=== PATIENT | male | born 1945 | race Caucasian/White ===

== ENCOUNTER → 2016-03-22 | Outpatient (CLI) | payer MEDICARE, OTHER | LOC: RAD 09:25 | PROVIDERS: ATTEND Specialist | DX: C01 Malignant neoplasm of base of tongue (principal) | CPT/HCPCS: 70491 ==

== ENCOUNTER → 2016-06-30 | Outpatient (CLI) | payer MEDICARE, OTHER | LOC: RAD 09:05 | PROVIDERS: ATTEND Specialist | DX: C01 Malignant neoplasm of base of tongue (principal); R22.1 Localized swelling, mass and lump, neck | CPT/HCPCS: 70491 ==

== ENCOUNTER → 2016-07-06 | Outpatient (CLI) | payer MEDICARE, OTHER ==
--- NOTE | 2016-07-06 08:53 | ST Modified Barium Swallow ---
Recommendation - Recommendations Recommendations: 1) Pt is at risk of aspiration on all PO intake. Recommend continued primary nutrition from PEG tube. Pt may wish to complete PO pleasure feeds, likely safest diet puree and thin-no straws, however pt likely to aspirate after the swallow due to residuals in the valleculae. 2) Pt reports difficulty taking medications-ST recommends consider taking medication through PEG tube if able. 3) Aspiration precautions with any PO intake- fully upright, small bites and sips. 4) Alternate bites and sips and chin tuck with all consistencies. 5) Recommend outpatient speech therapy targeting pharyngeal strengthening. SUMMARY: Pt presents with a moderate-severe oral and oropharyngeal dysphagia characterized by decreased laryngeal elevation, reduced base of tongue, reduced hyolaryngeal elevation, impaired epiglottic inversion resulting in moderate residuals in valleculae and aspiration of thin by straw during the swallow. Weak throat clear observed during aspiration event. Pt endorses globus senstion with residuals in valleculae. Due to residuals in valleculae pt is at risk of aspiration after the swallow on all consistencies. Medical Diagnoses - Medical Diagnoses Medical Diagnosis Description & ICD-10 Code(s): Tongue CA C01, localized swelling, mass, lump-neck R22.1,dysphagia R13.10 Other Medical Diagnoses/Co-Morbidities: tongue CA, s/p chemo and radiation - ICD-10 Tx Diagnosis Coding (1) Dysphagia, oral phase ICD-10 Code(s): R13.11 - DYSPHAGIA, ORAL PHASE (2) Dysphagia, oropharyngeal phase ICD-10 Code(s): R13.12 - DYSPHAGIA, OROPHARYNGEAL PHASE (3) Dysphagia, pharyngeal phase ICD-10 Code(s): R13.13 - DYSPHAGIA, PHARYNGEAL PHASE ST Modified Barium Swallow - General Date: 07/06/16 Referring Physician: Dr Any Sheldon Risks/Precautions: None Date of Onset: 07/07/15 Reason for Referral: dysphagia, tongue CA - History History obtained from: Patient -: Medical - Pt reports s/p chemo and radiation in June 2015 due to tongue CA. Pt reports is reportedly currently CA free, however notes new mass on left side of jaw with associated pain and numbness. Pt reports swallowing deficits began after radiation. Pt currently has PEG tube placed for primary source of nutrition, reports was placed prior to chemo and radiation. Pt notes difficulty swallowing medication, dry mouth, globus sensation in upper neck, occasional cough with solids, reported no difficulty with thinliquids, and "saliva is too thick" and difficult to swallow solid foods. Pt reports most recent PNA was approximately 10 years ago, denies history of bronchitis and denies choking sensation. Pt reports currently only eating "soft foods" which appears consistent with pureed solids. Pt reports eating pudding, mashed potatoes, and mashed cooked vegetables. Pt reports recent CAT scan and has not recieved results, does report previous CAT scan showed CA free. Medications: baby aspirin, oxycodone, robitussin. Pt reports unable to name all medications. Allergies: none reported - Functional Status Prior Functional Status: INDEPENDENT: feeding Current Functional Limitations: feeding - Subjective Patient/caregiver goal(s): safe swallow, r/o aspiration Cognitive-Linguistic Function: WNL Speech Intelligibility: Mildly dysarthric, Reduced intelligibility Current Nutritional Means: PEG - primary source nutrition/hydration, PO - puree and thin Current PO diet: Pureed Current symptoms: Coughing, c/o Globus sensation Pain: 2/5 - left sided jaw pain - Objective Assessment: Upright, Left Lateral - Food Trials Used Food trials used: Thin liquids, Golden thick liquids, Pureed, Soft solids The patient: Was Able to Self Feed, via cup, via spoon, via straw - Oral-Motor Skills Dentition: Edentulous - reports does not wear dentures due to no longer fit in mouth Velo-pharyngeal function: Unremarkable Laryngeal Function: Throat Clear, Volitional Swallow, Weak Cough - Assessment Oral prep: Moderately Impaired - impaired propulsion, impaired bolus formation, impaired ROM Labial closure: Reduce closure Leakage: Anterior Mastication: Effortful Lingual Movement: Weak Oral stage: Moderately Impaired - Pharyngeal Stage Initiation of Pharyngeal Stage Reflex: Normal Decreased laryngeal elevation: Yes Reduced Velopharyngeal Closure: no Reduced pressure generation: Yes reduced tongue-based retraction: Yes Pre-swallow pooling in valleculae: None Pre-Swallow pooling in pyriforms: None Reduced Thyro-Hyoid approximation: Yes Reduced epiglottic excursion: Yes Reduced pharyngeal peristalsis/contraction: Yes Multiple Swallows with: Ineffective Clearance Post-swallow residulas vallecular: Moderate Post-Swallow residuals in pyriforms: Mild - trace - Fall Risk Assessment Medications/Conditions that increase fall risks include: Antidepressants, sedatives, anti-arrhythmic, diuretic, benzodiazipenes, neuroleptics. BP regulation problems, cardiac problems, balance or gait deficits, neurological problems. Is patient considered at risk for falls: no Fall Risk Actions Taken: No action needed - Behavioral Observations During evaluation process patient: was pleasant, was cooperative, able to answer questions, provided medical history - Treatment / Educational Needs: Treatment/Education Needs: Treatment consisted of patient education on the role of the Speech Pathologist. Patient's plan of care and golas were communicated as well as scheduling and attendance policies. Recommendations for initial home program were shared. Patient demonstrated understanding and verbalized agreement. - Impression/Summary Laryngeal Penetration: Yes, Flash Consistency: Thin Tracheal Aspiration: yes, deep, during swallow - observed throat clear Effective compensatory strategies: chin tuck - only partial clearance observed with chin tuck during swallow, chin tuck observed to reduce pentration. Ineffective compensatory strategies: head turn-right, head turn-left, hard swallow - pt reports can not swallow hard Patient presents with: Oral stage dysphagia, Pharyngeal stage dysph., Oral- Pharyngeal dysph. Risk of Aspiration: Severe - moderate-severe - Recommendations Strict aspiration precautions: Yes Pt/Family education and followup with MD: Yes Dysphagia therapy with EVENT OPERATIONS MANAGER: yes, dysphagia therapy Recommended techniques: Fully Upright During Meal, Small Bites and Sips, Alternate Bites/Sips, Chin Tuck to Swallow - all consistencies Supervision: Distant Information, Precautions and Recommendations: Patient (Written), Patient (Verbal ) - Time Total Time: 30 - Plan of Care Strategies to optimize patient understanding include:: ongoing assessment of educational needs, implementation of educational strategies, and re-education. - - -: Thank you for the opportunity to work with this patient and his/her family. Should you have any questions about this patient's plan or progress, I can be reached at [phone]. Charge G Code? - - -: Yes ST F.L. Impairment Category - Rationale Based On Rationale Based On: Clin Find., Obj Measures - Swallowing Current G8996: CM 80-99% Impaired Goal G8997: CM 80-99% Impaired Discharge G8998: CM 80-99% Impaired
== END ==
LOC: RAD 07:36
PROVIDERS: ATTEND Specialist
DX: C01 Malignant neoplasm of base of tongue (principal); R22.1 Localized swelling, mass and lump, neck; R13.10 Dysphagia, unspecified
CPT/HCPCS: 74230; 92611; G8996; G8997; G8998

== ENCOUNTER → 2016-08-06 | Outpatient (CLI) | payer MEDICARE, OTHER ==
--- NOTE | 2016-08-06 15:35 | RADIOLOGY REPORT (SQ) ---
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 All images stored on PACS. CONTRAST TYPE AND DOSE: 14 mL Prohance. RENAL FUNCTION: GFR > 60. LIMITATIONS: None. FINDINGS: SKULL BASE: Intact. Inferior brain parenchyma in the field of view is unremarkable. MAJOR SALIVARY GLANDS: No solid or cystic masses. No inflammatory changes. LYMPHADENOPATHY: No adenopathy. MUCOSAL MASSES OR ASYMMETRY: Tongue base mass is not identified. There is some fatty infiltration of the leftward half of the tongue unchanged from previous exams. LARYNX/CORDS: No abnormal findings. VASCULAR STRUCTURES: The major vessels are patent. LUNG APICES: Not well seen BONES: Multilevel degenerative disc changes in the cervical spine with multilevel facet arthropathy l eft greater than right and at least moderate left C4-5 through C6-7 foraminal narrowing. Posterior d isc herniation at C5-6, mild posterior disc bulge and bony spur at C6-7. THYROID: Diffuse atrophy. PARANASAL SINUSES: Clear. OTHER: No other significant finding. IMPRESSION: No MR evidence of recurrent left tongue base tumor or malignant adenopathy in the neck TECHNICAL DOCUMENTATION: JOB ID: [id number]- All Rights Reserved
== END ==
LOC: RAD 10:34
PROVIDERS: ATTEND Specialist
DX: C01 Malignant neoplasm of base of tongue (principal)
CPT/HCPCS: 70543; A9576

== ENCOUNTER 2017-03-01 14:47 | Day surgery (SDC) | payer MEDICARE, OTHER ==
--- NOTE | 2017-03-01 15:42 | Operative Report ---
Operative Report DATE OF SURGERY: 03/01/17 Operative Report: Pre-op diagnosis: Feeding difficulty and malfunctioning G-tube Post-op diagnosis: Feeding difficulty Surgery: G-tube replacement Medications: None Tissue removed: None Procedure: The old 20 Frisian gastrostomy tube was removed after the balloon was deflated. This was replaced with a 20 Frisian 4.5 cm low-profile tube. The balloon was inflated with 6 mm of fluid. There was good flow of gastric contents after the tube was replaced. He tolerated the procedure well Plan: Resume feeding OPERATION: .
== END 2017-03-01 15:25 | disposition home or self-care (01) ==
LOC: END 14:47
PROVIDERS: ATTEND Internal Medicine Gastroenterology
PROC: 0D20XUZ Change Feeding Device in Upper Intestinal Tract, External Approach (ICD-10-PCS; principal; 2017-03-01)
DX: K94.23 Gastrostomy malfunction (principal); R63.3 Feeding difficulties
CPT/HCPCS: 43760

== ENCOUNTER 2017-03-31 09:26 | Day surgery (SDC) | payer MEDICARE, OTHER ==
[2017-03-31] MEDS ORDERED: GLYCOPYRROLATE INJ 0.4 MG/2 ML VIAL ONE (10:35)
[2017-03-31] MEDS ORDERED: ONDANSETRON HCL INJ/PF 4 MG/2 ML SDV ONE (10:35)
[2017-03-31] MEDS ORDERED: NALOXONE HCL INJ/PF 0.4 MG/1 ML SDV ONE (10:36)
[2017-03-31] MEDS ORDERED: EPINEPHRINE INJ 1 MG/10 ML DISP.SYRIN ONE (10:37)
[2017-03-31] MEDS ORDERED: FLUMAZENIL INJ 0.5 MG/5 ML VIAL ONE (10:37)
[2017-03-31] MEDS ORDERED: GLUCAGON,HUMAN RECOMB 1 MG INJ ONE (10:37)
[2017-03-31] MEDS: MIDAZOLAM 2 MG/2 ML INJ ONE ×3 (10:40→11:10)
[2017-03-31] MEDS: FENTANYL CITRATE INJ/PF 100 MCG/2 ML AMPUL ONE ×2 (10:44→11:00)
--- NOTE | 2017-03-31 12:06 | Operative Report ---
Operative Report DATE OF SURGERY: 03/31/17 PREOPERATIVE DIAGNOSIS: 1. 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 2. Existing PEG tube. 3. Anemia with heme- positive stool POSTOPERATIVE DIAGNOSIS: 1. Same with no upper or lower endoscopic evidence of gastrointestinal bleeding. 2. Mild distal esophagitis. 3. Mild gastritis. 4. Descending colon polyp, sessile OPERATION: 1. Esophagogastroduodenoscopy. 2. Biopsy of gastric antrum for DANE and histologic analysis. 3. Total colonoscopy to cecum photodocumentation. 4 ascending colon polypectomy SURGEON: SAYRA LIAO ANESTHESIA: Moderate Sedation TISSUE REMOVED OR ALTERED: Biopsies COMPLICATIONS: None ESTIMATED BLOOD LOSS: Scan INTRAOPERATIVE FINDINGS: See below PROCEDURE: Patient was taken to the fifth floor preop area to the endoscopy suite was placed in semirecumbent position monitoring devices attached and appropriate level of sedation induced. Oral pharynx was anesthetized with topical lidocaine Surgical plan and surgical timeout conducted The flexible adult upper endoscope was advanced to the patient's oropharynx, down the esophagus through the stomach into the duodenum first and second portions. Patient tolerated procedure well. The duodenum was essentially unremarkable. Scope was brought back to the pylorus which was unremarkable. There is mild diffuse gastritis. Cold forceps biopsy obtained of the antrum and sent for DANE and histology. There was no evidence of bleeding, clot, tumor polyp or any evidence of gastrointestinal hemorrhage. Scope was retroflexed in the stomach. Small hiatal hernia only. Scope was brought back to the GE junction. There was mild clarity of the Z line. Mild esophagitis only. No biopsies were obtained. The scope was withdrawn to the esophagus which may have demonstrated early esophageal varix, but no dilatation, bleeding etc. Scope was withdrawn the patient's oropharynx. He was changed positions scope rotated and we proceeded with colonoscopy Rectal exam was performed. Posterior surface of prostate gland was enlarged. The surface posteriorly was smooth however. Her external hemorrhoids, collapsed. The flexible adult colonoscope was advanced to the anorectal canal all the way to cecum. Visualization of the appendiceal orifice was appreciated and photographed. This was a fairly well-prepped bowel. There was residual green flank and particulate stool which acquired a moderate amount of suctioning. In the ascending colon was a sessile polyp approximately 1 cm in diameter, very flat, photographed, biopsied in a piecemeal fashion. Bleeding was mild. Specimen sent as a sending colon polyp.. The remainder of the colonoscopy was unremarkable. Again we suctioned a fair amount of liquid and particulate stool. Anorectal canal is grossly unremarkable except for some dilated venous plexus. No vision from the patient' s anus. He tolerated procedure well. Per surveillance guidelines, patient be appropriate candidate for follow-up colonoscopy within 3 years, possibly sooner pending the results of the path of the polypectomy specimen. Of note, today, there was no endoscopic evidence of pathology to explain anemia or heme positive stools.
--- NOTE | 2017-03-31 12:08 | PDOC DISCHARGE SUMMARY ---
Discharge Summary (SDC) - Discharge Final Diagnosis: 1. History of squamous cell carcinoma of the tongue. 2. History of PEG tube placement 3. Mild gastritis and esophagitis; right colon polyp. Status post upper and lower endoscopy Date of Surgery: 03/31/17 Discharge Date: 03/31/17 Condition: Good Treatment or Instructions: [address] [id number] POST ENDOSCOPY DISCHARGE INSTRUCTIONS 1. Diet: Start clear liquids that a regular diet as tolerated. 2. Resume all preoperative medications. All oral anticoagulants and aspirins can be resumed 24 hours after procedure. 3. If a polypectomy was performed some bleeding per rectum may occur. This should stop within 3 days. If not, please contact the office. 4. If you had a colonoscopy you may experience some bloating and delayed return of normal bowel function for several days, your regular bowel movement pattern should resume within a week. 5. Please contact [facility] at to make an appointment with Dr. Jackson for 1 to 3 weeks following procedure. 6. If you have any questions or concerns regarding your care,treatment plan or follow up, please contact our office. 7. Per clinical guidelines we recommend you undergo a repeat colonoscopy in 3 years, or sooner pending pending results of ascending colon polyp pathology Discharge Diet: As Tolerated Discharge Activity: Activity As Tolerated Home Care Assistance: None Needed Report the Following to Your Physician Immediately: Shortness of Breath, Increase in Pain, Fever over 101 Degrees
[2017-03-31 13:03] VITALS: BP 118/72
== END 2017-03-31 13:05 | disposition home or self-care (01) ==
LOC: END 09:26
PROVIDERS: ATTEND Surgery
PROC: 0DB68ZX Excision of Stomach, Via Natural or Artificial Opening Endoscopic, Diagnostic (ICD-10-PCS; principal; 2017-03-31 11:45)
PROC: 0DBK8ZX Excision of Ascending Colon, Via Natural or Artificial Opening Endoscopic, Diagnostic (ICD-10-PCS; 2017-03-31 11:45)
DX: D12.4 Benign neoplasm of descending colon (principal); K29.80 Duodenitis without bleeding; K20.9 Esophagitis, unspecified; K29.70 Gastritis, unspecified, without bleeding; D64.9 Anemia, unspecified; K62.5 Hemorrhage of anus and rectum; Z85.810 Personal history of malignant neoplasm of tongue; Z93.1 Gastrostomy status; J44.9 Chronic obstructive pulmonary disease, unspecified; F17.210 Nicotine dependence, cigarettes, uncomplicated; Z79.82 Long term (current) use of aspirin
CPT/HCPCS: 43239; 45380; 88305 ×2; J2250; J0171; J3010; J1610; J2310; J2405; J3490

== ENCOUNTER 2018-07-13 15:37 | Inpatient (IN) | payer MEDICARE, OTHER ==
--- NOTE | 2018-07-13 15:56 | ER Document Report ---
ED Medical Screen (RME) - General Chief Complaint: Shortness Of Breath Stated Complaint: ABDOMINAL PAIN Time Seen by Provider: 07/13/18 15:45 TRAVEL OUTSIDE OF THE [place] IN LAST 30 DAYS: No - HPI Notes: 07/13/18 16:04 Patient is a 72-year-old male with a history of head and neck cancer currently in remission, for vascular disease, COPD who presents the emergency department from outpatient radiology for abnormal finding on chest x-ray. Patient states that he has been having shortness of breath for the past 3 to 4 days. Denies PATRICIA, fever, neck pain, URI, Abd pain, or rash. I have treated and performed a rapid initial assessment of this patient. A comprehensive ED assessment and evaluation of the patient, analysis of test results and completion of medical decision making process will be conducted by additional ED providers. I did speak with Dr. Shane, radiology, who would like a chest CT with IV to further evaluate, ?pneumonia/cancer, etc. PHYSICAL EXAMINATION: GENERAL: Well-appearing, well-nourished and in no acute distress. A&Ox4. Answers questions appropriately. LUNGS: diminished rt lung HEART: Regular rate and rhythm without murmurs, rubs, gallops. Extremities: No cyanosis, clubbing, or edema b/l. NEUROLOGICAL: Normal speech, normal gait. PSYCH: Normal mood, normal affect. - Related Data Allergies/Adverse Reactions: No Known Allergies Allergy (Verified 07/13/18 15:40) Past Medical History - Social History Chew tobacco use (# tins/day): No Frequency of alcohol use: None Drug Abuse: None - Past Medical History Cardiac Medical History: Denies: Hx Coronary Artery Disease, Hx Heart Attack, Hx Hypertension Pulmonary Medical History: Reports: Hx COPD, Hx Pneumonia - hx of Denies: Hx Asthma, Hx Bronchitis Neurological Medical History: Denies: Hx Cerebrovascular Accident, Hx Seizures Renal/ Medical History: Denies: Hx Peritoneal Dialysis GI Medical History: Denies: Hx Hepatitis, Hx Hiatal Hernia, Hx Ulcer Musculoskeltal Medical History: Reports Hx Arthritis Infectious Medical History: Denies: Hx Hepatitis Past Surgical History: Reports: Hx Vascular Surgery - stent. Denies: Hx Open Heart Surgery, Hx Pacemaker - Immunizations Hx Diphtheria, Pertussis, Tetanus Vaccination: No Influenza Administration Date for 12/2016 - 05/2017 Season: 12/13/16 Physical Exam - Vital signs Vitals: Temp Pulse Resp BP Pulse Ox 97.9 F 104 H 20 142/80 H 96 07/13/18 15:42 07/13/18 15:42 07/13/18 15:42 07/13/18 15:42 07/13/18 15:42 Course - Vital Signs Vital signs: Temp Pulse Resp BP Pulse Ox 97.9 F 104 H 20 142/80 H 96 07/13/18 15:42 07/13/18 15:42 07/13/18 15:42 07/13/18 15:42 07/13/18 15:42
[2018-07-13 16:58] LABS: VENOUS BLOOD HCO3 27.4 mmol/L (20-32); VENOUS BLOOD PCO2 45.2 mmHg (35-63); VENOUS BLOOD PH 7.4 (7.30-7.42)
[2018-07-13 17:02] LABS: HEMATOCRIT 43.3 % (37.9-51.0); HEMOGLOBIN 14.2 g/dL (13.5-17.0); INTERNATIONAL RATION (INR) 0.94; MEAN CORPUSCULAR HGB CONC 32.9 g/dL (32.0-36.0); MEAN CORPUSCULAR VOLUME 88 fl (80-97); PLATELET COUNT 388 10^3/uL (150-450); PROTHROMBIN TIME 13.1 SEC (11.4-15.4); RED BLOOD COUNT 4.92 10^6/uL (4.35-5.55); RED CELL DISTRIBUTION WIDTH 14.2 % (11.5-14.0)
[2018-07-13 17:03] LABS: PARTIAL THROMBOPLASTIN TIME 36.2 SEC (23.5-35.8)
[2018-07-13 17:08] LABS: APPEARANCE,URINE CLEAR; BILIRUBIN,URINE NEGATIVE (NEGATIVE); COLOR,URINE YELLOW; GLUCOSE, URINE NEGATIVE (NEGATIVE); KETONES,URINE NEGATIVE (NEGATIVE); LEUKOCYTE ESTERASE,URINE NEGATIVE (NEGATIVE); NITRITE,URINE NEGATIVE (NEGATIVE); PROTEIN,URINE NEGATIVE (NEGATIVE); URINE SPECIFIC GRAVITY 1.013; UROBILINOGEN,URINE NEGATIVE mg/dL (<2.0)
[2018-07-13 17:17] LABS: ALANINE AMINOTRANSFERASE 18 U/L (21-72); ALBUMIN 4.3 g/dL (3.5-5.0); ALKALINE PHOSPHATASE 100 U/L (38-126); ANION GAP 14 (5-19); ASPARTATE AMINO TRANSFERASE 23 U/L (17-59); BILIRUBIN,DIRECT 0.3 mg/dL (0.0-0.4); BILIRUBIN,TOTAL 0.5 mg/dL (0.2-1.3); BLOOD UREA NITROGEN 18 mg/dL (7-20); CALCIUM 10.4 mg/dL (8.4-10.2); CARBON DIOXIDE 23 mmol/L (22-30); CHLORIDE 104 mmol/L (98-107); GLUCOSE 126 mg/dL (75-110); POTASSIUM 4.8 mmol/L (3.6-5.0); SODIUM 141.2 mmol/L (137-145); TOTAL PROTEIN 7.7 g/dL (6.3-8.2)
[2018-07-13 17:19] LABS: ABSOLUTE LYMPHOCYTES# (MANUAL) 0.6 10^3/uL (0.5-4.7); ABSOLUTE MONOCYTES # (MANUAL) 0.5 10^3/uL (0.1-1.4); BASOPHILS % (MANUAL) 0 % (0-2); EOSINOPHILS % (MANUAL) 0 % (0-6); LYMPHOCYTES % (MANUAL) 4 % (13-45); MONOCYTES % (MANUAL) 3 % (3-13); SEGMENTED NEUTROPHILS % (MAN) 93 % (42-78); TOTAL CELLS COUNTED 100
[2018-07-13 17:21] LABS: ANISOCYTOSIS SLIGHT; PLATELET COMMENT ADEQUATE; TOXIC GRANULATION SLIGHT
--- NOTE | 2018-07-13 18:18 | RADIOLOGY REPORT (SQ) ---
EXAM DESCRIPTION: CT CHEST WITH COMPLETED DATE/TIME: 07/13/2018 6:02 pm REASON FOR STUDY: EVAL RT LUNG, H/O HEAD/NECK CA, C/O SOB COMPARISON: None. TECHNIQUE: CT scan of the chest performed using helical scanning technique with dynamic intravenous contrast injection. Images reviewed with lung, soft tissue and bone windows. Reconstructed coronal and sagittal MPR and MIP images reviewed. All images stored on PACS. All CT scanners at this facility use dose modulation, iterative reconstruction, and/or weight based d osing when appropriate to reduce radiation dose to as low as reasonably achievable (ALARA). [facility]: Dose Right [facility]: CareDose [facility]: Dose Right [facility]: Teradose 4D [facility]: Treatful CONTRAST TYPE AND DOSE: contrast/concentration: Isovue 350.00 mg/ml; Total Contrast Delivered: 80.0 ml; Total Saline Delivered: 44.0 ml RENAL FUNCTION: BUN 18 creatinine 0.58 RADIATION DOSE: CT Rad equipment meets quality standard of care and radiation dose reduction techniq ues were employed. CTDIvol: 6.5 mGy. DLP: 309 mGy-cm. . LIMITATIONS: None. FINDINGS: LUNGS AND PLEURA: Moderate loculated pleural effusion on the right. Cannot exclude an emp yema. 2 subpleural nodules of about 1 cm size are present on images 32-34. Centrilobular emphysemat ous changes are present. Dense opacification in the right lower lobe. There are some air bronchogra ms. HILAR AND MEDIASTINAL STRUCTURES: A pretracheal node has a short axis diameter of 19.5 mm. HEART AND VASCULAR STRUCTURES: No aneurysm or dissection. No central pulmonary emboli. No pericardi al effusion. HARDWARE: None in the chest. UPPER ABDOMEN: No significant findings. Limited exam. THYROID AND OTHER SOFT TISSUES: No masses. No adenopathy. BONES: No significant finding. OTHER: No other significant finding. IMPRESSION: 1. Loculated right pleural effusion. Possible empyema. Dense airspace disease in the right lower lobe, atelectasis versus pneumonia. 2. Centrilobular emphysema. 3. 2 subpleural nodules are seen in the right lung, cannot exclude metastases. 4. Limited mediastinal adenopathy. TECHNICAL DOCUMENTATION: JOB ID: [id number] Quality ID # [id number]: Final reports with documentation of one or more dose reduction techniques (e.g., Au tomated exposure control, adjustment of the mA and/or kV according to patient size, use of iterative reconstruction technique) 2010 [employer]- All Rights Reserved Reading location - IP/workstation name: [email or web address]
[2018-07-13] MEDS ORDERED: CEFTRIAXONE INJ 1000 MG VIAL IV ONE (18:31)
[2018-07-13] MEDS ORDERED: AZITHROMYCIN INJ 500 MG VIAL IV ONE (18:32)
--- NOTE | 2018-07-13 19:09 | ER Document Report ---
ED General - General Chief Complaint: Shortness Of Breath Stated Complaint: ABDOMINAL PAIN Time Seen by Provider: 07/13/18 15:45 TRAVEL OUTSIDE OF THE [place] IN LAST 30 DAYS: No - HPI Notes: Patient is a 72-year-old male that presents to the emergency department for chief complaint of shortness of breath and cough. Patient reports increased shortness of breath and cough over the last 3 to 4 days. He saw his primary care provider yesterday who started him on an antibiotic which he does not know the name of. They ordered an outpatient x-ray which he had done today and was told to come to the emergency room for CT scan of the chest. Patient reports associated chills and shortness of breath with his cough. Shortness of breath is worse with any kind of exertion. He denies any known fevers. 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 He does report history of COPD and believes he was started on prednisone yesterday. He has been using his breathing treatments at home as directed. He denies any associated chest pain, nausea/vomiting, abdominal pain, headaches and numbness/weakness Past Medical History: Salivary gland cancer, peripheral vascular disease, COPD Past Surgical History: Reviewed in chart Social History: Reviewed in chart Family History: Reviewed and noncontributory for presenting illness Allergies: Reviewed, see documented allergy list. REVIEW OF SYSTEMS: CONSTITUTIONAL : No fever chills No diaphoresis No recent illness EENT: No vision changes congestion No sore throat CARDIOVASCULAR: No chest pain No palpitations RESPIRATORY: shortness of breath cough No difficulty breathing GASTROINTESTINAL: No abdominal pain No nausea No vomiting No diarrhea GENITOURINARY: No dysuria No hematuria No difficulty urinating MUSCULOSKELETAL: No back pain No leg pain No arm pain SKIN: No rashes No lesions LYMPHATIC: No swollen, enlarged glands. NEUROLOGICAL: No lightheadedness No headache No weakness No paresthesias PSYCHIATRIC: No anxiety No depression PHYSICAL EXAMINATION: Vital signs reviewed, nursing noted reviewed. GENERAL: Well-appearing, well-nourished and in no acute distress. HEAD: Atraumatic, normocephalic. EYES: Eyes appear normal, extraocular movements intact, sclera anicteric, conjunctiva are normal. ENT: nares patent, oropharynx clear without exudates. Moist mucous membranes. NECK: Normal range of motion, supple without lymphadenopathy LUNGS: Breath sounds diminished in the right basilar region. No wheezing, rhonchi or rails, no accessory muscle use or respiratory distress HEART: Tachycardic rate and regular rhythm without murmurs ABDOMEN: Soft, nontender, normoactive bowel sounds. No rebound, guarding, or rigidity. No masses appreciated. EXTREMITIES: Nontender, good range of motion, no pitting or edema. NEUROLOGICAL: No focal neurological deficits. Moves all extremities spontaneously Motor and sensory grossly intact on exam. PSYCH: Normal mood, normal affect. SKIN: Warm, Dry, normal turgor, no rashes or lesions noted on exposed skin - Related Data Allergies/Adverse Reactions: No Known Allergies Allergy (Verified 07/13/18 15:40) Past Medical History - Social History Smoking Status: Former Smoker Chew tobacco use (# tins/day): No Frequency of alcohol use: None Drug Abuse: None Family History: Reviewed & Not Pertinent Patient has suicidal ideation: No Patient has homicidal ideation: No - Past Medical History Cardiac Medical History: Denies: Hx Coronary Artery Disease, Hx Heart Attack, Hx Hypertension Pulmonary Medical History: Reports: Hx COPD, Hx Pneumonia - hx of Denies: Hx Asthma, Hx Bronchitis Neurological Medical History: Denies: Hx Cerebrovascular Accident, Hx Seizures Renal/ Medical History: Denies: Hx Peritoneal Dialysis GI Medical History: Denies: Hx Hepatitis, Hx Hiatal Hernia, Hx Ulcer Musculoskeletal Medical History: Reports Hx Arthritis Infectious Medical History: Denies: Hx Hepatitis Past Surgical History: Reports: Hx Vascular Surgery - stent. Denies: Hx Open Heart Surgery, Hx Pacemaker - Immunizations Hx Diphtheria, Pertussis, Tetanus Vaccination: No Hx Pneumococcal Vaccination: 03/14/13 Physical Exam - Vital signs Vitals: Temp Pulse Resp BP Pulse Ox 97.9 F 104 H 20 142/80 H 96 07/13/18 15:42 07/13/18 15:42 07/13/18 15:42 07/13/18 15:42 07/13/18 15:42 Course - Re-evaluation Re-evalutation: 07/13/18 19:07 Vitals reviewed. Nursing notes reviewed. Patient's oxygen saturation at presentation was good but during my conversation with him he did drop to 89% on room air. Patient was placed on 2 L nasal cannula oxygen. CT scan of the chest was obtained in the emergency room today which shows a likely right basilar pneumonia with surrounding empyema. There are also concerning lesions for metastasis. Patient's blood work does show elevated WBC count with no lactic acidosis. He is meeting sepsis criteria and was started on IV antibiotics. Blood cultures have been obtained. Patient given IV fluids. He will be admitted to the hospital for IV antibiotics and further monitoring. Patient is in agreement with this plan of care. Laboratory 07/13/18 07/13/18 07/13/18 16:15 16:15 16:15 WBC 15.0 H RBC 4.92 Hgb 14.2 Hct 43.3 MCV 88 MCH 29.0 MCHC 32.9 RDW 14.2 H Plt Count 388 Total Counted 100 Seg Neutrophils % Not Reportable Seg Neuts % (Manual) 93 H Lymphocytes % Not Reportable Lymphocytes % (Manual) 4 L Monocytes % Not Reportable Monocytes % (Manual) 3 Eosinophils % Not Reportable Eosinophils % (Manual) 0 Basophils % Not Reportable Basophils % (Manual) 0 Absolute Neutrophils Not Reportable Abs Neuts (Manual) 14.0 H Absolute Lymphocytes Not Reportable Abs Lymphs (Manual) 0.6 Absolute Monocytes Not Reportable Abs Monocytes (Manual) 0.5 Absolute Eosinophils Not Reportable Absolute Eos (Manual) 0.0 Absolute Basophils Not Reportable Abs Basophils (Manual) 0.0 Toxic Granulation SLIGHT Platelet Comment ADEQUATE Anisocytosis SLIGHT PT INR APTT VBG pH VBG pCO2 VBG HCO3 VBG Base Excess Sodium 141.2 Potassium 4.8 Chloride 104 Carbon Dioxide 23 Anion Gap 14 BUN 18 Creatinine 0.58 Est GFR ( Amer) > 60 Est GFR (Non-Af Amer) > 60 Glucose 126 H Lactic Acid Calcium 10.4 H Total Bilirubin 0.5 Direct Bilirubin 0.3 Neonat Total Bilirubin Not Reportable Neonat Direct Bilirubin Not Reportable Neonat Indirect Bili Not Reportable AST 23 ALT 18 L Alkaline Phosphatase 100 NT-Pro-B Natriuret Pep 347 Total Protein 7.7 Albumin 4.3 Urine Color Urine Appearance Urine pH Ur Specific [place] Urine Protein Urine Glucose (UA) Urine Ketones Urine Blood Urine Nitrite Urine Bilirubin Urine Urobilinogen Ur Leukocyte Esterase Urine WBC (Auto) Urine RBC (Auto) Urine Bacteria (Auto) Squamous Epi Cells Auto Urine Mucus (Auto) Urine Ascorbic Acid 07/13/18 07/13/18 07/13/18 16:15 16:15 16:15 WBC RBC Hgb Hct MCV MCH MCHC RDW Plt Count Total Counted Seg Neutrophils % Seg Neuts % (Manual) Lymphocytes % Lymphocytes % (Manual) Monocytes % Monocytes % (Manual) Eosinophils % Eosinophils % (Manual) Basophils % Basophils % (Manual) Absolute Neutrophils Abs Neuts (Manual) Absolute Lymphocytes Abs Lymphs (Manual) Absolute Monocytes Abs Monocytes (Manual) Absolute Eosinophils Absolute Eos (Manual) Absolute Basophils Abs Basophils (Manual) Toxic Granulation Platelet Comment Anisocytosis PT 13.1 INR 0.94 APTT 36.2 H VBG pH 7.40 VBG pCO2 45.2 VBG HCO3 27.4 VBG Base Excess 2.0 Sodium Potassium Chloride Carbon Dioxide Anion Gap BUN Creatinine Est GFR ( Amer) Est GFR (Non-Af Amer) Glucose Lactic Acid 1.8 Calcium Total Bilirubin Direct Bilirubin Neonat Total Bilirubin Neonat Direct Bilirubin Neonat Indirect Bili AST ALT Alkaline Phosphatase NT-Pro-B Natriuret Pep Total Protein Albumin Urine Color Urine Appearance Urine pH Ur Specific [place] Urine Protein Urine Glucose (UA) Urine Ketones Urine Blood Urine Nitrite Urine Bilirubin Urine Urobilinogen Ur Leukocyte Esterase Urine WBC (Auto) Urine RBC (Auto) Urine Bacteria (Auto) Squamous Epi Cells Auto Urine Mucus (Auto) Urine Ascorbic Acid 07/13/18 16:15 WBC RBC Hgb Hct MCV MCH MCHC RDW Plt Count Total Counted Seg Neutrophils % Seg Neuts % (Manual) Lymphocytes % Lymphocytes % (Manual) Monocytes % Monocytes % (Manual) Eosinophils % Eosinophils % (Manual) Basophils % Basophils % (Manual) Absolute Neutrophils Abs Neuts (Manual) Absolute Lymphocytes Abs Lymphs (Manual) Absolute Monocytes Abs Monocytes (Manual) Absolute Eosinophils Absolute Eos (Manual) Absolute Basophils Abs Basophils (Manual) Toxic Granulation Platelet Comment Anisocytosis PT INR APTT VBG pH VBG pCO2 VBG HCO3 VBG Base Excess Sodium Potassium Chloride Carbon Dioxide Anion Gap BUN Creatinine Est GFR ( Amer) Est GFR (Non-Af Amer) Glucose Lactic Acid Calcium Total Bilirubin Direct Bilirubin Neonat Total Bilirubin Neonat Direct Bilirubin Neonat Indirect Bili AST ALT Alkaline Phosphatase NT-Pro-B Natriuret Pep Total Protein Albumin Urine Color YELLOW Urine Appearance CLEAR Urine pH 8.0 Ur Specific [place] 1.013 Urine Protein NEGATIVE Urine Glucose (UA) NEGATIVE Urine Ketones NEGATIVE Urine Blood NEGATIVE Urine Nitrite NEGATIVE Urine Bilirubin NEGATIVE Urine Urobilinogen NEGATIVE Ur Leukocyte Esterase NEGATIVE Urine WBC (Auto) 1 Urine RBC (Auto) 1 Urine Bacteria (Auto) TRACE Squamous Epi Cells Auto <1 Urine Mucus (Auto) RARE Urine Ascorbic Acid 20 H 07/13/18 19:55 Patient's care discussed with Dr. Merritt who has accepted admission to a medical bed. - Vital Signs Vital signs: Temp Pulse Resp BP Pulse Ox 97.8 F 104 H 27 H 126/82 H 91 L 07/13/18 19:01 07/13/18 15:42 07/13/18 19:01 07/13/18 19:01 07/13/18 19:01 - Laboratory Result Diagrams: 07/13/18 16:15 07/13/18 16:15 Laboratory results interpreted by me: 07/13/18 07/13/18 07/13/18 16:15 16:15 16:15 WBC 15.0 H RDW 14.2 H Seg Neuts % (Manual) 93 H Lymphocytes % (Manual) 4 L Abs Neuts (Manual) 14.0 H APTT 36.2 H Glucose 126 H Calcium 10.4 H ALT 18 L Urine Ascorbic Acid 07/13/18 16:15 WBC RDW Seg Neuts % (Manual) Lymphocytes % (Manual) Abs Neuts (Manual) APTT Glucose Calcium ALT Urine Ascorbic Acid 20 H Discharge - Discharge Clinical Impression: Pleural effusion, right, Hypoxia, Lung mass Community acquired pneumonia Qualifiers: Laterality: right Lung location: lower lobe of lung Qualified Code(s): J18.1 - Lobar pneumonia, unspecified organism Condition: Stable Disposition: ADMITTED INPATIENT Admitting Provider: Shaina (Hospitalist) Unit Admitted: Medical Floor
[2018-07-13] MEDS ORDERED: RINGERS SOLUTION,LACTATED 1,000 ML IV ONE (19:14)
[2018-07-13] MEDS ORDERED: MAGNESIUM HYDROXIDE SUSP 30 ML UDCUP PO PRN (20:54)
[2018-07-13] MEDS ORDERED: TEMAZEPAM 15 MG CAPSULE PO PRN (20:54)
[2018-07-13] MEDS ORDERED: ONDANSETRON HCL INJ/PF 4 MG/2 ML SDV IV PRN (20:54)
[2018-07-13] MEDS ORDERED: MAG HYDROX/AL HYDROX/SIMETH SUSP 30 ML UDCUP PO PRN (20:54)
[2018-07-13] MEDS ORDERED: ACETAMINOPHEN 325 MG TABLET PO PRN (20:59)
[2018-07-13] MEDS ORDERED: NICOTINE 21 MG/24 HR PATCH.TD24 TD PRN (20:59)
[2018-07-13] MEDS ORDERED: MORPHINE SULFATE 10 MG/ML INJ IV PRN ×4 (20:59→21:30)
[2018-07-13] MEDS ORDERED: GABAPENTIN 300 MG CAPSULE PO SCH (22:00)
[2018-07-13] MEDS ORDERED: FAMOTIDINE 20 MG TABLET PO SCH (22:00)
[2018-07-13] MEDS: HEPARIN SOD (PORCINE) 5,000 UNIT/ML 1 ML SYRINGE SUBCUT SCH (23:00)
[2018-07-13] MEDS ORDERED: MAG HYDROX/AL HYDROX/SIMETH SUSP 30 ML UDCUP PEG PRN (23:10)
[2018-07-13] MEDS ORDERED: ACETAMINOPHEN 325 MG TABLET PEG PRN (23:10)
[2018-07-13] MEDS ORDERED: MAGNESIUM HYDROXIDE SUSP 30 ML UDCUP PEG PRN (23:10)
--- NOTE | 2018-07-13 23:24 | EKG REPORT ---
SEVERITY:- ABNORMAL ECG - SINUS RHYTHM CONSIDER ANTEROSEPTAL INFARCT : Confirmed by: Anuradha Fox 13-Jul-2018 23:22:57
--- NOTE | 2018-07-13 23:25 | PDOC H&P ---
History of Present Illness Admission Date/PCP: 07/13/18 20:11 JACKY CHOPRA MD Patient complains of: Dyspnea History of Present Illness: FELIPE PIERRE is a 72 year old male who presented to the emergency room with a 2-week history of dyspnea. He admits mildly increased dyspnea for the last 2 weeks with progressive worsening over the last 4 days. His dyspnea was at first present just with exertion but has continued to be worsened substantially by exertion and persisted at a moderate to severe level even at rest. He further admits that his dyspnea has been accompanied by subjective fever and chills and a nonproductive cough. He admits similar prior episodes secondary to his COPD. He has not identified any other aggravating or ameliorating factors for his current episode of dyspnea. He was seen by his primary care provider who started him on prednisone yesterday and he has been using home breathing treatments without significant improvement. He had a chest x-ray performed on outpatient basis earlier today which showed abnormalities and resulted in his receiving a CAT scan of his chest which showed possible metastatic lesions and a small loculated right pleural effusion in his chest as well as demonstrating a right lower lobe pneumonia. In the emergency room he was found to have hypoxic respiratory failure, an elevated white count and moderate tachypnea. Patient was subsequently admitted hospital for further evaluation and treatment. Past Medical History Cardiac Medical History: Reports: Peripheral Vascular Disease Denies: Coronary Artery Disease, Myocardial Infarction, Hypertension Pulmonary Medical History: Reports: Chronic Obstructive Pulmonary Disease (COPD), Pneumonia - hx of Denies: Asthma, Bronchitis EENT Medical History: Reports: Throat - Dysphagia since radiation, requiring PEG tube feedings, chronic dry mouth, Other - Salivary gland cancer Denies: Cataracts Neurological Medical History: Denies: Hemorrhagic CVA, Ischemic CVA, Seizures Endocrine Medical History: Denies: Diabetes Mellitus Type 1, Diabetes Mellitus Type 2, Hyperthyroidism, Hypothyroidism, Obesity Renal/ Medical History: Denies: Chronic Kidney Disease, Nephrolithiasis Malignancy Medical History: Reports: Other - Salivary gland cancer GI Medical History: Denies: Cirrhosis, Hepatitis, Hiatal Hernia Musculoskeltal Medical History: Reports: Arthritis Denies: Gout Skin Medical History: Denies: Eczema, Psoriasis Psychiatric Medical History: Reports: Tobacco Dependency Denies: Alcohol Dependency, Substance Abuse Traumatic Medical History: Reports: None Hematology: Denies: Anemia, Bleeding Tendencies Infectious Medical History: Reports: None Past Surgical History Past Surgical History: Reports: Vascular Surgery - Right ileal to left femoral graft and right femoral stent, Other - Endoscopy with placement of PEG tube Social History Information Source: Patient Lives with: Spouse/Significant other Smoking Status: Former Smoker Frequency of Alcohol Use: Rare Hx Recreational Drug Use: No Drugs: None Hx Prescription Drug Abuse: No - Advance Directive Resuscitation Status: Full Code Surrogate healthcare decision maker:: Sourav Pierre Family History Family History: CAD, COPD, DM, Hypertension, Malignancy Parental Family History Reviewed: Yes Children Family History Reviewed: No Sibling(s) Family History Reviewed.: Yes Medication/Allergy Home Medications: Gabapentin 300 mg PO Q12 03/29/17 Azithromycin [Zithromax Tri-[place]ber[place]] 500 mg PO DAILY MDD FILLED 07/12 FOR 3 DAY SUPPLY 07/13/18 Clopidogrel Bisulfate [Plavix 75 mg Tablet] 75 mg PO DAILY 07/13/18 Oxycodone HCl [Oxycodone HCl 10 MG Tablet] 10 mg PO Q6HP PRN 07/13/18 Pilocarpine HCl [Salagen] 5 mg PO TID 07/13/18 Prednisone [Deltasone 10 mg Tablet] 10 mg PO ASDIR PRN MDD FILLED 07/12 FOR 12 DAY SUPPLY 07/13/18 Triamcinolone Acetonide [Aristocort 0.025% Cream 15 gm] 1 applic TP DAILY MDD FACE 07/13/18 Allergies/Adverse Reactions: No Known Allergies Allergy (Verified 07/13/18 15:40) Review of Systems Constitutional: PRESENT: as per HPI, chills, fever(s) Eyes: ABSENT: visual disturbances, other - Ocular pain Ears: PRESENT: other - Ear pain. ABSENT: hearing changes Nose, Mouth, and Throat: ABSENT: mouth pain, sore throat Cardiovascular: PRESENT: as per HPI, dyspnea on exertion. ABSENT: chest pain, edema, orthropnea, palpitations Respiratory: PRESENT: as per HPI, cough - Nonproductive, dyspnea. ABSENT: sputum Gastrointestinal: ABSENT: abdominal pain, constipation, diarrhea, nausea, vomiting Genitourinary: ABSENT: dysuria, hematuria Musculoskeletal: ABSENT: back pain, joint swelling, muscle weakness Integumentary: ABSENT: pruritus, rash Neurological: ABSENT: confusion, convulsions, focal weakness, memory loss, syncope Psychiatric: ABSENT: anxiety, depression Endocrine: ABSENT: cold intolerance, heat intolerance Hematologic/Lymphatic: ABSENT: easy bleeding, easy bruising Physical Exam Vital Signs: Temp Pulse Resp BP Pulse Ox 97.8 F 104 H 27 H 126/82 H 91 L 07/13/18 19:01 07/13/18 15:42 07/13/18 19:01 07/13/18 19:01 07/13/18 19:01 Intake & Output 07/11/18 07/12/18 07/13/18 23:59 23:59 23:59 Weight 67.3 kg General appearance: PRESENT: cooperative, mild distress - With mild to moderate tachypnea, other - On O2 via nasal Head exam: PRESENT: atraumatic, normocephalic, other - Status post cervical radiation changes Eye exam: ABSENT: conjunctival injection, scleral icterus Ear exam: PRESENT: normal external ear exam. ABSENT: bleeding, drainage Mouth exam: PRESENT: dry mucosa, neck supple, other - Status post cervical radiation changes Neck exam: PRESENT: other - Status post cervical radiation changes. ABSENT: JVD, thyromegaly, tracheal deviation Respiratory exam: PRESENT: decreased breath sounds - Mildly decreased breath sounds throughout all moran consistent with mild to moderate COPD. Absent breath sounds in the right lower 1/2 of the chest., prolonged expiratory phas - Mildly prolonged expiratory phase, rhonchi - Right lower chest, symmetrical, tachypnea, wheezes - Mild expiratory wheezes noted. ABSENT: accessory muscle use, retraction Cardiovascular exam: PRESENT: RRR. ABSENT: clicks, gallop, rubs Pulses: PRESENT: normal radial pulses, normal dorsalis pedis pul Vascular exam: PRESENT: normal capillary refill. ABSENT: pallor GI/Abdominal exam: PRESENT: normal bowel sounds, soft Rectal exam: PRESENT: deferred Extremities exam: ABSENT: joint swelling, pedal edema Musculoskeletal exam: PRESENT: full ROM, normal inspection Neurological exam: PRESENT: alert, oriented to person, oriented to place, oriented to time, oriented to situation, CN II-XII grossly intact. ABSENT: motor sensory deficit Psychiatric exam: PRESENT: appropriate affect, normal mood Skin exam: PRESENT: dry, intact, warm. ABSENT: jaundice, rash, urticaria Results Laboratory Results: 07/13/18 16:15 07/13/18 16:15 07/13/18 07/13/18 07/13/18 16:15 16:15 16:15 WBC 15.0 H RBC 4.92 Hgb 14.2 Hct 43.3 MCV 88 MCH 29.0 MCHC 32.9 RDW 14.2 H Plt Count 388 Seg Neutrophils % Not Reportable Lymphocytes % Not Reportable Monocytes % Not Reportable Eosinophils % Not Reportable Basophils % Not Reportable Absolute Neutrophils Not Reportable Absolute Lymphocytes Not Reportable Absolute Monocytes Not Reportable Absolute Eosinophils Not Reportable Absolute Basophils Not Reportable VBG pH 7.40 VBG pCO2 45.2 VBG HCO3 27.4 VBG Base Excess 2.0 Sodium 141.2 Potassium 4.8 Chloride 104 Carbon Dioxide 23 Anion Gap 14 BUN 18 Creatinine 0.58 Est GFR ( Amer) > 60 Est GFR (Non-Af Amer) > 60 Glucose 126 H Lactic Acid Calcium 10.4 H Total Bilirubin 0.5 AST 23 ALT 18 L Alkaline Phosphatase 100 Total Protein 7.7 Albumin 4.3 Urine Color Urine Appearance Urine pH Ur Specific [place] Urine Protein Urine Glucose (UA) Urine Ketones Urine Blood Urine Nitrite Ur Leukocyte Esterase Urine WBC (Auto) Urine RBC (Auto) 07/13/18 07/13/18 16:15 16:15 WBC RBC Hgb Hct MCV MCH MCHC RDW Plt Count Seg Neutrophils % Lymphocytes % Monocytes % Eosinophils % Basophils % Absolute Neutrophils Absolute Lymphocytes Absolute Monocytes Absolute Eosinophils Absolute Basophils VBG pH VBG pCO2 VBG HCO3 VBG Base Excess Sodium Potassium Chloride Carbon Dioxide Anion Gap BUN Creatinine Est GFR ( Amer) Est GFR (Non-Af Amer) Glucose Lactic Acid 1.8 Calcium Total Bilirubin AST ALT Alkaline Phosphatase Total Protein Albumin Urine Color YELLOW Urine Appearance CLEAR Urine pH 8.0 Ur Specific [place] 1.013 Urine Protein NEGATIVE Urine Glucose (UA) NEGATIVE Urine Ketones NEGATIVE Urine Blood NEGATIVE Urine Nitrite NEGATIVE Ur Leukocyte Esterase NEGATIVE Urine WBC (Auto) 1 Urine RBC (Auto) 1 07/13/18 16:15 NT-Pro-B Natriuret Pep 347 Assessment and Plan - Diagnosis (1) Acute respiratory failure with hypoxia Is this a current diagnosis for this admission?: Yes Plan: Patient was treated with supplemental oxygen as required to maintain an adequate oxygen saturation. He will be followed with continuous O2 sat monitoring and further radiologic studies as appropriate. (2) Acute exacerbation of chronic obstructive pulmonary disease (COPD) Is this a current diagnosis for this admission?: Yes Plan: Patient be treated with aggressive pulmonary toilet utilizing nebulized Pulmicort, Xopenex and Atrovent. He will receive IV Solu-Medrol and oxygen supplementation as required. He will be followed with daily CBCs as well as daily metabolic profiles with magnesium levels. Further radiographic studies will be obtained as needed. (3) Right lower lobe pneumonia Qualifiers: Pneumonia type: due to unspecified organism Qualified Code(s): J18.1 - Lobar pneumonia, unspecified organism Is this a current diagnosis for this admission?: Yes Plan: Further evaluation of the patient's right lower lobe via pulmonology consu ltation with Dr. Street. Patient will be treated with IV antibiotic therapy utilizing Levaquin 750 mg every 24 hours. Daily CBCs and metabolic profiles with magnesium levels will be employed in following the patient's course. Patient will have available morphine sulfate 2 to 4 mg IV every 2 hours as needed on a sliding scale basis for pain control. (4) Metastatic cancer to lung Qualifiers: Laterality: right Qualified Code(s): C78.01 - Secondary malignant neoplasm of right lung Is this a current diagnosis for this admission?: Yes Plan: A pulmonology consultation will be obtained with Dr. Street and further investigation via interventional radiology or other biopsy will be considered. - Time Time Spent with patient: 25-34 minutes Medications reviewed and adjusted accordingly: Yes Anticipated discharge: Home - Inpatient Certification Based on my medical assessment, after consideration of the patient's comorbidities, presenting symptoms, or acuity I expect that the services needed warrant INPATIENT care.: Yes I certify that my determination is in accordance with my understanding of Medicare's requirements for reasonable and necessary INPATIENT services [42 CFR 412.3e].: Yes Medical Necessity: Failure to Improve With Outpatient Therapy, Significant Comorbidiites Make Outpatient Treatment Too Risky, Need Close Monitoring Due to Risk of Patient Decompensation, Need for Nebulizer Therapy and Monitoring of Response, Need for Surgery, Risk of Complication if Not Cared For in Hospital, Risk of Diagnosis Which Will Require Inpatient Eval/Care/Monitoring
[2018-07-13 23:36] LABS: ARTERIAL BLOOD BASE EXCESS 0.8 mmol/L; ARTERIAL BLOOD H2CO3 0.92 mmol/L (1.05-1.35); ARTERIAL BLOOD HCO3 23.2 mmol/L (20-24); ARTERIAL BLOOD O2 SATURATION 93.6 % (94-98); ARTERIAL BLOOD PCO2 30.5 mmHg (35-45); ARTERIAL BLOOD PO2 60.9 mmHg (80-100); ARTERIAL BLOOD TOTAL CO2 24.1 mmol/L (23-27)
[2018-07-13 23:37] LABS: ARTERIAL BLOOD FIO2 2L
[2018-07-13] MEDS: IPRATROPIUM BROMIDE 0.02% NEB 0.5 MG/2.5 ML AMPUL NEB SCH (23:44)
[2018-07-13] MEDS: LEVALBUTEROL HCL NEB 1.25 MG/3 ML AMPUL NEB SCH (23:44)
[2018-07-13] MEDS: METHYLPREDNISOLONE INJ 40 MG/1 ML SDV IV SCH (23:49)
[2018-07-13] MEDS ORDERED: FAMOTIDINE 20 MG TABLET PEG ONE (23:59)
[2018-07-13] MEDS ORDERED: GABAPENTIN 300 MG CAPSULE PEG ONE (23:59)
[2018-07-14] MEDS: TEMAZEPAM 15 MG CAPSULE PEG PRN ×2 (00:29→21:13)
[2018-07-14 05:31] LABS: HEMATOCRIT 38.1 % (37.9-51.0); HEMOGLOBIN 12.6 g/dL (13.5-17.0); MEAN CORPUSCULAR HEMOGLOBIN 28.8 pg (27.0-33.4); MEAN CORPUSCULAR HGB CONC 33.1 g/dL (32.0-36.0); MEAN CORPUSCULAR VOLUME 87 fl (80-97); PLATELET COUNT 307 10^3/uL (150-450); RED BLOOD COUNT 4.37 10^6/uL (4.35-5.55); RED CELL DISTRIBUTION WIDTH 14.2 % (11.5-14.0); WHITE BLOOD COUNT 11.7 10^3/uL (4.0-10.5)
[2018-07-14 05:57] LABS: ANION GAP 7 (5-19); BLOOD UREA NITROGEN 12 mg/dL (7-20); CALCIUM 9.2 mg/dL (8.4-10.2); CARBON DIOXIDE 21 mmol/L (22-30); CHLORIDE 112 mmol/L (98-107); GLUCOSE 123 mg/dL (75-110); POTASSIUM 4.5 mmol/L (3.6-5.0); SODIUM 140.3 mmol/L (137-145)
[2018-07-14 06:03] LABS: ABSOLUTE LYMPHOCYTES# (MANUAL) 0.5 10^3/uL (0.5-4.7); ABSOLUTE NEUTROPHILS# (MANUAL) 11.2 10^3/uL (1.7-8.2); BASOPHILS % (MANUAL) 0 % (0-2); EOSINOPHILS % (MANUAL) 0 % (0-6); LYMPHOCYTES % (MANUAL) 4 % (13-45); MONOCYTES % (MANUAL) 0 % (3-13); SEGMENTED NEUTROPHILS % (MAN) 96 % (42-78); TOTAL CELLS COUNTED 100
[2018-07-14 06:04] LABS: PLATELET COMMENT ADEQUATE; RBC MORPHOLOGY COMMENT MN
[2018-07-14 06:08] LABS: FREE T3 3.14 pg/mL (2.77-5.27); FREE T4 (FREE THYROXINE) 0.8 ng/dL (0.78-2.19)
[2018-07-14 06:21] LABS: THYROID STIMULATING HORMONE 0.88 uIU/mL (0.47-4.68)
[2018-07-14] MEDS: METHYLPREDNISOLONE INJ 40 MG/1 ML SDV IV SCH ×3 (06:39→21:13)
[2018-07-14] MEDS: HEPARIN SOD (PORCINE) 5,000 UNIT/ML 1 ML SYRINGE SUBCUT SCH ×3 (06:39→21:14)
[2018-07-14] MEDS: IPRATROPIUM BROMIDE 0.02% NEB 0.5 MG/2.5 ML AMPUL NEB SCH ×2 (08:02→16:46)
[2018-07-14] MEDS: LEVALBUTEROL HCL NEB 1.25 MG/3 ML AMPUL NEB SCH ×2 (08:02→16:46)
[2018-07-14] MEDS: ACETYLCYSTEINE 20% SOLN 800 MG/4 ML VIAL.NEB NEB SCH ×2 (08:02→19:42)
[2018-07-14] MEDS: BUDESONIDE NEB 0.5 MG/2 ML AMPUL NEB SCH ×2 (08:02→19:42)
[2018-07-14] MEDS ORDERED: CLOPIDOGREL BISULFATE 75 MG TABLET PEG SCH (10:00)
[2018-07-14] MEDS ORDERED: PILOCARPINE HCL 5 MG PO SCH (10:00)
[2018-07-14] MEDS: LEVOFLOXACIN 750 MG TABLET PEG SCH (10:00)
[2018-07-14] MEDS ORDERED: DOCUSATE SODIUM 100 MG CAPSULE PO SCH (10:00)
[2018-07-14] MEDS: GABAPENTIN 300 MG CAPSULE PEG SCH ×2 (10:00→21:12)
[2018-07-14] MEDS: DOCUSATE SODIUM 100 MG/10 ML UDC PEG SCH ×2 (10:00→17:07)
[2018-07-14] MEDS ORDERED: PILOCARPINE HCL 5 MG PEG SCH (10:00)
[2018-07-14] MEDS ORDERED: CLOPIDOGREL BISULFATE 75 MG TABLET PO SCH (10:00)
[2018-07-14] MEDS: FAMOTIDINE 20 MG TABLET PEG SCH ×2 (10:01→21:13)
[2018-07-14 10:45] LABS: INTERNATIONAL RATION (INR) 1.02
--- NOTE | 2018-07-14 11:54 | PDOC PROGRESS REPORT ---
Subjective Progress Note for:: 07/14/18 Subjective:: 72 year old male who presented to the emergency room with a 2-week history of dyspnea. He admits mildly increased dyspnea for the last 2 weeks with progressive worsening over the last 4 days. His dyspnea was at first present just with exertion but has continued to be worsened substantially by exertion and persisted at a moderate to severe level even at rest. He further admits that his dyspnea has been accompanied by subjective fever and chills and a nonproductive cough. He admits similar prior episodes secondary to his COPD. He has not identified any other aggravating or ameliorating factors for his current episode of dyspnea. He was seen by his primary care provider who started him on prednisone yesterday and he has been using home breathing treatments without significant improvement. He had a chest x-ray performed on outpatient basis earlier today which showed abnormalities and resulted in his receiving a CAT scan of his chest which showed possible metastatic lesions and a small loculated right pleural effusion in his chest as well as demonstrating a right lower lobe pneumonia. In the emergency room he was found to have hypoxic respiratory failure, an elevated white count and moderate tachypnea. Patient was subsequently admitted hospital for further evaluation and treatment. 07/14/2018-no acute events in the last 24 hours. Patient is afebrile. Request was placed for thoracentesis of pleural effusion. Patient is on Plavix plan to hold the Plavix until Tuesday possible thoracentesis on Tuesday. To continue heparin subcu until Tuesday night. Patient is comfortable in the chair communicating well. Pulse ox is 93% on 4 L. Patient has a feeding tube. 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 Reason For Visit: ACUTE EXACERBATION COPD Physical Exam Vital Signs: Temp Pulse Resp BP Pulse Ox 98.4 F 86 17 116/64 95 07/14/18 08:35 07/14/18 08:35 07/14/18 08:35 07/14/18 08:35 07/14/18 08:35 Intake & Output 07/13/18 07/14/18 07/15/18 06:59 06:59 06:59 Intake Total 1120 Balance 1120 Weight 65.2 kg General appearance: PRESENT: no acute distress, thin Head exam: PRESENT: atraumatic Eye exam: PRESENT: PERRLA Mouth exam: PRESENT: moist, tongue midline Respiratory exam: PRESENT: decreased breath sounds, other - Decreased air entry in the right side of the lower chest. Cardiovascular exam: PRESENT: RRR. ABSENT: diastolic murmur, rubs, systolic murmur GI/Abdominal exam: PRESENT: normal bowel sounds, soft, other - feeding tube present.. ABSENT: distended, guarding, mass, organolmegaly, rebound, tenderness Rectal exam: PRESENT: deferred Neurological exam: PRESENT: alert, awake, oriented to person, oriented to place, oriented to time, oriented to situation, CN II-XII grossly intact. ABSENT: motor sensory deficit Psychiatric exam: PRESENT: appropriate affect, normal mood. ABSENT: homicidal ideation, suicidal ideation Results Laboratory Results: 07/14/18 04:50 07/14/18 04:50 07/13/18 07/13/18 07/13/18 16:15 16:15 16:15 WBC 15.0 H RBC 4.92 Hgb 14.2 Hct 43.3 MCV 88 MCH 29.0 MCHC 32.9 RDW 14.2 H Plt Count 388 Seg Neutrophils % Not Reportable Lymphocytes % Not Reportable Monocytes % Not Reportable Eosinophils % Not Reportable Basophils % Not Reportable Absolute Neutrophils Not Reportable Absolute Lymphocytes Not Reportable Absolute Monocytes Not Reportable Absolute Eosinophils Not Reportable Absolute Basophils Not Reportable Carbonic Acid HCO3/H2CO3 Ratio ABG pH ABG pCO2 ABG pO2 ABG HCO3 ABG O2 Saturation ABG Base Excess VBG pH 7.40 VBG pCO2 45.2 VBG HCO3 27.4 VBG Base Excess 2.0 FiO2 Sodium 141.2 Potassium 4.8 Chloride 104 Carbon Dioxide 23 Anion Gap 14 BUN 18 Creatinine 0.58 Est GFR ( Amer) > 60 Est GFR (Non-Af Amer) > 60 Glucose 126 H Lactic Acid Calcium 10.4 H Magnesium Total Bilirubin 0.5 AST 23 ALT 18 L Alkaline Phosphatase 100 Total Protein 7.7 Albumin 4.3 TSH Free T4 Free T3 pg/mL Urine Color Urine Appearance Urine pH Ur Specific [place] Urine Protein Urine Glucose (UA) Urine Ketones Urine Blood Urine Nitrite Ur Leukocyte Esterase Urine WBC (Auto) Urine RBC (Auto) 07/13/18 07/13/18 07/13/18 16:15 16:15 23:17 WBC RBC Hgb Hct MCV MCH MCHC RDW Plt Count Seg Neutrophils % Lymphocytes % Monocytes % Eosinophils % Basophils % Absolute Neutrophils Absolute Lymphocytes Absolute Monocytes Absolute Eosinophils Absolute Basophils Carbonic Acid 0.92 L HCO3/H2CO3 Ratio 25:1 ABG pH 7.50 H ABG pCO2 30.5 L ABG pO2 60.9 L ABG HCO3 23.2 ABG O2 Saturation 93.6 L ABG Base Excess 0.8 VBG pH VBG pCO2 VBG HCO3 VBG Base Excess FiO2 2L Sodium Potassium Chloride Carbon Dioxide Anion Gap BUN Creatinine Est GFR ( Amer) Est GFR (Non-Af Amer) Glucose Lactic Acid 1.8 Calcium Magnesium Total Bilirubin AST ALT Alkaline Phosphatase Total Protein Albumin TSH Free T4 Free T3 pg/mL Urine Color YELLOW Urine Appearance CLEAR Urine pH 8.0 Ur Specific [place] 1.013 Urine Protein NEGATIVE Urine Glucose (UA) NEGATIVE Urine Ketones NEGATIVE Urine Blood NEGATIVE Urine Nitrite NEGATIVE Ur Leukocyte Esterase NEGATIVE Urine WBC (Auto) 1 Urine RBC (Auto) 1 07/14/18 07/14/18 07/14/18 04:50 04:50 04:50 WBC 11.7 H RBC 4.37 Hgb 12.6 L Hct 38.1 MCV 87 MCH 28.8 MCHC 33.1 RDW 14.2 H Plt Count 307 Seg Neutrophils % Not Reportable Lymphocytes % Not Reportable Monocytes % Not Reportable Eosinophils % Not Reportable Basophils % Not Reportable Absolute Neutrophils Not Reportable Absolute Lymphocytes Not Reportable Absolute Monocytes Not Reportable Absolute Eosinophils Not Reportable Absolute Basophils Not Reportable Carbonic Acid HCO3/H2CO3 Ratio ABG pH ABG pCO2 ABG pO2 ABG HCO3 ABG O2 Saturation ABG Base Excess VBG pH VBG pCO2 VBG HCO3 VBG Base Excess FiO2 Sodium 140.3 Potassium 4.5 Chloride 112 H Carbon Dioxide 21 L Anion Gap 7 BUN 12 Creatinine 0.49 L Est GFR ( Amer) > 60 Est GFR (Non-Af Amer) > 60 Glucose 123 H Lactic Acid Calcium 9.2 Magnesium 2.2 Total Bilirubin AST ALT Alkaline Phosphatase Total Protein Albumin TSH 0.88 Free T4 0.80 Free T3 pg/mL 3.14 Urine Color Urine Appearance Urine pH Ur Specific [place] Urine Protein Urine Glucose (UA) Urine Ketones Urine Blood Urine Nitrite Ur Leukocyte Esterase Urine WBC (Auto) Urine RBC (Auto) 07/13/18 16:15 NT-Pro-B Natriuret Pep 347 Assessment and Plan - Diagnosis (1) Acute exacerbation of chronic obstructive pulmonary disease (COPD) Is this a current diagnosis for this admission?: Yes Plan: Patient be treated with aggressive pulmonary toilet utilizing nebulized Pulmicort, Xopenex and Atrovent. He will receive IV Solu-Medrol and oxygen supplementation as required. He will be followed with daily CBCs as well as da martin metabolic profiles with magnesium levels. Further radiographic studies will be obtained as needed. 07/14/2018-patient admitted with acute exacerbation of COPD. Presently on a Pulmicort, Xopenex, Atrovent. He is also on oxygen supplementation and IV Solu- Medrol. Plan is to continue the present management. Consultation with Dr. Bhagat was requested. (2) Pleural effusion, right Is this a current diagnosis for this admission?: Yes Plan: 07/14/2018-patient admitted with right pleural effusion. Loculated. Consultation with radiology is requested because the patient is on Plavix plan is to do the thoracentesis on Tuesday. Plavix is on hold from today. (3) Right lower lobe pneumonia Qualifiers: Pneumonia type: due to unspecified organism Qualified Code(s): J18.1 - Lobar pneumonia, unspecified organism Is this a current diagnosis for this admission?: Yes Plan: Further evaluation of the patient's right lower lobe via pulmonology consultation with Dr. Waddell. Patient will be treated with IV antibiotic therapy utilizing Levaquin 750 mg every 24 hours. Daily CBCs and metabolic profiles with magnesium levels will be employed in following the patient's course. Patient will have available morphine sulfate 2 to 4 mg IV every 2 hours as needed on a sliding scale basis for pain control. 07/14/2018-CT scan suggestive of right lower lobe pneumonia. Consultation with Dr. Waddell was done. Presently on IV levo floxacillin 750 mg daily patient is afebrile. Pulse ox is improved to 94% on 4 L. (4) Metastatic cancer to lung Qualifiers: Laterality: right Qualified Code(s): C78.01 - Secondary malignant neoplasm of right lung Is this a current diagnosis for this admission?: Yes Plan: A pulmonology consultation will be obtained with Dr. Waddell and further investig ation via interventional radiology or other biopsy will be considered. 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 Consultation with Dr. Waddell was requested. - Time Time Spent with patient: 25-34 minutes Medications reviewed and adjusted accordingly: Yes Anticipated discharge: Home
[2018-07-14] MEDS: OXYCODONE HCL IR 5 MG TABLET PO PRN ×2 (15:00→21:12)
--- NOTE | 2018-07-14 18:35 | PDOC CONSULTATION ---
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 At the time, it was T1N1M0. He un derwent definitive chemo and concurrent radiation with Carboplatin/paclitaxol. This finished 05/2015. Since that time he has had no evidence of disease. MRI of his neck 08/06/2016 was negative. Patient states that over the last 2 weeks he has been feeling poorly. 2 days prior to admission, he had worsening dyspnea. He presented to his PCP and CXR was obtained. This showed pleural effusion and patient was sent to the ED. CT scan of the chest was performed and showed pneumonia and possible empyema. He was started on antibiotics and thoracentesis is planned on Tuesday (3 days from now). Today, patient states that he is feeling much better. HIs breathing has improved, but he is still requiring oxygen which he did not have at home. Past Medical History Cardiac Medical History: Reports: Peripheral Vascular Disease Denies: Coronary Artery Disease, Myocardial Infarction, Hypertension Pulmonary Medical History: Reports: Chronic Obstructive Pulmonary Disease (COPD), Pneumonia - hx of Denies: Asthma, Bronchitis EENT Medical History: Reports: Throat - Dysphagia since radiation, requiring PEG tube feedings, chronic dry mouth, Other - Salivary gland cancer Denies: Cataracts Neurological Medical History: Denies: Hemorrhagic CVA, Ischemic CVA, Seizures Endocrine Medical History: Denies: Diabetes Mellitus Type 1, Diabetes Mellitus Type 2, Hyperthyroidism, Hypothyroidism, Obesity Renal/ Medical History: Denies: Chronic Kidney Disease, Nephrolithiasis Malignancy Medical History: Reports: Other - Salivary gland cancer GI Medical History: Denies: Cirrhosis, Hepatitis, Hiatal Hernia Musculoskeltal Medical History: Reports: Arthritis Denies: Gout Skin Medical History: Denies: Eczema, Psoriasis Psychiatric Medical History: Reports: Tobacco Dependency Denies: Alcohol Dependency, Depression, Substance Abuse Traumatic Medical History: Reports: None Hematology: Reports: Other - Salivary gland cancer Denies: Anemia, Sickle Cell Disease, Bleeding Tendencies Infectious Medical History: Reports: None Past Surgical History Past Surgical History: Reports: Vascular Surgery - Right ileal to left femoral graft and right femoral stent, Other - Endoscopy with placement of PEG tube Denies: Pacemaker Social History Lives with: Spouse/Significant other Smoking Status: Former Smoker Number of Years Smokin Frequency of Alcohol Use: Rare Hx Recreational Drug Use: No Drugs: None Hx Prescription Drug Abuse: No - Advance Directive Resuscitation Status: Full Code Family History Family History: CAD, COPD, DM, Hypertension, Malignancy Parental Family History Reviewed: Yes Children Family History Reviewed: No Sibling(s) Family History Reviewed.: Yes Medication/Allergy Home Medications: Gabapentin 300 mg PO Q12 03/29/17 Azithromycin [Zithromax Tri-Alberto] 500 mg PO DAILY MDD FILLED 07/12 FOR 3 DAY SUPPLY 07/13/18 Clopidogrel Bisulfate [Plavix 75 mg Tablet] 75 mg PO DAILY 07/13/18 Oxycodone HCl [Oxycodone HCl 10 MG Tablet] 10 mg PO Q6HP PRN 07/13/18 Pilocarpine HCl [Salagen] 5 mg PO TID 07/13/18 Prednisone [Deltasone 10 mg Tablet] 10 mg PO ASDIR PRN MDD FILLED 07/12 FOR 12 DAY SUPPLY 07/13/18 Triamcinolone Acetonide [Aristocort 0.025% Cream 15 gm] 1 applic TP DAILY MDD FACE 07/13/18 Allergies/Adverse Reactions: No Known Allergies Allergy (Verified 07/13/18 15:40) Review of Systems Constitutional: PRESENT: chills, night sweats. ABSENT: fever(s) Eyes: ABSENT: visual disturbances Ears: ABSENT: hearing changes Nose, Mouth, and Throat: ABSENT: sore throat Cardiovascular: PRESENT: dyspnea on exertion Respiratory: PRESENT: dyspnea Gastrointestinal: ABSENT: constipation, nausea Genitourinary: ABSENT: dysuria Musculoskeletal: PRESENT: back pain Neurological: ABSENT: confusion Hematologic/Lymphatic: ABSENT: lymphadenopathy Physical Exam Vital Signs: Temp Pulse Resp BP Pulse Ox 98.4 F 91 16 116/64 91 L 07/14/18 08:35 07/14/18 16:46 07/14/18 16:46 07/14/18 08:35 07/14/18 16:46 Intake & Output 07/13/18 07/14/18 07/15/18 06:59 06:59 06:59 Intake Total 1120 Balance 1120 Weight 65.2 kg General appearance: PRESENT: well-developed, well-nourished Exam: 72 year old male. Head exam: PRESENT: normocephalic Eye exam: PRESENT: EOMI, PERRLA Mouth exam: PRESENT: tongue midline, other - White plaques on tongue. Neck exam: ABSENT: lymphadenopathy, tenderness Respiratory exam: PRESENT: decreased breath sounds - Right base, unlabored Cardiovascular exam: PRESENT: RRR GI/Abdominal exam: PRESENT: soft. ABSENT: tenderness Extremities exam: ABSENT: pedal edema Musculoskeletal exam: PRESENT: normal inspection Neurological exam: PRESENT: alert, awake Psychiatric exam: PRESENT: appropriate affect Skin exam: PRESENT: normal color Results Laboratory Results: 07/14/18 04:50 07/14/18 04:50 07/13/18 07/14/18 07/14/18 23:17 04:50 04:50 WBC 11.7 H RBC 4.37 Hgb 12.6 L Hct 38.1 MCV 87 MCH 28.8 MCHC 33.1 RDW 14.2 H Plt Count 307 Seg Neutrophils % Not Reportable Lymphocytes % Not Reportable Monocytes % Not Reportable Eosinophils % Not Reportable Basophils % Not Reportable Absolute Neutrophils Not Reportable Absolute Lymphocytes Not Reportable Absolute Monocytes Not Reportable Absolute Eosinophils Not Reportable Absolute Basophils Not Reportable Carbonic Acid 0.92 L HCO3/H2CO3 Ratio 25:1 ABG pH 7.50 H ABG pCO2 30.5 L ABG pO2 60.9 L ABG HCO3 23.2 ABG O2 Saturation 93.6 L ABG Base Excess 0.8 FiO2 2L Sodium 140.3 Potassium 4.5 Chloride 112 H Carbon Dioxide 21 L Anion Gap 7 BUN 12 Creatinine 0.49 L Est GFR ( Amer) > 60 Est GFR (Non-Af Amer) > 60 Glucose 123 H Calcium 9.2 Magnesium 2.2 TSH Free T4 Free T3 pg/mL 07/14/18 04:50 WBC RBC Hgb Hct MCV MCH MCHC RDW Plt Count Seg Neutrophils % Lymphocytes % Monocytes % Eosinophils % Basophils % Absolute Neutrophils Absolute Lymphocytes Absolute Monocytes Absolute Eosinophils Absolute Basophils Carbonic Acid HCO3/H2CO3 Ratio ABG pH ABG pCO2 ABG pO2 ABG HCO3 ABG O2 Saturation ABG Base Excess FiO2 Sodium Potassium Chloride Carbon Dioxide Anion Gap BUN Creatinine Est GFR ( Amer) Est GFR (Non-Af Amer) Glucose Calcium Magnesium TSH 0.88 Free T4 0.80 Free T3 pg/mL 3.14 05/02/19 16:15 NT-Pro-B Natriuret Pep 347 Status: Image reviewed by me Assessment & Plan - Diagnosis (1) Right lower lobe pneumonia Qualifiers: Pneumonia type: due to unspecified organism Qualified Code(s): J18.1 - Lobar pneumonia, unspecified organism Is this a current diagnosis for this admission?: Yes Plan: Patient now on oral antibiotics. I will defer to hospitalist. (2) Pleural effusion, right Is this a current diagnosis for this admission?: Yes Plan: I reviewed the CT report with the patient and . I have explained that the current findings could be infectious, or could be malignant. However, there is no way to know for sure without pathology biopsy. I will order cytology on the pleural fluid. (3) Lung mass Is this a current diagnosis for this admission?: Yes Plan: Again, these could be reactive nodes, or could be cancer. I would recommend treating the known infection and if no resolution, then consider CT guided biopsy of the lung lesions, if possible. These are all peripheral, so I do not believe bronchoscopy is currently indicated. However, I will defer to Pulmonary for this determination. - Plan Summary Plan Summary: Dr. Gillespie will be covering over the weekend. Please feel free to call with any concerns.
[2018-07-14] MEDS ORDERED: LORAZEPAM INJ 2 MG/1 ML VIAL ONE (23:24)
[2018-07-14] MEDS ORDERED: LORAZEPAM INJ 2 MG/1 ML VIAL IV ONE (23:45)
[2018-07-15] MEDS: LEVALBUTEROL HCL NEB 1.25 MG/3 ML AMPUL NEB SCH ×3 (00:04→16:26)
[2018-07-15] MEDS: IPRATROPIUM BROMIDE 0.02% NEB 0.5 MG/2.5 ML AMPUL NEB SCH ×3 (00:04→16:26)
[2018-07-15 05:05] LABS: HEMOGLOBIN 12.3 g/dL (13.5-17.0); MEAN CORPUSCULAR HEMOGLOBIN 28.6 pg (27.0-33.4); MEAN CORPUSCULAR HGB CONC 32.5 g/dL (32.0-36.0); MEAN CORPUSCULAR VOLUME 88 fl (80-97); PLATELET COUNT 308 10^3/uL (150-450); RED BLOOD COUNT 4.32 10^6/uL (4.35-5.55); RED CELL DISTRIBUTION WIDTH 14.4 % (11.5-14.0)
[2018-07-15 05:34] LABS: ALANINE AMINOTRANSFERASE 16 U/L (21-72); ALBUMIN 3.3 g/dL (3.5-5.0); ALKALINE PHOSPHATASE 76 U/L (38-126); ANION GAP 6 (5-19); ASPARTATE AMINO TRANSFERASE 18 U/L (17-59); BILIRUBIN,DIRECT 0.3 mg/dL (0.0-0.4); BILIRUBIN,TOTAL 0.4 mg/dL (0.2-1.3); BLOOD UREA NITROGEN 18 mg/dL (7-20); CALCIUM 9.4 mg/dL (8.4-10.2); CARBON DIOXIDE 27 mmol/L (22-30); CHLORIDE 110 mmol/L (98-107); GLUCOSE 126 mg/dL (75-110); SODIUM 142.8 mmol/L (137-145); TOTAL PROTEIN 6.3 g/dL (6.3-8.2)
[2018-07-15] MEDS: HEPARIN SOD (PORCINE) 5,000 UNIT/ML 1 ML SYRINGE SUBCUT SCH ×3 (05:54→21:39)
[2018-07-15] MEDS: METHYLPREDNISOLONE INJ 40 MG/1 ML SDV IV SCH ×2 (05:55→17:46)
[2018-07-15 06:23] LABS: ABSOLUTE LYMPHOCYTES# (MANUAL) 0.8 10^3/uL (0.5-4.7); ABSOLUTE MONOCYTES # (MANUAL) 0.6 10^3/uL (0.1-1.4); ABSOLUTE NEUTROPHILS# (MANUAL) 18.6 10^3/uL (1.7-8.2); BASOPHILS % (MANUAL) 0 % (0-2); EOSINOPHILS % (MANUAL) 0 % (0-6); LYMPHOCYTES % (MANUAL) 4 % (13-45); MONOCYTES % (MANUAL) 3 % (3-13); SEGMENTED NEUTROPHILS % (MAN) 93 % (42-78); TOTAL CELLS COUNTED 100
[2018-07-15 06:24] LABS: OVALOCYTES SLIGHT; PLATELET COMMENT ADEQUATE; POIKILOCYTOSIS SLIGHT; TEAR DROP CELLS SLIGHT; TOXIC GRANULATION 1+
[2018-07-15] MEDS: BUDESONIDE NEB 0.5 MG/2 ML AMPUL NEB SCH ×2 (07:45→19:23)
[2018-07-15] MEDS: ACETYLCYSTEINE 20% SOLN 800 MG/4 ML VIAL.NEB NEB SCH ×2 (07:46→19:23)
[2018-07-15] MEDS: FAMOTIDINE 20 MG TABLET PEG SCH ×2 (10:49→21:40)
[2018-07-15] MEDS: GABAPENTIN 300 MG CAPSULE PEG SCH ×2 (10:49→21:40)
[2018-07-15] MEDS: DOCUSATE SODIUM 100 MG/10 ML UDC PEG SCH ×2 (10:50→17:50)
[2018-07-15] MEDS ORDERED: CEFTRIAXONE INJ 1000 MG VIAL IV SCH (11:30)
--- NOTE | 2018-07-15 11:38 | PDOC PROGRESS REPORT ---
Subjective Progress Note for:: 07/15/18 Subjective:: 72 year old male who presented to the emergency room with a 2-week history of dyspnea. He admits mildly increased dyspnea for the last 2 weeks with progressive worsening over the last 4 days. His dyspnea was at first present just with exertion but has continued to be worsened substantially by exertion and persisted at a moderate to severe level even at rest. He further admits that his dyspnea has been accompanied by subjective fever and chills and a nonproductive cough. He admits similar prior episodes secondary to his COPD. He has not identified any other aggravating or ameliorating factors for his current episode of dyspnea. He was seen by his primary care provider who started him on prednisone yesterday and he has been using home breathing treatments without significant improvement. He had a chest x-ray performed on outpatient basis earlier today which showed abnormalities and resulted in his receiving a CAT scan of his chest which showed possible metastatic lesions and a small loculated right pleural effusion in his chest as well as demonstrating a right lower lobe pneumonia. In the emergency room he was found to have hypoxic respiratory failure, an elevated white count and moderate tachypnea. Patient was subsequently admitted hospital for further evaluation and treatment. 07/14/2018-no acute events in the last 24 hours. Patient is afebrile. Request was placed for thoracentesis of pleural effusion. Patient is on Plavix plan to hold the Plavix until Tuesday possible thoracentesis on Tuesday. To continue heparin subcu until Tuesday night. Patient is comfortable in the chair communicating well. Pulse ox is 93% on 4 L. Patient has a feeding tube. 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 07/15/[id number]-dpow-old male admitted with shortness of breath. Admitting diagno sis is acute exacerbation of COPD. Work-up shows right pleural effusion - loculated pleural effusion and questionable lesions in bilateral lungs peripherally in nature may be representing inflammatory or infectious process or malignancy. Dr. Bhagat is on board. Dr. Harvey is on board. Plan is to start on IV antibiotics Rocephin 2 g daily and levofloxacin 500 mg IV daily as per Dr. Hoff's recommendations. Patient is comfortably in the bed is bedside no complaints no concerns. Patient's Plavix on hold. Reason For Visit: ACUTE EXACERBATION COPD Physical Exam Vital Signs: Temp Pulse Resp BP Pulse Ox 97.7 F 86 19 105/65 94 07/15/18 09:18 07/15/18 09:18 07/15/18 09:18 07/15/18 09:18 07/15/18 09:18 Intake & Output 07/14/18 07/15/18 07/16/18 06:59 06:59 06:59 Intake Total 1120 362 Balance 1120 362 Weight 65.2 kg 65.2 kg General appearance: PRESENT: no acute distress, thin Head exam: PRESENT: atraumatic Eye exam: PRESENT: PERRLA Neck exam: ABSENT: carotid bruit, JVD, lymphadenopathy, thyromegaly Respiratory exam: PRESENT: decreased breath sounds Cardiovascular exam: PRESENT: tachycardia Pulses: PRESENT: normal dorsalis pedis pul GI/Abdominal exam: PRESENT: normal bowel sounds, soft, other - pt has a feeding tube.. ABSENT: distended, guarding, mass, organolmegaly, rebound, tenderness Rectal exam: PRESENT: deferred Extremities exam: PRESENT: full ROM. ABSENT: calf tenderness, clubbing, pedal edema Neurological exam: PRESENT: alert, awake, oriented to person, oriented to place, oriented to time, oriented to situation, CN II-XII grossly intact. ABSENT: motor sensory deficit Psychiatric exam: PRESENT: appropriate affect, normal mood. ABSENT: homicidal ideation, suicidal ideation Results Laboratory Results: 07/15/18 03:47 07/15/18 03:47 07/15/18 07/15/18 03:47 03:47 WBC 20.0 H RBC 4.32 L Hgb 12.3 L Hct 38.0 MCV 88 MCH 28.6 MCHC 32.5 RDW 14.4 H Plt Count 308 Seg Neutrophils % Not Reportable Lymphocytes % Not Reportable Monocytes % Not Reportable Eosinophils % Not Reportable Basophils % Not Reportable Absolute Neutrophils Not Reportable Absolute Lymphocytes Not Reportable Absolute Monocytes Not Reportable Absolute Eosinophils Not Reportable Absolute Basophils Not Reportable Sodium 142.8 Potassium 5.0 Chloride 110 H Carbon Dioxide 27 Anion Gap 6 BUN 18 Creatinine 0.57 Est GFR ( Amer) > 60 Est GFR (Non-Af Amer) > 60 Glucose 126 H Calcium 9.4 Magnesium 2.3 Total Bilirubin 0.4 AST 18 ALT 16 L Alkaline Phosphatase 76 Total Protein 6.3 Albumin 3.3 L 07/13/18 16:15 NT-Pro-B Natriuret Pep 347 Assessment and Plan - Diagnosis (1) Acute exacerbation of chronic obstructive pulmonary disease (COPD) Is this a current diagnosis for this admission?: Yes Plan: Patient be treated with aggressive pulmonary toilet utilizing nebulized Pulmicort, Xopenex and Atrovent. He will receive IV Solu-Medrol and oxygen sup plementation as required. He will be followed with daily CBCs as well as daily metabolic profiles with magnesium levels. Further radiographic studies will be obtained as needed. 07/14/2018-patient admitted with acute exacerbation of COPD. Presently on a Pulmicort, Xopenex, Atrovent. He is also on oxygen supplementation and IV Solu- Medrol. Plan is to continue the present management. Consultation with Dr. Bhagat was requested. 07/15/2018-patient was admitted with acute exacerbation of COPD. Presently on Pulmicort, Xopenex, Atrovent. He is also on IV Solu-Medrol every 8 hours. Plan is to decrease the IV Solu-Medrol to every [address]. [address] Bhagat is on board. pulse is 93% on 2 L. (2) Pleural effusion, right Is this a current diagnosis for this admission?: Yes Plan: 07/14/2018-patient admitted with right pleural effusion. Loculated. Consultation with radiology is requested because the patient is on Plavix plan is to do the thoracentesis on Tuesday. Plavix is on hold from today. 07/15/2018-patient admitted with shortness of breath and found to have a moderate sized right pleural effusion, loculated pleural effusion. Because the patient is on Plavix thoracentesis on hold at this point. Plan is that interventional radiology is going to do thoracentesis on Tuesday and orders was placed for fluid analysis. (3) Right lower lobe pneumonia Qualifiers: Pneumonia type: due to unspecified organism Qualified Code(s): J18.1 - Lobar pneumonia, unspecified organism Is this a current diagnosis for this admission?: Yes Plan: Further evaluation of the patient's right lower lobe via pulmonology consultation with Dr. Street. Patient will be treated with IV antibiotic therapy utilizing Levaquin 750 mg every 24 hours. Daily CBCs and metabolic profiles with magnesium levels will be employed in following the patient's course. Patient will have available morphine sulfate 2 to 4 mg IV every 2 hours as needed on a sliding scale basis for pain control. 07/14/2018-CT scan suggestive of right lower lobe pneumonia. Consultation with Dr. Street was done. Presently on IV levo floxacillin 750 mg daily patient is afebrile. Pulse ox is improved to 94% on 4 L. 07/15/2018-patient's chest CT scan suggestive of right lower lobe pneumonia presently on p.o. levofloxacin 750 mg daily plan is to discharge the patient on IV Rocephin 2 g daily and levo floxacillin 500 mg IV daily. blood Cultures are negative so far. (4) Metastatic cancer to lung Qualifiers: Laterality: right Qualified Code(s): C78.01 - Secondary malignant neoplasm of right lung Is this a current diagnosis for this admission?: Yes Plan: A pulmonology consultation will be obtained with Dr. Street and further investigation via interventional radiology or other biopsy will be considered. 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 Consultation with Dr. Street was requested. 07/15/2018-patient has history of salivary gland malignancy status post radiation, chemotherapy. CT scan shows questionable lesions in both lung moran. Consultation with pulmonary was requested consultation with oncology was requested. - Time Time Spent with patient: 25-34 minutes Medications reviewed and adjusted accordingly: Yes Anticipated discharge: Home
[2018-07-15] MEDS: LEVOFLOXACIN 750 MG TABLET PEG SCH (12:19)
[2018-07-15] MEDS: CEFTRIAXONE 2 GM/D5W RTU 2 GM/50 ML RTUPB IV SCH (13:25)
[2018-07-15] MEDS: LEVOFLOXACIN 500 MG/D5W RTU 500 MG/100 ML RTUPB IV SCH (14:55)
[2018-07-15] MEDS: OXYCODONE HCL IR 5 MG TABLET PO PRN (20:43)
[2018-07-15] MEDS ORDERED: HYDROCORTISONE ACETATE 25 MG SUPP.RECT PR ONE (21:09)
[2018-07-15] MEDS: TEMAZEPAM 15 MG CAPSULE PEG PRN (21:40)
[2018-07-16] MEDS: LEVALBUTEROL HCL NEB 1.25 MG/3 ML AMPUL NEB SCH ×3 (01:10→15:48)
[2018-07-16] MEDS: IPRATROPIUM BROMIDE 0.02% NEB 0.5 MG/2.5 ML AMPUL NEB SCH ×3 (01:10→15:48)
[2018-07-16] MEDS: OXYCODONE HCL IR 5 MG TABLET PO PRN ×2 (04:46→21:18)
[2018-07-16 04:59] LABS: HEMATOCRIT 37.7 % (37.9-51.0); HEMOGLOBIN 12.3 g/dL (13.5-17.0); MEAN CORPUSCULAR HEMOGLOBIN 28.7 pg (27.0-33.4); MEAN CORPUSCULAR HGB CONC 32.7 g/dL (32.0-36.0); MEAN CORPUSCULAR VOLUME 88 fl (80-97); PLATELET COUNT 346 10^3/uL (150-450); RED CELL DISTRIBUTION WIDTH 14.3 % (11.5-14.0)
[2018-07-16 05:18] LABS: ABSOLUTE LYMPHOCYTES# (MANUAL) 0.3 10^3/uL (0.5-4.7); ABSOLUTE NEUTROPHILS# (MANUAL) 14.7 10^3/uL (1.7-8.2); BASOPHILS % (MANUAL) 0 % (0-2); EOSINOPHILS % (MANUAL) 0 % (0-6); LYMPHOCYTES % (MANUAL) 2 % (13-45); MONOCYTES % (MANUAL) 6 % (3-13); SEGMENTED NEUTROPHILS % (MAN) 92 % (42-78); TOTAL CELLS COUNTED 100
[2018-07-16 05:19] LABS: HYPERSEGMENTED NEUTROPHILS PRESENT
[2018-07-16 05:20] LABS: PLATELET COMMENT ADEQUATE; RBC MORPHOLOGY COMMENT NORMO-CYTIC/CHROMIC
[2018-07-16 05:31] LABS: ANION GAP 8 (5-19); BLOOD UREA NITROGEN 21 mg/dL (7-20); CALCIUM 9.3 mg/dL (8.4-10.2); CARBON DIOXIDE 26 mmol/L (22-30); CHLORIDE 108 mmol/L (98-107); GLUCOSE 128 mg/dL (75-110); POTASSIUM 4.8 mmol/L (3.6-5.0); SODIUM 142.1 mmol/L (137-145)
[2018-07-16] MEDS: METHYLPREDNISOLONE INJ 40 MG/1 ML SDV IV SCH (06:45)
[2018-07-16] MEDS: HEPARIN SOD (PORCINE) 5,000 UNIT/ML 1 ML SYRINGE SUBCUT SCH ×3 (06:45→21:21)
[2018-07-16] MEDS: ACETYLCYSTEINE 20% SOLN 800 MG/4 ML VIAL.NEB NEB SCH ×2 (08:03→19:33)
[2018-07-16] MEDS: BUDESONIDE NEB 0.5 MG/2 ML AMPUL NEB SCH ×2 (08:04→19:34)
[2018-07-16] MEDS: FAMOTIDINE 20 MG TABLET PEG SCH ×2 (10:19→21:16)
[2018-07-16] MEDS: LEVOFLOXACIN 500 MG/D5W RTU 500 MG/100 ML RTUPB IV SCH (10:19)
[2018-07-16] MEDS: GABAPENTIN 300 MG CAPSULE PEG SCH ×2 (10:19→21:16)
[2018-07-16] MEDS: DOCUSATE SODIUM 100 MG/10 ML UDC PEG SCH ×2 (10:26→17:48)
[2018-07-16] MEDS: CEFTRIAXONE 2 GM/D5W RTU 2 GM/50 ML RTUPB IV SCH (12:24)
[2018-07-16] MEDS: PHENYLEPHRINE HCL 1 EACH SUPP.RECT PR PRN (13:37)
--- NOTE | 2018-07-16 13:46 | PDOC PROGRESS REPORT ---
Subjective Progress Note for:: 07/16/18 Subjective:: 72 year old male who presented to the emergency room with a 2-week history of dyspnea. He admits mildly increased dyspnea for the last 2 weeks with progressive worsening over the last 4 days. His dyspnea was at first present just with exertion but has continued to be worsened substantially by exertion and persisted at a moderate to severe level even at rest. He further admits that his dyspnea has been accompanied by subjective fever and chills and a nonproductive cough. He admits similar prior episodes secondary to his COPD. He has not identified any other aggravating or ameliorating factors for his current episode of dyspnea. He was seen by his primary care provider who started him on prednisone yesterday and he has been using home breathing treatments without significant improvement. He had a chest x-ray performed on outpatient basis earlier today which showed abnormalities and resulted in his receiving a CAT scan of his chest which showed possible metastatic lesions and a small loculated right pleural effusion in his chest as well as demonstrating a right lower lobe pneumonia. In the emergency room he was found to have hypoxic respiratory failure, an elevated white count and moderate tachypnea. Patient was subsequently admitted hospital for further evaluation and treatment. 07/14/2018-no acute events in the last 24 hours. Patient is afebrile. Request was placed for thoracentesis of pleural effusion. Patient is on Plavix plan to hold the Plavix until Tuesday possible thoracentesis on Tuesday. To continue heparin subcu until Tuesday night. Patient is comfortable in the chair communicating well. Pulse ox is 93% on 4 L. Patient has a feeding tube. 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 07/15/[id number]-xxwj-old male admitted with shortness of breath. Admitting diagno sis is acute exacerbation of COPD. Work-up shows right pleural effusion - loculated pleural effusion and questionable lesions in bilateral lungs peripherally in nature may be representing inflammatory or infectious process or malignancy. Dr. Bhagat is on board. Dr. Harvey is on board. Plan is to start on IV antibiotics Rocephin 2 g daily and levofloxacin 500 mg IV daily as per Dr. Hoff's recommendations. Patient is comfortably in the bed is bedside no complaints no concerns. Patient's Plavix on hold. 07/16/[id number]-erjo-old male admitted with shortness of breath secondary to COPD exacerbation. CT scan shows right-sided pleural effusion scheduled for thoracentesis tomorrow. There is questionable infiltrate/lesions in bilateral lung moran as per Dr. Rodrigues recommendations presently on IV antibiotic therapy. Comfortable in the chair communicating well. No acute events in the last 24 hours. Afebrile bed. Requesting something to sleep at nighttime. He is on temazepam 15 mg p.o. nightly on as needed basis I increased the dose to 30 mg nightly. Reason For Visit: ACUTE EXACERBATION COPD Physical Exam Vital Signs: Temp Pulse Resp BP Pulse Ox 97.6 F 108 H 20 131/80 H 92 07/16/18 08:00 07/16/18 08:04 07/16/18 08:04 07/16/18 08:00 07/16/18 08:04 Intake & Output 07/15/18 07/16/18 07/17/18 06:59 06:59 06:59 Intake Total 362 470 150 Balance 362 470 150 Weight 65.2 kg 66.1 kg General appearance: PRESENT: thin Head exam: PRESENT: atraumatic Eye exam: PRESENT: PERRLA Mouth exam: PRESENT: moist, tongue midline Teeth exam: PRESENT: poor dentation Neck exam: ABSENT: carotid bruit, JVD, lymphadenopathy, thyromegaly Respiratory exam: PRESENT: clear to auscultation tyler. ABSENT: rales, rhonchi, wheezes GI/Abdominal exam: PRESENT: normal bowel sounds, soft. ABSENT: distended, guarding, mass, organolmegaly, rebound, tenderness Rectal exam: PRESENT: deferred Extremities exam: PRESENT: full ROM. ABSENT: calf tenderness, clubbing, pedal edema Neurological exam: PRESENT: alert Psychiatric exam: PRESENT: agitated Results Laboratory Results: 07/16/18 04:38 07/16/18 04:38 07/16/18 07/16/18 04:38 04:38 WBC 16.0 H RBC 4.30 L Hgb 12.3 L Hct 37.7 L MCV 88 MCH 28.7 MCHC 32.7 RDW 14.3 H Plt Count 346 Seg Neutrophils % Not Reportable Lymphocytes % Not Reportable Monocytes % Not Reportable Eosinophils % Not Reportable Basophils % Not Reportable Absolute Neutrophils Not Reportable Absolute Lymphocytes Not Reportable Absolute Monocytes Not Reportable Absolute Eosinophils Not Reportable Absolute Basophils Not Reportable Sodium 142.1 Potassium 4.8 Chloride 108 H Carbon Dioxide 26 Anion Gap 8 BUN 21 H Creatinine 0.60 Est GFR ( Amer) > 60 Est GFR (Non-Af Amer) > 60 Glucose 128 H Calcium 9.3 Magnesium 2.4 H 07/13/18 16:15 NT-Pro-B Natriuret Pep 347 Assessment and Plan - Diagnosis (1) Acute exacerbation of chronic obstructive pulmonary disease (COPD) Is this a current diagnosis for this admission?: Yes Plan: Patient be treated with aggressive pulmonary toilet utilizing nebulized Pulmicort, Xopenex and Atrovent. He will receive IV Solu-Medrol and oxygen supplementation as required. He will be followed with daily CBCs as well as daily metabolic profiles with magnesium levels. Further radiographic studies will be obtained as needed. 07/14/2018-patient admitted with acute exacerbation of COPD. Presently on a Pulmicort, Xopenex, Atrovent. He is also on oxygen supplementation and IV Solu- Medrol. Plan is to continue the present management. Consultation with Dr. Bhagat was requested. 07/15/2018-patient was admitted with acute exacerbation of COPD. Presently on Pulmicort, Xopenex, Atrovent. He is also on IV Solu-Medrol every 8 hours. Plan is to decrease the IV Solu-Medrol to every [address]. [address] Bhagat is on board. pulse is 93% on 2 L. 07/16/[id number]-fngh-old male admitted for acute exacerbation of COPD. Getting scheduled and as needed nebulizations. On IV Solu-Medrol 40 mg every 12 hours plan is to decrease the dose to daily. Comfortable in the chair communicating well. Pulse ox is 94% on 2 L. Plan is to continue the present management. (2) Pleural effusion, right Is this a current diagnosis for this admission?: Yes Plan: 07/14/2018-patient admitted with right pleural effusion. Loculated. Consultation with radiology is requested because the patient is on Plavix plan is to do the thoracentesis on Tuesday. Plavix is on hold from today. 07/15/2018-patient admitted with shortness of breath and found to have a moderate sized right pleural effusion, loculated pleural effusion. Because the patient is on Plavix thoracentesis on hold at this point. Plan is that interventional radiology is going to do thoracentesis on Tuesday and orders was placed for fluid analysis. 07/16/2018-patient admitted with shortness of breath and had a right pleural effusion. Plan is to do the thoracentesis and send the fluid for analysis tomorrow. Plavix on hold. Lovenox will be hold from midnight today. (3) Right lower lobe pneumonia Qualifiers: Pneumonia type: due to unspecified organism Qualified Code(s): J18.1 - Lobar pneumonia, unspecified organism Is this a current diagnosis for this admission?: Yes Plan: Further evaluation of the patient's right lower lobe via pulmonology consultation with Dr. Street. Patient will be treated with IV antibiotic therapy utilizing Levaquin 750 mg every 24 hours. Daily CBCs and metabolic profiles with magnesium levels will be employed in following the patient's course. Patient will have available morphine sulfate 2 to 4 mg IV every 2 hours as needed on a sliding scale basis for pain control. 07/14/2018-CT scan suggestive of right lower lobe pneumonia. Consultation with Dr. Street was done. Presently on IV levo floxacillin 750 mg daily patient is afebrile. Pulse ox is improved to 94% on 4 L. 07/15/2018-patient's chest CT scan suggestive of right lower lobe pneumonia pre sently on p.o. levofloxacin 750 mg daily plan is to discharge the patient on IV Rocephin 2 g daily and levo floxacillin 500 mg IV daily. blood Cultures are negative so far. 07/16/2018-CT chest shows right lower lobe pneumonia presently on IV levo floxacillin and IV Rocephin. Patient is afebrile. T-max is 97.5. Plan is to continue the present management today. (4) Metastatic cancer to lung Qualifiers: Laterality: right Qualified Code(s): C78.01 - Secondary malignant neoplasm of right lung Is this a current diagnosis for this admission?: Yes Plan: A pulmonology consultation will be obtained with Dr. Street and further investigation via interventional radiology or other biopsy will be considered. 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 Consultation with Dr. Street was requested. 07/15/2018-patient has history of salivary gland malignancy status post radiation, chemotherapy. CT scan shows questionable lesions in both lung moran. Consultation with pulmonary was requested consultation with oncology was requested. 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 CT scan shows questionable infiltrate/lesion seen bilateral lung moran. Dr. Rodrigues is on board. - Time Time Spent with patient: 25-34 minutes Medications reviewed and adjusted accordingly: Yes Anticipated discharge: Home
[2018-07-16] MEDS: TEMAZEPAM 15 MG CAPSULE PEG SCH (21:17)
[2018-07-17] MEDS: IPRATROPIUM BROMIDE 0.02% NEB 0.5 MG/2.5 ML AMPUL NEB SCH ×3 (00:19→15:23)
[2018-07-17] MEDS: LEVALBUTEROL HCL NEB 1.25 MG/3 ML AMPUL NEB SCH ×3 (00:20→15:23)
[2018-07-17] MEDS: HEPARIN SOD (PORCINE) 5,000 UNIT/ML 1 ML SYRINGE SUBCUT SCH ×3 (05:32→21:35)
[2018-07-17 06:42] LABS: INTERNATIONAL RATION (INR) 1.02
[2018-07-17] MEDS: ACETYLCYSTEINE 20% SOLN 800 MG/4 ML VIAL.NEB NEB SCH ×2 (07:36→19:56)
[2018-07-17] MEDS: BUDESONIDE NEB 0.5 MG/2 ML AMPUL NEB SCH ×2 (07:36→19:56)
--- NOTE | 2018-07-17 07:38 | CONSULTATION REPORT E ---
Consultation Report NAME: FELIPE PIERRE : 1945 AGE: 72Y DATE: 527 A TO: CRISTOFER MARRUFO M.D. FROM: YARIEL NORMAN M.D. Requesting Physician HISTORY OF PRESENT ILLNESS: The patient is a 72-year-old male who came in on 07/13/2018, yesterday, because of a 2-week history of worsening dyspnea and pleuritic chest pain, right side. Denies any fever. Denies any sputum production or hemoptysis. Condition worsened, thus patient went to the emergency room and got admitted. Had a chest CT scan showing loculated small pleural effusion, right side, with a possible metastatic lesion on the right lung base. The patient has history of throat cancer, currently on radiation treatment. PAST MEDICAL HISTORY: 1. Peripheral vascular disease. 2. History of COPD. 3. Pneumonia. 4. Throat: Dysphagia since radiation requiring PEG tube placement. 5. 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 SURGICAL HISTORY: 1. Vascular surgery right iliac to left femoral . 2. Right femoral stent. 3. Endoscopy with placement of PEG tube. SOCIAL HISTORY: Lives with spouse. A former heavy smoker. Drinks alcohol occasionally. Denies illicit drug use. FULL CODE. FAMILY HISTORY: CAD. COPD. Diabetes. Hypertension. Malignancy. HOME MEDICATIONS: 1. Gabapentin. 2. Azithromycin. 3. Plavix. 4. Oxycodone. 5. Pilocarpine. 6. Prednisone. ALLERGIES: No known drug allergies. REVIEW OF SYSTEMS: CONSTITUTIONAL: No fever or chills. Just not feeling well. EYES: No jaundice or pallor or eye pain. EARS, NOSE, AND THROAT: Denies nasal discharge. CHEST AND LUNGS: Nonproductive cough and dyspnea. GI: No nausea or vomiting or diarrhea. : No dysuria, hematuria. problems with urination. EXTREMITIES: No joint swelling, no cellulitis. PHYSICAL EXAMINATION: GENERAL: Patient is awake, alert, coherent, oriented x3. VITAL SIGNS: Temperature of 98 degrees Fahrenheit, pulse of 102, blood pressure is 110/69, respiratory rate is 18, saturation 96% on 4L nasal cannula. EYES: No jaundice or pallor. EARS, NOSE, AND THROAT: No ear drainage. No nasal discharge. CHEST AND LUNGS: No wheezing, no rhonchi, no coarse crackles. CARDIOVASCULAR: S1, S2 distinct. Normal rate, regular rhythm. ABDOMEN: Flabby, positive bowel sounds, soft, nondistended, nontender. EXTREMITIES: No joint swelling, no cellulitis. LABORATORY DATA: CBC done today showed white count of 11.7 from 15,000 yesterday,K hemoglobin is 12.6, hematocrit is 38.1, platelets 307. ABG done yesterday showed pH of 7.5, pCO2 is 30, pO2 is 60, saturation 93% on 2L. Chemistry done today showed sodium is 140, potassium 4.5, chloride 112, carbon dioxide is 21, BUN is 12, creatinine 0.49, glucose 123, lactic acid 1.8, calcium is 9.2, magnesium is 2.2. ASSESSMENT: 1. Small right pleural effusion loculated, possibly infected pleural space. Patient may require CT-guided thoracentesis in the affected space. If pus is collected from the pleural effusion, the patient may need thoracic surgery consult for possible Video-assisted thoracoscopic surgery (VATS) and pleural decortication. 2. The patient may continue on Trelegy inhaler 1 puff once a day. 3. Would to a pulmonary function tests as an outpatient. 4. May consider giving anticholinergic like Spiriva or Trelegy 1 puff once daily. DICTATING PHYSICIAN: CRISTOFER MARRUFO MD,NICOLETTE,MPH [id number] PHY#: [id number] ID: [id number] JOB#: [id number] ACCT: [id number] cc:CRISTOFER MARRUFO M.D. > MTDD
[2018-07-17] MEDS: PHENYLEPHRINE HCL 1 EACH SUPP.RECT PR PRN ×2 (07:50→22:33)
[2018-07-17] MEDS ORDERED: METHYLPREDNISOLONE INJ 40 MG/1 ML SDV IV SCH (10:00)
[2018-07-17] MEDS: DOCUSATE SODIUM 100 MG/10 ML UDC PEG SCH ×2 (10:36→17:59)
[2018-07-17] MEDS: LEVOFLOXACIN 500 MG/D5W RTU 500 MG/100 ML RTUPB IV SCH (10:36)
[2018-07-17] MEDS: GABAPENTIN 300 MG CAPSULE PEG SCH ×2 (10:37→21:35)
[2018-07-17] MEDS: FAMOTIDINE 20 MG TABLET PEG SCH ×2 (10:37→21:35)
--- NOTE | 2018-07-17 10:51 | RADIOLOGY REPORT (SQ) ---
EXAM DESCRIPTION: CHEST SINGLE VIEW COMPLETED DATE/TIME: 07/17/2018 10:13 am REASON FOR STUDY: S/P RT CHEST TUBE PLACEMENT COMPARISON: None. EXAM PARAMETERS: NUMBER OF VIEWS: One view. TECHNIQUE: Single frontal radiographic view of the chest acquired. RADIATION DOSE: NA LIMITATIONS: None. FINDINGS: LUNGS AND PLEURA: Interval placement of right small bore chest tube, since the previous e xamination dated 07/13/2018. Persistent slight decrease in the right pleural effusion and infiltrate/a telectasis in the right lower lung. The left lung remains clear. No pneumothorax. MEDIASTINUM AND HILAR STRUCTURES: There is fullness in the anterior-superior mediastinal on the righ t correlates with the lymphadenopathy identified on the CT chest study dated 07/13/2018. HEART AND VASCULAR STRUCTURES: The right cardiac margin is obscured by the underlying pleuroparenchy mal changes on the right. BONES: No acute findings. HARDWARE: None in the chest. OTHER: No other significant finding. IMPRESSION: 1. Interval placement of right small bore chest tube since the prior study dated 07/14/19 19. Persistent slight decrease in the right pleural effusion and infiltrate/atelectasis in the right lower lung. 2. No evidence of pneumothorax. 3. There is fullness in the anterior- superior mediastinum on the right, likely correlates with the lymphadenopathy identified on the CT chest examination dated 07/13/2018. TECHNICAL DOCUMENTATION: JOB ID: [id number] [employer]- All Rights Reserved Reading location - IP/workstation name: [email or web address]
--- NOTE | 2018-07-17 11:52 | RADIOLOGY REPORT (SQ) ---
EXAM DESCRIPTION: U/S THORACENTESIS W/CHEST TUBE COMPLETED DATE/TIME: 07/17/2018 11:33 am REASON FOR STUDY: lt pleural effusion ?? maligency COMPARISON: None FLUORO TIME: None. 5 images saved to PACS. TECHNIQUE: Image guided chest tube placement using sterile technique. LIMITATIONS: None FINDINGS: After written consent was obtained and explaining the risks and benefits of conscious devi tion , the patient was placed upright. A time out was then called for site verification. An entry si te was then marked using ultrasound guidance. The posterior right wall was then prepped and draped in a sterile fashion. The site was then anesthetized using 3.0 ml of 1% lidocaine solution. An 11 magaly de scalpel was used to make a small skin incision. A 18g -7cm needle was advanced into the chest wal l. A.038 guidewire was passed through the needle. The tract was then dilated using a 10 [place] dila tor. A 10 fr drain was then placed over the wire. The catheter was then attached to the collection device. The entry site was covered with a sterile bandage. IMPRESSION: SUCCESSFUL PLACEMENT OF A RIGHT SIDED CHEST TUBE USING ULTRASOUND GUIDANCE. COMMENT: Patient medication list reviewed: Yes- Quality ID# [id number]:Eligible professional attests to do cumenting in the medical record they obtained, updated, or reviewed the patient's current medications . Quality ID 145: Final reports for procedures using fluoroscopy that document radiation exposure mo kirsty, or exposure time and number of fluorographic images (if radiation exposure indices are not avail able) TECHNICAL DOCUMENTATION: JOB ID: [id number]- All Rights Reserved Reading location - IP/workstation name: [email or web address]
[2018-07-17] MEDS: CEFTRIAXONE 2 GM/D5W RTU 2 GM/50 ML RTUPB IV SCH (12:00)
[2018-07-17 12:41] LABS: ABSOLUTE LYMPHOCYTES (AUTO) 0.7 10^3/uL (0.5-4.7); ABSOLUTE MONOCYTES (AUTO) 1.1 10^3/uL (0.1-1.4); ABSOLUTE NEUT (AUTO) 11.8 10^3/uL (1.7-8.2); BASOPHILS % (AUTO) 0.2 % (0-2); HEMATOCRIT 39.5 % (37.9-51.0); HEMOGLOBIN 12.8 g/dL (13.5-17.0); LYMPHOCYTES % (AUTO) 5.2 % (13-45); MEAN CORPUSCULAR HEMOGLOBIN 28.7 pg (27.0-33.4); MEAN CORPUSCULAR HGB CONC 32.3 g/dL (32.0-36.0); MEAN CORPUSCULAR VOLUME 89 fl (80-97); MONOCYTES % (AUTO) 8.4 % (3-13); PLATELET COUNT 349 10^3/uL (150-450); RED BLOOD COUNT 4.46 10^6/uL (4.35-5.55); RED CELL DISTRIBUTION WIDTH 14.4 % (11.5-14.0); SEGMENTED NEUTROPHILS % (AUTO) 86.2 % (42-78); TOTAL CELLS COUNTED % (AUTO) 100 %; WHITE BLOOD COUNT 13.7 10^3/uL (4.0-10.5)
[2018-07-17 12:57] LABS: FLUID APPEARANCE CLOUDY; FLUID COLOR RED; FLUID SOURCE LUNG; FLUID TYPE PLEURAL; FLUID VISCOSITY LIQUID
[2018-07-17] MEDS: OXYCODONE HCL IR 5 MG TABLET PO PRN (13:04)
--- NOTE | 2018-07-17 13:08 | PDOC PROGRESS REPORT ---
Subjective Progress Note for:: 07/17/18 Subjective:: Patient feeling about the same. No concerns over the weekend. No worsening from the lungs. He is off oxygen, but receiving neb treatments. Plans are for thoracentesis later today. Reason For Visit: ACUTE EXACERBATION COPD Physical Exam Vital Signs: Temp Pulse Resp BP Pulse Ox 97.4 F 82 18 163/76 H 95 07/16/18 19:35 07/17/18 07:37 07/17/18 07:37 07/16/18 19:35 07/17/18 07:37 Intake & Output 07/16/18 07/17/18 07/18/18 06:59 06:59 06:59 Intake Total 150 150 150 Balance 150 150 150 Weight 66.1 kg 66.3 kg General appearance: PRESENT: no acute distress Head exam: PRESENT: normocephalic Respiratory exam: PRESENT: unlabored Extremities exam: ABSENT: pedal edema Neurological exam: PRESENT: alert, awake Psychiatric exam: PRESENT: appropriate affect Skin exam: PRESENT: normal color Results Laboratory Results: 07/17/18 05:47 07/17/18 05:47 WBC 13.7 H RBC 4.46 Hgb 12.8 L Hct 39.5 MCV 89 MCH 28.7 MCHC 32.3 RDW 14.4 H Plt Count 349 Seg Neutrophils % 86.2 H Lymphocytes % 5.2 L Monocytes % 8.4 Eosinophils % 0.0 Basophils % 0.2 Absolute Neutrophils 11.8 H Absolute Lymphocytes 0.7 Absolute Monocytes 1.1 Absolute Eosinophils 0.0 Absolute Basophils 0.0 07/13/18 16:15 NT-Pro-B Natriuret Pep 347 Impressions: Thoracentesis Ultrasound 07/17/18 00:00 IMPRESSION: SUCCESSFUL PLACEMENT OF A RIGHT SIDED CHEST TUBE USING ULTRASOUND GUIDANCE. Assessment & Plan - Diagnosis (1) Right lower lobe pneumonia Qualifiers: Qualified Code(s): J18.1 - Lobar pneumonia, unspecified organism Is this a current diagnosis for this admission?: Yes (2) Pleural effusion, right Is this a current diagnosis for this admission?: Yes (3) Lung mass Is this a current diagnosis for this admission?: Yes - Plan Summary Plan Summary: For thoracentesis with cytology later today. Consider biopsy of lymphadenopathy or lung masses in the future, if cytology is negative. Continue antibiotics as well.
[2018-07-17 13:12] LABS: ALANINE AMINOTRANSFERASE 30 U/L (21-72); ALBUMIN 2.9 g/dL (3.5-5.0); ALKALINE PHOSPHATASE 73 U/L (38-126); ANION GAP 7 (5-19); ASPARTATE AMINO TRANSFERASE 19 U/L (17-59); BILIRUBIN,DIRECT 0.2 mg/dL (0.0-0.4); BILIRUBIN,TOTAL 0.2 mg/dL (0.2-1.3); BLOOD UREA NITROGEN 19 mg/dL (7-20); CALCIUM 9.2 mg/dL (8.4-10.2); CARBON DIOXIDE 26 mmol/L (22-30); CHLORIDE 107 mmol/L (98-107); GLUCOSE 96 mg/dL (75-110); POTASSIUM 4.6 mmol/L (3.6-5.0); SODIUM 139.9 mmol/L (137-145); TOTAL PROTEIN 5.8 g/dL (6.3-8.2)
--- NOTE | 2018-07-17 13:12 | PDOC PROGRESS REPORT ---
Subjective Progress Note for:: 07/17/18 Subjective:: 72 year old male who presented to the emergency room with a 2-week history of dyspnea. He admits mildly increased dyspnea for the last 2 weeks with progressive worsening over the last 4 days. His dyspnea was at first present just with exertion but has continued to be worsened substantially by exertion and persisted at a moderate to severe level even at rest. He further admits that his dyspnea has been accompanied by subjective fever and chills and a nonproductive cough. He admits similar prior episodes secondary to his COPD. He has not identified any other aggravating or ameliorating factors for his current episode of dyspnea. He was seen by his primary care provider who started him on prednisone yesterday and he has been using home breathing treatments without significant improvement. He had a chest x-ray performed on outpatient basis earlier today which showed abnormalities and resulted in his receiving a CAT scan of his chest which showed possible metastatic lesions and a small loculated right pleural effusion in his chest as well as demonstrating a right lower lobe pneumonia. In the emergency room he was found to have hypoxic respiratory failure, an elevated white count and moderate tachypnea. Patient was subsequently admitted hospital for further evaluation and treatment. 07/14/2018-no acute events in the last 24 hours. Patient is afebrile. Request was placed for thoracentesis of pleural effusion. Patient is on Plavix plan to hold the Plavix until Tuesday possible thoracentesis on Tuesday. To continue heparin subcu until Tuesday night. Patient is comfortable in the chair communicating well. Pulse ox is 93% on 4 L. Patient has a feeding tube. 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 07/15/[id number]-axgc-old male admitted with shortness of breath. Admitting diagno sis is acute exacerbation of COPD. Work-up shows right pleural effusion - loculated pleural effusion and questionable lesions in bilateral lungs peripherally in nature may be representing inflammatory or infectious process or malignancy. Dr. Bhagat is on board. Dr. Harvey is on board. Plan is to start on IV antibiotics Rocephin 2 g daily and levofloxacin 500 mg IV daily as per Dr. Hoff's recommendations. Patient is comfortably in the bed is bedside no complaints no concerns. Patient's Plavix on hold. 07/16/[id number]-bszr-old male admitted with shortness of breath secondary to COPD exacerbation. CT scan shows right-sided pleural effusion scheduled for thoracentesis tomorrow. There is questionable infiltrate/lesions in bilateral lung moran as per Dr. Rodrigues recommendations presently on IV antibiotic therapy. Comfortable in the chair communicating well. No acute events in the last 24 hours. Afebrile bed. Requesting something to sleep at nighttime. He is on temazepam 15 mg p.o. nightly on as needed basis I increased the dose to 30 mg nightly. 07/17/2018-patient went for thoracentesis this morning came back with the right- sided chest tube placement. Pulse ox is 95% on a 2 L. Comfortably in the bed. Reason For Visit: ACUTE EXACERBATION COPD Physical Exam Vital Signs: Temp Pulse Resp BP Pulse Ox 97.4 F 82 18 163/76 H 95 07/16/18 19:35 07/17/18 07:37 07/17/18 07:37 07/16/18 19:35 07/17/18 07:37 Intake & Output 07/16/18 07/17/18 07/18/18 06:59 06:59 06:59 Intake Total 150 150 150 Balance 150 150 150 Weight 66.1 kg 66.3 kg General appearance: PRESENT: no acute distress Head exam: PRESENT: atraumatic Eye exam: PRESENT: PERRLA Teeth exam: PRESENT: dental caries Neck exam: ABSENT: carotid bruit, JVD, lymphadenopathy, thyromegaly Respiratory exam: PRESENT: decreased breath sounds, other - Patient has a chest tube on the right side of the chest. Cardiovascular exam: PRESENT: tachycardia GI/Abdominal exam: PRESENT: normal bowel sounds, soft. ABSENT: distended, guarding, mass, organolmegaly, rebound, tenderness Rectal exam: PRESENT: deferred Extremities exam: PRESENT: full ROM. ABSENT: calf tenderness, clubbing, pedal edema Neurological exam: PRESENT: alert, awake, oriented to person, oriented to place, oriented to time, oriented to situation, CN II-XII grossly intact. ABSENT: motor sensory deficit Psychiatric exam: PRESENT: appropriate affect, normal mood. ABSENT: homicidal ideation, suicidal ideation Results Laboratory Results: 07/17/18 05:47 07/17/18 05:47 WBC 13.7 H RBC 4.46 Hgb 12.8 L Hct 39.5 MCV 89 MCH 28.7 MCHC 32.3 RDW 14.4 H Plt Count 349 Seg Neutrophils % 86.2 H Lymphocytes % 5.2 L Monocytes % 8.4 Eosinophils % 0.0 Basophils % 0.2 Absolute Neutrophils 11.8 H Absolute Lymphocytes 0.7 Absolute Monocytes 1.1 Absolute Eosinophils 0.0 Absolute Basophils 0.0 07/13/18 16:15 NT-Pro-B Natriuret Pep 347 Impressions: Thoracentesis Ultrasound 07/17/18 00:00 IMPRESSION: SUCCESSFUL PLACEMENT OF A RIGHT SIDED CHEST TUBE USING ULTRASOUND GUIDANCE. Assessment and Plan - Diagnosis (1) Acute exacerbation of chronic obstructive pulmonary disease (COPD) Is this a current diagnosis for this admission?: Yes Plan: Patient be treated with aggressive pulmonary toilet utilizing nebulized Pulmicort, Xopenex and Atrovent. He will receive IV Solu-Medrol and oxygen sup plementation as required. He will be followed with daily CBCs as well as daily metabolic profiles with magnesium levels. Further radiographic studies will be obtained as needed. 07/14/2018-patient admitted with acute exacerbation of COPD. Presently on a Pulmicort, Xopenex, Atrovent. He is also on oxygen supplementation and IV Solu- Medrol. Plan is to continue the present management. Consultation with Dr. Bhagat was requested. 07/15/2018-patient was admitted with acute exacerbation of COPD. Presently on Pulmicort, Xopenex, Atrovent. He is also on IV Solu-Medrol every 8 hours. Plan is to decrease the IV Solu-Medrol to every [address]. [address] Bhagat is on board. pulse is 93% on 2 L. 07/16/[id number]-nbhl-old male admitted for acute exacerbation of COPD. Getting scheduled and as needed nebulizations. On IV Solu-Medrol 40 mg every 12 hours plan is to decrease the dose to daily. Comfortable in the chair communicating well. Pulse ox is 94% on 2 L. Plan is to continue the present management. 07/17/[id number]-whlc-old male admitted for acute exacerbation of COPD CT chest suggestive of right-sided pleural effusion chest tube placement was done today patient says he is feeling better today pulmonary consult also done consultation with Dr. Harvey was done. The pleural fluid was sent for analysis. (2) Pleural effusion, right Is this a current diagnosis for this admission?: Yes Plan: 07/14/2018-patient admitted with right pleural effusion. Loculated. Consultation with radiology is requested because the patient is on Plavix plan is to do the thoracentesis on Tuesday. Plavix is on hold from today. 07/15/2018-patient admitted with shortness of breath and found to have a moderate sized right pleural effusion, loculated pleural effusion. Because the patient is on Plavix thoracentesis on hold at this point. Plan is that interventional radiology is going to do thoracentesis on Tuesday and orders was placed for fluid analysis. 07/16/2018-patient admitted with shortness of breath and had a right pleural effu [place]. Plan is to do the thoracentesis and send the fluid for analysis tomorrow. Plavix on hold. Lovenox will be hold from midnight today. 07/17/2018-patient came in with right-sided pleural effusion status post chest tube placement today. (3) Right lower lobe pneumonia Qualifiers: Pneumonia type: due to unspecified organism Qualified Code(s): J18.1 - Lobar pneumonia, unspecified organism Is this a current diagnosis for this admission?: Yes Plan: Further evaluation of the patient's right lower lobe via pulmonology consultation with Dr. Street. Patient will be treated with IV antibiotic therapy utilizing Levaquin 750 mg every 24 hours. Daily CBCs and metabolic p rofiles with magnesium levels will be employed in following the patient's course. Patient will have available morphine sulfate 2 to 4 mg IV every 2 hours as needed on a sliding scale basis for pain control. 07/14/2018-CT scan suggestive of right lower lobe pneumonia. Consultation with Dr. Street was done. Presently on IV levo floxacillin 750 mg daily patient is afebrile. Pulse ox is improved to 94% on 4 L. 07/15/2018-patient's chest CT scan suggestive of right lower lobe pneumonia presently on p.o. levofloxacin 750 mg daily plan is to discharge the patient on IV Rocephin 2 g daily and levo floxacillin 500 mg IV daily. blood Cultures are negative so far. 07/16/2018-CT chest shows right lower lobe pneumonia presently on IV levo floxacillin and IV Rocephin. Patient is afebrile. T-max is 97.5. Plan is to continue the present management today. 07/17/2018-patient's has right-sided pneumonia presently on IV levo floxacillin and IV Rocephin. T-max is 97.4. blood Cultures are negative. (4) Metastatic cancer to lung Qualifiers: Laterality: right Qualified Code(s): C78.01 - Secondary malignant neoplasm of right lung Is this a current diagnosis for this admission?: Yes Plan: A pulmonology consultation will be obtained with Dr. Street and further investigation via interventional radiology or other biopsy will be considered. 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 Consultation with Dr. Street was requested. 07/15/2018-patient has history of salivary gland malignancy status post radiation, chemotherapy. CT scan shows questionable lesions in both lung moran. Consultation with pulmonary was requested consultation with oncology was requested. 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 CT scan shows questionable infiltrate/lesion seen bilateral lung moran. Dr. Rodrigues is on board. 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 He has a feeding tube. Hopefully this right pleural effusion does not show any malignancy. - Time Time Spent with patient: 25-34 minutes Medications reviewed and adjusted accordingly: Yes Anticipated discharge: Home
--- NOTE | 2018-07-17 13:36 | RADIOLOGY REPORT (SQ) ---
EXAM DESCRIPTION: CHEST SINGLE VIEW COMPLETED DATE/TIME: 07/17/2018 12:46 pm REASON FOR STUDY: S/P RT CHEST TUBE PLACEMENT COMPARISON: 07/17/2018 EXAM PARAMETERS: NUMBER OF VIEWS: One view. TECHNIQUE: Single frontal radiographic view of the chest acquired. RADIATION DOSE: NA LIMITATIONS: None. FINDINGS: LUNGS AND PLEURA: Since the examination performed earlier on the same date, persistent ri ght pleural effusion appears to have decreased in size somewhat. Small right bore chest tube is agai n noted. Partially visualized mass-like opacity in the right lower lung is better visualized on the current study. The lung left lung remains clear. No pneumothorax. MEDIASTINUM AND HILAR STRUCTURES: Stable appearance. HEART AND VASCULAR STRUCTURES: Heart normal in size. Normal vasculature. BONES: No acute findings. HARDWARE: None in the chest. OTHER: No other significant finding. IMPRESSION: 1. S the prior examination performed earlier on the same date 07/17/2018, persistent righ t pleural effusion appears to have decreased somewhat in size. No evidence for pneumothorax. 2. Partially visualized mass-like opacity in the right lower lung is better visualized on the curren t study. 3. Stable appearance to the mediastinum. TECHNICAL DOCUMENTATION: JOB ID: [id number] [employer]- All Rights Reserved Reading location - IP/workstation name: [email or web address]
[2018-07-17] MEDS ORDERED: MORPHINE SULFATE 10 MG/ML INJ ONE (15:17)
[2018-07-17] MEDS: MORPHINE SULFATE 10 MG/ML INJ IV PRN ×2 (15:20→21:35)
[2018-07-17] MEDS: LEVALBUTEROL HCL NEB 1.25 MG/3 ML AMPUL NEB PRN (19:56)
[2018-07-17] MEDS: TEMAZEPAM 15 MG CAPSULE PEG SCH (22:33)
[2018-07-18] MEDS: IPRATROPIUM BROMIDE 0.02% NEB 0.5 MG/2.5 ML AMPUL NEB SCH ×3 (00:14→15:24)
[2018-07-18] MEDS: LEVALBUTEROL HCL NEB 1.25 MG/3 ML AMPUL NEB SCH ×3 (00:15→15:24)
[2018-07-18 01:23] LABS: FLUID TYPE PLEURAL
[2018-07-18 01:24] LABS: FLUID APPEARANCE OPAQUE; FLUID COLOR DARK YELLOW; FLUID SOURCE LUNG
[2018-07-18 01:25] LABS: FLUID VISCOSITY SLIGHTLY VISCOUS
[2018-07-18] MEDS: HEPARIN SOD (PORCINE) 5,000 UNIT/ML 1 ML SYRINGE SUBCUT SCH ×3 (06:13→21:23)
[2018-07-18] MEDS: MORPHINE SULFATE 10 MG/ML INJ IV PRN ×2 (06:20→21:45)
[2018-07-18] MEDS: BUDESONIDE NEB 0.5 MG/2 ML AMPUL NEB SCH ×2 (07:28→20:57)
[2018-07-18] MEDS: ACETYLCYSTEINE 20% SOLN 800 MG/4 ML VIAL.NEB NEB SCH ×2 (07:28→20:56)
[2018-07-18 08:12] LABS: ABSOLUTE LYMPHOCYTES (AUTO) 1.2 10^3/uL (0.5-4.7); ABSOLUTE MONOCYTES (AUTO) 1.5 10^3/uL (0.1-1.4); ABSOLUTE NEUT (AUTO) 14.3 10^3/uL (1.7-8.2); BASOPHILS % (AUTO) 0.1 % (0-2); HEMATOCRIT 44.5 % (37.9-51.0); HEMOGLOBIN 14.5 g/dL (13.5-17.0); LYMPHOCYTES % (AUTO) 7.2 % (13-45); MEAN CORPUSCULAR HEMOGLOBIN 28.6 pg (27.0-33.4); MEAN CORPUSCULAR HGB CONC 32.6 g/dL (32.0-36.0); MEAN CORPUSCULAR VOLUME 88 fl (80-97); MONOCYTES % (AUTO) 8.9 % (3-13); PLATELET COUNT 405 10^3/uL (150-450); RED BLOOD COUNT 5.07 10^6/uL (4.35-5.55); RED CELL DISTRIBUTION WIDTH 14.2 % (11.5-14.0); SEGMENTED NEUTROPHILS % (AUTO) 83.8 % (42-78); TOTAL CELLS COUNTED % (AUTO) 100 %
[2018-07-18 08:33] LABS: ALANINE AMINOTRANSFERASE 24 U/L (21-72); ALBUMIN 3.6 g/dL (3.5-5.0); ALKALINE PHOSPHATASE 87 U/L (38-126); ANION GAP 8 (5-19); ASPARTATE AMINO TRANSFERASE 19 U/L (17-59); BILIRUBIN,DIRECT 0.3 mg/dL (0.0-0.4); BILIRUBIN,TOTAL 0.4 mg/dL (0.2-1.3); BLOOD UREA NITROGEN 17 mg/dL (7-20); CALCIUM 9.7 mg/dL (8.4-10.2); CARBON DIOXIDE 30 mmol/L (22-30); CHLORIDE 103 mmol/L (98-107); GLUCOSE 95 mg/dL (75-110); POTASSIUM 4.5 mmol/L (3.6-5.0); SODIUM 141.4 mmol/L (137-145); TOTAL PROTEIN 6.8 g/dL (6.3-8.2)
[2018-07-18] MEDS: DOCUSATE SODIUM 100 MG/10 ML UDC PEG SCH ×2 (09:11→17:13)
[2018-07-18] MEDS: LEVOFLOXACIN 500 MG/D5W RTU 500 MG/100 ML RTUPB IV SCH (09:16)
[2018-07-18] MEDS: FAMOTIDINE 20 MG TABLET PEG SCH ×2 (09:17→21:25)
[2018-07-18] MEDS: GABAPENTIN 300 MG CAPSULE PEG SCH ×2 (09:17→21:24)
[2018-07-18] MEDS: CLOPIDOGREL BISULFATE 75 MG TABLET PO SCH (09:17)
--- NOTE | 2018-07-18 09:20 | PDOC PROGRESS REPORT ---
Subjective Progress Note for:: 07/18/18 Subjective:: Patient is breathing much better. They had to put a chest tube in, but he is feeling good today. ROS: No significant pain. Very little dyspnea. Reason For Visit: ACUTE EXACERBATION COPD Physical Exam Vital Signs: Temp Pulse Resp BP Pulse Ox 97.6 F 72 16 127/71 H 92 07/18/18 07:24 07/18/18 07:28 07/18/18 07:28 07/18/18 07:24 07/18/18 07:28 Intake & Output 07/17/18 07/18/18 07/19/18 06:59 06:59 06:59 Intake Total 150 150 Output Total 900 Balance 150 -750 Weight 66.3 kg General appearance: PRESENT: thin, well-developed Head exam: PRESENT: normocephalic Respiratory exam: PRESENT: crackles - bibasilar, but good air movement in right base now., unlabored Cardiovascular exam: PRESENT: RRR Neurological exam: PRESENT: alert, awake Psychiatric exam: PRESENT: appropriate affect Skin exam: PRESENT: normal color Results Laboratory Results: 07/18/18 08:05 07/18/18 08:05 07/17/18 07/17/18 07/17/18 05:47 05:47 09:50 WBC 13.7 H RBC 4.46 Hgb 12.8 L Hct 39.5 MCV 89 MCH 28.7 MCHC 32.3 RDW 14.4 H Plt Count 349 Seg Neutrophils % 86.2 H Lymphocytes % 5.2 L Monocytes % 8.4 Eosinophils % 0.0 Basophils % 0.2 Absolute Neutrophils 11.8 H Absolute Lymphocytes 0.7 Absolute Monocytes 1.1 Absolute Eosinophils 0.0 Absolute Basophils 0.0 Sodium 139.9 Potassium 4.6 Chloride 107 Carbon Dioxide 26 Anion Gap 7 BUN 19 Creatinine 0.61 Est GFR ( Amer) > 60 Est GFR (Non-Af Amer) > 60 Glucose 96 Calcium 9.2 Magnesium 2.5 H Total Bilirubin 0.2 AST 19 ALT 30 Alkaline Phosphatase 73 Total Protein 5.8 L Albumin 2.9 L Fluid Type PLEURAL Fluid Source LUNG Fluid Color RED Fluid Appearance CLOUDY Fluid Viscosity LIQUID Fluid WBC 1992 Fluid RBC [id number] 07/17/18 07/18/18 07/18/18 23:45 08:05 08:05 WBC 17.0 H RBC 5.07 Hgb 14.5 Hct 44.5 MCV 88 MCH 28.6 MCHC 32.6 RDW 14.2 H Plt Count 405 Seg Neutrophils % 83.8 H Lymphocytes % 7.2 L Monocytes % 8.9 Eosinophils % 0.0 Basophils % 0.1 Absolute Neutrophils 14.3 H Absolute Lymphocytes 1.2 Absolute Monocytes 1.5 H Absolute Eosinophils 0.0 Absolute Basophils 0.0 Sodium 141.4 Potassium 4.5 Chloride 103 Carbon Dioxide 30 Anion Gap 8 BUN 17 Creatinine 0.61 Est GFR ( Amer) > 60 Est GFR (Non-Af Amer) > 60 Glucose 95 Calcium 9.7 Magnesium 2.5 H Total Bilirubin 0.4 AST 19 ALT 24 Alkaline Phosphatase 87 Total Protein 6.8 Albumin 3.6 Fluid Type PLEURAL Fluid Source LUNG Fluid Color DARK YELLOW Fluid Appearance OPAQUE Fluid Viscosity SLIGHTLY VISCOUS Fluid WBC 1717 Fluid RBC [id number] 07/13/18 16:15 NT-Pro-B Natriuret Pep 347 Impressions: Thoracentesis Ultrasound 07/17/18 00:00 IMPRESSION: SUCCESSFUL PLACEMENT OF A RIGHT SIDED CHEST TUBE USING ULTRASOUND GUIDANCE. Chest X-Ray 07/17/18 12:00 IMPRESSION: 1. S the prior examination performed earlier on the same date 07/17/2018, persistent right pleural effusion appears to have decreased somewhat in size. No evidence for pneumothorax. 2. Partially visualized mass-like opacity in the right lower lung is better visualized on the current study. 3. Stable appearance to the mediastinum. Assessment & Plan - Diagnosis (1) Right lower lobe pneumonia Qualifiers: Pneumonia type: due to unspecified organism Qualified Code(s): J18.1 - Lobar pneumonia, unspecified organism Is this a current diagnosis for this admission?: Yes Plan: On appropriate antibiotics. Will defer to primary team as to change to outpatient regimen. (2) Pleural effusion, right Is this a current diagnosis for this admission?: Yes Plan: Now with chest tube in place. I reviewed the cytology report with patient and . There is currently no evidence of malignant cells. We discussed waiting a few weeks and repeating CT chest as outpatient. Then, consider bronch for biopsy of paratrachial LN. (3) Lung mass Is this a current diagnosis for this admission?: Yes Plan: This appears to be either reactive or possibly malignant. Difficult to say currently. Will follow over time to see if this resolves with treatment of infectious process.
--- NOTE | 2018-07-18 09:34 | PROGRESS NOTE E ---
Progress Note NAME: FELIPE PIERRE : 1945 AGE: 72Y DATE: 07/17/2018 ROOM: 527 SUBJECTIVE: The patient is a 72-year-old male who came in with right pleuritic chest pain with loculated pleural effusion, was on Plavix. Plavix held for 5 days and had a chest tube/pig tail catheter inserted today. Then some serosanguineous fluid. IR sent pleural fluid for cultures and cytology. The patient denies any chest pain, worsening dyspnea, fever, or chills. Other pleural fluid workup not sent, and will try to send in tonight. OBJECTIVE: GENERAL: At this time the patient is awake, alert, oriented x3, in no apparent respiratory distress. VITAL SIGNS: Afebrile with a temperature of 98.2, heart rate of 83, blood pressure is 143/70, respiratory rate 18, saturations 94% on room air. EYES: No jaundice or pallor. EARS, NOSE AND THROAT: No ear drainage. No nasal discharge. CHEST: No wheezing, no rhonchi, no coarse crackles. CARDIOVASCULAR: S1, S2 distinct. Normal rate, regular rhythm. ABDOMEN: Flabby. Positive bowel sounds. Soft, nondistended, nontender. EXTREMITIES: No joint swelling. No synovitis. LABORATORY DATA: CBC done today showed white count 13.7, down from 16 yesterday; hemoglobin 12.8; hematocrit is 39.5; platelet count is 349. There is an elevation in the lymphocytes, he is at 5.2; neutrophils are 86.2; and eosinophils are normal. PT is 14 and INR is 1.02 today. Chemistry done today showed sodium is 139, potassium 4.6, chloride 107, CO2 is 26, BUN 19, creatinine 0.61, glucose is 96, calcium is 9.2, and magnesium is 2.5. SGOT is 19, SGPT is 30. Total protein is 5.8, and albumin is 2.9. Pleural fluid cell count differential sent today showed red and cloudy with a white blood cell count of 1992 and the fluid rbc's are 49,727 with a predominance of pleural fluid lymphocytes at 96% suggesting some chronic process. Fluid glucose, total protein, LDH are still pending. AFB smear also pending. ASSESSMENT: 1. Loculated pleural effusion, right side: Uncertain etiology, may be infectious process or may be due to malignancy. 2. Pulmonary nodule right lower lobe: Probably metastatic. PLAN/RECOMMENDATIONS: 1. Will send pleural fluid for cell count and differential, cytology, pleural fluid glucose, LDH, and protein, and pleural fluid culture for AFB, bacteria, and fungi. 2. Will follow patient. DICTATING PHYSICIAN: CRISTOFER MARRUFO MD,NICOLETTE,MPH [id number] PHY#: [id number] ID: [id number] JOB#: [id number] ACCT: [id number] cc: > MTDD
--- NOTE | 2018-07-18 10:54 | PDOC PROGRESS REPORT ---
Subjective Subjective:: 72 year old male who presented to the emergency room with a 2-week history of dyspnea. He admits mildly increased dyspnea for the last 2 weeks with progressive worsening over the last 4 days. His dyspnea was at first present just with exertion but has continued to be worsened substantially by exertion and persisted at a moderate to severe level even at rest. He further admits that his dyspnea has been accompanied by subjective fever and chills and a nonproductive cough. He admits similar prior episodes secondary to his COPD. He has not identified any other aggravating or ameliorating factors for his current episode of dyspnea. He was seen by his primary care provider who started him on prednisone yesterday and he has been using home breathing treatments without significant improvement. He had a chest x-ray performed on outpatient basis earlier today which showed abnormalities and resulted in his receiving a CAT scan of his chest which showed possible metastatic lesions and a small loculated right pleural effusion in his chest as well as demonstrating a right lower lobe pneumonia. In the emergency room he was found to have hypoxic respiratory failure, an elevated white count and moderate tachypnea. Patient was subsequently admitted hospital for further evaluation and treatment. 07/14/2018-no acute events in the last 24 hours. Patient is afebrile. Request was placed for thoracentesis of pleural effusion. Patient is on Plavix plan to hold the Plavix until Tuesday possible thoracentesis on Tuesday. To continue heparin subcu until Tuesday night. Patient is comfortable in the chair communic ating well. Pulse ox is 93% on 4 L. Patient has a feeding tube. 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 07/15/[id number]-vuef-old male admitted with shortness of breath. Admitting diagnosis is acute exacerbation of COPD. Work-up shows right pleural effusion - loculated pleural effusion and questionable lesions in bilateral lungs periphera lly in nature may be representing inflammatory or infectious process or malignancy. Dr. Bhagat is on board. Dr. Harvey is on board. Plan is to start on IV antibiotics Rocephin 2 g daily and levofloxacin 500 mg IV daily as per Dr. Loyola's recommendations. Patient is comfortably in the bed is bedside no complaints no concerns. Patient's Plavix on hold. 07/16/[id number]-xkkz-old male admitted with shortness of breath secondary to COPD exacerbation. CT scan shows right-sided pleural effusion scheduled for thoracentesis tomorrow. There is questionable infiltrate/lesions in bilateral lung moran as per Dr. Rodrigues recommendations presently on IV antibiotic therapy. Comfortable in the chair communicating well. No acute events in the last 24 hours. Afebrile bed. Requesting something to sleep at nighttime. He is on temazepam 15 mg p.o. nightly on as needed basis I increased the dose to 30 mg nightly. 07/17/2018-patient went for thoracentesis this morning came back with the right- sided chest tube placement. Pulse ox is 95% on a 2 L. Comfortably in the bed. 07/18/2018-patient has right-sided chest tube. Draining well. Pain is much better controlled. I spoke to Dr. loyola of this morning she thinks is pulmonary findings are most likely reactive disease rather than a malignancy. The pleural fluid so far negative for malignancy. Dr Loyola is going to follow the patient at her office and plan to repeat the CT scan in a few weeks. Patient is comfortable in the bed communicating well. Reason For Visit: ACUTE EXACERBATION COPD Physical Exam Vital Signs: Temp Pulse Resp BP Pulse Ox 97.6 F 72 16 127/71 H 92 07/18/18 07:24 07/18/18 07:28 07/18/18 07:28 07/18/18 07:24 07/18/18 07:28 Intake & Output 07/17/18 07/18/18 07/19/18 06:59 06:59 06:59 Intake Total 150 150 Output Total 900 Balance 150 -750 Weight 66.3 kg General appearance: PRESENT: thin Head exam: PRESENT: atraumatic Eye exam: PRESENT: PERRLA Ear exam: PRESENT: normal external ear exam Mouth exam: PRESENT: moist, tongue midline Teeth exam: PRESENT: poor dentation Neck exam: ABSENT: carotid bruit, JVD, lymphadenopathy, thyromegaly Respiratory exam: PRESENT: decreased breath sounds, other - Chest tube is present on the right side of the chest. Cardiovascular exam: PRESENT: tachycardia Pulses: PRESENT: normal dorsalis pedis pul GI/Abdominal exam: PRESENT: normal bowel sounds, soft. ABSENT: distended, guarding, mass, organolmegaly, rebound, tenderness Rectal exam: PRESENT: deferred Extremities exam: PRESENT: full ROM. ABSENT: calf tenderness, clubbing, pedal edema Neurological exam: PRESENT: alert, awake, oriented to person, oriented to place, oriented to time, oriented to situation, CN II-XII grossly intact. ABSENT: motor sensory deficit Psychiatric exam: PRESENT: appropriate affect, normal mood. ABSENT: homicidal ideation, suicidal ideation Results Laboratory Results: 07/18/18 08:05 07/18/18 08:05 07/17/18 07/17/18 07/17/18 05:47 05:47 09:50 WBC 13.7 H RBC 4.46 Hgb 12.8 L Hct 39.5 MCV 89 MCH 28.7 MCHC 32.3 RDW 14.4 H Plt Count 349 Seg Neutrophils % 86.2 H Lymphocytes % 5.2 L Monocytes % 8.4 Eosinophils % 0.0 Basophils % 0.2 Absolute Neutrophils 11.8 H Absolute Lymphocytes 0.7 Absolute Monocytes 1.1 Absolute Eosinophils 0.0 Absolute Basophils 0.0 Sodium 139.9 Potassium 4.6 Chloride 107 Carbon Dioxide 26 Anion Gap 7 BUN 19 Creatinine 0.61 Est GFR ( Amer) > 60 Est GFR (Non-Af Amer) > 60 Glucose 96 Calcium 9.2 Magnesium 2.5 H Total Bilirubin 0.2 AST 19 ALT 30 Alkaline Phosphatase 73 Total Protein 5.8 L Albumin 2.9 L Fluid Type PLEURAL Fluid Source LUNG Fluid Color RED Fluid Appearance CLOUDY Fluid Viscosity LIQUID Fluid WBC 1992 Fluid RBC [id number] 07/17/18 07/18/18 07/18/18 23:45 08:05 08:05 WBC 17.0 H RBC 5.07 Hgb 14.5 Hct 44.5 MCV 88 MCH 28.6 MCHC 32.6 RDW 14.2 H Plt Count 405 Seg Neutrophils % 83.8 H Lymphocytes % 7.2 L Monocytes % 8.9 Eosinophils % 0.0 Basophils % 0.1 Absolute Neutrophils 14.3 H Absolute Lymphocytes 1.2 Absolute Monocytes 1.5 H Absolute Eosinophils 0.0 Absolute Basophils 0.0 Sodium 141.4 Potassium 4.5 Chloride 103 Carbon Dioxide 30 Anion Gap 8 BUN 17 Creatinine 0.61 Est GFR ( Amer) > 60 Est GFR (Non-Af Amer) > 60 Glucose 95 Calcium 9.7 Magnesium 2.5 H Total Bilirubin 0.4 AST 19 ALT 24 Alkaline Phosphatase 87 Total Protein 6.8 Albumin 3.6 Fluid Type PLEURAL Fluid Source LUNG Fluid Color DARK YELLOW Fluid Appearance [place] Fluid Viscosity SLIGHTLY VISCOUS Fluid WBC 1717 Fluid RBC 5361 07/13/18 16:15 NT-Pro-B Natriuret Pep 347 Impressions: Thoracentesis Ultrasound 07/17/18 00:00 IMPRESSION: SUCCESSFUL PLACEMENT OF A RIGHT SIDED CHEST TUBE USING ULTRASOUND GUIDANCE. Chest X-Ray 07/17/18 12:00 IMPRESSION: 1. S the prior examination performed earlier on the same date 07/17/2018, persistent right pleural effusion appears to have decreased somewhat in size. No evidence for pneumothorax. 2. Partially visualized mass-like opacity in the right lower lung is better visualized on the current study. 3. Stable appearance to the mediastinum. Assessment and Plan - Diagnosis (1) Acute exacerbation of chronic obstructive pulmonary disease (COPD) Is this a current diagnosis for this admission?: Yes Plan: Patient be treated with aggressive pulmonary toilet utilizing nebulized Pulmicort, Xopenex and Atrovent. He will receive IV Solu-Medrol and oxygen supplementation as required. He will be followed with daily CBCs as well as daily metabolic profiles with magnesium levels. Further radiographic studies will be obtained as needed. 07/14/2018-patient admitted with acute exacerbation of COPD. Presently on a Pulmicort, Xopenex, Atrovent. He is also on oxygen supplementation and IV Solu- Medrol. Plan is to continue the present management. Consultation with Dr. Bhagat was requested. 07/15/2018-patient was admitted with acute exacerbation of COPD. Presently on Pulmicort, Xopenex, Atrovent. He is also on IV Solu-Medrol every 8 hours. Plan is to decrease the IV Solu-Medrol to every [address]. [address] Bhagat is on board. pulse is 93% on 2 L. 07/16/[id number]-wyxk-old male admitted for acute exacerbation of COPD. Getting scheduled and as needed nebulizations. On IV Solu-Medrol 40 mg every 12 hours plan is to decrease the dose to daily. Comfortable in the chair communicating well. Pulse ox is 94% on 2 L. Plan is to continue the present management. 07/17/[id number]-lzdz-old male admitted for acute exacerbation of COPD CT chest suggestive of right-sided pleural effusion chest tube placement was done today patient says he is feeling better today pulmonary consult also done consultation with Dr. Harvey was done. The pleural fluid was sent for analysis. 07/18/2018-patient is admitted with COPD exacerbation. Has right-sided pleural effusion status post chest tube placement. Plan to repeat the chest x-ray today as a follow-up. Denies any complaints from the patient. Pleural fluid analysis is negative for malignancy so far. (2) Pleural effusion, right Is this a current diagnosis for this admission?: Yes Plan: 07/14/2018-patient admitted with right pleural effusion. Loculated. Consultation with radiology is requested because the patient is on Plavix plan is to do the thoracentesis on Tuesday. Plavix is on hold from today. 07/15/2018-patient admitted with shortness of breath and found to have a moderate sized right pleural effusion, loculated pleural effusion. Because the patient is on Plavix thoracentesis on hold at this point. Plan is that interventional radiology is going to do thoracentesis on Tuesday and orders was placed for fluid analysis. 07/16/2018-patient admitted with shortness of breath and had a right pleural effusion. Plan is to do the thoracentesis and send the fluid for analysis tomorrow. Plavix on hold. Lovenox will be hold from midnight today. 07/17/2018-patient came in with right-sided pleural effusion status post chest tube placement today. 07/18/2018-patient has right-sided pleural effusion, status post chest tube placement yesterday- he is doing well. Plan to repeat the chest x-ray today. (3) Right lower lobe pneumonia Qualifiers: Pneumonia type: due to unspecified organism Qualified Code(s): J18.1 - Lobar pneumonia, unspecified organism Is this a current diagnosis for this admission?: Yes Plan: Further evaluation of the patient's right lower lobe via pulmonology consultation with Dr. Street. Patient will be treated with IV antibiotic therapy utilizing Levaquin 750 mg every 24 hours. Daily CBCs and metabolic profiles with magnesium levels will be employed in following the patient's course. Patient will have available morphine sulfate 2 to 4 mg IV every 2 hours as needed on a sliding scale basis for pain control. 07/14/2018-CT scan suggestive of right lower lobe pneumonia. Consultation with Dr. Street was done. Presently on IV levo floxacillin 750 mg daily patient is afebrile. Pulse ox is improved to 94% on 4 L. 07/15/2018-patient's chest CT scan suggestive of right lower lobe pneumonia presently on p.o. levofloxacin 750 mg daily plan is to discharge the patient on IV Rocephin 2 g daily and levo floxacillin 500 mg IV daily. blood Cultures are negative so far. 07/16/2018-CT chest shows right lower lobe pneumonia presently on IV levo floxacillin and IV Rocephin. Patient is afebrile. T-max is 97.5. Plan is to continue the present management today. 07/17/2018-patient's has right-sided pneumonia presently on IV levo floxacillin and IV Rocephin. T-max is 97.4. blood Cultures are negative. 07/18/2018-patient is presently on IV levofloxacillin and IV Rocephin T-max is 97.4. Cultures are negative so far. (4) Metastatic cancer to lung Qualifiers: Laterality: right Qualified Code(s): C78.01 - Secondary malignant neoplasm of right lung Is this a current diagnosis for this admission?: Yes Plan: A pulmonology consultation will be obtained with Dr. Street and further investigation via interventional radiology or other biopsy will be considered. 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 Consultation with Dr. Street was requested. 07/15/2018-patient has history of salivary gland malignancy status post radiation, chemotherapy. CT scan shows questionable lesions in both lung moran. Consultation with pulmonary was requested consultation with oncology was requested. 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 CT scan shows questionable infiltrate/lesion seen bilateral lung moran. Dr. Rodrigues is on board. 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 He has a feeding tube. Hopefully this right pleural effusion does not show any malignancy. 07/18/2018-patient has history of salivary gland malignancy. Status post radiation chemotherapy. He has a difficulty in swallowing and has a PEG tube. He has right chest tube placement for pleural effusion. plural fluid negative for malignancy work-up. - Time Time Spent with patient: 15-24 minutes Medications reviewed and adjusted accordingly: Yes Anticipated discharge: Home
[2018-07-18] MEDS: CEFTRIAXONE 2 GM/D5W RTU 2 GM/50 ML RTUPB IV SCH (13:05)
--- NOTE | 2018-07-18 13:43 | RADIOLOGY REPORT (SQ) ---
EXAM DESCRIPTION: CHEST 2 VIEWS COMPLETED DATE/TIME: 07/18/2018 1:28 pm REASON FOR STUDY: chest tube COMPARISON: Ultrasound-guided chest tube placement 07/17/2018 Chest films 07/13/2018, 07/17/2018, CT chest 07/13/2018 EXAM PARAMETERS: NUMBER OF VIEWS: two views TECHNIQUE: Digital Frontal and Lateral radiographic views of the chest acquired. RADIATION DOSE: NA LIMITATIONS: none FINDINGS: LUNGS AND PLEURA: There is a significant decrease in the right pleural effusion compared t o chest films from 07/17/2018. Small amount of pleural fluid persists over the right lower chest with the small right basilar pneumothorax marked with a [place]. There is persistent dense consolidation in the right lower lobe and right middle lobe. A 1.5 cm diameter right lung nodule is evident over the lower lobe on lateral view marked with an arr ow. Left hemithorax is unremarkable. No left pleural effusion or pneumothorax or focal infiltrates. MEDIASTINUM AND HILAR STRUCTURES: There is fullness of the right paratracheal region. Adenopathy is present on prior CT 07/13/2018. HEART AND VASCULAR STRUCTURES: Heart normal size. No evidence for failure. BONES: No acute findings. HARDWARE: Right posterior pleural space pigtail catheter OTHER: G-tube in the upper abdomen IMPRESSION: Decrease in right pleural effusion compared to previous studies. Trace right basilar pneumothorax Persistent dense consolidation in the right middle and lower lobe TECHNICAL DOCUMENTATION: JOB ID: [id number] 0185[employer]- All Rights Reserved Reading location - IP/workstation name: [email or web address]
[2018-07-18] MEDS: LEVALBUTEROL HCL NEB 1.25 MG/3 ML AMPUL NEB PRN (20:58)
[2018-07-18] MEDS: TEMAZEPAM 15 MG CAPSULE PEG SCH (21:24)
[2018-07-19] MEDS: IPRATROPIUM BROMIDE 0.02% NEB 0.5 MG/2.5 ML AMPUL NEB SCH ×3 (00:03→15:50)
[2018-07-19] MEDS: LEVALBUTEROL HCL NEB 1.25 MG/3 ML AMPUL NEB SCH ×3 (00:03→15:50)
[2018-07-19 05:07] LABS: ABSOLUTE LYMPHOCYTES (AUTO) 0.9 10^3/uL (0.5-4.7); ABSOLUTE MONOCYTES (AUTO) 1.2 10^3/uL (0.1-1.4); ABSOLUTE NEUT (AUTO) 8.9 10^3/uL (1.7-8.2); BASOPHILS % (AUTO) 0.2 % (0-2); EOSINOPHILS % (AUTO) 0.3 % (0-6); LYMPHOCYTES % (AUTO) 8.4 % (13-45); MEAN CORPUSCULAR HEMOGLOBIN 28.4 pg (27.0-33.4); MEAN CORPUSCULAR HGB CONC 32.5 g/dL (32.0-36.0); MEAN CORPUSCULAR VOLUME 88 fl (80-97); MONOCYTES % (AUTO) 11.1 % (3-13); PLATELET COUNT 343 10^3/uL (150-450); RED BLOOD COUNT 4.91 10^6/uL (4.35-5.55); RED CELL DISTRIBUTION WIDTH 14.7 % (11.5-14.0); TOTAL CELLS COUNTED % (AUTO) 100 %; WHITE BLOOD COUNT 11.1 10^3/uL (4.0-10.5)
[2018-07-19 05:31] LABS: CHLORIDE 108 mmol/L (98-107); POTASSIUM 4.4 mmol/L (3.6-5.0)
[2018-07-19] MEDS: HEPARIN SOD (PORCINE) 5,000 UNIT/ML 1 ML SYRINGE SUBCUT SCH ×3 (06:13→21:55)
[2018-07-19 06:24] LABS: ALANINE AMINOTRANSFERASE 29 U/L (21-72); ALKALINE PHOSPHATASE 61 U/L (38-126); ANION GAP 9 (5-19); ASPARTATE AMINO TRANSFERASE 23 U/L (17-59); BILIRUBIN,DIRECT 0.3 mg/dL (0.0-0.4); BILIRUBIN,TOTAL 0.5 mg/dL (0.2-1.3); BLOOD UREA NITROGEN 20 mg/dL (7-20); CALCIUM 9.4 mg/dL (8.4-10.2); CARBON DIOXIDE 23 mmol/L (22-30); GLUCOSE 77 mg/dL (75-110); TOTAL PROTEIN 5.7 g/dL (6.3-8.2)
[2018-07-19] MEDS: ACETYLCYSTEINE 20% SOLN 800 MG/4 ML VIAL.NEB NEB SCH ×2 (07:44→20:49)
[2018-07-19] MEDS: BUDESONIDE NEB 0.5 MG/2 ML AMPUL NEB SCH ×2 (07:44→20:49)
--- NOTE | 2018-07-19 08:58 | PDOC PROGRESS REPORT ---
Subjective Progress Note for:: 07/19/18 Subjective:: Patient is receiving his breathing treatment this morning. States that pain is well controlled. He is anxious to have chest tube removed. No new complaints this morning. Reason For Visit: ACUTE EXACERBATION COPD Physical Exam Vital Signs: Temp Pulse Resp BP Pulse Ox 98.1 F 88 15 131/74 H 100 07/18/18 21:16 07/18/18 21:16 07/18/18 16:00 07/18/18 21:16 07/18/18 21:16 Intake & Output 07/18/18 07/19/18 07/20/18 06:59 06:59 06:59 Intake Total 150 150 Output Total 900 90 Balance -750 150 -90 Weight 66 kg General appearance: PRESENT: thin, well-developed Head exam: PRESENT: normocephalic Respiratory exam: PRESENT: unlabored Extremities exam: ABSENT: pedal edema Neurological exam: PRESENT: alert, awake Psychiatric exam: PRESENT: appropriate affect Skin exam: PRESENT: normal color Results Laboratory Results: 07/19/18 04:24 07/19/18 04:24 07/19/18 07/19/18 04:24 04:24 WBC 11.1 H RBC 4.91 Hgb 14.0 Hct 43.0 MCV 88 MCH 28.4 MCHC 32.5 RDW 14.7 H Plt Count 343 Seg Neutrophils % 80.0 H Lymphocytes % 8.4 L Monocytes % 11.1 Eosinophils % 0.3 Basophils % 0.2 Absolute Neutrophils 8.9 H Absolute Lymphocytes 0.9 Absolute Monocytes 1.2 Absolute Eosinophils 0.0 Absolute Basophils 0.0 Sodium 140.0 Potassium 4.4 Chloride 108 H Carbon Dioxide 23 Anion Gap 9 BUN 20 Creatinine 0.67 Est GFR ( Amer) > 60 Est GFR (Non-Af Amer) > 60 Glucose 77 Calcium 9.4 Magnesium 2.4 H Total Bilirubin 0.5 AST 23 ALT 29 Alkaline Phosphatase 61 Total Protein 5.7 L Albumin 3.0 L 07/13/18 17:31 Blood Blood Culture - Final NO GROWTH IN 5 DAYS 07/13/18 16:15 Blood Blood Culture - Final NO GROWTH IN 5 DAYS 07/13/18 16:15 NT-Pro-B Natriuret Pep 347 Impressions: Thoracentesis Ultrasound 07/17/18 00:00 IMPRESSION: SUCCESSFUL PLACEMENT OF A RIGHT SIDED CHEST TUBE USING ULTRASOUND GUIDANCE. Chest X-Ray 07/18/18 00:00 IMPRESSION: Decrease in right pleural effusion compared to previous studies. Trace right basilar pneumothorax Persistent dense consolidation in the right middle and lower lobe Assessment & Plan - Diagnosis (1) Right lower lobe pneumonia Qualifiers: Pneumonia type: due to unspecified organism Qualified Code(s): J18.1 - Lobar pneumonia, unspecified organism Is this a current diagnosis for this admission?: Yes Plan: Continues to improve. (2) Pleural effusion, right Is this a current diagnosis for this admission?: Yes Plan: Await removal of chest tube, once output slows. (3) Lung mass Is this a current diagnosis for this admission?: Yes Plan: This appears to be either reactive or possibly malignant. Difficult to say currently. Will follow over time to see if this resolves with treatment of infectious process. I will order repeat CT as outpatient in about 6 weeks. C onsider biopsy at that time, if persists.
[2018-07-19] MEDS: DOCUSATE SODIUM 100 MG/10 ML UDC PEG SCH ×2 (09:21→17:29)
[2018-07-19] MEDS: GABAPENTIN 300 MG CAPSULE PEG SCH ×2 (09:24→21:55)
[2018-07-19] MEDS: CLOPIDOGREL BISULFATE 75 MG TABLET PO SCH (09:24)
[2018-07-19] MEDS: FAMOTIDINE 20 MG TABLET PEG SCH ×2 (09:24→21:56)
[2018-07-19] MEDS: LEVOFLOXACIN 500 MG TABLET PEG SCH (09:25)
[2018-07-19] MEDS: CEFTRIAXONE 2 GM/D5W RTU 2 GM/50 ML RTUPB IV SCH (12:42)
--- NOTE | 2018-07-19 17:01 | PDOC PROGRESS REPORT ---
Subjective Progress Note for:: 07/19/18 Subjective:: 72 year old male who presented to the emergency room with a 2-week history of dyspnea. He admits mildly increased dyspnea for the last 2 weeks with progressive worsening over the last 4 days. His dyspnea was at first present just with exertion but has continued to be worsened substantially by exertion and persisted at a moderate to severe level even at rest. He further admits that his dyspnea has been accompanied by subjective fever and chills and a nonproductive cough. He admits similar prior episodes secondary to his COPD. He has not identified any other aggravating or ameliorating factors for his current episode of dyspnea. He was seen by his primary care provider who started him on prednisone yesterday and he has been using home breathing treatments without significant improvement. He had a chest x-ray performed on outpatient basis earlier today which showed abnormalities and resulted in his receiving a CT scan of his chest which showed possible metastatic lesions and a small loculated right pleural effusion in his chest as well as demonstrating a right lower lobe pneumonia. In the emergency room he was found to have hypoxic respiratory failure, an elevated white count and moderate tachypnea. Patient was subsequently admitted hospital for further evaluation and treatment. 07/19/2018. No acute events overnight. Has any fever, chills, nausea, vomiting, diarrhea, constipation or any urinary symptoms. SBP 113-131, T-max 98.8, HR 83-112, RR 13-18, SPO2 91-97 RA. 07/17/2018 thoracentesis. Fluid color dark yellow, appearance opaque, WBC 1717, RBC 5361, glucose 107, protein 4.0, LDH 228, pleural protein/serum protein 0.7, likely exudative. Blood cultures from 07/13/2018. Negative. Fluid culture from 07/17/2018 pending. Pleural fluid cytology negative for malignancy. 07/19/2018. SBP 113-131, T-max 98.8, HR 83-112, RR 13-18, SPO2 91-97 RA. WBC 11.1, hemoglobin 14.0, platelets 343, sodium 140, potassium 4.4, bicarb 23, BUN 20, creatinine 0.67. Right posterior chest tube drainage 90 cc. Reason For Visit: ACUTE EXACERBATION COPD Physical Exam Vital Signs: Temp Pulse Resp BP Pulse Ox 98 F 112 H 18 124/65 97 07/19/18 08:00 07/19/18 15:50 07/19/18 15:50 07/19/18 08:00 07/19/18 15:50 Intake & Output 07/18/18 07/19/18 07/20/18 06:59 06:59 06:59 Intake Total 150 150 50 Output Total 900 90 Balance -750 150 -40 Weight 66 kg General appearance: PRESENT: no acute distress, well-developed, well-nourished Head exam: PRESENT: atraumatic, normocephalic Respiratory exam: PRESENT: clear to auscultation tyler, other - Right chest tube in place.. ABSENT: rales, rhonchi, wheezes Cardiovascular exam: PRESENT: RRR. ABSENT: diastolic murmur, rubs, systolic murmur GI/Abdominal exam: PRESENT: normal bowel sounds, soft. ABSENT: distended, guarding, mass, organolmegaly, rebound, tenderness Extremities exam: PRESENT: full ROM. ABSENT: calf tenderness, clubbing, pedal edema Neurological exam: PRESENT: alert, awake, oriented to person, oriented to place, oriented to time, oriented to situation, CN II-XII grossly intact. ABSENT: motor sensory deficit Results Laboratory Results: 07/19/18 04:24 07/19/18 04:24 07/17/18 07/19/18 07/19/18 09:50 04:24 04:24 WBC 11.1 H RBC 4.91 Hgb 14.0 Hct 43.0 MCV 88 MCH 28.4 MCHC 32.5 RDW 14.7 H Plt Count 343 Seg Neutrophils % 80.0 H Lymphocytes % 8.4 L Monocytes % 11.1 Eosinophils % 0.3 Basophils % 0.2 Absolute Neutrophils 8.9 H Absolute Lymphocytes 0.9 Absolute Monocytes 1.2 Absolute Eosinophils 0.0 Absolute Basophils 0.0 Sodium 140.0 Potassium 4.4 Chloride 108 H Carbon Dioxide 23 Anion Gap 9 BUN 20 Creatinine 0.67 Est GFR ( Amer) > 60 Est GFR (Non-Af Amer) > 60 Glucose 77 Calcium 9.4 Magnesium 2.4 H Total Bilirubin 0.5 AST 23 ALT 29 Alkaline Phosphatase 61 Total Protein 5.7 L Albumin 3.0 L Fluid Glucose 107 Fluid Total Protein 4.0 Fluid LDH 228 07/13/18 17:31 Blood Blood Culture - Final NO GROWTH IN 5 DAYS 07/13/18 16:15 Blood Blood Culture - Final NO GROWTH IN 5 DAYS 07/13/18 16:15 NT-Pro-B Natriuret Pep 347 Impressions: Thoracentesis Ultrasound 07/17/18 00:00 IMPRESSION: SUCCESSFUL PLACEMENT OF A RIGHT SIDED CHEST TUBE USING ULTRASOUND GUIDANCE. Chest X-Ray 07/18/18 00:00 IMPRESSION: Decrease in right pleural effusion compared to previous studies. Trace right basilar pneumothorax Persistent dense consolidation in the right middle and lower lobe Assessment and Plan - Diagnosis (1) Pleural effusion, right Is this a current diagnosis for this admission?: Yes Plan: Likely parapneumonic in the setting of right-sided pneumonia. 07/17/2018 thoracentesis. WBC 1717, RBC 5361, glucose 107, protein 4.0, LDH 228. Pleural protein/serum protein 0.7, likely exudative. Pleural fluid cytology negative for malignancy. Blood cultures from 07/13/2018. Negative. Fluid culture from 07/17/2018 pending. 07/19/2018. Right posterior chest tube drainage 90 cc. Pulmonary and oncology on board. To follow-up with Dr. Hoff as outpatient in 3 weeks for a follow-up CT of the chest. We will switch chest tube to gravity. If drainage less than 100 and resolution on chest x-ray will remove chest tube. (2) Acute exacerbation of chronic obstructive pulmonary disease (COPD) Is this a current diagnosis for this admission?: Yes Plan: Resolved. Likely due to underlying pneumonia complicated by COPD exacerbation. 07/19/2018. SBP 113-131, T-max 98.8, HR 83-112, RR 13-18, SPO2 91-97 RA. 07/17/2018. Thoracentesis. WBC 1717, RBC 5361, glucose 107, protein 4.0, LDH 228, pleural protein/serum protein 0.7, likely exudative. 07/19/2018. Right posterior chest tube drainage 90 cc. Continue DuoNeb's, supplemental oxygen, PRN BiPAP. Will start on LABA and LAMA. outpatient pulmonary and PCP follow-up. (3) Lung mass Is this a current diagnosis for this admission?: Yes Plan: Likely reactive as per oncology note. Malignancy ruled out based on cytology. 07/13/2018. Loculated right pleural effusion. 2 subpleural nodules in the right lung cannot exclude metastasis. 07/17/2018 thoracentesis. WBC 1717, RBC 5361, glucose 107, protein 4.0, LDH 228. Pleural protein/serum protein 0.7, likely exudative. Pleural fluid cytology negative for malignancy. Blood cultures from 07/13/2018. Negative. Fluid culture from 07/17/2018 pending. Oncology was consulted, recommending follow-up CT in 3 weeks. Will possibly need biopsy if persistent. (4) Right lower lobe pneumonia Qualifiers: Pneumonia type: due to unspecified organism Qualified Code(s): J18.1 - Lobar pneumonia, unspecified organism Is this a current diagnosis for this admission?: Yes Plan: Community-acquired, likely gram-positive's. Cultures remain negative. 07/19/2018. SBP 113-131, T-max 98.8, HR 83-112, RR 13-18, SPO2 91-97 RA. WBC 11.1, hemoglobin 14.0, platelets 343 07/17/2018. Thoracentesis: WBC 1717, RBC 5361, glucose 107, protein 4.0, LDH 228, pleural protein/serum protein 0.7, likely exudative. Blood cultures from 07/13/2018. Negative. Fluid culture from 07/17/2018 pending. Day 6 of IV antibiotics. 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 PEG tube in place. Continue PEG tube care.
[2018-07-19] MEDS: LEVALBUTEROL HCL NEB 1.25 MG/3 ML AMPUL NEB PRN (20:50)
[2018-07-19] MEDS: TEMAZEPAM 15 MG CAPSULE PEG SCH (21:56)
[2018-07-19] MEDS: MORPHINE SULFATE 10 MG/ML INJ IV PRN (22:04)
[2018-07-20] MEDS: IPRATROPIUM BROMIDE 0.02% NEB 0.5 MG/2.5 ML AMPUL NEB SCH ×2 (00:03→07:41)
[2018-07-20] MEDS: LEVALBUTEROL HCL NEB 1.25 MG/3 ML AMPUL NEB SCH ×2 (00:03→07:43)
[2018-07-20] MEDS: OXYCODONE HCL IR 5 MG TABLET PO PRN (00:29)
[2018-07-20] MEDS: HEPARIN SOD (PORCINE) 5,000 UNIT/ML 1 ML SYRINGE SUBCUT SCH ×2 (05:15→13:12)
[2018-07-20 07:21] LABS: ALANINE AMINOTRANSFERASE 28 U/L (21-72); ALBUMIN 2.9 g/dL (3.5-5.0); ALKALINE PHOSPHATASE 62 U/L (38-126); ANION GAP 5 (5-19); ASPARTATE AMINO TRANSFERASE 16 U/L (17-59); BILIRUBIN,DIRECT 0.3 mg/dL (0.0-0.4); BILIRUBIN,TOTAL 0.5 mg/dL (0.2-1.3); BLOOD UREA NITROGEN 17 mg/dL (7-20); CALCIUM 9.3 mg/dL (8.4-10.2); CARBON DIOXIDE 28 mmol/L (22-30); CHLORIDE 107 mmol/L (98-107); POTASSIUM 4.7 mmol/L (3.6-5.0); TOTAL PROTEIN 5.6 g/dL (6.3-8.2)
[2018-07-20 07:23] LABS: GLUCOSE 66 mg/dL (75-110)
[2018-07-20 07:26] LABS: HEMATOCRIT 44.1 % (37.9-51.0); HEMOGLOBIN 14.1 g/dL (13.5-17.0); MEAN CORPUSCULAR HEMOGLOBIN 28.2 pg (27.0-33.4); MEAN CORPUSCULAR VOLUME 88 fl (80-97); PLATELET COUNT 336 10^3/uL (150-450); RED BLOOD COUNT 5.01 10^6/uL (4.35-5.55); RED CELL DISTRIBUTION WIDTH 14.5 % (11.5-14.0); WHITE BLOOD COUNT 12.9 10^3/uL (4.0-10.5)
[2018-07-20] MEDS: BUDESONIDE NEB 0.5 MG/2 ML AMPUL NEB SCH (07:41)
[2018-07-20] MEDS: ACETYLCYSTEINE 20% SOLN 800 MG/4 ML VIAL.NEB NEB SCH (07:43)
[2018-07-20 08:28] LABS: ABSOLUTE LYMPHOCYTES# (MANUAL) 1.8 10^3/uL (0.5-4.7); ABSOLUTE MONOCYTES # (MANUAL) 0.8 10^3/uL (0.1-1.4); ABSOLUTE NEUTROPHILS# (MANUAL) 10.2 10^3/uL (1.7-8.2); ANISOCYTOSIS SLIGHT; BASOPHILS % (MANUAL) 0 % (0-2); EOSINOPHILS % (MANUAL) 1 % (0-6); LYMPHOCYTES % (MANUAL) 14 % (13-45); MONOCYTES % (MANUAL) 6 % (3-13); SEGMENTED NEUTROPHILS % (MAN) 79 % (42-78); TOTAL CELLS COUNTED 100; TOXIC GRANULATION SLIGHT; TOXIC VACUOLATION PRESENT
[2018-07-20 08:29] LABS: PLATELET CLUMPS PRESENT; PLATELET COMMENT ADEQUATE; POLYCHROMASIA SLIGHT
--- NOTE | 2018-07-20 09:17 | RADIOLOGY REPORT (SQ) ---
EXAM DESCRIPTION: CHEST 2 VIEWS COMPLETED DATE/TIME: 07/20/2018 9:06 am REASON FOR STUDY: pluerual effusion follow up COMPARISON: Two-view chest 07/18/2018, 07/13/2018 CT chest 07/13/2018 EXAM PARAMETERS: NUMBER OF VIEWS: two views TECHNIQUE: Digital Frontal and Lateral radiographic views of the chest acquired. RADIATION DOSE: NA LIMITATIONS: none FINDINGS: LUNGS AND PLEURA: Posterior right pleural space pigtail catheter is unchanged. There is resolution of the right pleural effusion. No pneumothorax. There is persistent volume loss, collapse and consolidation in the right middle and lower lobe. Left lung well inflated and clear. No left pleural effusion or pneumothorax. MEDIASTINUM AND HILAR STRUCTURES: Fullness right paratracheal region from adenopathy HEART AND VASCULAR STRUCTURES: Heart normal size. No evidence for failure. BONES: No acute findings. HARDWARE: Right posterior pleural space pigtail catheter OTHER: No other significant finding. IMPRESSION: Resolved right pleural effusion. No pneumothorax. Persistent volume loss, collapse and consolidation in the right middle and lower lobe. TECHNICAL DOCUMENTATION: JOB ID: [id number] [email or web address]- All Rights Reserved Reading location - IP/workstation name: [email or web address]
[2018-07-20] MEDS: DOCUSATE SODIUM 100 MG/10 ML UDC PEG SCH (10:46)
[2018-07-20] MEDS: GABAPENTIN 300 MG CAPSULE PEG SCH (10:48)
[2018-07-20] MEDS: LEVOFLOXACIN 500 MG TABLET PEG SCH (10:48)
[2018-07-20] MEDS: FAMOTIDINE 20 MG TABLET PEG SCH (10:48)
[2018-07-20] MEDS: CLOPIDOGREL BISULFATE 75 MG TABLET PO SCH (10:48)
--- NOTE | 2018-07-20 11:32 | RADIOLOGY REPORT (SQ) ---
EXAM DESCRIPTION: CHEST SINGLE VIEW COMPLETED DATE/TIME: 07/20/2018 11:24 am REASON FOR STUDY: Post Chest Tube Removal COMPARISON: 07/20/2018 two-view chest [address] chest 07/13/2018 EXAM PARAMETERS: NUMBER OF VIEWS: One view. TECHNIQUE: Single frontal radiographic view of the chest acquired. RADIATION DOSE: NA LIMITATIONS: None. FINDINGS: LUNGS AND PLEURA: Right pleural space pigtail catheter has been removed. There is persist ent airspace disease in the right middle and lower lobe, similar compared to CT chest 07/13/2018 No pneumothorax. Left lung clear. No left pleural effusion. MEDIASTINUM AND HILAR STRUCTURES: No masses. Contour normal. HEART AND VASCULAR STRUCTURES: Heart normal in size. Normal vasculature. BONES: No acute findings. HARDWARE: None in the chest. OTHER: No other significant finding. IMPRESSION: No pneumothorax post right chest tube removal. Persistent dense consolidation at the right middle and lower lobe TECHNICAL DOCUMENTATION: JOB ID: [id number] [employer]- All Rights Reserved Reading location - IP/workstation name: [email or web address]
[2018-07-20 12:26] VITALS: BP 113/71
[2018-07-20] MEDS: CEFTRIAXONE 2 GM/D5W RTU 2 GM/50 ML RTUPB IV SCH (13:11)
--- NOTE | 2018-07-26 16:41 | PDOC DISCHARGE SUMMARY ---
General - Admit/Disc Date/PCP Admission Date/Primary Care Provider: 07/13/18 20:11 JACKY CHOPRA MD Discharge Date: 07/20/18 - Discharge Diagnosis (1) Pleural effusion, right Is this a current diagnosis for this admission?: Yes (2) Acute exacerbation of chronic obstructive pulmonary disease (COPD) Is this a current diagnosis for this admission?: Yes (3) Lung mass Is this a current diagnosis for this admission?: Yes (4) Right lower lobe pneumonia Is this a current diagnosis for this admission?: Yes (5) Status post insertion of percutaneous endoscopic gastrostomy (PEG) tube Is this a current diagnosis for this admission?: No (6) Depression Is this a current diagnosis for this admission?: Yes Summary: Chronic depression accompanied with insomnia. Denies any suicidal, homicidal or self-harm ideation. He was started on mirtazapine 7.5 nightly to help with his depression as well as insomnia. Patient agreed and are counseled about mirtazapine and he agreed to follow with PCP for reconciliation or to be transitioned to another antidepressants. - Additional Information Resuscitation Status: Full Code Discharge Diet: As Tolerated Discharge Activity: Activity As Tolerated Prescriptions: Levofloxacin [Levaquin 500 mg Tablet] 500 mg PEG DAILY 5 Days #5 tablet Mirtazapine 7.5 mg PO QHS 30 Days #30 tablet Home Medications: Gabapentin 300 mg PO Q12 03/29/17 Clopidogrel Bisulfate [Plavix 75 mg Tablet] 75 mg PO DAILY 07/13/18 Oxycodone HCl [Oxycodone HCl 10 MG Tablet] 10 mg PO Q6HP PRN 07/13/18 Pilocarpine HCl [Salagen] 5 mg PO TID 07/13/18 Triamcinolone Acetonide [Aristocort 0.025% Cream] 1 applic TP DAILY MDD FACE 07/13/18 Levofloxacin [Levaquin 500 mg Tablet] 500 mg PEG DAILY 5 Days #5 tablet 07/20/18 Mirtazapine 7.5 mg PO QHS 30 Days #30 tablet 07/20/18 History of Present Illness History of Present Illness: 72 year old male who presented to the emergency room with a 2-week history of dyspnea. He admits mildly increased dyspnea for the last 2 weeks with progressive worsening over the last 4 days. His dyspnea was at first present just with exertion but has continued to be worsened substantially by exertion and persisted at a moderate to severe level even at rest. He further admits that his dyspnea has been accompanied by subjective fever and chills and a nonproductive cough. He admits similar prior episodes secondary to his COPD. He has not identified any other aggravating or ameliorating factors for his current episode of dyspnea. He was seen by his primary care provider who started him on prednisone yesterday and he has been using home breathing treatments without significant improvement. He had a chest x-ray performed on outpatient basis earlier today which showed abnormalities and resulted in his receiving a CT scan of his chest which showed possible metastatic lesions and a small loculated right pleural effusion in his chest as well as demonstrating a right lower lobe pneumonia. In the emergency room he was found to have hypoxic respiratory failure, an elevated white count and moderate tachypnea. Patient was subsequently admitted hospital for further evaluation and treatment. Hospital Course Hospital Course: (1) Pleural effusion, right Likely parapneumonic in the setting of right-sided pneumonia. 07/17/2018 thoracentesis. WBC 1717, RBC 5361, glucose 107, protein 4.0, LDH 228. Pleural protein/serum protein 0.7, likely exudative. Pleural fluid cytology negative for malignancy. Blood cultures from 07/13/2018. Negative. Fluid culture from 07/17/2018 pending. Received 7 days of IV antibiotics. Start on levofloxacin to complete a total of 2 weeks of antibiotics. Pulmonary and oncology consulted. Patient was to follow-up with Dr. Rodrigues in 3 weeks with a follow-up chest CT. Chest tube was switched to gravity, drainage less than 100, chest tube was remov ed by radiology. Repeat chest x-ray showed resolution of pleural effusion. (2) Acute exacerbation of chronic obstructive pulmonary disease (COPD) Resolved. Likely due to underlying pneumonia complicated by COPD exacerbation. 07/19/2018. SBP 113-131, T-max 98.8, HR 83-112, RR 13-18, SPO2 91-97 RA. 07/17/2018. Thoracentesis. WBC 1717, RBC 5361, glucose 107, protein 4.0, LDH 228, pleural protein/serum protein 0.7, likely exudative. 07/19/2018. Right posterior chest tube drainage 90 cc. Continued on DuoNeb's, supplemental oxygen, PRN BiPAP. Discharged on LABA and LAMA to follow-up with pulmonary as outpatient. (3) Lung mass Likely reactive as per oncology note. Malignancy ruled out based on cytology. 07/13/2018. Loculated right pleural effusion. 2 subpleural nodules in the right lung cannot exclude metastasis. 07/17/2018 thoracentesis. WBC 1717, RBC 5361, glucose 107, protein 4.0, LDH 228. Pleural protein/serum protein 0.7, likely exudative. Pleural fluid cytology negative for malignancy. Blood cultures from 07/13/2018. Negative. Fluid culture from 07/17/2018 pending. Oncology was consulted, recommending follow-up CT in 3 weeks. Will possibly need biopsy if persistent. (4) Right lower lobe pneumonia Community-acquired, likely gram-positive's. Cultures remain negative. 07/19/2018. SBP 113-131, T-max 98.8, HR 83-112, RR 13-18, SPO2 91-97 RA. WBC 11.1, hemoglobin 14.0, platelets 343 07/17/2018. Thoracentesis: WBC 1717, RBC 5361, glucose 107, protein 4.0, LDH 228, pleural protein/serum protein 0.7, likely exudative. Blood cultures from 07/13/2018. Negative. Fluid culture from 07/17/2018 pending. Day 7 of IV antibiotics. Discharged on levofloxacin to complete a total of 2 weeks of antibiotics. 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 PEG tube in place. Continue PEG tube care. Physical Exam Vital Signs: Temp Pulse Resp BP Pulse Ox 97.6 F 108 H 16 113/71 93 07/20/18 13:24 07/20/18 13:24 07/20/18 13:24 07/20/18 13:24 07/20/18 13:24 General appearance: PRESENT: no acute distress, well-developed, well-nourished Head exam: PRESENT: atraumatic, normocephalic Eye exam: PRESENT: conjunctiva pink, EOMI, PERRLA. ABSENT: scleral icterus Ear exam: PRESENT: normal external ear exam Mouth exam: PRESENT: moist, tongue midline Neck exam: ABSENT: carotid bruit, JVD, lymphadenopathy, thyromegaly Respiratory exam: PRESENT: clear to auscultation tyler. ABSENT: rales, rhonchi, wheezes Cardiovascular exam: PRESENT: RRR. ABSENT: diastolic murmur, rubs, systolic murmur Pulses: PRESENT: normal dorsalis pedis pul Vascular exam: PRESENT: normal capillary refill GI/Abdominal exam: PRESENT: normal bowel sounds, soft, other - ostomy intact.. ABSENT: distended, guarding, mass, organolmegaly, rebound, tenderness Rectal exam: PRESENT: deferred Extremities exam: PRESENT: full ROM. ABSENT: calf tenderness, clubbing, pedal edema Neurological exam: PRESENT: alert, awake, oriented to person, oriented to place, oriented to time, oriented to situation, CN II-XII grossly intact. ABSENT: motor sensory deficit Psychiatric exam: PRESENT: appropriate affect, normal mood. ABSENT: homicidal ideation, suicidal ideation Skin exam: PRESENT: dry, intact, warm. ABSENT: cyanosis, rash Results Laboratory Results: 07/20/18 06:10 07/20/18 06:10 07/13/18 16:15 NT-Pro-B Natriuret Pep 347 Impressions: Thoracentesis Ultrasound 07/17/18 00:00 IMPRESSION: SUCCESSFUL PLACEMENT OF A RIGHT SIDED CHEST TUBE USING ULTRASOUND GUIDANCE. Chest X-Ray 07/20/18 08:11 IMPRESSION: Resolved right pleural effusion. No pneumothorax. Persistent volume loss, collapse and consolidation in the right middle and lower lobe. Qualifiers - * PATIENT BEING DISCHARGED WITH ANY OF THE FOLLOWING DIAGNOSIS: No Acute Heart Failure Is this a Heart Failure Patient?: No
== END 2018-07-20 13:47 | disposition home or self-care (01) | DRG 190 ==
LOC: ER 15:37 → EH 20:11 → 5 23:38
PROVIDERS: ADMIT Emergency Medicine; ATTEND Emergency Medicine
PROC: 3E0F73Z Introduction of Anti-inflammatory into Respiratory Tract, Via Natural or Artificial Opening (ICD-10-PCS; 2018-07-13)
PROC: 0W993ZX Drainage of Right Pleural Cavity, Percutaneous Approach, Diagnostic (ICD-10-PCS; principal; 2018-07-17)
DX: J44.1 Chronic obstructive pulmonary disease with (acute) exacerbation (principal); J18.1 Lobar pneumonia, unspecified organism; J96.01 Acute respiratory failure with hypoxia; J90 Pleural effusion, not elsewhere classified; C78.01 Secondary malignant neoplasm of right lung; J44.0 Chronic obstructive pulmonary disease with (acute) lower respiratory infection; F32.9 Major depressive disorder, single episode, unspecified; G47.00 Insomnia, unspecified; I73.9 Peripheral vascular disease, unspecified; C08.9 Malignant neoplasm of major salivary gland, unspecified; Z93.1 Gastrostomy status; Z79.899 Other long term (current) drug therapy; Z92.3 Personal history of irradiation; Z87.891 Personal history of nicotine dependence; Z79.02 Long term (current) use of antithrombotics/antiplatelets; Z79.82 Long term (current) use of aspirin; Z79.2 Long term (current) use of antibiotics; Z79.891 Long term (current) use of opiate analgesic; Z85.810 Personal history of malignant neoplasm of tongue; Z82.49 Family history of ischemic heart disease and other diseases of the circulatory system; Z83.3 Family history of diabetes mellitus; Z80.9 Family history of malignant neoplasm, unspecified; Z92.21 Personal history of antineoplastic chemotherapy
CPT/HCPCS: 32555; 32557; 36415; 71045; 71046; 71260; 80048; 80053; 81001; 82803; 82945; 83605; 83615; 83735; 83880; 84157; 84439; 84443; 84481; 85025; 85610; 85730; 87015; 87040; 87070; 87075; 87101; 87116; 87205; 87206; 88305; 89050; 93005; 93010; 94640; 96365; 99285; C1887; C1894; J0456; J0696; J1644; J1956; J2060; J2270; J2920; J3490; J7120

== ENCOUNTER → 2018-07-13 | Outpatient (CLI) | payer MEDICARE, OTHER ==
--- NOTE | 2018-07-13 15:51 | RADIOLOGY REPORT (SQ) ---
EXAM DESCRIPTION: CHEST 2 VIEWS COMPLETED DATE/TIME: 07/13/2018 3:28 pm REASON FOR STUDY: J15.9 UNSPECIFIED BACTERIAL PNEUMONIA COMPARISON: AP chest 12/04/2014 PET-CT 08/17/2015, 11/15/2014 EXAM PARAMETERS: NUMBER OF VIEWS: two views TECHNIQUE: Digital Frontal and Lateral radiographic views of the chest acquired. RADIATION DOSE: NA LIMITATIONS: none FINDINGS: LUNGS AND PLEURA: Opacification of the right lower chest from moderate right pleural effus ion and right middle and lower lobe collapse/ consolidation. Left lung is well inflated and clear. No left pleural effusion or pneumothorax. MEDIASTINUM AND HILAR STRUCTURES: No masses or contour abnormalities. HEART AND VASCULAR STRUCTURES: Heart normal size. No evidence for failure. BONES: No acute findings. HARDWARE: Gastrostomy tube in the left upper quadrant OTHER: No other significant finding. IMPRESSION: Right middle and lower lobe collapse with right pleural effusion. Findings could repres ent aspiration pneumonia and parapneumonic effusion. Right hilar mass with postobstructive pneumonia and malignant pleural effusion are also possible. Consider follow-up CT chest with IV contrast COMMENT: Multiple attempts were made to contact [facility], telephone lines to the practitioner's of [facility] were nonfunctional. Patient was sent to the emergency room because of difficulty breathing. TECHNICAL DOCUMENTATION: JOB ID: [id number] [employer]- All Rights Reserved Reading location - IP/workstation name: [email or web address]
== END ==
LOC: RAD 15:11
PROVIDERS: ATTEND Physician Assistant
DX: J15.9 Unspecified bacterial pneumonia (principal)
CPT/HCPCS: 71046

== ENCOUNTER → 2018-07-26 | Outpatient (CLI) | payer MEDICARE, OTHER ==
--- NOTE | 2018-07-26 13:13 | RADIOLOGY REPORT (SQ) ---
EXAM DESCRIPTION: CHEST 2 VIEWS COMPLETED DATE/TIME: 07/26/2018 12:23 pm REASON FOR STUDY: PLEURAL EFFUSION COMPARISON: 07/20/2018. TECHNIQUE: Frontal and lateral radiographic views of the chest acquired. NUMBER OF VIEWS: Two view. LIMITATIONS: None. FINDINGS: LUNGS AND PLEURA: Right basilar pleuroparenchymal changes. Includes small pleural reactio n with associated right lower lobe and right middle lobe volume loss/ consolidation. Findings look s lightly progressive compared to 07/20/2018. Hyperinflated lungs otherwise. Left lung generally clear. MEDIASTINUM AND HILAR STRUCTURES: Stable contours. Ectatic aorta. HEART AND VASCULAR STRUCTURES: Heart normal size. No evidence for failure. BONES: No acute findings. HARDWARE: None in the chest. OTHER: No other significant finding. IMPRESSION: Slight worsening right basilar changes compared to 07/20/2018. TECHNICAL DOCUMENTATION: JOB ID: [id number] [employer]- All Rights Reserved Reading location - IP/workstation name: [email or web address]
== END ==
LOC: RAD 12:06
PROVIDERS: ATTEND Internal Medicine Hematology & Oncology
DX: J90 Pleural effusion, not elsewhere classified (principal); R06.02 Shortness of breath; R05 Cough
CPT/HCPCS: 71046

== ENCOUNTER → 2018-08-03 | Outpatient (CLI) | payer MEDICARE, OTHER ==
--- NOTE | 2018-08-03 14:01 | RADIOLOGY REPORT (SQ) ---
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 Images reviewed with lung, soft tissue and bone windows. Reconstructed coronal and sagittal MPR and MIP images reviewed. All images stored on PACS. All CT scanners at this facility use dose modulation, iterative reconstruction, and/or weight based d osing when appropriate to reduce radiation dose to as low as reasonably achievable (ALARA). [facility]: Dose Right [facility]: CareDose [facility]: Dose Right [facility]: Teradose 4D [facility]: [employer] CONTRAST TYPE AND DOSE: contrast/concentration: Isovue 350.00 mg/ml; Total Contrast Delivered: 80.0 ml; Total Saline Delivered: 55.0 ml RENAL FUNCTION: GFR > 60. RADIATION DOSE: CT Rad equipment meets quality standard of care and radiation dose reduction techniq ues were employed. CTDIvol: 4.9 mGy. DLP: 199 mGy-cm. . LIMITATIONS: None. FINDINGS: LUNGS AND PLEURA: Overall decrease in size of empyema. Fluid volume not estimated 500 cc. Right pulmonary nodules not significantly changed. There is a background of centrilobular emphysem a. HILAR AND MEDIASTINAL STRUCTURES: No identified masses or abnormal nodes. HEART AND VASCULAR STRUCTURES: No aneurysm or dissection. No central pulmonary emboli. No pericardi al effusion. HARDWARE: None in the chest. UPPER ABDOMEN: Gastrostomy. Limited exam. THYROID AND OTHER SOFT TISSUES: No masses. No adenopathy. BONES: No significant finding. OTHER: No other significant finding. IMPRESSION: Decrease in size of right empyema. Unchanged pulmonary nodules. TECHNICAL DOCUMENTATION: JOB ID: [id number] Quality ID # [id number]: Final reports with documentation of one or more dose reduction techniques (e.g., Au tomated exposure control, adjustment of the mA and/or kV according to patient size, use of iterative reconstruction technique) 2010 [employer]- All Rights Reserved Reading location - IP/workstation name: [email or web address]
== END ==
LOC: RAD 12:21
PROVIDERS: ATTEND Internal Medicine Hematology & Oncology
DX: C01 Malignant neoplasm of base of tongue (principal); R22.1 Localized swelling, mass and lump, neck; R06.02 Shortness of breath
CPT/HCPCS: 71260

== ENCOUNTER → 2018-09-17 | Outpatient (CLI) | payer MEDICARE, OTHER ==
--- NOTE | 2018-09-18 09:38 | RADIOLOGY REPORT (SQ) ---
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 TECHNIQUE: Blood glucose level was verified. Above dose of FDG was injected intravenously. 2-D seg mented attenuation correction images were obtained from the base of the skull to the midthighs. Nonc ontrast CT images were obtained for attenuation correction and fusion with emission images. CT image s were performed without oral or intravenous contrast and are not sensitive for parenchymal lesions. A series of overlapping emission PET images were obtained. Images reviewed and manipulated at [employer] work station by the radiologist. Images stored on PACS. LIMITATIONS: None. FINDINGS: HEAD AND NECK: No worrisome areas of abnormal metabolic activity in the soft tissues of th e head and neck. Diffuse right-sided stylohyoid muscle activity is present on the right, benign CHEST: Persistent right-sided mediastinal adenopathy is present as follows: Right level 2R 1.6 x 1.3 cm lymph node axial image 70 with SUV 3.1 (was 2.1 x 1.5 cm in size 9). Right level 2R 1.5 x 1.3 cm lymph node axial image 81 SUV 1.3 (unchanged from 08/03/2018 CT chest) Right level 2R 2.4 x 2.2 cm lymph node axial image 83 SUV 5 (no change in size from 08/03/2018). Multiple metabolically active small pleural nodules are present in the lower right hemithorax around a chronic thick-walled pleural fluid collection. The largest of these is 2.7 x 1.3 cm on axial image 103 with SUV of 6. There is persistent dense consolidation in the medial right lung base on axial image 114 with SUV of 10. ABDOMEN AND PELVIS: No areas of abnormal metabolic activity in the abdomen or pelvis. Expected physi ologic activity is present in the genitourinary system and bowel. PROXIMAL LOWER EXTREMITIES: No areas of abnormal metabolic activity in the soft tissues of the lower extremities. BONES: No abnormal metabolic activity in the visualized skeleton. ADDITIONAL CT FINDINGS: Fatty atrophy left tongue, calcified carotid bifurcations, gastrostomy tube, obstructive lung disease, right to left fem-fem bypass OTHER: Liver background activity 1.7 SUV. Blood pool activity 1.2 SUV IMPRESSION: Persistent right mediastinal adenopathy, persistent metabolically active consolidation i n the medial right lung base TECHNICAL DOCUMENTATION: JOB ID: [id number] [employer]- All Rights Reserved Reading location - IP/workstation name: [email or web address]
== END ==
LOC: RAD 15:28
PROVIDERS: ATTEND Internal Medicine Hematology & Oncology
DX: C01 Malignant neoplasm of base of tongue (principal); R91.1 Solitary pulmonary nodule
CPT/HCPCS: 78815; A9552

== ENCOUNTER 2018-09-23 11:48 | Inpatient (IN) | payer MEDICARE, OTHER ==
[2018-09-23] MEDS ORDERED: IPRATROPIUM/ALBUTEROL 0.5-2.5 MG/3 ML AMPUL NEB ONE (12:10)
[2018-09-23 12:21] LABS: HEMOGLOBIN 12.4 g/dL (13.5-17.0); MEAN CORPUSCULAR HEMOGLOBIN 25.7 pg (27.0-33.4); MEAN CORPUSCULAR HGB CONC 31.8 g/dL (32.0-36.0); MEAN CORPUSCULAR VOLUME 81 fl (80-97); PLATELET COUNT 481 10^3/uL (150-450); RED BLOOD COUNT 4.84 10^6/uL (4.35-5.55); RED CELL DISTRIBUTION WIDTH 16.7 % (11.5-14.0); WHITE BLOOD COUNT 16.7 10^3/uL (4.0-10.5)
[2018-09-23 12:39] LABS: ALANINE AMINOTRANSFERASE 18 U/L (21-72); ALBUMIN 3.5 g/dL (3.5-5.0); ALKALINE PHOSPHATASE 93 U/L (38-126); ANION GAP 6 (5-19); ASPARTATE AMINO TRANSFERASE 25 U/L (17-59); BILIRUBIN,DIRECT 0.3 mg/dL (0.0-0.4); BILIRUBIN,TOTAL 0.4 mg/dL (0.2-1.3); BLOOD UREA NITROGEN 16 mg/dL (7-20); CALCIUM 9.3 mg/dL (8.4-10.2); CARBON DIOXIDE 30 mmol/L (22-30); CHLORIDE 105 mmol/L (98-107); CREATINE KINASE 34 U/L (55-170); GLUCOSE 202 mg/dL (75-110); POTASSIUM 4.6 mmol/L (3.6-5.0); SODIUM 141.2 mmol/L (137-145); TOTAL PROTEIN 7.1 g/dL (6.3-8.2)
[2018-09-23 12:48] LABS: CREATINE KINASE MB 0.34 ng/mL (<4.55); TROPONIN I < 0.012 ng/mL
[2018-09-23 12:51] LABS: ABSOLUTE LYMPHOCYTES# (MANUAL) 0.8 10^3/uL (0.5-4.7); BASOPHILS % (MANUAL) 0 % (0-2); EOSINOPHILS % (MANUAL) 0 % (0-6); LYMPHOCYTES % (MANUAL) 5 % (13-45); MONOCYTES % (MANUAL) 12 % (3-13); SEGMENTED NEUTROPHILS % (MAN) 83 % (42-78); TOTAL CELLS COUNTED 100
[2018-09-23 12:52] LABS: TOXIC GRANULATION 1+; TOXIC VACUOLATION PRESENT
[2018-09-23 12:53] LABS: ANISOCYTOSIS 1+; HYPOCHROMASIA SLIGHT; PLATELET COMMENT ADEQUATE
--- NOTE | 2018-09-23 13:12 | RADIOLOGY REPORT (SQ) ---
EXAM DESCRIPTION: CHEST SINGLE VIEW COMPLETED DATE/TIME: 09/23/2018 12:42 pm REASON FOR STUDY: bed 6 db COMPARISON: 07/26/2018 NUMBER OF VIEWS: One view. TECHNIQUE: Single frontal radiographic image of the chest acquired. LIMITATIONS: None. FINDINGS: LUNGS AND PLEURA: Moderate right pleural effusion and associated airspace disease. MEDIASTINUM AND HEART: Stable heart size and mediastinal structures. BONY STRUCTURES: No acute findings. HARDWARE: None. OTHER: No other significant finding. IMPRESSION: Right lower lobe pneumonia. TECHNICAL DOCUMENTATION: JOB ID: [id number] Reading location - IP/workstation name: [email or web address]
[2018-09-23 13:14] LABS: AMORPHOUS SEDIMENT,URINE TRACE /HPF; APPEARANCE,URINE CLOUDY; BILIRUBIN,URINE NEGATIVE (NEGATIVE); COLOR,URINE YELLOW; GLUCOSE, URINE NEGATIVE (NEGATIVE); KETONES,URINE NEGATIVE (NEGATIVE); LEUKOCYTE ESTERASE,URINE NEGATIVE (NEGATIVE); NITRITE,URINE NEGATIVE (NEGATIVE); PROTEIN,URINE NEGATIVE (NEGATIVE); URINE SPECIFIC GRAVITY 1.018; UROBILINOGEN,URINE NEGATIVE mg/dL (<2.0)
[2018-09-23] MEDS ORDERED: LEVOFLOXACIN 750 MG/D5W RTU 750 MG/150 ML RTUPB IV ONE (13:37)
--- NOTE | 2018-09-23 13:38 | ER Document Report ---
Entered by MUKESH ESCALONA SCRIBE 09/23/18 1156 Acting as scribe for:KAPIL GUTHRIE MD ED General - General Stated Complaint: CHEST PAIN Time Seen by Provider: 09/23/18 11:56 Primary Care Provider: KATARINA BELLA MD [Primary Care Provider] - Follow up as needed Mode of Arrival: Ambulatory Information source: Patient Notes: 72-year-old male that presents to the emergency department today with complaints of a sudden onset of chest pain that began about 3 hours ago with associated shortness of breath. 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 TRAVEL OUTSIDE OF THE [place] IN LAST 30 DAYS: No - Related Data Allergies/Adverse Reactions: No Known Allergies Allergy (Verified 07/13/18 15:40) Past Medical History - General Information source: Patient - Social History Smoking Status: Former Smoker Cigarette use (# per day): No Frequency of alcohol use: None Drug Abuse: None Lives with: Family Family History: Reviewed & Not Pertinent, CAD, COPD, DM, Hypertension, Malignancy - Past Medical History Cardiac Medical History: Reports: Hx Peripheral Vascular Disease Pulmonary Medical History: Reports: Hx COPD, Hx Pneumonia - hx of Musculoskeletal Medical History: Reports Hx Arthritis Past Surgical History: Reports: Hx Vascular Surgery - Right ileal to left femoral graft and right femoral stent, Other - Endoscopy with placement of PEG tube - Immunizations Hx Diphtheria, Pertussis, Tetanus Vaccination: No Hx Pneumococcal Vaccination: 03/14/13 Review of Systems - Review of Systems Constitutional: No symptoms reported EENT: No symptoms reported Cardiovascular: See HPI, Chest pain Respiratory: See HPI, Short of breath Gastrointestinal: No symptoms reported Genitourinary: No symptoms reported Male Genitourinary: No symptoms reported Musculoskeletal: No symptoms reported Skin: No symptoms reported Hematologic/Lymphatic: No symptoms reported Neurological/Psychological: No symptoms reported -: Yes All other systems reviewed and negative Physical Exam - Vital signs Vitals: Temp 99.9 F 09/23/18 12:06 Interpretation: Tachycardic - General General appearance: Alert, Anxious In distress: Mild - HEENT Head: Normocephalic, Atraumatic Eyes: Normal Pupils: PERRL Neck: Normal - Respiratory Respiratory status: Tachypnea Chest status: Tender Breath sounds: Rhonchi, Wheezing Chest palpation: Tender - Tender to palpate the left anterior inferior chest wall near the sternum. - Cardiovascular Rhythm: Regular, Tachycardia Heart sounds: Normal auscultation Murmur: No - Abdominal Inspection: Other - Patient has a gastrostomy tube. Distension: No distension Bowel sounds: Normal Tenderness: Nontender - Back Back: Normal - Extremities General upper extremity: Normal inspection General lower extremity: Normal inspection - Neurological Neuro grossly intact: Yes - Psychological Associated symptoms: Normal affect, Normal mood - Skin Skin Temperature: Warm Skin Moisture: Dry Skin Color: Normal Course - Re-evaluation Re-evalutation: 09/23/18 16:21 The patient blood gas showed him to be quite hypoxic and tachypnea, he is not retaining CO2. A CTA chest was done to rule out pulmonary embolus as potential cause due to his high risk with malignancy. CTA chest shows the known hypermetabolic lesions and near-total collapse of the right lower lobe. 09/23/18 16:23 The patient and findings were discussed with Dr. Rodrigues. She reports that the patient did have bronchoscopy in [place] not long ago. She also reports that she was planning to start him on immunotherapy this coming week if he is strong enough. I talked with the patient and he is agreeable to staying here to be treated. We do have pulmonary medicine door to door lead generation today. - Vital Signs Vital signs: Temp Pulse Resp BP Pulse Ox 99.9 F 09/23/18 12:06 - Laboratory Result Diagrams: 09/23/18 12:01 09/23/18 12:01 Laboratory results interpreted by me: 09/23/18 09/23/18 09/23/18 12:01 12:01 12:30 WBC 16.7 H Hgb 12.4 L MCH 25.7 L MCHC 31.8 L RDW 16.7 H Plt Count 481 H Seg Neuts % (Manual) 83 H Lymphocytes % (Manual) 5 L Abs Neuts (Manual) 13.9 H Abs Monocytes (Manual) 2.0 H Carbonic Acid ABG pH ABG pCO2 ABG pO2 ABG HCO3 ABG O2 Saturation Glucose 202 H ALT 18 L Creatine Kinase 34 L Urine Ascorbic Acid 40 H 09/23/18 09/23/18 14:20 14:40 WBC Hgb MCH MCHC RDW Plt Count Seg Neuts % (Manual) Lymphocytes % (Manual) Abs Neuts (Manual) Abs Monocytes (Manual) Carbonic Acid 1.01 L ABG pH 7.48 H ABG pCO2 33.7 L ABG pO2 56.7 L ABG HCO3 24.6 H ABG O2 Saturation 91.7 L Glucose ALT Creatine Kinase 33 L Urine Ascorbic Acid - Diagnostic Test Radiology reviewed: Image reviewed, Reports reviewed - Chest x-ray suggests pneumonia in the right lower lobe area of metastatic disease. CTA chest shows right lower lobe collapse. - EKG Interpretation by Me EKG shows normal: Sinus rhythm, [place], Intervals, QRS Complexes, ST-T Waves Rate: Tachycardia - 134 When compared to previous EKG there are: No significant change - Consults Wilman De La Cruz NP Time consulted: 16:20 Consulted provider: will come to ER Critical Care Note - Critical Care Note Total time excluding time spent on procedures (mins): 40 Discharge - Discharge Clinical Impression: Tachycardia, Malignant neoplasm of base of tongue, Acute exacerbation of chronic obstructive pulmonary disease (COPD), Right lower lobe pulmonary infiltrate Leukocytosis Qualifiers: Leukocytosis type: unspecified Qualified Code(s): D72.829 - Elevated white blood cell count, unspecified COPD (chronic obstructive pulmonary disease) Qualifiers: COPD type: unspecified COPD Qualified Code(s): J44.9 - Chronic obstructive pulmonary disease, unspecified Lung metastases Qualifiers: Laterality: right Qualified Code(s): C78.01 - Secondary malignant neoplasm of r ight lung Chest pain Qualifiers: Chest pain type: unspecified Qualified Code(s): R07.9 - Chest pain, unspecified Condition: Fair Disposition: ADMITTED INPATIENT Admitting Provider: Heydi (Hospitalist) Unit Admitted: [facility]U Referrals: KATARINA BELLA MD [Primary Care Provider] - Follow up as needed Scribe Attestation: 09/23/18 12:50 I personally performed the services described in the documentation, reviewed and edited the documentation which was dictated to the scribe in my presence, and it accurately records my words and actions. I personally performed the services described in the documentation, reviewed and edited the documentation which was dictated to the scribe in my presence, and it accurately records my words and actions.
[2018-09-23 14:31] LABS: ARTERIAL BLOOD BASE EXCESS 1.6 mmol/L; ARTERIAL BLOOD H2CO3 1.01 mmol/L (1.05-1.35); ARTERIAL BLOOD HCO3 24.6 mmol/L (20-24); ARTERIAL BLOOD O2 SATURATION 91.7 % (94-98); ARTERIAL BLOOD PCO2 33.7 mmHg (35-45); ARTERIAL BLOOD PH 7.48 (7.35-7.45); ARTERIAL BLOOD PO2 56.7 mmHg (80-100); ARTERIAL BLOOD TOTAL CO2 25.6 mmol/L (23-27)
[2018-09-23 14:32] LABS: ARTERIAL BLOOD FIO2 2L
[2018-09-23] MEDS ORDERED: NORMAL SALINE 250 ML IV PRN (14:59)
--- NOTE | 2018-09-23 15:23 | Progress Note ---
Provider Note Provider Note: I was called by Dr. Rodríguez in the ED with questions about the patient. 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 He underwent treatments with carboplatin, paclitaxel, and radiation which completed 05/2015. He was without evidence of disease until 09/17/2018 when PET/CT and bronchoscopy were highly suggestive of recurrent squamous Cell. He is scheduled to start Nivolumab immunotherapy in the near future. On 09/19/2018, his CBC showed WBC 9.9, Hgb 12.6, HCT 42.6 and PLT 473. CMP was unremarkable. Please call me with any questions.
[2018-09-23 15:28] LABS: CREATINE KINASE MB 0.23 ng/mL (<4.55); TROPONIN I < 0.012 ng/mL
--- NOTE | 2018-09-23 16:02 | RADIOLOGY REPORT (SQ) ---
EXAM DESCRIPTION: CTA CHEST COMPLETED DATE/TIME: 09/23/2018 3:46 pm REASON FOR STUDY: Oral lung cancer, sudden onset CP SOB COMPARISON: 08/03/2018 TECHNIQUE: CT scan of the chest performed using helical scanning technique with dynamic intravenous contrast injection. Images reviewed with lung, soft tissue and bone windows. Reconstructed coronal and sagittal MPR images reviewed. Additional 3 dimensional post-processing performed to develop Maximal Intensity Projection images (AL P). All images stored on PACS. All CT scanners at this facility use dose modulation, iterative reconstruction, and/or weight based d osing when appropriate to reduce radiation dose to as low as reasonably achievable (ALARA). [facility]: Dose Right [facility]: CareDose [facility]: Dose Right [facility]: Teradose 4D [facility]: [employer] CONTRAST TYPE AND DOSE: contrast/concentration: Isovue 350.00 mg/ml; Total Contrast Delivered: 52.0 ml; Total Saline Delivered: 51.6 ml Contrast bolus optimized for the pulmonary arteries. Not diagnostic for the aorta. RENAL FUNCTION: GFR > 60. RADIATION DOSE: CT Rad equipment meets quality standard of care and radiation dose reduction techniq ues were employed. CTDIvol: 6.6 - 14.3 mGy. DLP: 464 mGy-cm. . LIMITATIONS: None. FINDINGS: LUNGS AND PLEURA: Loculated right basilar pleural effusion not significantly changed in vo lume. There has been interval near complete collapse of the right lower lobe. AORTA AND GREAT VESSELS: No aneurysm. Contrast bolus not optimized for the aorta. HEART: No pericardial effusion. PULMONARY ARTERIES: No emboli visualized in the main pulmonary arteries or the segmental branches. HILAR AND MEDIASTINAL STRUCTURES: Unchanged mediastinal adenopathy. HARDWARE: None in the chest. UPPER ABDOMEN: No significant findings. Limited exam. THYROID AND OTHER SOFT TISSUES: No masses. No adenopathy. BONES: No acute or significant finding. 3D MIPS: Confirm above findings. OTHER: No other significant finding. IMPRESSION: 1. No PE. 2. Chronic small loculated effusion right lower lobe. Further consolidation with near complete colla pse of the right lower lobe. 3. Unchanged mediastinal adenopathy. These were hypermetabolic on recent PET-CT. COMMENT: Quality ID # [id number]: Final reports with documentation of one or more dose reduction techniques (e.g., Automated exposure control, adjustment of the mA and/or kV according to patient size, use of iterative reconstruction technique) TECHNICAL DOCUMENTATION: JOB ID: [id number] [employer]- All Rights Reserved Reading location - IP/workstation name: [email or web address]
--- NOTE | 2018-09-23 17:06 | EKG REPORT ---
SEVERITY:- DEFECTIVE ECG - SINUS TACHYCARDIA BASELINE ARTIFACT.REPEAT EKG : Confirmed by: Mojgan Guajardo MD 23-Sep-2018 17:05:45
[2018-09-23] MEDS ORDERED: ONDANSETRON HCL INJ/PF 4 MG/2 ML SDV IV PRN (18:02)
[2018-09-23] MEDS ORDERED: OXYCODONE-ACETAMINOPHEN 5-325 MG TABLET PO PRN (18:08)
--- NOTE | 2018-09-23 18:18 | PDOC H&P ---
History of Present Illness Admission Date/PCP: 09/23/18 16:39 KATARINA BELLA MD History of Present Illness: FELIPE PIERRE is a 72 year old male patient presented with sudden o nset chest pain and shortness of breath which happened 3 hours prior to arrival to ER. Patient denies any fever, chills, palpitation or diaphoresis. He does not have any nausea, vomiting, abdominal pain, diarrhea or urinary complaints. No dizziness, blurring of vision or any seizure disorder. His initial work-up shows leukocytosis. CTA of the chest reported as no PE. Chronic small loculated effusion right lower lobe further consolidation with near complete collapse of the right lower lobe. Unchanged mediastinal adenopathy of note patient was diagnosed with squamous cell carcinoma of the base of the tongue about 4 years ago. He is status post chemo radiation. In July 2018 patient was admitted for pneumonia and pleural effusion which was drained with chest tube. Per Dr. Harvey patient was without evidence of disease until 09/17 when PET/CT and bronchoscopy were highly suggestive of recurrent squamous cell. Patient has been scheduled for immunotherapy. Past Medical History Cardiac Medical History: Reports: Peripheral Vascular Disease Denies: Coronary Artery Disease, Myocardial Infarction, Hypertension Pulmonary Medical History: Reports: Chronic Obstructive Pulmonary Disease (COPD), Pneumonia - hx of Denies: Asthma, Bronchitis Neurological Medical History: Denies: Seizures Endocrine Medical History: Denies: Diabetes Mellitus Type 1, Diabetes Mellitus Type 2, Hyperthyroidism, Hypothyroidism GI Medical History: Denies: Cirrhosis, Hepatitis, Hiatal Hernia Musculoskeltal Medical History: Reports: Arthritis Denies: Gout Skin Medical History: Denies: Eczema, Psoriasis Psychiatric Medical History: Denies: Depression Hematology: Denies: Anemia, Sickle Cell Disease, Bleeding Tendencies Past Surgical History Past Surgical History: Reports: Vascular Surgery - Right ileal to left femoral graft and right femoral stent, Other - Endoscopy with placement of PEG tube Denies: Pacemaker Social History Lives with: Family Smoking Status: Former Smoker Frequency of Alcohol Use: Rare Hx Recreational Drug Use: No Drugs: None Hx Prescription Drug Abuse: No - Advance Directive Resuscitation Status: Full Code Family History Family History: Reviewed & Not Pertinent, CAD, COPD, DM, Hypertension, Malignancy Parental Family History Reviewed: Yes Children Family History Reviewed: Yes Sibling(s) Family History Reviewed.: Yes Medication/Allergy Home Medications: Gabapentin 300 mg PO Q12 03/29/17 Clopidogrel Bisulfate [Plavix 75 mg Tablet] 75 mg PO DAILY 07/13/18 Oxycodone HCl [Oxycodone HCl 10 MG Tablet] 10 mg PO Q6HP PRN 07/13/18 Pilocarpine HCl [Salagen] 5 mg PO TID 07/13/18 Triamcinolone Acetonide [Aristocort 0.025% Cream] 1 applic TP DAILY MDD FACE 07/13/18 Mirtazapine 7.5 mg PO QHS 30 Days #30 tablet 07/20/18 Tizanidine HCl 2 mg PO Q12HP PRN 09/23/18 Allergies/Adverse Reactions: No Known Allergies Allergy (Verified 07/13/18 15:40) Review of Systems Constitutional: ABSENT: chills, fever(s), headache(s), weight gain, weight loss Eyes: ABSENT: visual disturbances Ears: ABSENT: hearing changes Cardiovascular: PRESENT: chest pain Respiratory: PRESENT: dyspnea Gastrointestinal: ABSENT: abdominal pain, constipation, diarrhea, hematemesis, hematochezia, nausea, vomiting Genitourinary: ABSENT: dysuria, hematuria Musculoskeletal: ABSENT: joint swelling Integumentary: ABSENT: rash, wounds Neurological: ABSENT: abnormal gait, abnormal speech, confusion, dizziness, focal weakness, syncope Psychiatric: ABSENT: anxiety, depression, homidical ideation, suicidal ideation Endocrine: ABSENT: cold intolerance, heat intolerance, polydipsia, polyuria Hematologic/Lymphatic: ABSENT: easy bleeding, easy bruising Physical Exam Vital Signs: Temp Pulse Resp BP Pulse Ox 99.9 F 40 H 115/65 95 09/23/18 12:06 09/23/18 17:20 09/23/18 17:20 09/23/18 17:20 Intake & Output 09/22/18 09/23/18 09/24/18 06:59 06:59 06:59 Intake Total 150 Balance 150 Weight 65.317 kg General appearance: PRESENT: mild distress Head exam: PRESENT: atraumatic Eye exam: PRESENT: conjunctiva pink Neck exam: ABSENT: carotid bruit, JVD, lymphadenopathy, thyromegaly Respiratory exam: PRESENT: decreased breath sounds, rales Pulses: PRESENT: normal dorsalis pedis pul GI/Abdominal exam: PRESENT: normal bowel sounds, soft. ABSENT: distended, guarding, mass, organolmegaly, rebound, tenderness Neurological exam: PRESENT: alert, awake, oriented to person, oriented to place, oriented to time, oriented to situation Results Laboratory Results: 09/23/18 12:01 09/23/18 12:01 09/23/18 09/23/18 09/23/18 12:01 12:01 12:30 WBC 16.7 H RBC 4.84 Hgb 12.4 L Hct 39.0 MCV 81 MCH 25.7 L MCHC 31.8 L RDW 16.7 H Plt Count 481 H Seg Neutrophils % Not Reportable Lymphocytes % Not Reportable Monocytes % Not Reportable Eosinophils % Not Reportable Basophils % Not Reportable Absolute Neutrophils Not Reportable Absolute Lymphocytes Not Reportable Absolute Monocytes Not Reportable Absolute Eosinophils Not Reportable Absolute Basophils Not Reportable Carbonic Acid HCO3/H2CO3 Ratio ABG pH ABG pCO2 ABG pO2 ABG HCO3 ABG O2 Saturation ABG Base Excess FiO2 Sodium 141.2 Potassium 4.6 Chloride 105 Carbon Dioxide 30 Anion Gap 6 BUN 16 Creatinine 0.61 Est GFR ( Amer) > 60 Est GFR (Non-Af Amer) > 60 Glucose 202 H Calcium 9.3 Magnesium 2.1 Total Bilirubin 0.4 AST 25 ALT 18 L Alkaline Phosphatase 93 Total Protein 7.1 Albumin 3.5 Urine Color YELLOW Urine Appearance CLOUDY Urine pH 8.0 Ur Specific [place] 1.018 Urine Protein NEGATIVE Urine Glucose (UA) NEGATIVE Urine Ketones NEGATIVE Urine Blood NEGATIVE Urine Nitrite NEGATIVE Ur Leukocyte Esterase NEGATIVE Urine WBC (Auto) 1 Urine RBC (Auto) 3 09/23/18 14:20 WBC RBC Hgb Hct MCV MCH MCHC RDW Plt Count Seg Neutrophils % Lymphocytes % Monocytes % Eosinophils % Basophils % Absolute Neutrophils Absolute Lymphocytes Absolute Monocytes Absolute Eosinophils Absolute Basophils Carbonic Acid 1.01 L HCO3/H2CO3 Ratio 24:1 ABG pH 7.48 H ABG pCO2 33.7 L ABG pO2 56.7 L ABG HCO3 24.6 H ABG O2 Saturation 91.7 L ABG Base Excess 1.6 FiO2 2L Sodium Potassium Chloride Carbon Dioxide Anion Gap BUN Creatinine Est GFR ( Amer) Est GFR (Non-Af Amer) Glucose Calcium Magnesium Total Bilirubin AST ALT Alkaline Phosphatase Total Protein Albumin Urine Color Urine Appearance Urine pH Ur Specific [place] Urine Protein Urine Glucose (UA) Urine Ketones Urine Blood Urine Nitrite Ur Leukocyte Esterase Urine WBC (Auto) Urine RBC (Auto) 09/23/18 09/23/1809/23/19 12:01 12:01 14:40 Creatine Kinase 34 L 33 L CK-MB (CK-2) 0.34 Troponin I < 0.012 09/23/18 14:40 Creatine Kinase CK-MB (CK-2) 0.23 Troponin I < 0.012 Impressions: Chest X-Ray 09/23/18 11:51 IMPRESSION: Right lower lobe pneumonia. Chest/Abdomen CTA 09/23/18 14:16 IMPRESSION: 1. No PE. 2. Chronic small loculated effusion right lower lobe. Further consolidation with near complete collapse of the right lower lobe. 3. Unchanged mediastinal adenopathy. These were hypermetabolic on recent PET- CT. Assessment and Plan - Diagnosis (1) Pneumonia Is this a current diagnosis for this admission?: Yes Plan: Patient has shortness of breath, chest pain, leukocytosis and consolidation on CT scan. Patient empirical started on Levaquin. (2) COPD (chronic obstructive pulmonary disease) Qualifiers: Emphysema type: unspecified Is this a current diagnosis for this admission?: Yes Plan: It has been started on bronchodilators and supplemental oxygen. 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 Management per Dr. Harvey. - Inpatient Certification Medical Necessity: Need Close Monitoring Due to Risk of Patient Decompensation, Need for IV Antibiotics
[2018-09-23] MEDS ORDERED: ALPRAZOLAM 0.5 MG TABLET PO ONE (18:30)
[2018-09-23] MEDS ORDERED: LORAZEPAM INJ 2 MG/1 ML VIAL IV ONE (18:57)
[2018-09-23] MEDS ORDERED: ACETAMINOPHEN 325 MG TABLET PO PRN ×2 (19:18→19:28)
[2018-09-23] MEDS ORDERED: LEVALBUTEROL HCL NEB 0.63 MG/3 ML AMPUL NEB PRN (19:18)
[2018-09-23] MEDS ORDERED: RINGERS SOLUTION,LACTATED 1,000 ML IV PRN (19:20)
[2018-09-23] MEDS ORDERED: RINGERS SOLUTION,LACTATED 1,000 ML IV ONE ×2 (19:20→19:30)
[2018-09-23] MEDS ORDERED: MORPHINE SULFATE 10 MG/ML INJ IV PRN ×3 (19:22→20:01)
[2018-09-23] MEDS ORDERED: ACETYLCYSTEINE 20% SOLN 800 MG/4 ML VIAL.NEB NEB SCH (20:00)
[2018-09-23] MEDS ORDERED: IPRATROPIUM/ALBUTEROL 0.5-2.5 MG/3 ML AMPUL NEB SCH (20:00)
[2018-09-23] MEDS ORDERED: BUDESONIDE NEB 0.5 MG/2 ML AMPUL NEB SCH (20:00)
[2018-09-23] MEDS: MORPHINE SULFATE 10 MG/ML INJ IV PRN (20:15)
[2018-09-23 20:41] LABS: ARTERIAL BLOOD BASE EXCESS -1.9 mmol/L; ARTERIAL BLOOD H2CO3 0.99 mmol/L (1.05-1.35); ARTERIAL BLOOD HCO3 21.5 mmol/L (20-24); ARTERIAL BLOOD O2 SATURATION 95.7 % (94-98); ARTERIAL BLOOD PCO2 32.9 mmHg (35-45); ARTERIAL BLOOD PH 7.43 (7.35-7.45); ARTERIAL BLOOD PO2 75.5 mmHg (80-100); ARTERIAL BLOOD TOTAL CO2 22.6 mmol/L (23-27)
[2018-09-23 20:43] LABS: ARTERIAL BLOOD FIO2 6 L
[2018-09-23] MEDS: BUDESONIDE NEB 0.5 MG/2 ML AMPUL NEB SCH (22:16)
[2018-09-23] MEDS: ACETYLCYSTEINE 20% SOLN 800 MG/4 ML VIAL.NEB NEB SCH (22:16)
[2018-09-23] MEDS: RINGERS SOLUTION,LACTATED 1,000 ML IV PRN (22:49)
[2018-09-23] MEDS: ALPRAZOLAM 0.5 MG TABLET PO SCH (22:50)
[2018-09-23] MEDS: FAMOTIDINE INJ/PF 20 MG/2 ML SDV IV SCH (22:52)
[2018-09-24] MEDS ORDERED: IPRATROPIUM BROMIDE 0.02% NEB 0.5 MG/2.5 ML AMPUL NEB SCH
[2018-09-24] MEDS ORDERED: LEVALBUTEROL HCL NEB 1.25 MG/3 ML AMPUL NEB SCH
[2018-09-24] MEDS: LEVALBUTEROL HCL NEB 1.25 MG/3 ML AMPUL NEB SCH ×3 (00:32→15:53)
[2018-09-24] MEDS: MORPHINE SULFATE 10 MG/ML INJ IV PRN ×2 (00:55→02:59)
[2018-09-24 04:10] LABS: HEMATOCRIT 34.3 % (37.9-51.0); HEMOGLOBIN 10.7 g/dL (13.5-17.0); MEAN CORPUSCULAR HEMOGLOBIN 25.1 pg (27.0-33.4); MEAN CORPUSCULAR HGB CONC 31.3 g/dL (32.0-36.0); MEAN CORPUSCULAR VOLUME 80 fl (80-97); PLATELET COUNT 388 10^3/uL (150-450); RED BLOOD COUNT 4.28 10^6/uL (4.35-5.55); RED CELL DISTRIBUTION WIDTH 16.7 % (11.5-14.0); WHITE BLOOD COUNT 22.5 10^3/uL (4.0-10.5)
[2018-09-24] MEDS ORDERED: LORAZEPAM INJ 2 MG/1 ML VIAL IV PRN (04:25)
[2018-09-24 04:29] LABS: ABSOLUTE LYMPHOCYTES# (MANUAL) 1.4 10^3/uL (0.5-4.7); ABSOLUTE MONOCYTES # (MANUAL) 2.3 10^3/uL (0.1-1.4); ANISOCYTOSIS 1+; BASOPHILS % (MANUAL) 0 % (0-2); EOSINOPHILS % (MANUAL) 0 % (0-6); HYPOCHROMASIA 1+; LYMPHOCYTES % (MANUAL) 6 % (13-45); MONOCYTES % (MANUAL) 10 % (3-13); PLATELET COMMENT ADEQUATE; POIKILOCYTOSIS SLIGHT; POLYCHROMASIA SLIGHT; SEGMENTED NEUTROPHILS % (MAN) 84 % (42-78); STOMATOCYTES SLIGHT; TOTAL CELLS COUNTED 100
[2018-09-24 04:30] LABS: ANION GAP 7 (5-19); BLOOD UREA NITROGEN 18 mg/dL (7-20); CALCIUM 8.8 mg/dL (8.4-10.2); CARBON DIOXIDE 23 mmol/L (22-30); CHLORIDE 109 mmol/L (98-107); GLUCOSE 121 mg/dL (75-110); POTASSIUM 4.7 mmol/L (3.6-5.0); SODIUM 138.7 mmol/L (137-145); TOXIC GRANULATION SLIGHT
[2018-09-24] MEDS ORDERED: LORAZEPAM INJ 2 MG/1 ML VIAL IV ONE (04:30)
[2018-09-24] MEDS: RINGERS SOLUTION,LACTATED 1,000 ML IV PRN (04:36)
--- NOTE | 2018-09-24 08:17 | Progress Note Acknowledgement ---
Progress Note Acknowledgement Progess Note Acknowledgement: I, the undersigned member of the medical staff with appropriate privileges and with supervisory authority over Wilman De La Cruz, a [facility] allied health professional, acknowledge that I have reviewed the progress notes entered on this patient, and in my professional judgment believe that the assessment made and/or any care evidenced was appropriate
[2018-09-24] MEDS: BUDESONIDE NEB 0.5 MG/2 ML AMPUL NEB SCH ×2 (08:18→20:00)
--- NOTE | 2018-09-24 08:22 | PDOC PROGRESS REPORT ---
Subjective Progress Note for:: 09/24/18 Subjective:: Pain at PEG site Reason For Visit: PNEUMONIA Physical Exam Vital Signs: Temp Pulse Resp BP Pulse Ox 97.3 F 104 H 18 99/68 L 91 L 09/24/18 07:47 09/24/18 07:47 09/24/18 07:47 09/24/18 07:47 09/24/18 07:47 Intake & Output 09/23/18 09/24/18 09/25/18 06:59 06:59 06:59 Intake Total 2116 Output Total 720 Balance 1396 Weight 64.6 kg General appearance: PRESENT: no acute distress, well-developed, well-nourished Neck exam: ABSENT: carotid bruit, JVD, lymphadenopathy, thyromegaly Respiratory exam: PRESENT: crackles, unlabored Cardiovascular exam: PRESENT: RRR. ABSENT: diastolic murmur, rubs, systolic murmur Pulses: PRESENT: normal dorsalis pedis pul Vascular exam: PRESENT: normal capillary refill GI/Abdominal exam: PRESENT: other - Feeding tube in left upper quadrant Extremities exam: PRESENT: full ROM. ABSENT: calf tenderness, clubbing, pedal edema Neurological exam: PRESENT: alert, awake, oriented to person, oriented to place, oriented to time, oriented to situation, CN II-XII grossly intact. ABSENT: motor sensory deficit Psychiatric exam: PRESENT: appropriate affect, normal mood. ABSENT: homicidal ideation, suicidal ideation Skin exam: PRESENT: dry, intact, warm. ABSENT: cyanosis, rash Results Laboratory Results: 09/24/18 03:50 09/24/18 03:50 09/23/18 09/23/18 09/23/18 12:01 12:01 12:30 WBC 16.7 H RBC 4.84 Hgb 12.4 L Hct 39.0 MCV 81 MCH 25.7 L MCHC 31.8 L RDW 16.7 H Plt Count 481 H Seg Neutrophils % Not Reportable Lymphocytes % Not Reportable Monocytes % Not Reportable Eosinophils % Not Reportable Basophils % Not Reportable Absolute Neutrophils Not Reportable Absolute Lymphocytes Not Reportable Absolute Monocytes Not Reportable Absolute Eosinophils Not Reportable Absolute Basophils Not Reportable Carbonic Acid HCO3/H2CO3 Ratio ABG pH ABG pCO2 ABG pO2 ABG HCO3 ABG O2 Saturation ABG Base Excess FiO2 Sodium 141.2 Potassium 4.6 Chloride 105 Carbon Dioxide 30 Anion Gap 6 BUN 16 Creatinine 0.61 Est GFR ( Amer) > 60 Est GFR (Non-Af Amer) > 60 Glucose 202 H Lactic Acid Calcium 9.3 Magnesium 2.1 Total Bilirubin 0.4 AST 25 ALT 18 L Alkaline Phosphatase 93 Total Protein 7.1 Albumin 3.5 Urine Color YELLOW Urine Appearance CLOUDY Urine pH 8.0 Ur Specific [place] 1.018 Urine Protein NEGATIVE Urine Glucose (UA) NEGATIVE Urine Ketones NEGATIVE Urine Blood NEGATIVE Urine Nitrite NEGATIVE Ur Leukocyte Esterase NEGATIVE Urine WBC (Auto) 1 Urine RBC (Auto) 3 09/23/18 09/23/18 09/23/18 14:20 20:15 20:15 WBC RBC Hgb Hct MCV MCH MCHC RDW Plt Count Seg Neutrophils % Lymphocytes % Monocytes % Eosinophils % Basophils % Absolute Neutrophils Absolute Lymphocytes Absolute Monocytes Absolute Eosinophils Absolute Basophils Carbonic Acid 1.01 L 0.99 L HCO3/H2CO3 Ratio 24:1 21:1 ABG pH 7.48 H 7.43 ABG pCO2 33.7 L 32.9 L ABG pO2 56.7 L 75.5 L ABG HCO3 24.6 H 21.5 ABG O2 Saturation 91.7 L 95.7 ABG Base Excess 1.6 -1.9 FiO2 2L 6 L Sodium Potassium Chloride Carbon Dioxide Anion Gap BUN Creatinine Est GFR ( Amer) Est GFR (Non-Af Amer) Glucose Lactic Acid 1.8 Calcium Magnesium Total Bilirubin AST ALT Alkaline Phosphatase Total Protein Albumin Urine Color Urine Appearance Urine pH Ur Specific [place] Urine Protein Urine Glucose (UA) Urine Ketones Urine Blood Urine Nitrite Ur Leukocyte Esterase Urine WBC (Auto) Urine RBC (Auto) 09/23/18 09/24/18 09/24/18 23:52 03:50 03:50 WBC 22.5 H RBC 4.28 L Hgb 10.7 L Hct 34.3 L MCV 80 MCH 25.1 L MCHC 31.3 L RDW 16.7 H Plt Count 388 Seg Neutrophils % Not Reportable Lymphocytes % Not Reportable Monocytes % Not Reportable Eosinophils % Not Reportable Basophils % Not Reportable Absolute Neutrophils Not Reportable Absolute Lymphocytes Not Reportable Absolute Monocytes Not Reportable Absolute Eosinophils Not Reportable Absolute Basophils Not Reportable Carbonic Acid HCO3/H2CO3 Ratio ABG pH ABG pCO2 ABG pO2 ABG HCO3 ABG O2 Saturation ABG Base Excess FiO2 Sodium 138.7 Potassium 4.7 Chloride 109 H Carbon Dioxide 23 Anion Gap 7 BUN 18 Creatinine 0.55 Est GFR ( Amer) > 60 Est GFR (Non-Af Amer) > 60 Glucose 121 H Lactic Acid 1.2 Calcium 8.8 Magnesium Total Bilirubin AST ALT Alkaline Phosphatase Total Protein Albumin Urine Color Urine Appearance Urine pH Ur Specific [place] Urine Protein Urine Glucose (UA) Urine Ketones Urine Blood Urine Nitrite Ur Leukocyte Esterase Urine WBC (Auto) Urine RBC (Auto) 09/24/18 03:50 WBC RBC Hgb Hct MCV MCH MCHC RDW Plt Count Seg Neutrophils % Lymphocytes % Monocytes % Eosinophils % Basophils % Absolute Neutrophils Absolute Lymphocytes Absolute Monocytes Absolute Eosinophils Absolute Basophils Carbonic Acid HCO3/H2CO3 Ratio ABG pH ABG pCO2 ABG pO2 ABG HCO3 ABG O2 Saturation ABG Base Excess FiO2 Sodium Potassium Chloride Carbon Dioxide Anion Gap BUN Creatinine Est GFR ( Amer) Est GFR (Non-Af Amer) Glucose Lactic Acid 1.5 Calcium Magnesium Total Bilirubin AST ALT Alkaline Phosphatase Total Protein Albumin Urine Color Urine Appearance Urine pH Ur Specific [place] Urine Protein Urine Glucose (UA) Urine Ketones Urine Blood Urine Nitrite Ur Leukocyte Esterase Urine WBC (Auto) Urine RBC (Auto) 09/23/18 09/23/18 09/23/18 12:01 12:01 14:40 Creatine Kinase 34 L 33 L CK-MB (CK-2) 0.34 Troponin I < 0.012 09/23/18 14:40 Creatine Kinase CK-MB (CK-2) 0.23 Troponin I < 0.012 Impressions: Chest X-Ray 09/23/18 11:51 IMPRESSION: Right lower lobe pneumonia. Chest/Abdomen CTA 09/23/18 14:16 IMPRESSION: 1. No PE. 2. Chronic small loculated effusion right lower lobe. Further consolidation with near complete collapse of the right lower lobe. 3. Unchanged mediastinal adenopathy. These were hypermetabolic on recent PET- CT. Assessment and Plan - Diagnosis (1) Acute exacerbation of chronic obstructive pulmonary disease (COPD) Is this a current diagnosis for this admission?: Yes Plan: 09/24/2018-in addition to nebulizer treatments I have added Solu-Medrol 40 mill grams IV every 8. (2) Leukocytosis Qualifiers: Leukocytosis type: unspecified Qualified Code(s): D72.829 - Elevated white blood cell count, unspecified Is this a current diagnosis for this admission?: Yes Plan: 09/24/2018-patient's white count has increased from yesterday. In addition to Levaquin I have added Rocephin 1 g IV daily. We will continue follow with daily CBCs (3) Metastatic cancer to lung Qualifiers: Laterality: right Qualified Code(s): C78.01 - Secondary malignant neoplasm of right lung Is this a current diagnosis for this admission?: Yes Plan: 09/24/2018-await Dr. Hoff for consultation. (4) Pneumonia Is this a current diagnosis for this admission?: Yes Plan: Patient has shortness of breath, chest pain, leukocytosis and consolidation on C T scan. Patient empirical started on Levaquin. 09/24/2018-leukocytosis worsened this morning by 5000. In addition to Levaquin I have added Rocephin IV 1 g daily we will continue to follow daily CBCs await culture for offending organism. - Time Time Spent with patient: 15-24 minutes - Inpatient Certification Based on my medical assessment, after consideration of the patient's comorbidities, presenting symptoms, or acuity I expect that the services needed warrant INPATIENT care.: Yes I certify that my determination is in accordance with my understanding of Medicare's requirements for reasonable and necessary INPATIENT services [42 CFR 412.3e].: Yes Medical Necessity: Other - Continue IV antibiotics, await oncology consultation.
[2018-09-24] MEDS: METHYLPREDNISOLONE INJ 40 MG/1 ML SDV IV SCH ×3 (09:06→22:23)
[2018-09-24] MEDS: FAMOTIDINE INJ/PF 20 MG/2 ML SDV IV SCH ×2 (09:06→22:23)
[2018-09-24] MEDS: CEFTRIAXONE 1 GM/D5W RTU 1 GM/50 ML RTUPB IV SCH (09:06)
[2018-09-24] MEDS: ALPRAZOLAM 0.5 MG TABLET PO SCH ×2 (09:06→22:26)
[2018-09-24] MEDS: ENOXAPARIN SODIUM INJ 40 MG/0.4 ML DISP.SYRIN SUBCUT SCH (09:06)
[2018-09-24] MEDS: ACETYLCYSTEINE 20% SOLN 800 MG/4 ML VIAL.NEB NEB SCH ×2 (10:07→20:00)
[2018-09-24] MEDS: LEVOFLOXACIN 750 MG/D5W RTU 750 MG/150 ML RTUPB IV SCH (12:47)
[2018-09-24] MEDS ORDERED: FUROSEMIDE INJ/PF 20 MG/2 ML SDV IV ONE (15:30)
[2018-09-24 15:40] LABS: ARTERIAL BLOOD BASE EXCESS -2.4 mmol/L; ARTERIAL BLOOD H2CO3 1.02 mmol/L (1.05-1.35); ARTERIAL BLOOD HCO3 21.4 mmol/L (20-24); ARTERIAL BLOOD O2 SATURATION 86.5 % (94-98); ARTERIAL BLOOD PH 7.42 (7.35-7.45); ARTERIAL BLOOD PO2 50.2 mmHg (80-100); ARTERIAL BLOOD TOTAL CO2 22.5 mmol/L (23-27)
[2018-09-24 15:43] LABS: ARTERIAL BLOOD FIO2 6L
--- NOTE | 2018-09-24 16:31 | PDOC CONSULTATION ---
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 He underwent treatments with carboplatin, paclitaxel, and radiation which completed 05/2015. He was without evidence of disease until 09/17/2018 when PET/CT and bronchoscopy were highly suggestive of recurrent squamous Cell. He is scheduled to start Nivolumab immunotherapy in the near future. On 09/19/2018, his CBC showed WBC 9.9, Hgb 12.6, HCT 42.6 and PLT 473. CMP was unremarkable. He presented to the ED with worsening dyspnea and was found to have possible pneumonia and collapsed lung. This morning, he states that his breathing is a little better, but he is very uncomfortable. He had sudden, sever pain in the center of his chest. Sharp, stabbing pain. This has resolved but it scared him. No other new complaints voiced, but family is asking to have PORT or PICC placed during this admission. Past Medical History Cardiac Medical History: Reports: Peripheral Vascular Disease Denies: Coronary Artery Disease, Myocardial Infarction, Hypertension Pulmonary Medical History: Reports: Chronic Obstructive Pulmonary Disease (COPD), Pneumonia - hx of Denies: Asthma, Bronchitis Neurological Medical History: Denies: Seizures Endocrine Medical History: Denies: Diabetes Mellitus Type 1, Diabetes Mellitus Type 2, Hyperthyroidism, Hypothyroidism GI Medical History: Denies: Cirrhosis, Hepatitis, Hiatal Hernia Musculoskeltal Medical History: Reports: Arthritis Denies: Gout Skin Medical History: Denies: Eczema, Psoriasis Psychiatric Medical History: Denies: Depression Hematology: Denies: Anemia, Sickle Cell Disease, Bleeding Tendencies Past Surgical History Past Surgical History: Reports: Vascular Surgery - Right ileal to left femoral graft and right femoral stent, Other - Endoscopy with placement of PEG tube Denies: Pacemaker Social History Lives with: Family Smoking Status: Former Smoker Cigarettes Packs Per Day: 1 Number of Years Smokin Last Time Smoked: 2014 Frequency of Alcohol Use: None Hx Recreational Drug Use: No Drugs: None Hx Prescription Drug Abuse: No - Advance Directive Resuscitation Status: Full Code Family History Family History: Reviewed & Not Pertinent, CAD, COPD, DM, Hypertension, Malignancy Parental Family History Reviewed: Yes Children Family History Reviewed: Yes Sibling(s) Family History Reviewed.: Yes Medication/Allergy Home Medications: Aspirin [Ecotrin] 81 mg PO DAILY 09/24/18 Fluticasone/Salmeterol [Advair 250-50 Diskus 14 Dose/Diskus] 1 puff IH Q12 09/24/18 Gabapentin [Neurontin 300 mg Capsule] 300 mg PO Q12 09/24/18 Mirtazapine [Remeron] 7.5 mg PO QHS 09/24/18 Oxycodone HCl [Oxy-Ir 5 mg Tablet] 10 mg PO Q6 09/24/18 Pilocarpine HCl [Salagen] 5 mg PO TID 09/24/18 Tizanidine HCl [Zanaflex] 2 mg PO BID 09/24/18 Allergies/Adverse Reactions: No Known Allergies Allergy (Verified 07/13/18 15:40) Review of Systems Constitutional: ABSENT: fever(s), headache(s) Eyes: ABSENT: visual disturbances Ears: ABSENT: hearing changes Nose, Mouth, and Throat: ABSENT: sore throat Cardiovascular: PRESENT: as per HPI Respiratory: PRESENT: as per HPI Gastrointestinal: ABSENT: constipation, nausea Genitourinary: ABSENT: dysuria Integumentary: ABSENT: rash Neurological: ABSENT: confusion, weakness Hematologic/Lymphatic: ABSENT: easy bruising Physical Exam Vital Signs: Temp Pulse Resp BP Pulse Ox 98.4 F 111 H 20 114/72 85 L 09/24/18 14:58 09/24/18 14:58 09/24/18 14:58 09/24/18 14:58 09/24/18 14:58 Intake & Output 09/23/18 09/24/18 09/25/18 06:59 06:59 06:59 Intake Total 2116 1200 Output Total 720 Balance 1396 1200 Weight 64.6 kg General appearance: PRESENT: mild distress, thin, well-developed Exam: 72 year old male. He is able to speak without difficulty. is at bedside. Head exam: PRESENT: normocephalic Eye exam: PRESENT: EOMI, PERRLA Mouth exam: PRESENT: tongue midline Teeth exam: PRESENT: edentulous Neck exam: ABSENT: lymphadenopathy, tenderness Respiratory exam: PRESENT: decreased breath sounds - right base Cardiovascular exam: PRESENT: RRR GI/Abdominal exam: ABSENT: tenderness Extremities exam: ABSENT: pedal edema Neurological exam: PRESENT: alert, awake, oriented to person, oriented to place, oriented to time, oriented to situation Psychiatric exam: PRESENT: appropriate affect Skin exam: PRESENT: normal color Results Laboratory Results: 09/24/18 03:50 09/24/18 03:50 09/23/18 09/23/18 09/23/18 20:15 20:15 23:52 WBC RBC Hgb Hct MCV MCH MCHC RDW Plt Count Seg Neutrophils % Lymphocytes % Monocytes % Eosinophils % Basophils % Absolute Neutrophils Absolute Lymphocytes Absolute Monocytes Absolute Eosinophils Absolute Basophils Carbonic Acid 0.99 L HCO3/H2CO3 Ratio 21:1 ABG pH 7.43 ABG pCO2 32.9 L ABG pO2 75.5 L ABG HCO3 21.5 ABG O2 Saturation 95.7 ABG Base Excess -1.9 FiO2 6 L Sodium Potassium Chloride Carbon Dioxide Anion Gap BUN Creatinine Est GFR ( Amer) Est GFR (Non-Af Amer) Glucose Lactic Acid 1.8 1.2 Calcium 09/24/18 09/24/18 09/24/18 03:50 03:50 03:50 WBC 22.5 H RBC 4.28 L Hgb 10.7 L Hct 34.3 L MCV 80 MCH 25.1 L MCHC 31.3 L RDW 16.7 H Plt Count 388 Seg Neutrophils % Not Reportable Lymphocytes % Not Reportable Monocytes % Not Reportable Eosinophils % Not Reportable Basophils % Not Reportable Absolute Neutrophils Not Reportable Absolute Lymphocytes Not Reportable Absolute Monocytes Not Reportable Absolute Eosinophils Not Reportable Absolute Basophils Not Reportable Carbonic Acid HCO3/H2CO3 Ratio ABG pH ABG pCO2 ABG pO2 ABG HCO3 ABG O2 Saturation ABG Base Excess FiO2 Sodium 138.7 Potassium 4.7 Chloride 109 H Carbon Dioxide 23 Anion Gap 7 BUN 18 Creatinine 0.55 Est GFR ( Amer) > 60 Est GFR (Non-Af Amer) > 60 Glucose 121 H Lactic Acid 1.5 Calcium 8.8 09/24/18 15:16 WBC RBC Hgb Hct MCV MCH MCHC RDW Plt Count Seg Neutrophils % Lymphocytes % Monocytes % Eosinophils % Basophils % Absolute Neutrophils Absolute Lymphocytes Absolute Monocytes Absolute Eosinophils Absolute Basophils Carbonic Acid 1.02 L HCO3/H2CO3 Ratio 20:1 ABG pH 7.42 ABG pCO2 34.0 L ABG pO2 50.2 L ABG HCO3 21.4 ABG O2 Saturation 86.5 L ABG Base Excess -2.4 FiO2 6L Sodium Potassium Chloride Carbon Dioxide Anion Gap BUN Creatinine Est GFR ( Amer) Est GFR (Non-Af Amer) Glucose Lactic Acid Calcium 09/23/18 09/23/18 09/23/18 12:01 12:01 14:40 Creatine Kinase 34 L 33 L CK-MB (CK-2) 0.34 Troponin I < 0.012 09/23/18 14:40 Creatine Kinase CK-MB (CK-2) 0.23 Troponin I < 0.012 Impressions: Chest X-Ray 09/23/18 11:51 IMPRESSION: Right lower lobe pneumonia. Chest/Abdomen CTA 09/23/18 14:16 IMPRESSION: 1. No PE. 2. Chronic small loculated effusion right lower lobe. Further consolidation with near complete collapse of the right lower lobe. 3. Unchanged mediastinal adenopathy. These were hypermetabolic on recent PET- CT. Status: Image reviewed by me 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 Is this a current diagnosis for this admission?: Yes Plan: No evidence of cancer in the mouth currently. (2) Metastatic cancer to lung Qualifiers: Laterality: right Qualified Code(s): C78.01 - Secondary malignant neoplasm of right lung Is this a current diagnosis for this admission?: Yes Plan: He underwent bronchoscopy earlier this month at [facility] which confirmed "Highly suspicious for recurrent squamous cell carcinoma" Plans are to start nivolumab ABRAHAM. I will try to find out if this can be started during this admission. I discussed his care with Dr. De La Cruz. He will give lasix today and repeat CXR in the morning and consider thoracentesis. I confirmed with the patient and that he is still a full code. (3) Pneumonia Is this a current diagnosis for this admission?: Yes (4) Pleural effusion, right Is this a current diagnosis for this admission?: Yes Plan: Consider thoracentesis in am. Dr. De La Cruz following. - Plan Summary Plan Summary: Thank you for this consultation. I will continue to follow with you.
[2018-09-24] MEDS: OXYCODONE HCL IR 5 MG TABLET PO SCH ×2 (17:28→23:33)
[2018-09-24] MEDS: TIZANIDINE HCL 4 MG TABLET PO SCH (17:28)
[2018-09-24] MEDS ORDERED: PILOCARPINE HCL 5 MG PO SCH (18:00)
[2018-09-24] MEDS ORDERED: (PENDING PHARMACY ID) (Tizanidine Hcl [Zanaflex] 2 MG) PO SCH (18:00)
[2018-09-24] MEDS ORDERED: (PENDING PHARMACY ID) (Fluticasone/Salmeterol 1 PUFF) IH SCH (22:00)
[2018-09-24] MEDS: GABAPENTIN 300 MG CAPSULE PO SCH (22:22)
[2018-09-24] MEDS: MIRTAZAPINE 15 MG TABLET PO SCH (22:23)
[2018-09-25] MEDS: LEVALBUTEROL HCL NEB 1.25 MG/3 ML AMPUL NEB SCH ×3 (00:13→16:53)
[2018-09-25 04:40] LABS: ARTERIAL BLOOD BASE EXCESS 0.7 mmol/L; ARTERIAL BLOOD H2CO3 1.11 mmol/L (1.05-1.35); ARTERIAL BLOOD HCO3 24.6 mmol/L (20-24); ARTERIAL BLOOD O2 SATURATION 92.2 % (94-98); ARTERIAL BLOOD PH 7.44 (7.35-7.45); ARTERIAL BLOOD PO2 60.5 mmHg (80-100); ARTERIAL BLOOD TOTAL CO2 25.8 mmol/L (23-27)
[2018-09-25 04:41] LABS: ARTERIAL BLOOD FIO2 80%
[2018-09-25 05:03] LABS: HEMATOCRIT 31.6 % (37.9-51.0); HEMOGLOBIN 9.9 g/dL (13.5-17.0); MEAN CORPUSCULAR HEMOGLOBIN 25.2 pg (27.0-33.4); MEAN CORPUSCULAR HGB CONC 31.3 g/dL (32.0-36.0); MEAN CORPUSCULAR VOLUME 81 fl (80-97); PLATELET COUNT 316 10^3/uL (150-450); RED BLOOD COUNT 3.92 10^6/uL (4.35-5.55); RED CELL DISTRIBUTION WIDTH 16.7 % (11.5-14.0); WHITE BLOOD COUNT 22.1 10^3/uL (4.0-10.5)
[2018-09-25 05:18] LABS: ABSOLUTE LYMPHOCYTES# (MANUAL) 0.7 10^3/uL (0.5-4.7); ABSOLUTE MONOCYTES # (MANUAL) 0.9 10^3/uL (0.1-1.4); BAND NEUTROPHILS % (MANUAL) 2 % (3-5); BASOPHILS % (MANUAL) 0 % (0-2); EOSINOPHILS % (MANUAL) 0 % (0-6); LYMPHOCYTES % (MANUAL) 3 % (13-45); MONOCYTES % (MANUAL) 4 % (3-13); SEGMENTED NEUTROPHILS % (MAN) 91 % (42-78); TOTAL CELLS COUNTED 100; TOXIC GRANULATION SLIGHT
[2018-09-25 05:20] LABS: PLATELET COMMENT ADEQUATE
[2018-09-25 05:21] LABS: ANISOCYTOSIS 1+; HYPOCHROMASIA 2+; POIKILOCYTOSIS 1+
[2018-09-25 05:24] LABS: ANION GAP 7 (5-19); BLOOD UREA NITROGEN 21 mg/dL (7-20); CALCIUM 9.1 mg/dL (8.4-10.2); CARBON DIOXIDE 28 mmol/L (22-30); CHLORIDE 105 mmol/L (98-107); GLUCOSE 194 mg/dL (75-110); POTASSIUM 3.7 mmol/L (3.6-5.0); SODIUM 139.7 mmol/L (137-145)
--- NOTE | 2018-09-25 05:30 | RADIOLOGY REPORT (SQ) ---
CLINICAL HISTORY: pleural effusion COMPARISON: None. TECHNIQUE: XR CHEST 1 VIEW 09/25/2018 6:00 AM CDT FINDINGS: Cardiac silhouette is normal in size. Lungs are clear without consolidation, atelectasis, mass or edema. There is no pleural effusion. There is no pneumothorax. There are no acute osseous findings. IMPRESSION: Clear lungs.
[2018-09-25 05:36] LABS: CREATINE KINASE MB 0.59 ng/mL (<4.55); TROPONIN I < 0.012 ng/mL
--- NOTE | 2018-09-25 05:56 | RADIOLOGY REPORT (SQ) ---
EXAM DESCRIPTION: CT HEAD WITHOUT IV CONTRAST COMPLETED DATE/TME: 09/25/2018 00:00 CLINICAL HISTORY: 72 years, Male, transient AMS COMPARISON: None. TECHNIQUE: 199 Images stored on PACS. All CT scanners at this facility use dose modulation, iterative reconstruction, and/or weight based dosing when appropriate to reduce radiation dose to as low as reasonably achievable (ALARA). [facility]: Dose Right [facility]: CareDose [facility]: Dose Right [facility]: Teradose 4D [facility]: Juristat LIMITATIONS: None. FINDINGS: The globes are intact. The paranasal sinuses and mastoid air cells are unremarkable. No displaced or depressed skull fracture. No intra or extra-axial hemorrhage. CT is limited for evaluation of acute infarct. No CT evidence for large or territorial acute infarct. No mass or midline shift. Mild age-appropriate atrophy. IMPRESSION: Mild age-appropriate atrophy TECHNICAL DOCUMENTATION: Quality ID # [id number]: Final reports with documentation of one or more dose reduction techniques (e.g., Automated exposure control, adjustment of the mA and/or kV according to patient size, use of iterative reconstruction technique) copyright 2011 [employer]- All Rights Reserved
[2018-09-25] MEDS: METHYLPREDNISOLONE INJ 40 MG/1 ML SDV IV SCH ×3 (06:44→21:57)
[2018-09-25] MEDS: OXYCODONE HCL IR 5 MG TABLET PO SCH ×3 (06:45→17:49)
[2018-09-25] MEDS: ACETYLCYSTEINE 20% SOLN 800 MG/4 ML VIAL.NEB NEB SCH ×2 (08:34→21:14)
[2018-09-25] MEDS: BUDESONIDE NEB 0.5 MG/2 ML AMPUL NEB SCH ×2 (08:34→21:14)
--- NOTE | 2018-09-25 09:21 | Progress Note Acknowledgement ---
Progress Note Acknowledgement Progess Note Acknowledgement: I, the undersigned member of the medical staff with appropriate privileges and with supervisory authority over Wilman De La Cruz, a [facility] practice allied health professional, acknowledge that I have reviewed the progress notes entered on this patient, and in my professional judgment believe that the assessment made and/or any care evidenced was appropriate
--- NOTE | 2018-09-25 09:28 | PDOC PROGRESS REPORT ---
Subjective Progress Note for:: 09/25/18 Subjective:: Pain at PEG site 09/25/2018-no complaints this a.m. Reason For Visit: PNEUMONIA Physical Exam Vital Signs: Temp Pulse Resp BP Pulse Ox 97.2 F 86 22 H 92/60 L 94 09/25/18 07:46 09/25/18 08:35 09/25/18 08:35 09/25/18 07:46 09/25/18 08:35 Intake & Output 09/24/18 09/25/18 09/26/18 06:59 06:59 06:59 Intake Total 2116 1530 Output Total 720 850 Balance 1396 680 Weight 64.6 kg 67.9 kg General appearance: PRESENT: no acute distress, well-developed, well-nourished Head exam: PRESENT: atraumatic, normocephalic Neck exam: ABSENT: carotid bruit, JVD, lymphadenopathy, thyromegaly Respiratory exam: PRESENT: crackles, tachypnea. ABSENT: rales, wheezes Cardiovascular exam: PRESENT: RRR. ABSENT: diastolic murmur, rubs, systolic murmur Pulses: PRESENT: normal dorsalis pedis pul Vascular exam: PRESENT: normal capillary refill GI/Abdominal exam: PRESENT: normal bowel sounds, soft, other - Peg site intact. ABSENT: distended, guarding, mass, organolmegaly, rebound, tenderness Extremities exam: PRESENT: full ROM. ABSENT: calf tenderness, clubbing, pedal edema Neurological exam: PRESENT: alert Psychiatric exam: PRESENT: appropriate affect, normal mood. ABSENT: homicidal ideation, suicidal ideation Skin exam: PRESENT: dry, intact, warm. ABSENT: cyanosis, rash Results Laboratory Results: 09/25/18 04:47 09/25/18 04:47 09/24/18 09/25/18 09/25/18 15:16 04:25 04:47 WBC 22.1 H RBC 3.92 L Hgb 9.9 L Hct 31.6 L MCV 81 MCH 25.2 L MCHC 31.3 L RDW 16.7 H Plt Count 316 Seg Neutrophils % Not Reportable Lymphocytes % Not Reportable Monocytes % Not Reportable Eosinophils % Not Reportable Basophils % Not Reportable Absolute Neutrophils Not Reportable Absolute Lymphocytes Not Reportable Absolute Monocytes Not Reportable Absolute Eosinophils Not Reportable Absolute Basophils Not Reportable Carbonic Acid 1.02 L 1.11 HCO3/H2CO3 Ratio 20:1 22:1 ABG pH 7.42 7.44 ABG pCO2 34.0 L 37.0 ABG pO2 50.2 L 60.5 L ABG HCO3 21.4 24.6 H ABG O2 Saturation 86.5 L 92.2 L ABG Base Excess -2.4 0.7 FiO2 6L 80% Sodium Potassium Chloride Carbon Dioxide Anion Gap BUN Creatinine Est GFR ( Amer) Est GFR (Non-Af Amer) Glucose Calcium 09/25/18 04:47 WBC RBC Hgb Hct MCV MCH MCHC RDW Plt Count Seg Neutrophils % Lymphocytes % Monocytes % Eosinophils % Basophils % Absolute Neutrophils Absolute Lymphocytes Absolute Monocytes Absolute Eosinophils Absolute Basophils Carbonic Acid HCO3/H2CO3 Ratio ABG pH ABG pCO2 ABG pO2 ABG HCO3 ABG O2 Saturation ABG Base Excess FiO2 Sodium 139.7 Potassium 3.7 Chloride 105 Carbon Dioxide 28 Anion Gap 7 BUN 21 H Creatinine 0.51 L Est GFR ( Amer) > 60 Est GFR (Non-Af Amer) > 60 Glucose 194 H Calcium 9.1 09/23/18 09/23/18 09/23/18 12:01 12:01 14:40 Creatine Kinase 34 L 33 L CK-MB (CK-2) 0.34 Troponin I < 0.012 09/23/18 09/25/18 09/25/18 14:40 04:47 04:47 Creatine Kinase 29 L CK-MB (CK-2) 0.23 0.59 Troponin I < 0.012 < 0.012 Impressions: Chest/Abdomen CTA 09/23/18 14:16 IMPRESSION: 1. No PE. 2. Chronic small loculated effusion right lower lobe. Further consolidation with near complete collapse of the right lower lobe. 3. Unchanged mediastinal adenopathy. These were hypermetabolic on recent PET- CT. Head CT 09/25/18 00:00 IMPRESSION: Mild age-appropriate atrophy TECHNICAL DOCUMENTATION: Quality ID # [id number]: Final reports with documentation of one or more dose reduction techniques (e.g., Automated exposure control, adjustment of the mA and/or kV according to patient size, use of iterative reconstruction technique) copyright 2011 [employer]- All Rights Reserved Chest X-Ray 09/25/18 06:00 IMPRESSION: Clear lungs. Assessment and Plan - Diagnosis (1) Acute exacerbation of chronic obstructive pulmonary disease (COPD) Is this a current diagnosis for this admission?: Yes Plan: 09/24/2018-in addition to nebulizer treatments I have added Solu-Medrol 40 mill grams IV every 8. 09/25/2018-patient improving with his acute exacerbation of COPD. We are continuing Solu-Medrol at this time duo nebs and BiPAP therapy. (2) Leukocytosis Qualifiers: Leukocytosis type: unspecified Qualified Code(s): D72.829 - Elevated white blood cell count, unspecified Is this a current diagnosis for this admission?: Yes Plan: 09/24/2018-patient's white count has increased from yesterday. In addition to Levaquin I have added Rocephin 1 g IV daily. We will continue follow with daily CBCs 09/25/2018-improved slightly today. Continue to follow daily CBCs continue antibiotic therapy. (3) Metastatic cancer to lung Qualifiers: Laterality: right Qualified Code(s): C78.01 - Secondary malignant neoplasm of right lung Is this a current diagnosis for this admission?: Yes Plan: 09/24/2018-await Dr. Hoff for consultation. 09/25/2018-Dr. Hoff seen patient. She would like to start him on chemotherapy tomorrow. We will continue to follow (4) Pneumonia Is this a current diagnosis for this admission?: Yes Plan: Patient has shortness of breath, chest pain, leukocytosis and consolidation on CT scan. Patient empirical started on Levaquin. 09/24/2018-leukocytosis worsened this morning by 5000. In addition to Levaquin I have added Rocephin IV 1 g daily we will continue to follow daily CBCs await culture for offending organism. 09/25/2018-slightly improved this morning. Leukocytosis has slightly improved. Patient continues on Levaquin and Rocephin. I will repeat a CT of his chest this morning with IV contrast. Will await results. (5) Pericarditis Qualifiers: Pericarditis type: associated with other disease Chronicity: acute Qu alified Code(s): I30.9 - Acute pericarditis, unspecified Is this a current diagnosis for this admission?: Yes Plan: 09/25/2018-patient had an event this a.m. that resembled a STEMI. I consulted Dr. Guajardo and upon his interpretation of the EKG patient has pericarditis. At this time we are going to repeat his CT of his chest with IV contrast and obtain a stat echocardiogram. Further recognitions will be made at that time. - Time Time Spent with patient: 15-24 minutes - Inpatient Certification Based on my medical assessment, after consideration of the patient's comorbidities, presenting symptoms, or acuity I expect that the services needed warrant INPATIENT care.: Yes I certify that my determination is in accordance with my understanding of Medicare's requirements for reasonable and necessary INPATIENT services [42 CFR 412.3e].: Yes Medical Necessity: Other - Continue BiPAP, pericarditis work-up, oncology, continue treat pneumonia with IV advice.
[2018-09-25] MEDS ORDERED: NORMAL SALINE 500 ML IV PRN (10:42)
--- NOTE | 2018-09-25 10:55 | PDOC PROGRESS REPORT ---
Subjective Progress Note for:: 09/25/18 Subjective:: Patient is now on Bi-BAP. Nurses report an episode yesterday when he was talking to them, and then lost consciousness briefly. He is now awake, and able to answer questions appropriately. His RR and HR are greatly improved on the BiPAP. He continues to have ST elevation on EKG. Reason For Visit: PNEUMONIA Physical Exam Vital Signs: Temp Pulse Resp BP Pulse Ox 97.2 F 86 22 H 92/60 L 94 09/25/18 07:46 09/25/18 08:35 09/25/18 08:35 09/25/18 07:46 09/25/18 08:35 Intake & Output 09/24/18 09/25/18 09/26/18 06:59 06:59 06:59 Intake Total 2116 1530 Output Total 720 850 Balance 1396 680 Weight 64.6 kg 67.9 kg Results Laboratory Results: 09/25/18 04:47 09/25/18 04:47 09/24/18 09/25/18 09/25/18 15:16 04:25 04:47 WBC 22.1 H RBC 3.92 L Hgb 9.9 L Hct 31.6 L MCV 81 MCH 25.2 L MCHC 31.3 L RDW 16.7 H Plt Count 316 Seg Neutrophils % Not Reportable Lymphocytes % Not Reportable Monocytes % Not Reportable Eosinophils % Not Reportable Basophils % Not Reportable Absolute Neutrophils Not Reportable Absolute Lymphocytes Not Reportable Absolute Monocytes Not Reportable Absolute Eosinophils Not Reportable Absolute Basophils Not Reportable Carbonic Acid 1.02 L 1.11 HCO3/H2CO3 Ratio 20:1 22:1 ABG pH 7.42 7.44 ABG pCO2 34.0 L 37.0 ABG pO2 50.2 L 60.5 L ABG HCO3 21.4 24.6 H ABG O2 Saturation 86.5 L 92.2 L ABG Base Excess -2.4 0.7 FiO2 6L 80% Sodium Potassium Chloride Carbon Dioxide Anion Gap BUN Creatinine Est GFR ( Amer) Est GFR (Non-Af Amer) Glucose Calcium 09/25/18 04:47 WBC RBC Hgb Hct MCV MCH MCHC RDW Plt Count Seg Neutrophils % Lymphocytes % Monocytes % Eosinophils % Basophils % Absolute Neutrophils Absolute Lymphocytes Absolute Monocytes Absolute Eosinophils Absolute Basophils Carbonic Acid HCO3/H2CO3 Ratio ABG pH ABG pCO2 ABG pO2 ABG HCO3 ABG O2 Saturation ABG Base Excess FiO2 Sodium 139.7 Potassium 3.7 Chloride 105 Carbon Dioxide 28 Anion Gap 7 BUN 21 H Creatinine 0.51 L Est GFR ( Amer) > 60 Est GFR (Non-Af Amer) > 60 Glucose 194 H Calcium 9.1 09/23/18 09/23/18 09/23/18 12:01 12:01 14:40 Creatine Kinase 34 L 33 L CK-MB (CK-2) 0.34 Troponin I < 0.012 09/23/18 09/25/18 09/25/18 14:40 04:47 04:47 Creatine Kinase 29 L CK-MB (CK-2) 0.23 0.59 Troponin I < 0.012 < 0.012 Impressions: Chest/Abdomen CTA 09/23/18 14:16 IMPRESSION: 1. No PE. 2. Chronic small loculated effusion right lower lobe. Further consolidation with near complete collapse of the right lower lobe. 3. Unchanged mediastinal adenopathy. These were hypermetabolic on recent PET- CT. Head CT 09/25/18 00:00 IMPRESSION: Mild age-appropriate atrophy TECHNICAL DOCUMENTATION: Quality ID # [id number]: Final reports with documentation of one or more dose reduction techniques (e.g., Automated exposure control, adjustment of the mA and/or kV according to patient size, use of iterative reconstruction technique) copyright 2011 [employer]- All Rights Reserved Chest X-Ray 09/25/18 06:00 IMPRESSION: Clear lungs. 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 Is this a current diagnosis for this admission?: Yes (2) Metastatic cancer to lung Qualifiers: Laterality: right Qualified Code(s): C78.01 - Secondary malignant neoplasm of right lung Is this a current diagnosis for this admission?: Yes Plan: I spoke with the radiologist this morning. He does not see any evidence of pleural effusion on the X-ray and believes this is more collapse lung from the cancer. I would like for him to start nivolumab ABRAHAM. I will try to arrange this for tomorrow, if possible. However, I have explained to the patient's , that he may no longer be strong enough to tolerate the therapy. Transfer to [facility] was discussed, but patient prefers to stay here for treatment. (3) Pneumonia Is this a current diagnosis for this admission?: Yes Plan: Continue current antibiotics. Blood cultures have been negative. Difficult to say if this is infectious or malignant. (4) Pleural effusion, right Is this a current diagnosis for this admission?: Yes (5) ST elevation (STEMI) myocardial infarction Is this a current diagnosis for this admission?: Yes Plan: Cardiology has been consulted. I do not believe he will be a candidate for intervention, but will treat medically.
[2018-09-25 11:10] LABS: CREATINE KINASE MB 0.49 ng/mL (<4.55)
[2018-09-25 11:14] LABS: TROPONIN I < 0.012 ng/mL
[2018-09-25] MEDS: CEFTRIAXONE 1 GM/D5W RTU 1 GM/50 ML RTUPB IV SCH ×2 (11:33→12:23)
--- NOTE | 2018-09-25 12:07 | RADIOLOGY REPORT (SQ) ---
EXAM DESCRIPTION: CT CHEST WITH COMPLETED DATE/TIME: 09/25/2018 10:57 am REASON FOR STUDY: pericarditis COMPARISON: 09/23/2018 TECHNIQUE: CT scan of the chest performed using helical scanning technique with dynamic intravenous contrast injection. Images reviewed with lung, soft tissue and bone windows. Reconstructed coronal and sagittal MPR and MIP images reviewed. All images stored on PACS. All CT scanners at this facility use dose modulation, iterative reconstruction, and/or weight based d osing when appropriate to reduce radiation dose to as low as reasonably achievable (ALARA). [facility]: Dose Right [facility]: CareDose [facility]: Dose Right [facility]: Teradose 4D [facility]: Rooftop Down CONTRAST TYPE AND DOSE: contrast/concentration: Isovue 350.00 mg/ml; Total Contrast Delivered: 80.0 ml; Total Saline Delivered: 55.0 ml RENAL FUNCTION: GFR > 60. RADIATION DOSE: CT Rad equipment meets quality standard of care and radiation dose reduction techniq ues were employed. CTDIvol: 10.5 mGy. DLP: 405 mGy-cm. . LIMITATIONS: None. FINDINGS: LUNGS AND PLEURA: Chronic collapse of the right lower lobe. Small loculated pleural effus ion, chronic. Trace left pleural effusion. HILAR AND MEDIASTINAL STRUCTURES: No identified masses or abnormal nodes. HEART AND VASCULAR STRUCTURES: Small pericardial effusion. HARDWARE: None in the chest. UPPER ABDOMEN: Gastrostomy. Limited exam. THYROID AND OTHER SOFT TISSUES: No masses. No adenopathy. BONES: No significant finding. OTHER: No other significant finding. IMPRESSION: 1. Chronic collapse of the right lower lobe. Small loculated right pleural effusion not significantl y changed. 2. Small pericardial effusion. TECHNICAL DOCUMENTATION: JOB ID: [id number] Quality ID # [id number]: Final reports with documentation of one or more dose reduction techniques (e.g., Au tomated exposure control, adjustment of the mA and/or kV according to patient size, use of iterative reconstruction technique) 2010 [employer]- All Rights Reserved Reading location - IP/workstation name: [email or web address]
[2018-09-25] MEDS: ALPRAZOLAM 0.5 MG TABLET PO SCH ×2 (12:21→21:57)
[2018-09-25] MEDS: ASPIRIN 81 MG TABLET, ENT COATED PO SCH (12:21)
[2018-09-25] MEDS: FLUTICASONE/VILANTEROL 200-25 MCG/DOSE IH SCH (12:21)
[2018-09-25] MEDS: GABAPENTIN 300 MG CAPSULE PO SCH ×2 (12:23→21:57)
[2018-09-25] MEDS: FAMOTIDINE INJ/PF 20 MG/2 ML SDV IV SCH ×2 (12:23→21:56)
[2018-09-25] MEDS: TIZANIDINE HCL 4 MG TABLET PO SCH ×2 (12:23→17:50)
[2018-09-25] MEDS: ENOXAPARIN SODIUM INJ 40 MG/0.4 ML DISP.SYRIN SUBCUT SCH (12:30)
[2018-09-25] MEDS ORDERED: DOBUTAMINE HCL/D5W 500 MG/250 ML RTUINJ IV PRN ×2 (14:02→14:30)
[2018-09-25] MEDS: LEVOFLOXACIN 750 MG/D5W RTU 750 MG/150 ML RTUPB IV SCH (14:44)
[2018-09-25] MEDS: COLCHICINE 0.6 MG TABLET PO SCH (17:27)
[2018-09-25 17:46] LABS: CREATINE KINASE MB 1.68 ng/mL (<4.55)
[2018-09-25 18:08] LABS: TROPONIN I 0.221 ng/mL
--- NOTE | 2018-09-25 18:23 | ADVANCED CARE ---
Attendance: Myself, patient and his Resuscitation Status: Full Code Discussion: Patient had what appeared to be a ST elevation ID this morning around 4 AM. Upon further evaluation and consultation Dr. Keene was determined patient had pericarditis. This was improved with echocardiogram and CTA chest with PE protocol. Medications were changed patient was moved to ICU for further evaluation and treatment. Patient's family asked multiple questions about his treatment plan. Plan is Dr. Hoff will start chemotherapy tomorrow. We will place patient on colchicine for his pericarditis. Care Planning Goals: 1-start colchicine for his pericarditis 2-serial troponins 3-moved to ICU 4-start chemotherapy with oncology in the a.m. Time Spent: Total time spent was 15 minutes.
--- NOTE | 2018-09-25 19:21 | Progress Note ---
Provider Note Provider Note: Critical care: 09/25/2018 4:42 AM Rapid response for sudden change in mental status and worsening: A rapid response was called as the patient had become very poorly responsive to verbal stimuli. Patient was closely observed by his nursing staff and they noted a dramatic sudden change in his level of responsiveness at approximately 4:30 AM. Patient was seen shortly thereafter and examination revealed that he was responsive to painful stimuli but provided only minimal verbal response which was appropriate. He would follow commands at some points and then failed to follow the same commands on reevaluation. An EKG revealed ST changes in leads II, III, aVF and V3 through V6. Cardiac enzymes were ordered on a serial basis and a cardiology consultation was placed. Because of the patient's sudden change in mental status a CT scan of the head without contrast was ordered prior to initiating any further therapy. Patient was observed until preparations to take him to CT scan were underway. Patient remained stable with an O2 sat in the 91 to 95% range on BiPAP. His blood pressure remained stable with systolic pressures in the 90-110 range and a MAP greater than 70. Physical examination showed decreased breath sounds on the right with markedly diminished to absent right breath sounds in the lower moran. The patient showed no outward signs of pain and when questioned numerous times about chest pain either should he has had no or said no in response. Further evaluation and treatment will be d etermined based upon the outcome of the patient's head CT and cardiology consultation with Dr. Guajardo. Total critical care time: 26 minutes
[2018-09-25] MEDS: LEVALBUTEROL HCL NEB 0.63 MG/3 ML AMPUL NEB PRN (21:14)
[2018-09-25] MEDS: MIRTAZAPINE 15 MG TABLET PO SCH (21:57)
[2018-09-25] MEDS ORDERED: PHENYLEPHRINE HCL INJ/PF 10 MG/1 ML SDV ONE (22:51)
[2018-09-25] MEDS: DEXTROSE 5%-WATER 250 ML with PHENYLEPHRINE HCL 40 MG IV PRN ×2 (22:59)
[2018-09-25] MEDS ORDERED: COLCHICINE 0.6 MG TABLET ONE (22:59)
--- NOTE | 2018-09-25 23:18 | PDOC CONSULTATION ---
Consultation-Blank Consultation: CARDIOLOGY CONSULTATION by Dr. Mojgan Guajardo. Note and reviewed earlier this morning the patient is EKG and the patient's repeat CT scan of the chest and his echocardiogram. Formal consult done at 8 PM on 09/25/2018. 60 minutes spent on this patient with more than 50% of time spent in direct patient care. REASON FOR CONSULTATION: Patient with diffuse ST segment elevation on the EKG with no symptoms of angina. CONSULT REQUESTING PHYSICIAN/provider: Dr. Pérez Ortega, and Mr. Wilman De La Cruz nurse practitioner, of [facility]. HISTORY PRESENT ILLNESS: Patient with a history of lung cancer admitted with shortness of breath on BiPAP and also has a right pleural effusion this a.m. was noted to become unresponsive suggestive of a TIA. There is no arrhythmia seen. But the monitor did show ST segment elevation and hence a twelve-lead EKG was obtained. The twelve-lead EKG shows diffuse ST segment elevation. After review there is ST segment elevations consistent with pericarditis with with ST segment depression in lead aVR and OH segment depression suggestive of pericarditis. Note this ST segment elevation was not present on the EKG done on admission on 713. At that time also the patient's 6 chest CTA did not show any pericardial effusion. The patient's chest CT done today shows a small pericardial effusion. His echocardiogram although suboptimal study shows probably normal LV ejection fraction, not a very good study Curseen 10 presence or absence of any regional wall motion abnormalities. There is a very small pericardial effusion with no evidence of tamponade. The patient subsequently has been transferred to ICU due to blood pressure being low at present his blood pressure is normal on 2.5 mg/kg/min of dobutamine. Note at present the patient had no chest pain or discomfort. He continues to be short of breath and is on a BiPAP. He does have orthopnea but no PND. There is no arrhythmia seen on the monitor. Of note he has no pleuritic chest pain, but the patient had received colchicine 0.6 mg p.o. every 12 hours started earlier today. The monitor shows that the ST segment depression is slightly improved., And hence twelve-lead EKG has been ordered, which is to be done. Past Medical History Cardiac Medical History: Reports: Peripheral Vascular Disease Denies: Coronary Artery Disease, Myocardial Infarction, Hypertension Pulmonary Medical History: Reports: Chronic Obstructive Pulmonary Disease (COPD), Pneumonia - hx of Denies: Asthma, Bronchitis Neurological Medical History: Denies: Seizures Endocrine Medical History: Denies: Diabetes Mellitus Type 1, Diabetes Mellitus Type 2, Hyperthyroidism, Hypothyroidism GI Medical History: Denies: Cirrhosis, Hepatitis, Hiatal Hernia Musculoskeltal Medical History: Reports: Arthritis Denies: Gout Skin Medical History: Denies: Eczema, Psoriasis Psychiatric Medical History: Denies: Depression Hematology: Denies: Anemia, Sickle Cell Disease, Bleeding Tendencies Past Surgical History Past Surgical History: Reports: Vascular Surgery - Right ileal to left femoral graft and right femoral stent, Other - Endoscopy with placement of PEG tube Denies: Pacemaker Social History Lives with: Family Smoking Status: Former Smoker Frequency of Alcohol Use: Rare Hx Recreational Drug Use: No Drugs: None Hx Prescription Drug Abuse: No - Advance Directive Resuscitation Status: Full Code. The patient's is a surrogate healthcare decision maker. Family History Family History: Reviewed & Not Pertinent, CAD, COPD, DM, Hypertension, Malignancy Medication/Allergy Home Medications: Gabapentin 300 mg PO Q12 03/29/17 Clopidogrel Bisulfate [Plavix 75 mg Tablet] 75 mg PO DAILY 07/13/18 Oxycodone HCl [Oxycodone HCl 10 MG Tablet] 10 mg PO Q6HP PRN 07/13/18 Pilocarpine HCl [Salagen] 5 mg PO TID 07/13/18 Triamcinolone Acetonide [Aristocort 0.025% Cream] 1 applic TP DAILY MDD FACE 07/13/18 Mirtazapine 7.5 mg PO QHS 30 Days #30 tablet 07/20/18 Tizanidine HCl 2 mg PO Q12HP PRN 09/23/18 Allergies/Adverse Reactions: No Known Allergies Allergy Review of Systems Constitutional: ABSENT: chills, fever(s), headache(s), weight gain, weight loss Eyes: ABSENT: visual disturbances Ears: ABSENT: hearing changes Cardiovascular: PRESENT: chest pain Respiratory: PRESENT: dyspnea Gastrointestinal: ABSENT: abdominal pain, constipation, diarrhea, hematemesis, hematochezia, nausea, vomiting Genitourinary: ABSENT: dysuria, hematuria Musculoskeletal: ABSENT: joint swelling Integumentary: ABSENT: rash, wounds Neurological: ABSENT: abnormal gait, abnormal speech, confusion, dizziness, focal weakness, syncope Psychiatric: ABSENT: anxiety, depression, homidical ideation, suicidal ideation Endocrine: ABSENT: cold intolerance, heat intolerance, polydipsia, polyuria Hematologic/Lymphatic: ABSENT: easy bleeding, easy bruising PHYSICAL EXAMINATION: The patient appears to be chronically ill and cachectic. He is in respiratory distress due to shortness of breath and is on the BiPAP. Selected Entries 09/25/18 18:00 Pulse Rate 99 Respiratory 24 H Rate Blood Pressure 120/78 [Right Upper Arm] Blood Pressure 92 Mean [Right Upper Arm] Blood Pressure Supine Position [Right Upper Arm] O2 Sat by Pulse 93 Oximetry Oxygen Delivery Bi-pap Method ( includes room 6 L oxygen air) HEAD: Is atraumatic normocephalic. EYES: Pupils are equal round regular reactive to light and accommodation. There is mild conjunctival pallor. There is no scleral icterus. ENT is negative. NECK: Is supple. There is no JVD. Carotids are equal there is no bruits. There is mild accessory muscle respiration use. Trachea is shifted to the left. LUNGS: There is absent breath sounds in the right upper and mid zones. The left lung shows a few scattered rhonchi. There is diminished air entry prolonged expiration. HEART: S1-S2 is heard. There is no S3 gallop. There is no S4 gallop. Systolic murmur left s ternal border and the apex without radiation. There is no rub. There is no pulses paradoxus. ABDOMEN: Is soft. Nontender. There is no hepatospleno megaly. Bowel sounds are well heard. EXTREMITIES: Femorals are diminished. There is no femoral bruits. Leg pulses are diminished. There is no pedal edema. There is no cyanosis or clubbing. PESTICIDE USE MEDICAL COORDINATOR: The patient is slightly drowsy but oriented x3 without any focal deficits. PSYCHIATRIC: Patient is slightly anxious but does not appear to be agitated. Labs- All tests 24 hr 09/25/18 09/25/18 09/25/18 04:25 04:31 04:47 WBC 22.1 H RBC 3.92 L Hgb 9.9 L Hct 31.6 L MCV 81 MCH 25.2 L MCHC 31.3 L RDW 16.7 H Plt Count 316 Total Counted 100 Seg Neutrophils % Not Reportable Seg Neuts % (Manual) 91 H Band Neutrophils % 2 L Lymphocytes % Not Reportable Lymphocytes % (Manual) 3 L Monocytes % Not Reportable Monocytes % (Manual) 4 Eosinophils % Not Reportable Eosinophils % (Manual) 0 Basophils % Not Reportable Basophils % (Manual) 0 Absolute Neutrophils Not Reportable Abs Neuts (Manual) 20.6 H Absolute Lymphocytes Not Reportable Abs Lymphs (Manual) 0.7 Absolute Monocytes Not Reportable Abs Monocytes (Manual) 0.9 Absolute Eosinophils Not Reportable Absolute Eos (Manual) 0.0 Absolute Basophils Not Reportable Abs Basophils (Manual) 0.0 Toxic Granulation SLIGHT Platelet Comment ADEQUATE Hypochromasia 2+ Poikilocytosis 1+ Anisocytosis 1+ Carbonic Acid 1.11 HCO3/H2CO3 Ratio 22:1 ABG pH 7.44 ABG pCO2 37.0 ABG pO2 60.5 L ABG HCO3 24.6 H ABG Total CO2 25.8 ABG O2 Saturation 92.2 L ABG Base Excess 0.7 FiO2 80% Sodium Potassium Chloride Carbon Dioxide Anion Gap BUN Creatinine Est GFR ( Amer) Est GFR (Non-Af Amer) Glucose POC Glucose 225 H Calcium Creatine Kinase CK-MB (CK-2) Troponin I 09/25/18 09/25/18 09/25/18 04:47 04:47 04:47 WBC RBC Hgb Hct MCV MCH MCHC RDW Plt Count Total Counted Seg Neutrophils % Seg Neuts % (Manual) Band Neutrophils % Lymphocytes % Lymphocytes % (Manual) Monocytes % Monocytes % (Manual) Eosinophils % Eosinophils % (Manual) Basophils % Basophils % (Manual) Absolute Neutrophils Abs Neuts (Manual) Absolute Lymphocytes Abs Lymphs (Manual) Absolute Monocytes Abs Monocytes (Manual) Absolute Eosinophils Absolute Eos (Manual) Absolute Basophils Abs Basophils (Manual) Toxic Granulation Platelet Comment Hypochromasia Poikilocytosis Anisocytosis Carbonic Acid HCO3/H2CO3 Ratio ABG pH ABG pCO2 ABG pO2 ABG HCO3 ABG Total CO2 ABG O2 Saturation ABG Base Excess FiO2 Sodium 139.7 Potassium 3.7 Chloride 105 Carbon Dioxide 28 Anion Gap 7 BUN 21 H Creatinine 0.51 L Est GFR ( Amer) > 60 Est GFR (Non-Af Amer) > 60 Glucose 194 H POC Glucose Calcium 9.1 Creatine Kinase 29 L CK-MB (CK-2) 0.59 Troponin I < 0.012 09/25/18 09/25/18 09/25/18 10:18 10:18 16:45 WBC RBC Hgb Hct MCV MCH MCHC RDW Plt Count Total Counted Seg Neutrophils % Seg Neuts % (Manual) Band Neutrophils % Lymphocytes % Lymphocytes % (Manual) Monocytes % Monocytes % (Manual) Eosinophils % Eosinophils % (Manual) Basophils % Basophils % (Manual) Absolute Neutrophils Abs Neuts (Manual) Absolute Lymphocytes Abs Lymphs (Manual) Absolute Monocytes Abs Monocytes (Manual) Absolute Eosinophils Absolute Eos (Manual) Absolute Basophils Abs Basophils (Manual) Toxic Granulation Platelet Comment Hypochromasia Poikilocytosis Anisocytosis Carbonic Acid HCO3/H2CO3 Ratio ABG pH ABG pCO2 ABG pO2 ABG HCO3 ABG Total CO2 ABG O2 Saturation ABG Base Excess FiO2 Sodium Potassium Chloride Carbon Dioxide Anion Gap BUN Creatinine Est GFR ( Amer) Est GFR (Non-Af Amer) Glucose POC Glucose Calcium Creatine Kinase 36 L 51 L CK-MB (CK-2) 0.49 Troponin I < 0.012 09/25/18 16:45 WBC RBC Hgb Hct MCV MCH MCHC RDW Plt Count Total Counted Seg Neutrophils % Seg Neuts % (Manual) Band Neutrophils % Lymphocytes % Lymphocytes % (Manual) Monocytes % Monocytes % (Manual) Eosinophils % Eosinophils % (Manual) Basophils % Basophils % (Manual) Absolute Neutrophils Abs Neuts (Manual) Absolute Lymphocytes Abs Lymphs (Manual) Absolute Monocytes Abs Monocytes (Manual) Absolute Eosinophils Absolute Eos (Manual) Absolute Basophils Abs Basophils (Manual) Toxic Granulation Platelet Comment Hypochromasia Poikilocytosis Anisocytosis Carbonic Acid HCO3/H2CO3 Ratio ABG pH ABG pCO2 ABG pO2 ABG HCO3 ABG Total CO2 ABG O2 Saturation ABG Base Excess FiO2 Sodium Potassium Chloride Carbon Dioxide Anion Gap BUN Creatinine Est GFR ( Amer) Est GFR (Non-Af Amer) Glucose POC Glucose Calcium Creatine Kinase CK-MB (CK-2) 1.68 Troponin I 0.221 Current Medications Generic Name Dose Route Start Last Admin Trade Name Freq PRN Reason Stop Dose Admin Acetaminophen 650 mg 09/23/18 19:28 Tylenol 325 Mg Tablet PO 10/23/18 19:27 Q4HP PRN FOR PAIN OR TEMP Acetylcysteine 600 mg 09/23/18 20:00 09/25/18 21:14 Mucomist 20% Soln 800 Mg/4 Ml NEB 10/23/18 19:59 600 mg RTBID KEENA Administration Alprazolam 2 mg 09/23/18 22:00 09/25/18 21:57 Xanax 0.5 Mg Tablet PO 09/30/18 21:59 2 mg Q12 KEENA Administration Aspirin 81 mg 09/25/18 10:00 09/25/18 12:21 Ecotrin 81 Mg Ec Tablet PO 10/25/18 09:59 Not Given DAILY KEENA Budesonide 0.5 mg 09/23/18 20:00 09/25/18 21:14 Pulmicort Neb 0.5 Mg/2 Ml Ampul NEB 10/23/18 19:59 0.5 mg RTBID KEENA Administration Colchicine 0.6 mg 09/25/18 14:00 09/25/18 17:27 Colcrys 0.6 Mg Tablet PO 10/25/18 13:59 Not Given Q12 KEENA Enoxaparin Sodium 40 mg 09/24/18 10:00 09/25/18 12:30 Lovenox Inj 40 Mg/0.4 Ml Disp.Syrin SUBCUT 10/24/18 09:59 Not Given DAILY KEENA Famotidine 20 mg 09/23/18 22:00 09/25/18 21:56 Pepcid Inj/Pf 20 Mg/2 Ml Sdv IV 10/23/18 21:59 20 mg Q12 KEENA Administration Fluticasone/Vilanterol 1 inh 09/25/18 10:00 09/25/18 12:21 Breo 200-25 Mcg Ellipta 14 Dose/Dpi IH 10/25/18 09:59 Not Given DAILY KEENA Gabapentin 300 mg 09/24/18 22:00 09/25/18 21:57 Neurontin 300 Mg Capsule PO 10/24/18 21:59 300 mg Q12 KEENA Administration Levofloxacin/Dextrose 750 mg in 150 mls @ 100 mls/hr 09/24/18 12:00 09/25/18 16:17 Levaquin Rtu 750 Mg/D5w 150 Ml Premix IV 10/01/18 11:59 Infused NOON KEENA Infusion Ceftriaxone Sodium/Dextrose 1 gm in 50 mls @ 100 mls/hr 09/24/18 10:00 09/25/18 13:04 Rocephin Rtu 1 Gm/D5w 50 Ml Premix IV 10/01/18 09:59 Infused DAILY KEENA Infusion Sodium Chloride 500 mls @ 0 mls/hr 09/25/18 10:42 09/25/18 14:24 Nacl 0.9% 500 Ml Iv Soln IV 09/25/18 23:59 Infused .BOLUS PRN Infusion THIS MED IS NOT "PRN" Wide Open Nivolumab 240 mg/ Sodium 74 mls @ 148 mls/hr 09/26/18 05:00 Chloride IV 09/26/18 23:59 .TODAY 09/26 PRN THIS MED IS NOT "PRN" Dobutamine HCl/Dextrose 500 mg in 250 mls @ 10.2 mls/hr 09/25/18 14:30 09/25/18 19:20 Dobutrex Rtu 500 Mg-D5w 250 Ml Premixed Bag IV 10/25/18 14:01 0 mcg/kg/min CONTINUOUS PRN 0 mls/hr THIS MED IS NOT "PRN" Titration Protocol Sodium Chloride 250 mls @ 0 mls/hr 09/26/18 05:00 Nacl 0.9% 250 Ml Iv Soln IV 09/26/18 23:59 CONTINUOUS PRN KVO Hard Fat/Phenylephrine 40 mg/ 250 mls @ 0 mls/hr 09/25/18 22:55 09/25/18 22:59 Dextrose IV 10/25/18 22:54 10 mcg/min CONTINUOUS PRN 3.75 mls/hr THIS MED IS NOT "PRN" Administration Protocol Titrate Levalbuterol HCl 0.63 mg 09/23/18 19:27 09/25/18 21:14 Xopenex Neb 0.63 Mg/3 Ml Ampul NEB 10/23/18 19:26 0.63 mg RTQ2HP PRN Administration SHORTNESS OF BREATH Levalbuterol HCl 1.25 mg 09/24/18 00:00 09/25/18 16:53 Xopenex Neb 1.25 Mg/3 Ml Ampul NEB 10/24/18 00:00 1.25 mg RTQ8 KEENA Administration Lorazepam 2 mg 09/24/18 04:25 09/24/18 18:17 Ativan Inj 2 Mg/1 Ml Vial IV 10/01/18 04:24 2 mg Q6HP PRN Administration ANXIETY/AGITATION Methylprednisolone Sodium Succinate 40 mg 09/24/18 08:30 09/25/18 21:57 Solu-Medrol Inj/Pf 40 Mg/1 Ml Sdv IV 10/24/18 08:29 40 mg Q8 KEENA Administration Mirtazapine 7.5 mg 09/24/18 22:00 09/25/18 21:57 Remeron 15 Mg Tablet PO 10/24/18 21:59 7.5 mg QHS KEENA Administration Morphine Sulfate 2 mg 09/23/18 20:01 09/23/18 20:15 Morphine 10 Mg/Ml Inj IV 09/30/18 20:00 2 mg Q2HP PRN Administration PAIN SCALE 1-2/5 Morphine Sulfate 3 mg 09/23/18 20:01 09/23/18 22:49 Morphine 10 Mg/Ml Inj IV 09/30/18 20:00 3 mg Q2HP PRN Administration PAIN SCALE 3-4/5 Morphine Sulfate 4 mg 09/23/18 20:02 09/24/18 02:59 Morphine 10 Mg/Ml Inj IV 09/30/18 20:01 4 mg Q2HP PRN Administration PAIN SCALE 5/5 Ondansetron HCl 4 mg 09/23/18 18:02 09/23/18 20:30 Zofran Inj/Pf 4 Mg/2 Ml Sdv IV 10/23/18 18:01 4 mg Q4HP PRN Administration FOR NAUSEA/VOMITING Oxycodone HCl 10 mg 09/24/18 18:00 09/25/18 17:49 Oxy-Ir 5 Mg Tablet PO 10/01/18 17:59 10 mg Q6 KEENA Administration Patient Own Medication 5 mg 09/24/18 18:00 Pilocarpine Hcl [Salagen] PO 10/24/18 17:59 TID KEENA Tizanidine HCl 2 mg 09/24/18 18:00 09/25/18 17:50 Zanaflex 4 Mg Tablet PO 10/24/18 17:59 2 mg BID KEENA Administration Discontinued Medications Generic Name Dose Route Start Last Admin Trade Name Freq PRN Reason Stop Dose Admin Acetaminophen 650 mg 09/23/18 19:18 Tylenol 325 Mg Tablet PO 10/23/18 19:17 Q4HP PRN For headache, pain or fever Acetylcysteine 600 mg 09/23/18 20:00 Mucomist 20% Soln 800 Mg/4 Ml NEB 10/23/18 19:59 RTBID KEENA Albuterol/Ipratropium 3 ml 09/23/18 12:10 09/23/18 12:39 Duoneb 3 Ml Ampul NEB 09/23/18 12:11 3 ml NOW ONE Administration Albuterol/Ipratropium 3 ml 09/23/18 20:00 Duoneb 3 Ml Ampul NEB 10/23/18 19:59 RTQ6 KEENA Alprazolam 2 mg 09/23/18 18:30 09/23/18 18:55 Xanax 0.5 Mg Tablet PO 09/23/18 18:31 Not Given NOW ONE Budesonide 0.5 mg 09/23/18 20:00 Pulmicort Neb 0.5 Mg/2 Ml Ampul NEB 10/23/18 19:59 RTBID KEENA Colchicine Confirm 09/25/18 22:59 Colcrys 0.6 Mg Tablet Administered 09/25/18 23:00 Dose 0.6 mg .ROUTE .STK-MED ONE Furosemide 20 mg 09/24/18 15:30 09/24/18 15:56 Lasix Inj/Pf 20 Mg/2 Ml Sdv IV 09/24/18 15:31 20 mg NOW ONE Administration Hard Fat/Phenylephrine Confirm 09/25/18 22:51 09/25/18 23:00 Roman-Synephrine Inj/Pf 10 Mg/1 Ml Sdv Administered 09/25/18 22:52 Not Given Dose 10 mg .ROUTE .STK-MED ONE Levofloxacin/Dextrose 750 mg in 150 mls @ 100 mls/hr 09/23/18 13:37 09/23/18 15:23 Levaquin Rtu 750 Mg/D5w 150 Ml Premix IV 09/23/18 15:06 Infused NOW ONE Infusion Sodium Chloride 250 mls @ 0 mls/hr 09/23/18 14:59 Nacl 0.9% 250 Ml Iv Soln IV 09/24/18 14:58 CONTINUOUS PRN AFTER EACH UNIT As Directed Lactated Ringer's 1,000 mls @ 0 mls/hr 09/23/18 19:20 09/23/18 23:00 Lactated Ringers 1000 Ml Iv Soln IV 09/23/18 19:21 1,000 mls/hr BOLUS ONE Administration Wide Open Lactated Ringer's 1,000 mls @ 167 mls/hr 09/23/18 19:20 Lactated Ringers 1000 Ml Iv Soln IV 10/23/18 19:19 CONTINUOUS PRN THIS MED IS NOT "PRN" Lactated Ringer's 1,000 mls @ 0 mls/hr 09/23/18 19:30 09/23/18 23:01 Lactated Ringers 1000 Ml Iv Soln IV 09/23/18 19:31 Infused BOLUS ONE Infusion Wide Open Lactated Ringer's 1,000 mls @ 167 mls/hr 09/23/18 19:29 09/24/18 12:45 Lactated Ringers 1000 Ml Iv Soln IV 10/23/18 19:28 Infused CONTINUOUS PRN Infusion THIS MED IS NOT "PRN" Dobutamine HCl/Dextrose 500 mg in 250 mls @ 0 mls/hr 09/25/18 14:02 Dobutrex Rtu 500 Mg-D5w 250 Ml Premixed Bag IV 10/25/18 14:01 CONTINUOUS PRN THIS MED IS NOT "PRN" Protocol Per Protocol Sodium Chloride 1,000 mls @ 0 mls/hr 09/26/18 05:00 Nacl 0.9% 1000 Ml Iv Soln IV 09/26/18 23:59 CONTINUOUS PRN THIS MED IS NOT "PRN" KVO Ipratropium Hellier 0.5 mg 09/24/18 00:00 Atrovent 0.02% Neb 0.5 Mg/2.5 Ml Ampul NEB 10/24/18 00:00 RTQ8 KEENA Levalbuterol HCl 0.63 mg 09/23/18 19:18 Xopenex Neb 0.63 Mg/3 Ml Ampul NEB 10/23/18 19:17 RTQ2HP PRN SHORTNESS OF BREATH Levalbuterol HCl 1.25 mg 09/24/18 00:00 Xopenex Neb 1.25 Mg/3 Ml Ampul NEB 10/24/18 00:00 RTQ8 KEENA Lorazepam 2 mg 09/23/18 18:57 09/23/18 22:31 Ativan Inj 2 Mg/1 Ml Vial IV 09/23/18 18:58 Not Given NOW ONE Lorazepam 2 mg 09/24/18 04:30 09/24/18 04:36 Ativan Inj 2 Mg/1 Ml Vial IV 09/24/18 04:31 2 mg NOW ONE Administration Morphine Sulfate 0 mg 09/23/18 19:22 Morphine 10 Mg/Ml Inj IV 09/30/18 19:21 Q2HP PRN Pain Per [facility] 5 point scale SD Protocol Oxycodone/Acetaminophen 1 tab 09/23/18 18:08 Percocet 5-325 Mg Tablet PO 09/30/18 18:07 Q4HP PRN FOR CHEST PAIN Chest X-Ray 09/23/18 11:51 IMPRESSION: Right lower lobe pneumonia. Chest/Abdomen CTA 09/23/18 14:16 IMPRESSION: 1. No PE. 2. Chronic small loculated effusion right lower lobe. Further consolidation with near complete collapse of the right lower lobe. 3. Unchanged mediastinal adenopathy. These were hypermetabolic on recent PET- CT. Chest CT 09/25/18 00:00 IMPRESSION: 1. Chronic collapse of the right lower lobe. Small loculated right pleural effusion not significantly changed. 2. Small pericardial effusion. Head CT 09/25/18 00:00 IMPRESSION: Mild age-appropriate atrophy TECHNICAL DOCUMENTATION: Quality ID # [id number]: Final reports with documentation of one or more dose reduction techniques (e.g., Automated exposure control, adjustment of the mA and/or kV according to patient size, use of iterative reconstruction technique) copyright 2011 [employer] All Rights Reserved Chest X-Ray 09/25/18 06:00 IMPRESSION: Clear lungs. The patient is EKG on 09/23/2018 is a defect EKG with baseline artifact. But there is no definite ST elevation. Patient subsequent EKG done on 715 shows sinus rhythm with diffuse ST segment elevation and OH segment depression and ST segment depression in lead aVR. This is consistent with pericarditis. His last EKG done today does show that the ST segments are coming down. IMPRESSION RECOMMENDATION: Next 1. Acute ST segment elevation consistent with pericarditis. The echocardiogram shows small pericardial effusion consistent with pericarditis. Most likely secondary to mental status from the patient's lung cancer. Getting a sedimentation rate or CRP would not be helpful since it is going to be elevated. . Small elevation in troponin I consistent with myocardial pericarditis. [Myocardial involvement and pericarditis.]. But will trend troponin to see if this is just that or if it is an acute coronary event. The patient has no chest pain or discomfort, suggestive of angina, and hence would not use full dose anticoagulation at present especially in the presence of pericarditis. 3. Lung cancer: Oncology on the case. 4. Right lung collapse and right lung pleural effusion need to assess for endobronchial obstruction. 5. COPD: Continue respiratory treatments. 6. Mild hypotension. Blood pressure normal on dobutamine. Would recommend discontinue the patient's dobutamine to see if the blood pressure still remains normal. If it should drop then would place the patient on Roman-Synephrine. Will repeat EKG in the a.m. Medications reviewed. Medications added. Management plan discussed with the attending physician on the case. Medical decision making is of high complexity. 60 minutes spent on this patient with more than 50% of time spent in direct patient care. Will follow. Discussed echo findings with the patient. I have discussed the case with the oncologist. Will follow.
[2018-09-26] MEDS: COLCHICINE 0.6 MG TABLET PO SCH ×3 (00:06→21:51)
[2018-09-26] MEDS: OXYCODONE HCL IR 5 MG TABLET PO SCH ×5 (00:06→20:00)
[2018-09-26] MEDS: LEVALBUTEROL HCL NEB 1.25 MG/3 ML AMPUL NEB SCH ×3 (01:03→16:32)
[2018-09-26 03:56] LABS: HEMATOCRIT 32.2 % (37.9-51.0); HEMOGLOBIN 10.1 g/dL (13.5-17.0); MEAN CORPUSCULAR HGB CONC 31.4 g/dL (32.0-36.0); MEAN CORPUSCULAR VOLUME 80 fl (80-97); PLATELET COUNT 389 10^3/uL (150-450); RED BLOOD COUNT 4.05 10^6/uL (4.35-5.55); WHITE BLOOD COUNT 28.5 10^3/uL (4.0-10.5)
[2018-09-26 04:15] LABS: ABSOLUTE LYMPHOCYTES# (MANUAL) 0.6 10^3/uL (0.5-4.7); ABSOLUTE MONOCYTES # (MANUAL) 0.3 10^3/uL (0.1-1.4); BASOPHILS % (MANUAL) 0 % (0-2); EOSINOPHILS % (MANUAL) 0 % (0-6); LYMPHOCYTES % (MANUAL) 2 % (13-45); MONOCYTES % (MANUAL) 1 % (3-13); SEGMENTED NEUTROPHILS % (MAN) 97 % (42-78); TOTAL CELLS COUNTED 100
[2018-09-26 04:16] LABS: ANISOCYTOSIS 1+; PLATELET COMMENT ADEQUATE
[2018-09-26 04:17] LABS: ANION GAP 8 (5-19); BLOOD UREA NITROGEN 21 mg/dL (7-20); C-REACTIVE PROTEIN 57.3 mg/L (<10.0); CALCIUM 9.2 mg/dL (8.4-10.2); CARBON DIOXIDE 26 mmol/L (22-30); CHLORIDE 108 mmol/L (98-107); GLUCOSE 177 mg/dL (75-110); POTASSIUM 4.2 mmol/L (3.6-5.0); SODIUM 141.5 mmol/L (137-145)
[2018-09-26 04:36] LABS: ERYTHROCYTE SEDIMENTATION RATE 110 mm/hr (0-20)
[2018-09-26] MEDS ORDERED: NIVOLUMAB 240 MG in NORMAL SALINE 50 ML IV PRN (05:00)
[2018-09-26] MEDS ORDERED: NORMAL SALINE 1000 ML 1,000 ML IV PRN (05:00)
[2018-09-26] MEDS ORDERED: NORMAL SALINE 250 ML IV PRN (05:00)
[2018-09-26] MEDS: METHYLPREDNISOLONE INJ 40 MG/1 ML SDV IV SCH ×3 (06:08→21:53)
[2018-09-26] MEDS: ACETYLCYSTEINE 20% SOLN 800 MG/4 ML VIAL.NEB NEB SCH ×2 (08:11→20:29)
[2018-09-26] MEDS: BUDESONIDE NEB 0.5 MG/2 ML AMPUL NEB SCH ×2 (08:12→20:30)
--- NOTE | 2018-09-26 09:05 | PDOC PROGRESS REPORT ---
Subjective Progress Note for:: 09/26/18 Subjective:: Patient sleeping peacefully on Bi-PAP machine in the ICU. His is at bedside. She reports that he did very well last night and his heart rate is much lower than before. He was able to sit up and read the paper for a while yesterday evening. Nurses report no new concerns. He is now on 2 pressors. Reason For Visit: PNEUMONIA Physical Exam Vital Signs: Temp Pulse Resp BP Pulse Ox 97.0 F 78 23 H 132/85 H 99 09/26/18 04:00 09/26/18 08:12 09/26/18 08:12 09/26/18 06:29 09/26/18 08:12 Intake & Output 09/25/18 09/26/18 09/27/18 06:59 06:59 06:59 Intake Total 1530 731 Output Total 850 525 Balance 680 206 Weight 67.9 kg 66.3 kg General appearance: PRESENT: no acute distress, well-developed, well-nourished Head exam: PRESENT: normocephalic Respiratory exam: PRESENT: clear to auscultation tyler, unlabored Cardiovascular exam: PRESENT: RRR Extremities exam: ABSENT: pedal edema Skin exam: PRESENT: normal color Results Laboratory Results: 09/26/18 03:37 09/26/18 03:37 09/26/18 09/26/18 03:37 03:37 WBC 28.5 H RBC 4.05 L Hgb 10.1 L Hct 32.2 L MCV 80 MCH 25.0 L MCHC 31.4 L RDW 17.0 H Plt Count 389 Seg Neutrophils % Not Reportable Lymphocytes % Not Reportable Monocytes % Not Reportable Eosinophils % Not Reportable Basophils % Not Reportable Absolute Neutrophils Not Reportable Absolute Lymphocytes Not Reportable Absolute Monocytes Not Reportable Absolute Eosinophils Not Reportable Absolute Basophils Not Reportable Sodium 141.5 Potassium 4.2 Chloride 108 H Carbon Dioxide 26 Anion Gap 8 BUN 21 H Creatinine 0.47 L Est GFR ( Amer) > 60 Est GFR (Non-Af Amer) > 60 Glucose 177 H Calcium 9.2 C-Reactive Protein 57.3 H 09/23/18 09/23/18 09/23/18 12:01 12:01 14:40 Creatine Kinase 34 L 33 L CK-MB (CK-2) 0.34 Troponin I < 0.012 09/23/18 09/25/18 09/25/18 14:40 04:47 04:47 Creatine Kinase 29 L CK-MB (CK-2) 0.23 0.59 Troponin I < 0.012 < 0.012 09/25/18 09/25/18 09/25/18 10:18 10:18 16:45 Creatine Kinase 36 L 51 L CK-MB (CK-2) 0.49 Troponin I < 0.012 09/25/18 09/26/18 16:45 03:37 Creatine Kinase CK-MB (CK-2) 1.68 Troponin I 0.221 0.092 Impressions: Chest/Abdomen CTA 09/23/18 14:16 IMPRESSION: 1. No PE. 2. Chronic small loculated effusion right lower lobe. Further consolidation with near complete collapse of the right lower lobe. 3. Unchanged mediastinal adenopathy. These were hypermetabolic on recent PET- CT. Chest CT 09/25/18 00:00 IMPRESSION: 1. Chronic collapse of the right lower lobe. Small loculated right pleural effusion not significantly changed. 2. Small pericardial effusion. Head CT 09/25/18 00:00 IMPRESSION: Mild age-appropriate atrophy TECHNICAL DOCUMENTATION: Quality ID # [id number]: Final reports with documentation of one or more dose reduction techniques (e.g., Automated exposure control, adjustment of the mA and/or kV according to patient size, use of iterative reconstruction technique) copyright 2011 [employer]- All Rights Reserved Chest X-Ray 09/25/18 06:00 IMPRESSION: Clear lungs. 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 Is this a current diagnosis for this admission?: Yes (2) Metastatic cancer to lung Qualifiers: Laterality: right Qualified Code(s): C78.01 - Secondary malignant neoplasm of right lung Is this a current diagnosis for this admission?: Yes Plan: I discussed with patient's concerns today to starting new nivolumab treatment for his cancer. She requests that we wait until tomorrow and see if he improves in the next 24 hours. (3) Pneumonia Is this a current diagnosis for this admission?: Yes Plan: May be post-obstructive and may not improve without treatment of the lung cancer. Continue antibiotics for now. (4) Pleural effusion, right Is this a current diagnosis for this admission?: Yes Plan: Radiology does not believe there is enough fluid to tap. Will continue to monitor this. (5) ST elevation (STEMI) myocardial infarction Is this a current diagnosis for this admission?: Yes Plan: I spoke with Dr. Fuentes. He believes this is a pericarditis picture with a small pericardial effusion. I appreciate his input. Agree with his plans for management.
[2018-09-26] MEDS: TIZANIDINE HCL 4 MG TABLET PO SCH ×2 (10:51→17:59)
[2018-09-26] MEDS: CEFTRIAXONE SODIUM 1,000 MG in DEXTROSE 5%-WATER 50 ML IV SCH (10:51)
[2018-09-26] MEDS: FAMOTIDINE INJ/PF 20 MG/2 ML SDV IV SCH ×2 (10:52→21:53)
[2018-09-26] MEDS: ENOXAPARIN SODIUM INJ 40 MG/0.4 ML DISP.SYRIN SUBCUT SCH (10:52)
[2018-09-26] MEDS: ASPIRIN 81 MG TABLET, ENT COATED PO SCH (10:52)
[2018-09-26] MEDS: FLUTICASONE/VILANTEROL 200-25 MCG/DOSE IH SCH (10:52)
[2018-09-26] MEDS: ALPRAZOLAM 0.5 MG TABLET PO SCH ×2 (10:52→21:53)
[2018-09-26] MEDS: GABAPENTIN 300 MG CAPSULE PO SCH ×2 (10:52→21:51)
[2018-09-26] MEDS: LEVOFLOXACIN 750 MG/D5W RTU 750 MG/150 ML RTUPB IV SCH (13:08)
--- NOTE | 2018-09-26 13:48 | XCELERA REPORT ---
[address] [address] Transthoracic Echocardiogram Report Name: FELIPE PIERRE Age: 72 yrs Gender: Male : 1945 Patient Status: Inpatient Patient Location: [address] [place], [place] [address] Study Date: 09/25/2018 11:38 AM Height: 68 in Weight: 149 lb BSA: 1.8 m2 Procedure: A two-dimensional transthoracic echocardiogram with color flow and Doppler was performed. The study was technically difficult with many images being suboptimal in quality. Reason For Study: pericarditis History: pericarditis. Ordering Physician: CASSANDRA HURLEY Performed By: Amira Llanes Interpretation Summary The left ventricle is normal in size. There is normal left ventricular wall thickness. The left ventricular ejection fraction is within normal limits. LV EF is > than 60% Doppler measurements suggest normal left ventricular diastolic function The left ventricular wall motion is normal. There is no thrombus. There is no ASD,VSD , or PFO seen. The right ventricle is moderately dilated. The right atrium is normal. The left atrial size is normal. There is no evidence of mitral valve prolapse. There is no vegetation seen on the mitral valve. There is no mitral valve stenosis. There is no mitral regurgitation noted. There is no aortic valvular vegetation. There is no aortic valve stenosis There is no LVOT obstruction. No aortic regurgitation is present. There is no tricuspid stenosis. There is a trace to mild amount of tricuspid regurgitation There is mild pulmonary hypertension by echo RVSP is 34 to 39 mm of Hg , with RA mean of 10 to 15. The pulmonic valve is not well visualized. The aortic root is normal size. The inferior vena cava appeared normal and decreased < 50% with respiration (RAP 10-15 mmHg) There is a small pericardial effusion that is circumferential There are no echocardiographic or Doppler indications for cardiac tamponade MMode/2D Measurements & Calculations RVDd: 3.3 cm LVIDd: 4.1 cm FS: 34.1 % Ao root diam: 2.2 cm IVSd: 1.0 cm LVIDs: 2.7 cm EDV(Teich): 76.1 ml Ao root area: 4.0 cm2 LVPWd: 0.93 cm ESV(Teich): 27.8 ml LA dimension: 3.3 cm EF(Teich): 63.4 % Doppler Measurements & Calculations MV E max micaela: MV P1/2t max micaela: Ao V2 max: LV V1 max P.8 cm/sec 57.8 cm/sec 86.3 cm/sec 2.0 mmHg MV A max micaela: MV P1/2t: 69.7 msec Ao max P.0 mmHg LV V1 max: 55.1 cm/sec MVA(P1/2t): 3.2 cm2 71.0 cm/sec MV E/A: 1.0 MV dec slope: 243.2 cm/sec2 MV dec time: 0.23 sec PA V2 max: TR max micaela: MV P1/2t-pr_phl: 69.8 cm/sec 243.2 cm/sec 69.7 msec PA max P.9 mmHgTR max P.7 mmHg Left Ventricle The left ventricle is normal in size. There is normal left ventricular wall thickness. The left ventricular ejection fraction is within normal limits. LV EF is > than 60%. Doppler measurements suggest normal left ventricular diastolic function. The left ventricular wall motion is normal. There is no thrombus. There is no ASD,VSD , or PFO seen. Right Ventricle The right ventricle is moderately dilated. There is borderline right ventricular hypertrophy. The right ventricular systolic function is normal. Atria The right atrium is normal. The left atrial size is normal. Mitral Valve There is no evidence of mitral valve prolapse. There is no vegetation seen on the mitral valve. There is no mitral valve stenosis. There is no mitral regurgitation noted. Aortic Valve There is no aortic valvular vegetation. There is no aortic valve stenosis. There is no LVOT obstruction. No aortic regurgitation is present. Tricuspid Valve There is no tricuspid stenosis. There is a trace to mild amount of tricuspid regurgitation. There is mild pulmonary hypertension by echo. RVSP is 34 to 39 mm of Hg , with RA mean of 10 to 15. Pulmonic Valve The pulmonic valve is not well visualized. Great Vessels The aortic root is normal size. The inferior vena cava appeared normal and decreased < 50% with respiration (RAP 10-15 mmHg). Effusions There is a small pericardial effusion that is circumferential. There are no echocardiographic or Doppler indications for cardiac tamponade. : CASSANDRA HURLEY > Mojgan Guajardo
[2018-09-26] MEDS ORDERED: POLYETHYLENE GLYCOL 3350 POWDER 17 GM/1 PACKET PO ONE (19:00)
[2018-09-26] MEDS ORDERED: BISACODYL 10 MG SUPP.RECT PR PRN (19:14)
--- NOTE | 2018-09-26 19:37 | PDOC PROGRESS REPORT ---
Subjective Progress Note for:: 09/26/18 Subjective:: The patient is somnolent. He still feels very weak. He does respond to questions after prompting several times. Answers are difficult to interpret but his is able to understand him. His voice volume is barely a whisper. His is at the bedside. Reason For Visit: PNEUMONIA Physical Exam Vital Signs: Temp Pulse Resp BP Pulse Ox 96.4 F L 76 24 H 104/71 90 L 09/26/18 12:00 09/26/18 12:00 09/26/18 12:00 09/26/18 12:00 09/26/18 12:00 Intake & Output 09/25/18 09/26/18 09/27/18 06:59 06:59 06:59 Intake Total 1530 731 50 Output Total 850 525 710 Balance 680 206 -660 Weight 67.9 kg 66.3 kg General appearance: PRESENT: no acute distress, cooperative - Very sleepy. Try to answer questions. His helped comprehend his statements Head exam: PRESENT: atraumatic, normocephalic Ear exam: PRESENT: normal external ear exam Respiratory exam: PRESENT: decreased breath sounds - At the bases likely due to limited inspiration, rhonchi - Probable rhonchi on the right. Limited inspiration. In general breath sounds distant., symmetrical, unlabored. ABSENT: rales, tachypnea, wheezes Cardiovascular exam: PRESENT: RRR, +S1, +S2 GI/Abdominal exam: PRESENT: hypoactive bowel sounds, soft, other - PEG tube in place. ABSENT: distended, tenderness Rectal exam: PRESENT: deferred Extremities exam: ABSENT: calf tenderness, pedal edema Musculoskeletal exam: ABSENT: ambulatory - Still very weak. Becomes hypoxic with minimal exertion. Neurological exam: PRESENT: awake - Awakens with multiple verbal stimulus and gentle physical shaking his shoulder., oriented to person - Responses name. Unable to assess further due to somnolence.. ABSENT: alert - Very somnolent. Psychiatric exam: PRESENT: flat affect. ABSENT: agitated, anxious Focused psych exam: ABSENT: delusional, restlessness Skin exam: PRESENT: dry, other - Slight facial flushing Results Laboratory Results: 09/26/18 03:37 09/26/18 03:37 09/26/18 09/26/18 03:37 03:37 WBC 28.5 H RBC 4.05 L Hgb 10.1 L Hct 32.2 L MCV 80 MCH 25.0 L MCHC 31.4 L RDW 17.0 H Plt Count 389 Seg Neutrophils % Not Reportable Lymphocytes % Not Reportable Monocytes % Not Reportable Eosinophils % Not Reportable Basophils % Not Reportable Absolute Neutrophils Not Reportable Absolute Lymphocytes Not Reportable Absolute Monocytes Not Reportable Absolute Eosinophils Not Reportable Absolute Basophils Not Reportable Sodium 141.5 Potassium 4.2 Chloride 108 H Carbon Dioxide 26 Anion Gap 8 BUN 21 H Creatinine 0.47 L Est GFR ( Amer) > 60 Est GFR (Non-Af Amer) > 60 Glucose 177 H Calcium 9.2 C-Reactive Protein 57.3 H 09/23/18 09/23/18 09/23/18 12:01 12:01 14:40 Creatine Kinase 34 L 33 L CK-MB (CK-2) 0.34 Troponin I < 0.012 09/23/18 09/25/18 09/25/18 14:40 04:47 04:47 Creatine Kinase 29 L CK-MB (CK-2) 0.23 0.59 Troponin I < 0.012 < 0.012 09/25/18 09/25/18 09/25/18 10:18 10:18 16:45 Creatine Kinase 36 L 51 L CK-MB (CK-2) 0.49 Troponin I < 0.012 09/25/18 09/26/18 16:45 03:37 Creatine Kinase CK-MB (CK-2) 1.68 Troponin I 0.221 0.092 Impressions: Chest/Abdomen CTA 09/23/18 14:16 IMPRESSION: 1. No PE. 2. Chronic small loculated effusion right lower lobe. Further consolidation with near complete collapse of the right lower lobe. 3. Unchanged mediastinal adenopathy. These were hypermetabolic on recent PET- CT. Chest CT 09/25/18 00:00 IMPRESSION: 1. Chronic collapse of the right lower lobe. Small loculated right pleural effusion not significantly changed. 2. Small pericardial effusion. Head CT 09/25/18 00:00 IMPRESSION: Mild age-appropriate atrophy TECHNICAL DOCUMENTATION: Quality ID # 436: Final reports with documentation of one or more dose reduction techniques (e.g., Automated exposure control, adjustment of the mA and/or kV according to patient size, use of iterative reconstruction technique) copyright 2011 [employer]- All Rights Reserved Chest X-Ray 09/25/18 06:00 IMPRESSION: Clear lungs. Assessment and Plan - Diagnosis (1) Acute exacerbation of chronic obstructive pulmonary disease (COPD) Is this a current diagnosis for this admission?: Yes Plan: 09/24/2018-in addition to nebulizer treatments I have added Solu-Medrol 40 mill grams IV every 8. 09/25/2018-patient improving with his acute exacerbation of COPD. We are continuing Solu-Medrol at this time duo nebs and BiPAP therapy. 09/26/2018-the patient remains on Solu-Medrol. He is now on nasal cannula and uses the BiPAP at night and as needed. He remains on systemic steroids, nebulized treatments and his inhaler. (2) Leukocytosis Qualifiers: Leukocytosis type: unspecified Qualified Code(s): D72.829 - Elevated white blood cell count, unspecified Is this a current diagnosis for this admission?: Yes Plan: 09/24/2018-patient's white count has increased from yesterday. In addition to Levaquin I have added Rocephin 1 g IV daily. We will continue follow with daily CBCs 09/25/2018-improved slightly today. Continue to follow daily CBCs continue antibiotic therapy. 09/26/2018-the patient's white blood cell count continues to increase. This could be the steroids but typically it would not push his white blood cell count 28,000. I have asked for an ID consult and was considering adding vancomycin and possibly discontinuing the ceftriaxone or levofloxacin. I await the evaluation by Dr. Mccarthy. (3) Metastatic cancer to lung Qualifiers: Laterality: right Qualified Code(s): C78.01 - Secondary malignant neoplasm of right lung Is this a current diagnosis for this admission?: Yes Plan: 09/24/2018-await Dr. Hoff for consultation. 09/25/2018-Dr. Hoff seen patient. She would like to start him on chemotherapy tomorrow. We will continue to follow 09/26/2018-please also see Dr. Rodrigues's note. She was hoping to start the patient on Optiva today. Because the patient is extremely weak the patient and his asked that it be delayed till tomorrow. I would like to identify the etiology of the increasing white blood cell count if possible. Will defer chemotherapy to Dr. Rodrigues and continue to evaluate the patient's white blood cell count. (4) Pneumonia Qualifiers: Pneumonia type: due to unspecified organism Laterality: right Lung location: lower lobe of lung Qualified Code(s): J18.1 - Lobar pneumonia, unspecified organism Is this a current diagnosis for this admission?: Yes Plan: Patient has shortness of breath, chest pain, leukocytosis and consolidation on CT scan. Patient empirical started on Levaquin. 09/24/2018-leukocytosis worsened this morning by 5000. In addition to Levaquin I have added Rocephin IV 1 g daily we will continue to follow daily CBCs await culture for offending organism. 09/25/2018-slightly improved this morning. Leukocytosis has slightly improved. Patient continues on Levaquin and Rocephin. I will repeat a CT of his chest this morning with IV contrast. Will await results. 09/26/2018-the CT scan yesterday revealed continued collapse of the right lower lobe. This could be a postobstructive pneumonia with the recurrent malignancy. Awaiting infectious disease input regarding antibiotic therapy. He is making some improvement with regard to his respiratory status as he is now on nasal cannula during part of the day. (5) Pericarditis Qualifiers: Pericarditis type: associated with other disease Chronicity: acute Qualified Code(s): I30.9 - Acute pericarditis, unspecified Is this a current diagnosis for this admission?: Yes Plan: 09/25/2018-patient had an event this a.m. that resembled a STEMI. I consulted Dr. Guajardo and upon his interpretation of the EKG patient has pericarditis. At this time we are going to repeat his CT of his chest with IV contrast and obtain a stat echocardiogram. Further recognitions will be made at that time. 09/26/2018-the patient was diagnosed with pericarditis yesterday. Cardiology has seen the patient. He is currently on colchicine. With his recurrent malignancy it is possibly a parapneumonic issue versus malignancy. We will continue anti- inflammatory therapy and monitor the C-reactive protein for improvement. (6) Hypothermia Qualifiers: Encounter type: initial encounter Qualified Code(s): T68.XXXA - Hypothermia, initial encounter Is this a current diagnosis for this admission?: Yes Plan: 09/26/2018-the patient was hypothermic on admission. This certainly could be from the infection. He has been on a bear hugger. His core temperature is improved and is currently normal. We will continue to monitor. - Time Time Spent with patient: 35 or more minutes Medications reviewed and adjusted accordingly: Yes
[2018-09-26] MEDS: LEVALBUTEROL HCL NEB 0.63 MG/3 ML AMPUL NEB PRN (20:30)
[2018-09-26] MEDS: MIRTAZAPINE 15 MG TABLET PO SCH (21:52)
[2018-09-27] MEDS: OXYCODONE HCL IR 5 MG TABLET PO SCH ×4 (00:19→17:07)
[2018-09-27] MEDS: LEVALBUTEROL HCL NEB 1.25 MG/3 ML AMPUL NEB SCH ×4 (00:23→23:36)
[2018-09-27 03:48] LABS: HEMATOCRIT 34.3 % (37.9-51.0); HEMOGLOBIN 10.7 g/dL (13.5-17.0); MEAN CORPUSCULAR HEMOGLOBIN 24.7 pg (27.0-33.4); MEAN CORPUSCULAR HGB CONC 31.1 g/dL (32.0-36.0); MEAN CORPUSCULAR VOLUME 80 fl (80-97); PLATELET COUNT 454 10^3/uL (150-450); RED CELL DISTRIBUTION WIDTH 17.3 % (11.5-14.0); WHITE BLOOD COUNT 21.9 10^3/uL (4.0-10.5)
[2018-09-27 04:06] LABS: ALANINE AMINOTRANSFERASE 49 U/L (21-72); ALBUMIN 2.6 g/dL (3.5-5.0); ALKALINE PHOSPHATASE 89 U/L (38-126); ANION GAP 6 (5-19); ASPARTATE AMINO TRANSFERASE 46 U/L (17-59); BILIRUBIN,DIRECT 0.2 mg/dL (0.0-0.4); BILIRUBIN,TOTAL 0.2 mg/dL (0.2-1.3); BLOOD UREA NITROGEN 30 mg/dL (7-20); CALCIUM 8.6 mg/dL (8.4-10.2); CARBON DIOXIDE 27 mmol/L (22-30); CHLORIDE 112 mmol/L (98-107); GLUCOSE 161 mg/dL (75-110); PHOSPHORUS 2.7 mg/dL (2.5-4.5); POTASSIUM 4.2 mmol/L (3.6-5.0); SODIUM 144.5 mmol/L (137-145); TOTAL PROTEIN 5.6 g/dL (6.3-8.2)
[2018-09-27 04:07] LABS: ABSOLUTE LYMPHOCYTES# (MANUAL) 0.2 10^3/uL (0.5-4.7); ABSOLUTE MONOCYTES # (MANUAL) 1.1 10^3/uL (0.1-1.4); BAND NEUTROPHILS % (MANUAL) 4 % (3-5); BASOPHILS % (MANUAL) 0 % (0-2); EOSINOPHILS % (MANUAL) 0 % (0-6); LYMPHOCYTES % (MANUAL) 1 % (13-45); MONOCYTES % (MANUAL) 5 % (3-13); SEGMENTED NEUTROPHILS % (MAN) 90 % (42-78); TOTAL CELLS COUNTED 100
[2018-09-27 04:08] LABS: ANISOCYTOSIS 1+; PLATELET COMMENT INCREASED
[2018-09-27] MEDS: METHYLPREDNISOLONE INJ 40 MG/1 ML SDV IV SCH (05:28)
--- NOTE | 2018-09-27 07:20 | RADIOLOGY REPORT (SQ) ---
EXAM DESCRIPTION: XR CHEST 1 VIEW COMPLETED DATE/TME: 09/27/2018 06:00 CLINICAL HISTORY: 72 years Male, pna/cancer COMPARISON: 2 days prior. NUMBER OF VIEWS/TECHNIQUE: 1/AP FINDINGS: Moderate opacity-effusion of the right lower hemithorax.Small left medial retrocardiac opacity. Atherosclerotic vascular disease. Right cardiac margin is obscured. No pneumothorax. Stable bony thorax. IMPRESSION: No significant change.
--- NOTE | 2018-09-27 08:05 | EKG REPORT ---
SEVERITY:- ABNORMAL ECG - SINUS RHYTHM ANTEROLATERAL INJURY, PROBABLE EARLY ACUTE INFARCT PROBABLE ANTEROSEPTAL INFARCT, AGE INDETERM LATERAL LEADS ARE ALSO INVOLVED : Confirmed by: Mauricio Bond MD 27-Sep-2018 08:04:38
--- NOTE | 2018-09-27 08:06 | EKG REPORT ---
SEVERITY:- ABNORMAL ECG - SINUS RHYTHM ST ELEVATION, PROBABLE LATERAL INJURY : Confirmed by: Mauricio Bond MD 27-Sep-2018 08:05:05
--- NOTE | 2018-09-27 08:06 | EKG REPORT ---
SEVERITY:- ABNORMAL ECG - SINUS RHYTHM ST ELEVATION, PROBABLE LATERAL INJURY BORDERLINE ST ELEVATION, INFERIOR LEADS : Confirmed by: Mauricio Bond MD 27-Sep-2018 08:06:02
--- NOTE | 2018-09-27 08:08 | EKG REPORT ---
SEVERITY:- ABNORMAL ECG - SINUS RHYTHM ST ELEVATION, PROBABLE LATERAL INJURY VERSUS ACUTE PERICARDITIS, CLINICAL CORRELATION NEEDED. BORDERLINE ST ELEVATION, INFERIOR LEADS : Confirmed by: Mauricio Bond MD 27-Sep-2018 08:07:46
--- NOTE | 2018-09-27 08:09 | EKG REPORT ---
SEVERITY:- ABNORMAL ECG - SINUS RHYTHM ST ELEVATION, PROBABLE LATERAL INJURY VS PERICARDITIS, NEED CLINICAL CORRELATION BORDERLINE ST ELEVATION, INFERIOR LEADS : Confirmed by: Mauricio Bond MD 27-Sep-2018 08:08:47
--- NOTE | 2018-09-27 08:10 | EKG REPORT ---
SEVERITY:- ABNORMAL ECG - SINUS RHYTHM ST ELEVATION, PROBABLE LATERAL INJURY VS PERICARDITIS. BORDERLINE ST ELEVATION, INFERIOR LEADS : Confirmed by: Mauricio Bond MD 27-Sep-2018 08:09:40
[2018-09-27] MEDS: BUDESONIDE NEB 0.5 MG/2 ML AMPUL NEB SCH ×2 (08:12→20:39)
[2018-09-27] MEDS: ACETYLCYSTEINE 20% SOLN 800 MG/4 ML VIAL.NEB NEB SCH ×2 (08:12→20:39)
--- NOTE | 2018-09-27 08:54 | PDOC PROGRESS REPORT ---
Subjective Progress Note for:: 09/27/18 Subjective:: Patient is awake and talkative this morning off the BiPAP. remains at bedside. He denies new problems. He does not like the BiPAP machine. ROS: He is tolerating his tube feedings well. Denies pain. Reason For Visit: OPDIVO Physical Exam Vital Signs: Temp Pulse Resp BP Pulse Ox 97.5 F 77 24 H 120/76 92 09/27/18 08:00 09/27/18 08:00 09/27/18 08:00 09/27/18 08:00 09/27/18 08:00 Intake & Output 09/26/18 09/27/18 09/28/18 06:59 06:59 06:59 Intake Total 731 422 18 Output Total 525 1350 25 Balance 206 -928 -7 Weight 66.3 kg 66.3 kg General appearance: PRESENT: no acute distress, thin, well-developed Head exam: PRESENT: normocephalic Respiratory exam: PRESENT: decreased breath sounds - right base, unlabored Cardiovascular exam: PRESENT: RRR GI/Abdominal exam: PRESENT: soft. ABSENT: tenderness Neurological exam: PRESENT: alert, awake Psychiatric exam: PRESENT: appropriate affect Skin exam: PRESENT: normal color Results Laboratory Results: 09/27/18 03:38 09/27/18 03:38 09/27/18 09/27/18 09/27/18 03:38 03:38 03:38 WBC 21.9 H RBC 4.30 L Hgb 10.7 L Hct 34.3 L MCV 80 MCH 24.7 L MCHC 31.1 L RDW 17.3 H Plt Count 454 H Seg Neutrophils % Not Reportable Lymphocytes % Not Reportable Monocytes % Not Reportable Eosinophils % Not Reportable Basophils % Not Reportable Absolute Neutrophils Not Reportable Absolute Lymphocytes Not Reportable Absolute Monocytes Not Reportable Absolute Eosinophils Not Reportable Absolute Basophils Not Reportable Sodium 144.5 Potassium 4.2 Chloride 112 H Carbon Dioxide 27 Anion Gap 6 BUN 30 H Creatinine 0.47 L Est GFR ( Amer) > 60 Est GFR (Non-Af Amer) > 60 Glucose 161 H Lactic Acid 2.1 Calcium 8.6 Phosphorus 2.7 Magnesium 2.2 Total Bilirubin 0.2 AST 46 ALT 49 Alkaline Phosphatase 89 Total Protein 5.6 L Albumin 2.6 L 09/23/18 09/23/18 09/23/18 12:01 12:01 14:40 Creatine Kinase 34 L 33 L CK-MB (CK-2) 0.34 Troponin I < 0.012 09/23/18 09/25/18 09/25/18 14:40 04:47 04:47 Creatine Kinase 29 L CK-MB (CK-2) 0.23 0.59 Troponin I < 0.012 < 0.012 09/25/18 09/25/18 09/25/18 10:18 10:18 16:45 Creatine Kinase 36 L 51 L CK-MB (CK-2) 0.49 Troponin I < 0.012 09/25/18 09/26/18 16:45 03:37 Creatine Kinase CK-MB (CK-2) 1.68 Troponin I 0.221 0.092 Impressions: Chest/Abdomen CTA 09/23/18 14:16 IMPRESSION: 1. No PE. 2. Chronic small loculated effusion right lower lobe. Further consolidation with near complete collapse of the right lower lobe. 3. Unchanged mediastinal adenopathy. These were hypermetabolic on recent PET- CT. Chest CT 09/25/18 00:00 IMPRESSION: 1. Chronic collapse of the right lower lobe. Small loculated right pleural effusion not significantly changed. 2. Small pericardial effusion. Head CT 09/25/18 00:00 IMPRESSION: Mild age-appropriate atrophy TECHNICAL DOCUMENTATION: Quality ID # 436: Final reports with documentation of one or more dose reduction techniques (e.g., Automated exposure control, adjustment of the mA and/or kV according to patient size, use of iterative reconstruction technique) copyright 2011 [employer]- All Rights Reserved Chest X-Ray 09/27/18 06:00 IMPRESSION: No significant change. 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 Is this a current diagnosis for this admission?: Yes (2) Metastatic cancer to lung Qualifiers: Laterality: right Qualified Code(s): C78.01 - Secondary malignant neoplasm of right lung Is this a current diagnosis for this admission?: Yes Plan: We discussed starting the new treatment today. Patient agrees. I have spoken with both Dr. Fuentes and Dr. Sheriff. All are in agreement. Will stop Solumedrol today (only had 3 full days of this so should be OK to stop without taper) and start nivolumab. (3) Pneumonia Qualifiers: Pneumonia type: due to unspecified organism Laterality: right Lung location: lower lobe of lung Qualified Code(s): J18.1 - Lobar pneumonia, unspecified organism Is this a current diagnosis for this admission?: Yes Plan: Continue antibiotics for now. Patient understands that the pneumonia may never fully clear without cancer shrinking. He is also aware that symptoms may actually worsen with the nivolumab. Will watch very closely. (4) Pleural effusion, right Is this a current diagnosis for this admission?: Yes (5) ST elevation (STEMI) myocardial infarction Is this a current diagnosis for this admission?: Yes Plan: Continue colchicine for the pericarditis. - Plan Summary Plan Summary: Please call me with concerns.
[2018-09-27] MEDS ORDERED: NORMAL SALINE 250 ML IV PRN (09:06)
[2018-09-27] MEDS ORDERED: NIVOLUMAB 240 MG in NORMAL SALINE 50 ML IV PRN (09:07)
[2018-09-27] MEDS: GABAPENTIN 300 MG CAPSULE PO SCH ×2 (09:16→21:17)
[2018-09-27] MEDS: TIZANIDINE HCL 4 MG TABLET PO SCH ×2 (09:17→17:08)
[2018-09-27] MEDS: ASPIRIN 81 MG TABLET, ENT COATED PO SCH (09:17)
[2018-09-27] MEDS: COLCHICINE 0.6 MG TABLET PO SCH ×2 (09:17→21:18)
[2018-09-27] MEDS: CEFTRIAXONE SODIUM 1,000 MG in DEXTROSE 5%-WATER 50 ML IV SCH (09:18)
[2018-09-27] MEDS: FLUTICASONE/VILANTEROL 200-25 MCG/DOSE IH SCH (09:18)
[2018-09-27] MEDS: POLYETHYLENE GLYCOL 3350 POWDER 17 GM/1 PACKET PEG SCH (09:18)
[2018-09-27] MEDS: ENOXAPARIN SODIUM INJ 40 MG/0.4 ML DISP.SYRIN SUBCUT SCH (09:19)
[2018-09-27] MEDS: FAMOTIDINE INJ/PF 20 MG/2 ML SDV IV SCH ×2 (09:19→21:17)
[2018-09-27] MEDS: ALPRAZOLAM 0.5 MG TABLET PO SCH (09:26)
[2018-09-27] MEDS: LEVOFLOXACIN 750 MG/D5W RTU 750 MG/150 ML RTUPB IV SCH (11:30)
--- NOTE | 2018-09-27 11:47 | Progress Note ---
Provider Note Provider Note: ID Consult Note Asked to review pt's chart. Pt not seen or examined. Mr. 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 In July 2018 the patient was found to have a loculated R pleural effusion, dense airspace disease in the RLL, mediastinal adenopathy and subpleural nodules. He had exudative pleural fluid drained, and he subsequently had sampling performed of right sided mediastinal nodes that showed malignant cells. PET/CT as an outpatient a week before admission showed R sided metabolically active pleural nodules, the R mediastinal adenopathy, and the persistent dense consolidation in the right lung base. The patient presented to the hospital on 09/23/18 for admission with complaint of acute onset of chest pain and SOB. His initial exam was notable for lack of fever, presence of tachypnea and hypoxia, decreased breath sounds on the right, few scattered ronchi on left, diminished air entry and prolonged expiration of air, systolic murmur at LUSB, no rub, and diminished peripheral pulses. During his hospitalization he was found to have ST elevations, was diagnosed with p ericarditis and was treated with colchicine. Imaging of the chest included a CTA that did not show PE and that redemonstrated the chronic right basilar pleural effusion and the dense consolidation of the R lower lobe. Pt has had no fever. Blood cultures are negative. He has an elevated ESR of 110. His WBC count is in the 20k range. He has been receiving 40 mg q8h solumedrol since admission also. Impression/Recommendations The patient's SOB and CP may be due to pericarditis in conjunction with the progressive RLL atelectasis. ESR elevated, nonspecific, and could be related to malignancy and pericarditis. Likewise, WBC count elevation is also multifactorial and can be influenced by the steroid administration in addition to physiologic stress. I do not think it is a reliable marker to suggest deterioration in the patient's overall condition. Bronchial obstruction with atelectasis can be a noninfectious cause of chronic pneumonia, and it is not clear that there is a lung infection superimposed, but it is certainly possible. Choice of empiric antibiotics? Continuing treatment with either Rocephin or Levaquin might be appropriate. Atypical organisms are not likely to be responsible for postobstructive or lobar consolidation. Most oral anaerobes are microaerophilic streptococci that Rocephin is active against, and there is no established abscess to make a compelling argument to switch to Unasyn for broader anaerobic activity, but it can be considered if the patient is not felt to be responding as expected. Consider Augmentin for an oral switch option. MRSA is not a common cause of CAP, and it tends to cause severe necrotizing pneumonia, which is not present. I would not start empiric MRSA activity without a more suggestive clinical picture and microbiological data. Response is going to be slow regardless of what agent is selected. Duration of therapy? Would plan to treat for 10 days in total. Optimal duration of therapy for postobstructive pneumonia is not established. What I can say is that this may not respond as readily as a typical lobar community acquired pneumonia with 5-7 days of antibiotics, but the the appearance is also not consistent with a necrotizing pneumonia or lung abscess that would need to be be managed with 3 weeks or longer of antibiotics. Prolonged or repeated treatments can create antimicrobial resistance, and response to antimicrobial therapy is likely to be incomplete or slow unless the obstruction is relieved. Ipsilateral pleural effusion may be malignant or parapneumonic or an empyema, since he is being treated for pneumonia. If there is enough effusion on the right to drain, this might help with lung expansion and should be sent for gram stain and culture. If pt has an empyema it will alter duration of treatment. Will Mccarthy MD [facility] [place] Infectious Diseases pager [phone]
[2018-09-27] MEDS: DEXTROSE 5%-WATER 250 ML with PHENYLEPHRINE HCL 40 MG IV PRN ×2 (12:22)
--- NOTE | 2018-09-27 13:22 | PDOC CONSULTATION ---
Consultation Consult Date: 09/26/18 Attending physician:: CATRACHO BALDERAS Provider Consulted: MONSTER LARA Consult reason:: Respiratory failure/pneumonia History of Present Illness Admission Date/PCP: 09/23/18 16:39 KATARINA BELLA MD History of Present Illness: FELIPE PIERRE is a 72 year old male,Presented to emergency room with chest pain for 3hours. absolute work-up showed him to have a left lower lob subsequent work-up showed that he had a right lower lobe pneumonitis as well as persistent mediastinal adenopathy. Patient is 4 years status post treatment for squamous cell carcinoma of the lung however earlier this month it was determined by PET scan and bronchoscopy that the patient appeared to have a recurrence of his malignancy Past Medical History Cardiac Medical History: Reports: Peripheral Vascular Disease Denies: Coronary Artery Disease, Myocardial Infarction, Hypertension Pulmonary Medical History: Reports: Chronic Obstructive Pulmonary Disease (COPD), Pneumonia - hx of Denies: Asthma, Bronchitis Neurological Medical History: Denies: Seizures Endocrine Medical History: Denies: Diabetes Mellitus Type 1, Diabetes Mellitus Type 2, Hyperthyroidism, Hypothyroidism GI Medical History: Denies: Cirrhosis, Hepatitis, Hiatal Hernia Musculoskeltal Medical History: Reports: Arthritis Denies: Gout Skin Medical History: Denies: Eczema, Psoriasis Psychiatric Medical History: Denies: Depression Hematology: Denies: Anemia, Sickle Cell Disease, Bleeding Tendencies Past Surgical History Past Surgical History: Reports: Vascular Surgery - Right ileal to left femoral graft and right femoral stent, Other - Endoscopy with placement of PEG tube Denies: Pacemaker Social History Information Source: [facility], [facility] Records Lives with: Family Smoking Status: Former Smoker Cigarettes Packs Per Day: 1 Number of Years Smokin Last Time Smoked: 2014 Frequency of Alcohol Use: None Hx Recreational Drug Use: No Drugs: None Hx Prescription Drug Abuse: No Have you had any recent respiratory illnesses?: No Have you travelled outside of [place] in the past 12 months?: No - Advance Directive Resuscitation Status: Full Code Family History Family History: CAD, COPD, DM, Hypertension, Malignancy Parental Family History Reviewed: No Children Family History Reviewed: No Sibling(s) Family History Reviewed.: No Medication/Allergy Home Medications: Aspirin [Ecotrin] 81 mg PO DAILY 09/24/18 Fluticasone/Salmeterol [Advair 250-50 Diskus 14 Dose/Diskus] 1 puff IH Q12 09/24/18 Gabapentin [Neurontin 300 mg Capsule] 300 mg PO Q12 09/24/18 Mirtazapine [Remeron] 7.5 mg PO QHS 09/24/18 Oxycodone HCl [Oxy-Ir 5 mg Tablet] 10 mg PO Q6 09/24/18 Pilocarpine HCl [Salagen] 5 mg PO TID 09/24/18 Tizanidine HCl [Zanaflex] 2 mg PO BID 09/24/18 Allergies/Adverse Reactions: No Known Allergies Allergy (Verified 07/13/18 15:40) Review of Systems ROS unobtainable: Due to mental status Physical Exam Vital Signs: Temp Pulse Resp BP Pulse Ox 94.5 F L 65 23 H 127/76 H 99 09/26/18 08:00 09/26/18 08:54 09/26/18 08:12 09/26/18 08:00 09/26/18 08:12 Intake & Output 09/25/18 09/26/18 09/27/18 06:59 06:59 06:59 Intake Total 1530 731 Output Total 850 525 300 Balance 680 206 -300 Weight 67.9 kg 66.3 kg General appearance: PRESENT: no acute distress, disheveled, well-developed, well-nourished. ABSENT: cooperative Head exam: PRESENT: atraumatic, normocephalic Eye exam: PRESENT: conjunctiva pale, EOMI. ABSENT: nystagmus, periorbital swelling, scleral icterus Mouth exam: PRESENT: dry mucosa, neck supple, tongue midline - Status post surgical dissection Neck exam: ABSENT: carotid bruit, full ROM, JVD, lymphadenopathy, meningismus, tenderness, thyromegaly, tracheal deviation, tracheostomy, other Respiratory exam: PRESENT: decreased breath sounds, prolonged expiratory phas, rales, rhonchi, unlabored. ABSENT: retraction, stridor, tachypnea Cardiovascular exam: PRESENT: irregular rhythm Pulses: PRESENT: normal radial pulses GI/Abdominal exam: PRESENT: soft. ABSENT: mass, tenderness Gentrourinary exam: PRESENT: indwelling catheter Extremities exam: ABSENT: calf tenderness, clubbing, joint swelling Musculoskeletal exam: ABSENT: ambulatory, deformity, dislocation Neurological exam: PRESENT: altered Psychiatric exam: PRESENT: flat affect Skin exam: PRESENT: dry, warm Results Laboratory Results: 09/26/18 03:37 09/26/18 03:37 09/26/18 09/26/18 03:37 03:37 WBC 28.5 H RBC 4.05 L Hgb 10.1 L Hct 32.2 L MCV 80 MCH 25.0 L MCHC 31.4 L RDW 17.0 H Plt Count 389 Seg Neutrophils % Not Reportable Lymphocytes % Not Reportable Monocytes % Not Reportable Eosinophils % Not Reportable Basophils % Not Reportable Absolute Neutrophils Not Reportable Absolute Lymphocytes Not Reportable Absolute Monocytes Not Reportable Absolute Eosinophils Not Reportable Absolute Basophils Not Reportable Sodium 141.5 Potassium 4.2 Chloride 108 H Carbon Dioxide 26 Anion Gap 8 BUN 21 H Creatinine 0.47 L Est GFR ( Amer) > 60 Est GFR (Non-Af Amer) > 60 Glucose 177 H Calcium 9.2 C-Reactive Protein 57.3 H 09/23/18 09/23/18 09/23/18 12:01 12:01 14:40 Creatine Kinase 34 L 33 L CK-MB (CK-2) 0.34 Troponin I < 0.012 09/23/18 09/25/18 09/25/18 14:40 04:47 04:47 Creatine Kinase 29 L CK-MB (CK-2) 0.23 0.59 Troponin I < 0.012 < 0.012 09/25/18 09/25/18 09/25/18 10:18 10:18 16:45 Creatine Kinase 36 L 51 L CK-MB (CK-2) 0.49 Troponin I < 0.012 09/25/18 09/26/18 16:45 03:37 Creatine Kinase CK-MB (CK-2) 1.68 Troponin I 0.221 0.092 Impressions: Chest/Abdomen CTA 09/23/18 14:16 IMPRESSION: 1. No PE. 2. Chronic small loculated effusion right lower lobe. Further consolidation with near complete collapse of the right lower lobe. 3. Unchanged mediastinal adenopathy. These were hypermetabolic on recent PET- CT. Chest CT 09/25/18 00:00 IMPRESSION: 1. Chronic collapse of the right lower lobe. Small loculated right pleural effusion not significantly changed. 2. Small pericardial effusion. Head CT 09/25/18 00:00 IMPRESSION: Mild age-appropriate atrophy TECHNICAL DOCUMENTATION: Quality ID # 436: Final reports with documentation of one or more dose reduction techniques (e.g., Automated exposure control, adjustment of the mA and/or kV according to patient size, use of iterative reconstruction technique) copyright 2011 [employer]- All Rights Reserved Chest X-Ray 09/25/18 06:00 IMPRESSION: Clear lungs. Assessment & Plan - Diagnosis (1) Acute exacerbation of chronic obstructive pulmonary disease (COPD) Is this a current diagnosis for this admission?: Yes Plan: Chest physiotherapy right lateral and posterior chest wall Generic Name Dose Route Start Last Admin Trade Name Freq PRN Reason Stop Dose Admin Budesonide 0.5 mg 09/23/18 20:00 09/27/18 08:12 Pulmicort Neb 0.5 Mg/2 Ml Ampul NEB 10/23/18 19:59 0.5 mg RTBID KEENA Levalbuterol HCl 1.25 mg 09/24/18 00:00 09/27/18 08:12 Xopenex Neb 1.25 Mg/3 Ml Ampul NEB 10/24/18 00:00 1.25 mg RTQ8 KEENA Levalbuterol HCl 0.63 mg 09/23/18 19:27 09/26/18 20:30 Xopenex Neb 0.63 Mg/3 Ml Ampul NEB 10/23/18 19:26 0.63 mg RTQ2HP PRN SHORTNESS OF BREATH Fluticasone/Vilanterol 1 inh 09/25/18 10:00 09/26/18 10:52 Breo 200-25 Mcg Ellipta 14 Dose/Dpi IH 10/25/18 09:59 Not Given DAILY KEENA Acetylcysteine 600 mg 09/23/18 20:00 09/27/18 08:12 Mucomist 20% Soln 800 Mg/4 Ml NEB 10/23/18 19:59 600 mg RTBID KEENA (2) Metastatic cancer to lung Qualifiers: Laterality: right Qualified Code(s): C78.01 - Secondary malignant neoplasm of right lung Is this a current diagnosis for this admission?: Yes Plan: As per oncology (3) Right lower lobe pulmonary infiltrate Is this a current diagnosis for this admission?: Yes Plan: Post-obstructive penicillin and/or clindamycin - Time Total Critical Time (Minutes): 55
--- NOTE | 2018-09-27 19:07 | EKG REPORT ---
SEVERITY:- ABNORMAL ECG - SINUS RHYTHM BORDERLINE LEFT AXIS DEVIATION ABNRM R PROG, CONSIDER ASMI OR LEAD PLACEMENT : Confirmed by: Mauricio Bond MD 27-Sep-2018 19:06:46
[2018-09-27] MEDS: DOCUSATE SODIUM 100 MG/10 ML UDC PO SCH (20:06)
--- NOTE | 2018-09-27 20:30 | Progress Note ---
Provider Note Provider Note: CARDIOLOGY PROGRESS NOTE by election has been on 09/27/2018.
[2018-09-27] MEDS: LEVALBUTEROL HCL NEB 0.63 MG/3 ML AMPUL NEB PRN (20:39)
[2018-09-27] MEDS: MIRTAZAPINE 15 MG TABLET PO SCH (21:17)
[2018-09-28 04:24] LABS: ARTERIAL BLOOD BASE EXCESS 2.7 mmol/L; ARTERIAL BLOOD H2CO3 1.06 mmol/L (1.05-1.35); ARTERIAL BLOOD HCO3 25.9 mmol/L (20-24); ARTERIAL BLOOD O2 SATURATION 90.8 % (94-98); ARTERIAL BLOOD PCO2 35.1 mmHg (35-45); ARTERIAL BLOOD PH 7.49 (7.35-7.45); ARTERIAL BLOOD PO2 54.4 mmHg (80-100)
[2018-09-28 04:25] LABS: HEMATOCRIT 35.8 % (37.9-51.0); MEAN CORPUSCULAR HEMOGLOBIN 24.6 pg (27.0-33.4); MEAN CORPUSCULAR HGB CONC 30.7 g/dL (32.0-36.0); MEAN CORPUSCULAR VOLUME 80 fl (80-97); PLATELET COUNT 439 10^3/uL (150-450); RED BLOOD COUNT 4.47 10^6/uL (4.35-5.55); RED CELL DISTRIBUTION WIDTH 17.1 % (11.5-14.0); WHITE BLOOD COUNT 17.7 10^3/uL (4.0-10.5)
[2018-09-28 04:35] LABS: ARTERIAL BLOOD FIO2 3L
[2018-09-28 04:41] LABS: ALANINE AMINOTRANSFERASE 41 U/L (21-72); ALBUMIN 2.7 g/dL (3.5-5.0); ALKALINE PHOSPHATASE 82 U/L (38-126); ASPARTATE AMINO TRANSFERASE 29 U/L (17-59); BILIRUBIN,DIRECT 0.1 mg/dL (0.0-0.4); BILIRUBIN,TOTAL 0.1 mg/dL (0.2-1.3); BLOOD UREA NITROGEN 27 mg/dL (7-20); CALCIUM 8.3 mg/dL (8.4-10.2); CHLORIDE 110 mmol/L (98-107); GLUCOSE 145 mg/dL (75-110); SODIUM 141.5 mmol/L (137-145); TOTAL PROTEIN 5.7 g/dL (6.3-8.2)
[2018-09-28 04:48] LABS: ABSOLUTE LYMPHOCYTES# (MANUAL) 0.7 10^3/uL (0.5-4.7); ABSOLUTE MONOCYTES # (MANUAL) 0.4 10^3/uL (0.1-1.4); BAND NEUTROPHILS % (MANUAL) 4 % (3-5); BASOPHILS % (MANUAL) 0 % (0-2); EOSINOPHILS % (MANUAL) 0 % (0-6); LYMPHOCYTES % (MANUAL) 4 % (13-45); MONOCYTES % (MANUAL) 2 % (3-13); SEGMENTED NEUTROPHILS % (MAN) 90 % (42-78); TOTAL CELLS COUNTED 100
[2018-09-28 04:49] LABS: CARBON DIOXIDE 28 mmol/L (22-30); POTASSIUM 4.3 mmol/L (3.6-5.0)
[2018-09-28 04:50] LABS: ANION GAP 4 (5-19); ANISOCYTOSIS 1+; HYPOCHROMASIA 2+; PLATELET COMMENT ADEQUATE
[2018-09-28] MEDS: OXYCODONE HCL IR 5 MG TABLET PO PRN ×2 (06:46→19:07)
--- NOTE | 2018-09-28 07:48 | PDOC PROGRESS REPORT ---
Subjective Progress Note for:: 09/28/18 Subjective:: Patient feeling good this morning. States that he slept well without the BiPAP all night. Breathing is much improved. Nurses report that he has been slow to wean from nohemi, but hoping to stop this today. Otherwise, continues to improve. He and are very pleased with lung cancer treatment given yesterday. No problems. ROS: no diarrhea. tolerating tube feeds well. No pain. Reason For Visit: OPDIVO Physical Exam Vital Signs: Temp Pulse Resp BP Pulse Ox 96.6 F L 81 27 H 125/75 92 09/28/18 05:22 09/27/18 22:00 09/28/18 06:01 09/28/18 06:01 09/28/18 06:01 Intake & Output 09/27/18 09/28/18 09/29/18 06:59 06:59 06:59 Intake Total 422 432 Output Total 1350 625 Balance -928 -193 Weight 66.3 kg 67 kg General appearance: PRESENT: no acute distress, thin, well-developed Head exam: PRESENT: normocephalic Respiratory exam: PRESENT: decreased breath sounds - Right base, unchanged., tachypnea Cardiovascular exam: PRESENT: RRR GI/Abdominal exam: PRESENT: normal bowel sounds, soft. ABSENT: tenderness Extremities exam: ABSENT: pedal edema Neurological exam: PRESENT: alert, awake Psychiatric exam: PRESENT: appropriate affect Skin exam: PRESENT: normal color Results Laboratory Results: 09/28/18 03:52 09/28/18 03:52 09/28/18 09/28/18 09/28/18 03:52 03:52 03:58 WBC 17.7 H RBC 4.47 Hgb 11.0 L Hct 35.8 L MCV 80 MCH 24.6 L MCHC 30.7 L RDW 17.1 H Plt Count 439 Seg Neutrophils % Not Reportable Lymphocytes % Not Reportable Monocytes % Not Reportable Eosinophils % Not Reportable Basophils % Not Reportable Absolute Neutrophils Not Reportable Absolute Lymphocytes Not Reportable Absolute Monocytes Not Reportable Absolute Eosinophils Not Reportable Absolute Basophils Not Reportable Carbonic Acid 1.06 HCO3/H2CO3 Ratio 24:1 ABG pH 7.49 H ABG pCO2 35.1 ABG pO2 54.4 L ABG HCO3 25.9 H ABG O2 Saturation 90.8 L ABG Base Excess 2.7 FiO2 3L Sodium 141.5 Potassium 4.3 Chloride 110 H Carbon Dioxide 28 Anion Gap 4 L BUN 27 H Creatinine 0.48 L Est GFR ( Amer) > 60 Est GFR (Non-Af Amer) > 60 Glucose 145 H Calcium 8.3 L Magnesium 2.2 Total Bilirubin 0.1 L AST 29 ALT 41 Alkaline Phosphatase 82 Total Protein 5.7 L Albumin 2.7 L 09/23/18 09/23/18 09/23/18 12:01 12:01 14:40 Creatine Kinase 34 L 33 L CK-MB (CK-2) 0.34 Troponin I < 0.012 09/23/18 09/25/18 09/25/18 14:40 04:47 04:47 Creatine Kinase 29 L CK-MB (CK-2) 0.23 0.59 Troponin I < 0.012 < 0.012 09/25/18 09/25/18 09/25/18 10:18 10:18 16:45 Creatine Kinase 36 L 51 L CK-MB (CK-2) 0.49 Troponin I < 0.012 09/25/18 09/26/18 16:45 03:37 Creatine Kinase CK-MB (CK-2) 1.68 Troponin I 0.221 0.092 Impressions: Chest/Abdomen CTA 09/23/18 14:16 IMPRESSION: 1. No PE. 2. Chronic small loculated effusion right lower lobe. Further consolidation with near complete collapse of the right lower lobe. 3. Unchanged mediastinal adenopathy. These were hypermetabolic on recent PET- CT. Chest CT 09/25/18 00:00 IMPRESSION: 1. Chronic collapse of the right lower lobe. Small loculated right pleural e ffusion not significantly changed. 2. Small pericardial effusion. Head CT 09/25/18 00:00 IMPRESSION: Mild age-appropriate atrophy TECHNICAL DOCUMENTATION: Quality ID # 436: Final reports with documentation of one or more dose reduction techniques (e.g., Automated exposure control, adjustment of the mA and/or kV according to patient size, use of iterative reconstruction technique) copyright 2011 [employer] All Rights Reserved Chest X-Ray 09/27/18 06:00 IMPRESSION: No significant change. 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 Is this a current diagnosis for this admission?: Yes (2) Metastatic cancer to lung Qualifiers: Laterality: right Qualified Code(s): C78.01 - Secondary malignant neoplasm of right lung Is this a current diagnosis for this admission?: Yes Plan: First dose of nivolumab given yesterday. Hopefully will be able to continue this treatment as outpatient. (3) Pneumonia Qualifiers: Pneumonia type: due to unspecified organism Laterality: right Lung loca tion: lower lobe of lung Qualified Code(s): J18.1 - Lobar pneumonia, unspecified organism Is this a current diagnosis for this admission?: Yes Plan: Agree with ID recommendations to change to PO Augmentin through the PEG tube only. I will defer to Dr. Sheriff. (4) Pleural effusion, right Is this a current diagnosis for this admission?: Yes Plan: This has not been enough to tap. Thought to be more collapsed lung from the cancer. (5) ST elevation (STEMI) myocardial infarction Is this a current diagnosis for this admission?: Yes Plan: More likely pericarditis. Continue colchicine. Appreciate Dr. Fuentes's input. - Plan Summary Plan Summary: Hopefully can transfer out of ICU soon. May continue BiPAP if needed. WBC decreasing since steroids have stopped.
--- NOTE | 2018-09-28 08:02 | RADIOLOGY REPORT (SQ) ---
EXAM DESCRIPTION: CHEST SINGLE VIEW COMPLETED DATE/TIME: 09/28/2018 7:44 am REASON FOR STUDY: pna COMPARISON: 09/27/2018, 09/25/[address] chest 09/25/2018 EXAM PARAMETERS: NUMBER OF VIEWS: One view. TECHNIQUE: Single frontal radiographic view of the chest acquired. RADIATION DOSE: NA LIMITATIONS: None. FINDINGS: LUNGS AND PLEURA: Complete collapse of the right middle and lower lobe, trace right pleura l effusion persists. Trace left pleural effusion with minimal left retrocardiac atelectasis. MEDIASTINUM AND HILAR STRUCTURES: No masses. Contour normal. HEART AND VASCULAR STRUCTURES: Stable mild cardiomegaly/pericardial effusion BONES: No acute findings. HARDWARE: None in the chest. OTHER: No other significant finding. IMPRESSION: Persistent right middle and lower lobe collapse and consolidation. Trace bilateral pleu ral effusions. TECHNICAL DOCUMENTATION: JOB ID: [id number] [employer]- All Rights Reserved Reading location - IP/workstation name: [email or web address]
[2018-09-28] MEDS: ACETYLCYSTEINE 20% SOLN 800 MG/4 ML VIAL.NEB NEB SCH (08:28)
[2018-09-28] MEDS: BUDESONIDE NEB 0.5 MG/2 ML AMPUL NEB SCH (08:28)
[2018-09-28] MEDS: LEVALBUTEROL HCL NEB 1.25 MG/3 ML AMPUL NEB SCH ×2 (08:28→17:36)
[2018-09-28] MEDS: GABAPENTIN 300 MG CAPSULE PO SCH ×2 (11:27→22:16)
[2018-09-28] MEDS: CEFTRIAXONE SODIUM 1,000 MG in DEXTROSE 5%-WATER 50 ML IV SCH (11:27)
[2018-09-28] MEDS: 1/2 NORMAL SALINE 1,000 ML IV PRN (11:27)
[2018-09-28] MEDS: FAMOTIDINE INJ/PF 20 MG/2 ML SDV IV SCH ×2 (11:27→22:16)
[2018-09-28] MEDS: ASPIRIN 81 MG TABLET, ENT COATED PO SCH (11:28)
[2018-09-28] MEDS: TIZANIDINE HCL 4 MG TABLET PO SCH ×2 (11:28→19:08)
[2018-09-28] MEDS: COLCHICINE 0.6 MG TABLET PO SCH ×2 (11:29→22:16)
[2018-09-28] MEDS: POLYETHYLENE GLYCOL 3350 POWDER 17 GM/1 PACKET PEG SCH (11:30)
[2018-09-28] MEDS: FLUTICASONE/VILANTEROL 200-25 MCG/DOSE IH SCH (11:30)
[2018-09-28] MEDS: DOCUSATE SODIUM 100 MG/10 ML UDC PO SCH ×2 (11:30→19:10)
[2018-09-28] MEDS: LEVOFLOXACIN 750 MG/D5W RTU 750 MG/150 ML RTUPB IV SCH (11:31)
[2018-09-28] MEDS: ENOXAPARIN SODIUM INJ 40 MG/0.4 ML DISP.SYRIN SUBCUT SCH (11:31)
--- NOTE | 2018-09-28 16:25 | EKG REPORT ---
SEVERITY:- OTHERWISE NORMAL ECG - SINUS RHYTHM BORDERLINE LEFT AXIS DEVIATION : Confirmed by: Mauricio Bond MD 28-Sep-2018 16:24:40
--- NOTE | 2018-09-28 19:11 | PDOC PROGRESS REPORT ---
Subjective Progress Note for:: 09/27/18 Subjective:: Patient is more awake and alert today. His voice is much stronger. Reason For Visit: OPDIVO Physical Exam Vital Signs: Temp Pulse Resp BP Pulse Ox 97.3 F 87 22 H 91/62 L 92 09/27/18 12:00 09/27/18 12:00 09/27/18 12:29 09/27/18 12:29 09/27/18 12:29 Intake & Output 09/26/18 09/27/18 09/28/18 06:59 06:59 06:59 Intake Total 731 422 197 Output Total 525 1350 125 Balance 206 -928 72 Weight 66.3 kg 66.3 kg General appearance: PRESENT: no acute distress, cooperative, well-developed Head exam: PRESENT: atraumatic, normocephalic Eye exam: PRESENT: conjunctiva pink. ABSENT: scleral icterus Ear exam: PRESENT: normal external ear exam Mouth exam: PRESENT: moist, tongue midline Respiratory exam: PRESENT: decreased breath sounds - Right base, rhonchi - Faint on the right, symmetrical, unlabored. ABSENT: rales, tachypnea, wheezes Cardiovascular exam: PRESENT: RRR, +S1, +S2 GI/Abdominal exam: PRESENT: normal bowel sounds, soft, other - PEG tube in place. ABSENT: distended, tenderness Rectal exam: PRESENT: deferred Extremities exam: ABSENT: pedal edema, tenderness Musculoskeletal exam: PRESENT: ambulatory Neurological exam: PRESENT: alert, awake, oriented to person, oriented to place, oriented to time, oriented to situation, CN II-XII grossly intact Psychiatric exam: PRESENT: flat affect. ABSENT: agitated, anxious Focused psych exam: ABSENT: delusional, restlessness Results Laboratory Results: 09/27/18 03:38 09/27/18 03:38 09/27/18 09/27/18 09/27/18 03:38 03:38 03:38 WBC 21.9 H RBC 4.30 L Hgb 10.7 L Hct 34.3 L MCV 80 MCH 24.7 L MCHC 31.1 L RDW 17.3 H Plt Count 454 H Seg Neutrophils % Not Reportable Lymphocytes % Not Reportable Monocytes % Not Reportable Eosinophils % Not Reportable Basophils % Not Reportable Absolute Neutrophils Not Reportable Absolute Lymphocytes Not Reportable Absolute Monocytes Not Reportable Absolute Eosinophils Not Reportable Absolute Basophils Not Reportable Sodium 144.5 Potassium 4.2 Chloride 112 H Carbon Dioxide 27 Anion Gap 6 BUN 30 H Creatinine 0.47 L Est GFR ( Amer) > 60 Est GFR (Non-Af Amer) > 60 Glucose 161 H Lactic Acid 2.1 Calcium 8.6 Phosphorus 2.7 Magnesium 2.2 Total Bilirubin 0.2 AST 46 ALT 49 Alkaline Phosphatase 89 Total Protein 5.6 L Albumin 2.6 L 09/23/18 09/23/18 09/23/18 12:01 12:01 14:40 Creatine Kinase 34 L 33 L CK-MB (CK-2) 0.34 Troponin I < 0.012 09/23/18 09/25/18 09/25/18 14:40 04:47 04:47 Creatine Kinase 29 L CK-MB (CK-2) 0.23 0.59 Troponin I < 0.012 < 0.012 09/25/18 09/25/18 09/25/18 10:18 10:18 16:45 Creatine Kinase 36 L 51 L CK-MB (CK-2) 0.49 Troponin I < 0.012 09/25/18 09/26/18 16:45 03:37 Creatine Kinase CK-MB (CK-2) 1.68 Troponin I 0.221 0.092 Impressions: Chest/Abdomen CTA 09/23/18 14:16 IMPRESSION: 1. No PE. 2. Chronic small loculated effusion right lower lobe. Further consolidation with near complete collapse of the right lower lobe. 3. Unchanged mediastinal adenopathy. These were hypermetabolic on recent PET- CT. Chest CT 09/25/18 00:00 IMPRESSION: 1. Chronic collapse of the right lower lobe. Small loculated right pleural effusion not significantly changed. 2. Small pericardial effusion. Head CT 09/25/18 00:00 IMPRESSION: Mild age-appropriate atrophy TECHNICAL DOCUMENTATION: Quality ID # [id number]: Final reports with documentation of one or more dose reduction techniques (e.g., Automated exposure control, adjustment of the mA and/or kV according to patient size, use of iterative reconstruction technique) copyright 2011 [employer]- All Rights Reserved Chest X-Ray 09/27/18 06:00 IMPRESSION: No significant change. Assessment and Plan - Diagnosis (1) Acute exacerbation of chronic obstructive pulmonary disease (COPD) Is this a current diagnosis for this admission?: Yes Plan: 09/24/2018-in addition to nebulizer treatments I have added Solu-Medrol 40 mill grams IV every 8. 09/25/2018-patient improving with his acute exacerbation of COPD. We are raman nuing Solu-Medrol at this time duo nebs and BiPAP therapy. 09/26/2018-the patient remains on Solu-Medrol. He is now on nasal cannula and uses the BiPAP at night and as needed. He remains on systemic steroids, nebulized treatments and his inhaler. 09/27/2018-we will begin to taper steroid. Consistently on nasal cannula. (2) Leukocytosis Qualifiers: Leukocytosis type: unspecified Qualified Code(s): D72.829 - Elevated white blood cell count, unspecified Is this a current diagnosis for this admission?: Yes Plan: 09/24/2018-patient's white count has increased from yesterday. In addition to Levaquin I have added Rocephin 1 g IV daily. We will continue follow with daily CBCs 09/25/2018-improved slightly today. Continue to follow daily CBCs continue antibiotic therapy. 09/26/2018-the patient's white blood cell count continues to increase. This could be the steroids but typically it would not push his white blood cell count 28,000. I have asked for an ID consult and was considering adding vancomycin and possibly discontinuing the ceftriaxone or levofloxacin. I await the evaluation by Dr. Mccarthy. 09/27/2018-continues to improve (3) Metastatic cancer to lung Qualifiers: Laterality: right Qualified Code(s): C78.01 - Secondary malignant neoplasm of right lung Is this a current diagnosis for this admission?: Yes Plan: 09/24/2018-await Dr. Hoff for consultation. 09/25/2018-Dr. Hoff seen patient. She would like to start him on chemotherapy tomorrow. We will continue to follow 09/26/2018-please also see Dr. Rodrigues's note. She was hoping to start the patient on Optiva today. Because the patient is extremely weak the patient and his asked that it be delayed till tomorrow. I would like to identify the etiology of the increasing white blood cell count if possible. Will defer chemotherapy to Dr. Rodrigues and continue to evaluate the patient's white blood cell count. 09/27/2018-the patient had his dose of Optiva today. He seems to be tolerating it without difficulty. (4) Pneumonia Qualifiers: Pneumonia type: due to unspecified organism Laterality: right Lung location: lower lobe of lung Qualified Code(s): J18.1 - Lobar pneumonia, unspecified organism Is this a current diagnosis for this admission?: Yes Plan: Patient has shortness of breath, chest pain, leukocytosis and consolidation on CT scan. Patient empirical started on Levaquin. 09/24/2018-leukocytosis worsened this morning by 5000. In addition to Levaquin I have added Rocephin IV 1 g daily we will continue to follow daily CBCs await culture for offending organism. 09/25/2018-slightly improved this morning. Leukocytosis has slightly improved. Patient continues on Levaquin and Rocephin. I will repeat a CT of his chest this morning with IV contrast. Will await results. 09/26/2018-the CT scan yesterday revealed continued collapse of the right lower lobe. This could be a postobstructive pneumonia with the recurrent malignancy. Awaiting infectious disease input regarding antibiotic therapy. He is making some improvement with regard to his respiratory status as he is now on nasal cannula during part of the day. 09/27/2018-possibly a postobstructive pneumonia. Appreciate input from Dr. Mccarthy of infectious diseases. As the patient is clinically improving we will hold the course with his current antibiotic regimen. (5) Pericarditis Qualifiers: Pericarditis type: associated with other disease Chronicity: acute Qualified Code(s): I30.9 - Acute pericarditis, unspecified Is this a current diagnosis for this admission?: Yes Plan: 09/25/2018-patient had an event this a.m. that resembled a STEMI. I consulted Dr. Guajardo and upon his interpretation of the EKG patient has pericarditis. At this time we are going to repeat his CT of his chest with IV contrast and obtain a stat echocardiogram. Further recognitions will be made at that time. 09/26/2018-the patient was diagnosed with pericarditis yesterday. Cardiology has seen the patient. He is currently on colchicine. With his recurrent malignancy it is possibly a parapneumonic issue versus malignancy. We will continue anti- inflammatory therapy and monitor the C-reactive protein for improvement. 09/27/2018-no change in treatment regimen (6) Hypothermia Qualifiers: Encounter type: initial encounter Qualified Code(s): T68.XXXA - Hypothermia, initial encounter Is this a current diagnosis for this admission?: Yes Plan: 09/26/2018-the patient was hypothermic on admission. This certainly could be from the infection. He has been on a bear hugger. His core temperature is improved and is currently normal. We will continue to monitor. 09/27/2018-resolved (7) Dehydration Is this a current diagnosis for this admission?: Yes Plan: 09/27/2018-the patient's BUN is slightly higher today. I will try and give more fluids and recheck tomorrow. - Time Time Spent with patient: 25-34 minutes Medications reviewed and adjusted accordingly: Yes
--- NOTE | 2018-09-28 19:17 | PDOC PROGRESS REPORT ---
Subjective Progress Note for:: 09/28/18 Subjective:: Patient is sitting up in bed resting comfortably. He was able to walk around the unit with physical therapy. Reason For Visit: PNEUMONIA Physical Exam Vital Signs: Temp Pulse Resp BP Pulse Ox 97.5 F 91 26 H 102/71 97 09/28/18 12:00 09/28/18 14:00 09/28/18 14:00 09/28/18 14:00 09/28/18 14:00 Intake & Output 09/27/18 09/28/18 09/29/18 06:59 06:59 06:59 Intake Total 422 432 7 Output Total 1350 625 550 Balance -172 -193 -543 Weight 66.3 kg 67 kg General appearance: PRESENT: no acute distress, cooperative, well-developed Head exam: PRESENT: atraumatic, normocephalic Eye exam: PRESENT: conjunctiva pink. ABSENT: scleral icterus Ear exam: PRESENT: normal external ear exam Mouth exam: PRESENT: dry mucosa, tongue midline Respiratory exam: PRESENT: rhonchi - At the right base, symmetrical, unlabored. ABSENT: rales, tachypnea, wheezes Cardiovascular exam: PRESENT: RRR, +S1, +S2 GI/Abdominal exam: PRESENT: normal bowel sounds, soft, other - PEG tube in place. ABSENT: guarding, tenderness Rectal exam: PRESENT: deferred Extremities exam: ABSENT: pedal edema Neurological exam: PRESENT: alert, awake, oriented to person, oriented to place, oriented to time, oriented to situation, CN II-XII grossly intact Psychiatric exam: PRESENT: appropriate affect. ABSENT: agitated, anxious Focused psych exam: ABSENT: delusional, restlessness Results Laboratory Results: 09/28/18 03:52 09/28/18 03:52 09/28/18 09/28/18 09/28/18 03:52 03:52 03:58 WBC 17.7 H RBC 4.47 Hgb 11.0 L Hct 35.8 L MCV 80 MCH 24.6 L MCHC 30.7 L RDW 17.1 H Plt Count 439 Seg Neutrophils % Not Reportable Lymphocytes % Not Reportable Monocytes % Not Reportable Eosinophils % Not Reportable Basophils % Not Reportable Absolute Neutrophils Not Reportable Absolute Lymphocytes Not Reportable Absolute Monocytes Not Reportable Absolute Eosinophils Not Reportable Absolute Basophils Not Reportable Carbonic Acid 1.06 HCO3/H2CO3 Ratio 24:1 ABG pH 7.49 H ABG pCO2 35.1 ABG pO2 54.4 L ABG HCO3 25.9 H ABG O2 Saturation 90.8 L ABG Base Excess 2.7 FiO2 3L Sodium 141.5 Potassium 4.3 Chloride 110 H Carbon Dioxide 28 Anion Gap 4 L BUN 27 H Creatinine 0.48 L Est GFR ( Amer) > 60 Est GFR (Non-Af Amer) > 60 Glucose 145 H Calcium 8.3 L Magnesium 2.2 Total Bilirubin 0.1 L AST 29 ALT 41 Alkaline Phosphatase 82 Total Protein 5.7 L Albumin 2.7 L 09/23/18 14:40 Blood Blood Culture - Final NO GROWTH IN 5 DAYS 09/23/18 13:51 Blood Blood Culture - Final NO GROWTH IN 5 DAYS 09/23/18 09/23/18 09/23/18 12:01 12:01 14:40 Creatine Kinase 34 L 33 L CK-MB (CK-2) 0.34 Troponin I < 0.012 09/23/18 09/25/18 09/25/18 14:40 04:47 04:47 Creatine Kinase 29 L CK-MB (CK-2) 0.23 0.59 Troponin I < 0.012 < 0.012 09/25/18 09/25/18 09/25/18 10:18 10:18 16:45 Creatine Kinase 36 L 51 L CK-MB (CK-2) 0.49 Troponin I < 0.012 09/25/18 09/26/18 16:45 03:37 Creatine Kinase CK-MB (CK-2) 1.68 Troponin I 0.221 0.092 Impressions: Chest/Abdomen CTA 09/23/18 14:16 IMPRESSION: 1. No PE. 2. Chronic small loculated effusion right lower lobe. Further consolidation with near complete collapse of the right lower lobe. 3. Unchanged mediastinal adenopathy. These were hypermetabolic on recent PET- CT. Chest CT 09/25/18 00:00 IMPRESSION: 1. Chronic collapse of the right lower lobe. Small loculated right pleural effusion not significantly changed. 2. Small pericardial effusion. Head CT 09/25/18 00:00 IMPRESSION: Mild age-appropriate atrophy TECHNICAL DOCUMENTATION: Quality ID # 436: Final reports with documentation of one or more dose reduction techniques (e.g., Automated exposure control, adjustment of the mA and/or kV according to patient size, use of iterative reconstruction technique) copyright 2011 [employer]- All Rights Reserved Chest X-Ray 09/28/18 06:00 IMPRESSION: Persistent right middle and lower lobe collapse and consolidation. Trace bilateral pleural effusions. Assessment and Plan - Diagnosis (1) Acute exacerbation of chronic obstructive pulmonary disease (COPD) Is this a current diagnosis for this admission?: Yes Plan: 09/24/2018-in addition to nebulizer treatments I have added Solu-Medrol 40 mill grams IV every 8. 09/25/2018-patient improving with his acute exacerbation of COPD. We are continuing Solu-Medrol at this time duo nebs and BiPAP therapy. 09/26/2018-the patient remains on Solu-Medrol. He is now on nasal cannula and uses the BiPAP at night and as needed. He remains on systemic steroids, nebulized treatments and his inhaler. 09/27/2018-we will begin to taper steroid. Consistently on nasal cannula. 09/28/2018-the patient is doing well on nasal cannula. Patient is actually on inhaled steroids and not systemic steroids. I will stop the Pulmicort as he is on the Brio Ellipta. (2) Leukocytosis Qualifiers: Leukocytosis type: unspecified Qualified Code(s): D72.829 - Elevated white blood cell count, unspecified Is this a current diagnosis for this admission?: Yes Plan: 09/24/2018-patient's white count has increased from yesterday. In addition to Levaquin I have added Rocephin 1 g IV daily. We will continue follow with daily CBCs 09/25/2018-improved slightly today. Continue to follow daily CBCs continue antibiotic therapy. 09/26/2018-the patient's white blood cell count continues to increase. This could be the steroids but typically it would not push his white blood cell count 28,000. I have asked for an ID consult and was considering adding vancomycin and possibly discontinuing the ceftriaxone or levofloxacin. I await the evaluation by Dr. Mccarthy. 09/27/2018-continues to improve 09/28/2018-white blood cell count is below 20,000 and continues to improve (3) Metastatic cancer to lung Qualifiers: Laterality: right Qualified Code(s): C78.01 - Secondary malignant neoplasm of right lung Is this a current diagnosis for this admission?: Yes Plan: 09/24/2018-await Dr. Hoff for consultation. 09/25/2018-Dr. Hoff seen patient. She would like to start him on chemotherapy tomorrow. We will continue to follow 09/26/2018-please also see Dr. Rodrigues's note. She was hoping to start the patient on Optiva today. Because the patient is extremely weak the patient and his asked that it be delayed till tomorrow. I would like to identify the etiology of the increasing white blood cell count if possible. Will defer chemotherapy to Dr. Rodrigues and continue to evaluate the patient's white blood cell count. 09/27/2018-the patient had his dose of Optiva today. He seems to be tolerating it without difficulty. 09/28/2018-the patient is 1 day post Opdivo dosing. No adverse effects. (4) Pneumonia Qualifiers: Pneumonia type: due to unspecified organism Laterality: right Lung location: lower lobe of lung Qualified Code(s): J18.1 - Lobar pneumonia, unspecified organism Is this a current diagnosis for this admission?: Yes Plan: Patient has shortness of breath, chest pain, leukocytosis and consolidation on CT scan. Patient empirical started on Levaquin. 09/24/2018-leukocytosis worsened this morning by 5000. In addition to Levaquin I have added Rocephin IV 1 g daily we will continue to follow daily CBCs await culture for offending organism. 09/25/2018-slightly improved this morning. Leukocytosis has slightly improved. Patient continues on Levaquin and Rocephin. I will repeat a CT of his chest this morning with IV contrast. Will await results. 09/26/2018-the CT scan yesterday revealed continued collapse of the right lower lobe. This could be a postobstructive pneumonia with the recurrent malignancy. Awaiting infectious disease input regarding antibiotic therapy. He is making some improvement with regard to his respiratory status as he is now on nasal cannula during part of the day. 09/27/2018-possibly a postobstructive pneumonia. Appreciate input from Dr. Mccarthy of infectious diseases. As the patient is clinically improving we will hold the course with his current antibiotic regimen. 09/28/2018-the patient continues to improve. Would plan on 10 days total of IV antibiotics. (5) Pericarditis Qualifiers: Pericarditis type: associated with other disease Chronicity: acute Qualified Code(s): I30.9 - Acute pericarditis, unspecified Is this a current diagnosis for this admission?: Yes Plan: 09/25/2018-patient had an event this a.m. that resembled a STEMI. I consulted Dr. Guajardo and upon his interpretation of the EKG patient has pericarditis. At this time we are going to repeat his CT of his chest with IV contrast and obtain a stat echocardiogram. Further recognitions will be made at that time. 09/26/2018-the patient was diagnosed with pericarditis yesterday. Cardiology has seen the patient. He is currently on colchicine. With his recurrent malignancy it is possibly a parapneumonic issue versus malignancy. We will continue anti- inflammatory therapy and monitor the C-reactive protein for improvement. 09/27/2018-no change in treatment regimen 09/28/2018-continue colchicine. I will check a C-reactive protein tomorrow. (6) Hypothermia Qualifiers: Encounter type: initial encounter Qualified Code(s): T68.XXXA - Hypothermia, initial encounter Is this a current diagnosis for this admission?: Yes Plan: 09/26/2018-the patient was hypothermic on admission. This certainly could be from the infection. He has been on a bear hugger. His core temperature is improved and is currently normal. We will continue to monitor. 09/27/2018-resolved - Time Time Spent with patient: 15-24 minutes Medications reviewed and adjusted accordingly: Yes
[2018-09-28] MEDS: MIRTAZAPINE 15 MG TABLET PO SCH (22:16)
[2018-09-29 06:50] LABS: ARTERIAL BLOOD BASE EXCESS -0.8 mmol/L; ARTERIAL BLOOD FIO2 30%; ARTERIAL BLOOD H2CO3 1.01 mmol/L (1.05-1.35); ARTERIAL BLOOD HCO3 22.6 mmol/L (20-24); ARTERIAL BLOOD O2 SATURATION 93.7 % (94-98); ARTERIAL BLOOD PCO2 33.4 mmHg (35-45); ARTERIAL BLOOD PH 7.45 (7.35-7.45); ARTERIAL BLOOD PO2 64.5 mmHg (80-100); ARTERIAL BLOOD TOTAL CO2 23.7 mmol/L (23-27)
[2018-09-29 07:09] LABS: HEMATOCRIT 36.4 % (37.9-51.0); HEMOGLOBIN 11.4 g/dL (13.5-17.0); MEAN CORPUSCULAR HGB CONC 31.3 g/dL (32.0-36.0); MEAN CORPUSCULAR VOLUME 80 fl (80-97); PLATELET COUNT 398 10^3/uL (150-450); RED BLOOD COUNT 4.54 10^6/uL (4.35-5.55); RED CELL DISTRIBUTION WIDTH 17.1 % (11.5-14.0); WHITE BLOOD COUNT 14.2 10^3/uL (4.0-10.5)
[2018-09-29 07:35] LABS: BLOOD UREA NITROGEN 25 mg/dL (7-20); C-REACTIVE PROTEIN 11.2 mg/L (<10.0); POTASSIUM 4.3 mmol/L (3.6-5.0)
[2018-09-29 07:38] LABS: CARBON DIOXIDE 26 mmol/L (22-30); CHLORIDE 112 mmol/L (98-107); SODIUM 140.2 mmol/L (137-145)
[2018-09-29 07:40] LABS: ANION GAP 2 (5-19); GLUCOSE 69 mg/dL (75-110)
[2018-09-29 08:26] LABS: ABSOLUTE LYMPHOCYTES# (MANUAL) 0.4 10^3/uL (0.5-4.7); ANISOCYTOSIS 1+; BASOPHILS % (MANUAL) 0 % (0-2); EOSINOPHILS % (MANUAL) 0 % (0-6); LYMPHOCYTES % (MANUAL) 3 % (13-45); MONOCYTES % (MANUAL) 7 % (3-13); NUCLEATED RED BLOOD CELLS 1 /100 WBC (0); PLATELET COMMENT ADEQUATE; SEGMENTED NEUTROPHILS % (MAN) 90 % (42-78); TOTAL CELLS COUNTED 100
[2018-09-29 08:27] LABS: PLATELET LARGE PRESENT; POLYCHROMASIA SLIGHT; TARGET CELLS SLIGHT
--- NOTE | 2018-09-29 09:02 | PDOC PROGRESS REPORT ---
Subjective Progress Note for:: 09/29/18 Subjective:: Patient seen out of the ICU today! He is feeling much better. Has not needed the BiPAP anymore. However, he had marked, watery diarrhea last night. He continues to tolerate his regular tube feeds. He is asking if he may have the port placed now. He was able to walk with physical therapy yesterday. ROS: No chest pain. No nausea. No fevers/chills. Reason For Visit: PNEUMONIA Physical Exam Vital Signs: Temp Pulse Resp BP Pulse Ox 97.7 F 76 20 115/70 95 09/29/18 00:00 09/29/18 00:00 09/29/18 00:00 09/29/18 00:00 09/29/18 00:00 Intake & Output 09/28/18 09/29/18 09/30/18 06:59 06:59 06:59 Intake Total 432 57 Output Total 625 1075 Balance -193 -1018 Weight 67 kg 66.1 kg General appearance: PRESENT: no acute distress, thin Head exam: PRESENT: normocephalic Teeth exam: PRESENT: edentulous Respiratory exam: PRESENT: unlabored Extremities exam: ABSENT: pedal edema Neurological exam: PRESENT: alert, awake, oriented to person, oriented to place, oriented to time, oriented to situation Psychiatric exam: PRESENT: appropriate affect Skin exam: PRESENT: normal color Results Laboratory Results: 09/29/18 06:03 09/29/18 06:03 09/29/18 09/29/18 09/29/18 06:03 06:03 06:28 WBC 14.2 H RBC 4.54 Hgb 11.4 L Hct 36.4 L MCV 80 MCH 25.0 L MCHC 31.3 L RDW 17.1 H Plt Count 398 Seg Neutrophils % Not Reportable Lymphocytes % Not Reportable Monocytes % Not Reportable Eosinophils % Not Reportable Basophils % Not Reportable Absolute Neutrophils Not Reportable Absolute Lymphocytes Not Reportable Absolute Monocytes Not Reportable Absolute Eosinophils Not Reportable Absolute Basophils Not Reportable Carbonic Acid 1.01 L HCO3/H2CO3 Ratio 22:1 ABG pH 7.45 ABG pCO2 33.4 L ABG pO2 64.5 L ABG HCO3 22.6 ABG O2 Saturation 93.7 L ABG Base Excess -0.8 FiO2 30% Sodium 140.2 Potassium 4.3 Chloride 112 H Carbon Dioxide 26 Anion Gap 2 L BUN 25 H Creatinine 0.52 Est GFR ( Amer) > 60 Est GFR (Non-Af Amer) > 60 Glucose 69 L Calcium 8.0 L Magnesium 2.2 C-Reactive Protein 11.2 H 09/23/18 14:40 Blood Blood Culture - Final NO GROWTH IN 5 DAYS 09/23/18 13:51 Blood Blood Culture - Final NO GROWTH IN 5 DAYS 09/23/18 09/23/18 09/23/18 12:01 12:01 14:40 Creatine Kinase 34 L 33 L CK-MB (CK-2) 0.34 Troponin I < 0.012 09/23/18 09/25/18 09/25/18 14:40 04:47 04:47 Creatine Kinase 29 L CK-MB (CK-2) 0.23 0.59 Troponin I < 0.012 < 0.012 09/25/18 09/25/18 09/25/18 10:18 10:18 16:45 Creatine Kinase 36 L 51 L CK-MB (CK-2) 0.49 Troponin I < 0.012 09/25/18 09/26/18 16:45 03:37 Creatine Kinase CK-MB (CK-2) 1.68 Troponin I 0.221 0.092 Impressions: Chest/Abdomen CTA 09/23/18 14:16 IMPRESSION: 1. No PE. 2. Chronic small loculated effusion right lower lobe. Further consolidation with near complete collapse of the right lower lobe. 3. Unchanged mediastinal adenopathy. These were hypermetabolic on recent PET- CT. Chest CT 09/25/18 00:00 IMPRESSION: 1. Chronic collapse of the right lower lobe. Small loculated right pleural effusion not significantly changed. 2. Small pericardial effusion. 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 Plan cycle #2 in 3 weeks. (3) Pneumonia Qualifiers: Pneumonia type: due to unspecified organism Laterality: right Lung location: lower lobe of lung Qualified Code(s): J18.1 - Lobar pneumonia, unspecified organism Is this a current diagnosis for this admission?: Yes Plan: Still on IV antibiotics. Hopefully will be able to transition to PO today. (4) Pleural effusion, right Is this a current diagnosis for this admission?: Yes (5) ST elevation (STEMI) myocardial infarction Is this a current diagnosis for this admission?: Yes Plan: Pericarditis improving with Colchicine. No steroids while on Opdivo initially, if possible. (6) Diarrhea Qualifiers: Diarrhea type: unspecified type Qualified Code(s): R19.7 - Diarrhea, unspecified Is this a current diagnosis for this admission?: Yes Plan: May be due to antibiotics, but may also be side effect of opdivo. I would check C.dif and start imodium. If continues, then may need to restart steroids. Will watch closely. - Plan Summary Plan Summary: Blood cultures have remained negative. No fevers. He should be stable for PORT placement in the next day or so. I will reconsult surgery for this. Discussed with Dr. Rahman. Continue physical therapy. Continue regular tube feedings for now.
--- NOTE | 2018-09-29 09:08 | RADIOLOGY REPORT (SQ) ---
EXAM DESCRIPTION: CHEST SINGLE VIEW COMPLETED DATE/TIME: 09/29/2018 8:53 am REASON FOR STUDY: resp failure/pna/cancer COMPARISON: 09/28/2018, CT chest, 09/25/2018 EXAM PARAMETERS: NUMBER OF VIEWS: One view. TECHNIQUE: Single frontal radiographic view of the chest acquired. RADIATION DOSE: NA LIMITATIONS: None. FINDINGS: Stable AP portable examination with elevation of the right hemidiaphragm. No new airspace opacity. IMPRESSION: Stable AP portable examination with elevation of the right hemidiaphragm. No new airspa ce opacity. TECHNICAL DOCUMENTATION: JOB ID: [id number] [employer]- All Rights Reserved Reading location - IP/workstation name: [email or web address]
[2018-09-29] MEDS: POLYETHYLENE GLYCOL 3350 POWDER 17 GM/1 PACKET PEG SCH (09:57)
[2018-09-29] MEDS: DOCUSATE SODIUM 100 MG/10 ML UDC PO SCH ×2 (09:57→17:07)
[2018-09-29] MEDS: CEFTRIAXONE SODIUM 1,000 MG in DEXTROSE 5%-WATER 50 ML IV SCH (10:08)
[2018-09-29] MEDS: FAMOTIDINE INJ/PF 20 MG/2 ML SDV IV SCH (10:08)
[2018-09-29] MEDS: ASPIRIN 81 MG TABLET, ENT COATED PO SCH (10:09)
[2018-09-29] MEDS: TIZANIDINE HCL 4 MG TABLET PO SCH ×2 (10:09→17:00)
[2018-09-29] MEDS: GABAPENTIN 300 MG CAPSULE PO SCH ×2 (10:09→21:03)
[2018-09-29] MEDS: FLUTICASONE/VILANTEROL 200-25 MCG/DOSE IH SCH (10:09)
[2018-09-29] MEDS: ENOXAPARIN SODIUM INJ 40 MG/0.4 ML DISP.SYRIN SUBCUT SCH (10:09)
[2018-09-29] MEDS: COLCHICINE 0.6 MG TABLET PO SCH (10:10)
[2018-09-29] MEDS: OXYCODONE HCL IR 5 MG TABLET PO PRN ×2 (10:16→17:04)
[2018-09-29] MEDS ORDERED: ONDANSETRON HCL INJ/PF 4 MG/2 ML SDV IV PRN (15:00)
[2018-09-29] MEDS: AMOXICILLIN TR/POT CLAVULANATE 500-125 MG TAB PO SCH ×2 (17:00→21:03)
[2018-09-29] MEDS: LACTOBACILLUS ACIDOPHILUS 250 MG TAB PO SCH (17:04)
[2018-09-29] MEDS ORDERED: LOPERAMIDE HCL 2 MG CAPSULE PO PRN (18:50)
--- NOTE | 2018-09-29 18:56 | PDOC PROGRESS REPORT ---
Subjective Progress Note for:: 09/29/18 Subjective:: Patient was seen on morning rounds with significant other present. He was found resting in bed comfortably on supplemental oxygen via nasal cannula. His only complaint today is diarrhea. Otherwise he reports that he is feeling well with decreased dyspnea, no cough, no chest pain. He further denies fever, chills, headache, dizziness, MUNOZ, orthopnea, cough, abdominal pain, nausea and vomiting. He has no further questions or concerns at this time. No concerns per nursing. Reason For Visit: PNEUMONIA Physical Exam Vital Signs: Temp Pulse Resp BP Pulse Ox 97.6 F 95 18 133/78 H 94 09/29/18 12:21 09/29/18 12:21 09/29/18 12:21 09/29/18 12:21 09/29/18 12:21 Intake & Output 09/28/18 09/29/18 09/30/18 06:59 06:59 06:59 Intake Total 432 57 Output Total 625 1075 Balance -193 -1018 Weight 67 kg 66.1 kg General appearance: PRESENT: no acute distress, cooperative, well-developed, well-nourished Head exam: PRESENT: atraumatic, normocephalic Eye exam: PRESENT: conjunctiva pink, EOMI, PERRLA. ABSENT: scleral icterus Ear exam: PRESENT: normal external ear exam Mouth exam: PRESENT: moist, tongue midline Neck exam: ABSENT: carotid bruit, JVD, lymphadenopathy, thyromegaly Respiratory exam: PRESENT: rhonchi, symmetrical, unlabored, other - Supplemental oxygen via nasal cannula. ABSENT: rales, wheezes Cardiovascular exam: PRESENT: RRR, +S1, +S2. ABSENT: diastolic murmur, rubs, systolic murmur Pulses: PRESENT: normal dorsalis pedis pul Vascular exam: PRESENT: normal capillary refill GI/Abdominal exam: PRESENT: normal bowel sounds, soft, other - PEG tube. ABSENT: distended, guarding, mass, organolmegaly, rebound, tenderness Rectal exam: PRESENT: deferred Extremities exam: PRESENT: full ROM. ABSENT: calf tenderness, clubbing, pedal edema Neurological exam: PRESENT: alert, awake, oriented to person, oriented to place, oriented to time, oriented to situation, CN II-XII grossly intact. ABSENT: motor sensory deficit Psychiatric exam: PRESENT: appropriate affect, normal mood. ABSENT: homicidal ideation, suicidal ideation Skin exam: PRESENT: dry, intact, warm. ABSENT: cyanosis, rash Results Laboratory Results: 09/29/18 06:03 09/29/18 06:03 09/29/18 09/29/18 09/29/18 06:03 06:03 06:28 WBC 14.2 H RBC 4.54 Hgb 11.4 L Hct 36.4 L MCV 80 MCH 25.0 L MCHC 31.3 L RDW 17.1 H Plt Count 398 Seg Neutrophils % Not Reportable Lymphocytes % Not Reportable Monocytes % Not Reportable Eosinophils % Not Reportable Basophils % Not Reportable Absolute Neutrophils Not Reportable Absolute Lymphocytes Not Reportable Absolute Monocytes Not Reportable Absolute Eosinophils Not Reportable Absolute Basophils Not Reportable Carbonic Acid 1.01 L HCO3/H2CO3 Ratio 22:1 ABG pH 7.45 ABG pCO2 33.4 L ABG pO2 64.5 L ABG HCO3 22.6 ABG O2 Saturation 93.7 L ABG Base Excess -0.8 FiO2 30% Sodium 140.2 Potassium 4.3 Chloride 112 H Carbon Dioxide 26 Anion Gap 2 L BUN 25 H Creatinine 0.52 Est GFR ( Amer) > 60 Est GFR (Non-Af Amer) > 60 Glucose 69 L Calcium 8.0 L Magnesium 2.2 C-Reactive Protein 11.2 H 09/23/18 14:40 Blood Blood Culture - Final NO GROWTH IN 5 DAYS 09/23/18 09/23/18 09/23/18 12:01 12:01 14:40 Creatine Kinase 34 L 33 L CK-MB (CK-2) 0.34 Troponin I < 0.012 09/23/18 09/25/18 09/25/18 14:40 04:47 04:47 Creatine Kinase 29 L CK-MB (CK-2) 0.23 0.59 Troponin I < 0.012 < 0.012 09/25/18 09/25/18 09/25/18 10:18 10:18 16:45 Creatine Kinase 36 L 51 L CK-MB (CK-2) 0.49 Troponin I < 0.012 09/25/18 09/26/18 16:45 03:37 Creatine Kinase CK-MB (CK-2) 1.68 Troponin I 0.221 0.092 Impressions: Chest/Abdomen CTA 09/23/18 14:16 IMPRESSION: 1. No PE. 2. Chronic small loculated effusion right lower lobe. Further consolidation with near complete collapse of the right lower lobe. 3. Unchanged mediastinal adenopathy. These were hypermetabolic on recent PET- CT. Chest CT 09/25/18 00:00 IMPRESSION: 1. Chronic collapse of the right lower lobe. Small loculated right pleural effusion not significantly changed. 2. Small pericardial effusion. Head CT 09/25/18 00:00 IMPRESSION: Mild age-appropriate atrophy TECHNICAL DOCUMENTATION: Quality ID # 436: Final reports with documentation of one or more dose reduction techniques (e.g., Automated exposure control, adjustment of the mA and/or kV according to patient size, use of iterative reconstruction technique) copyright 2011 [employer]- All Rights Reserved Chest X-Ray 09/29/18 06:00 IMPRESSION: Stable AP portable examination with elevation of the right hemidiaphragm. No new airspace opacity. Assessment and Plan - Diagnosis (1) Acute exacerbation of chronic obstructive pulmonary disease (COPD) Is this a current diagnosis for this admission?: Yes Plan: Improved; continues to have rhonchi but with decreased oxygen requirement. Continue supplemental oxygen as needed to maintain saturations. Continue as needed nebulizer treatments. Have resumed home dose Brio. No indications for steroid therapy at this time. (2) Leukocytosis Qualifiers: Leukocytosis type: unspecified Qualified Code(s): D72.829 - Elevated white blood cell count, unspecified Is this a current diagnosis for this admission?: Yes Plan: Improved; leukocytosis has trended down from 28 to 14. Secondary to postobstructive pneumonia. Patient was empirically treated with IV Rocephin and Levaquin. Transitioned to oral Augmentin today for completion of antibiotic therapy. Infectious disease, oncology, and pulmonology are consulted. (3) Metastatic cancer to lung Qualifiers: Laterality: right Qualified Code(s): C78.01 - Secondary malignant neoplasm of right lung Is this a current diagnosis for this admission?: Yes Plan: Oncology is consulted; appreciate their evaluation and recommendations. Has received cycle #1 of Opdivo; plan to cycle #2 in 3 weeks. (4) Pericarditis Qualifiers: Pericarditis type: associated with other disease Chronicity: acute Qualified Code(s): I30.9 - Acute pericarditis, unspecified Is this a current diagnosis for this admission?: Yes Plan: Patient had an event that resembled a STEMI. Dr. Guajardo consulted and upon his interpretation of the EKG patient has pericarditis. Started on colchicine. CRP has trended down; 57.3-> 11.2 Cardiology consulted. Patient received colchicine 0.6 mg twice daily x4 days; is now appropriate to decrease to maintenance dosing of 0.6 mill grams once daily. Duration of treatment for initial pericarditis is 3 months. (5) Pneumonia Qualifiers: Pneumonia type: due to unspecified organism Laterality: right Lung location: lower lobe of lung Qualified Code(s): J18.1 - Lobar pneumonia, unspecified organism Is this a current diagnosis for this admission?: Yes Plan: Patient has shortness of breath, chest pain, leukocytosis and consolidation on CT scan. Patient empirical started on IV Levaquin and Rocephin. Leukocytosis is trending down, she has been afebrile, decreased symptoms, de creased oxygen requirement. We will transition to p.o. Augmentin today. Continue supplemental oxygen as needed to maintain saturations. Encourage pulmonary toilet. (6) Hypothermia Qualifiers: Encounter type: initial encounter Qualified Code(s): T68.XXXA - Hypothermia, initial encounter Is this a current diagnosis for this admission?: Yes Plan: Resolved; likely secondary to pneumonia. (7) Diarrhea Qualifiers: Diarrhea type: unspecified type Qualified Code(s): R19.7 - Diarrhea, unspecified Is this a current diagnosis for this admission?: Yes Plan: C. difficile is negative. Start lactobacillus. Imodium as needed. - Time Time Spent with patient: 25-34 minutes Medications reviewed and adjusted accordingly: Yes Anticipated discharge: Home Within: Other - Pending oncology approval.
--- NOTE | 2018-09-29 18:57 | Progress Note Acknowledgement ---
Progress Note Acknowledgement Progess Note Acknowledgement: I, the undersigned member of the medical staff with appropriate privileges and with supervisory authority over Liza Her, [facility] practice allied health professional, acknowledge that I have reviewed the progress notes entered on this patient, and in my professional judgment believe that the assessment made and/or any care evidenced was appropriate
[2018-09-29] MEDS: MORPHINE SULFATE 10 MG/ML INJ IV PRN (19:57)
[2018-09-29] MEDS: MIRTAZAPINE 15 MG TABLET PO SCH (21:03)
[2018-09-29] MEDS: FAMOTIDINE 20 MG TABLET PO SCH (21:03)
[2018-09-29] MEDS ORDERED: GLUCAGON,HUMAN RECOMB 1 MG INJ SUBCUT PRN (23:00)
[2018-09-29] MEDS ORDERED: DEXTROSE 40% GEL 15 GM TUBE PO PRN ×2 (23:00)
[2018-09-29] MEDS ORDERED: DEXTROSE 50%-WATER 25 GM/50 ML DISP.SYRIN IV PRN ×2 (23:00)
[2018-09-30] MEDS: AMOXICILLIN TR/POT CLAVULANATE 500-125 MG TAB PO SCH ×2 (06:13→13:41)
[2018-09-30 07:12] LABS: ARTERIAL BLOOD FIO2 28%; ARTERIAL BLOOD H2CO3 0.98 mmol/L (1.05-1.35); ARTERIAL BLOOD HCO3 23.8 mmol/L (20-24); ARTERIAL BLOOD O2 SATURATION 92.2 % (94-98); ARTERIAL BLOOD PCO2 32.4 mmHg (35-45); ARTERIAL BLOOD PH 7.48 (7.35-7.45); ARTERIAL BLOOD PO2 57.7 mmHg (80-100); ARTERIAL BLOOD TOTAL CO2 24.7 mmol/L (23-27)
--- NOTE | 2018-09-30 09:33 | PDOC PROGRESS REPORT ---
Subjective Progress Note for:: 09/30/18 Subjective:: Patient is resting comfortably in bed. He is n.p.o. for Port-A-Cath placement today. He is still having diarrhea but C. difficile testing is negative. Reason For Visit: PNEUMONIA Metastatic squamous cell carcinoma lung Physical Exam Vital Signs: Temp Pulse Resp BP Pulse Ox 98.1 F 84 16 114/62 95 09/30/18 03:04 09/30/18 03:04 09/30/18 03:04 09/30/18 03:04 09/30/18 03:04 Intake & Output 09/29/18 09/30/18 10/01/18 06:59 06:59 06:59 Intake Total 57 1578 Output Total 1075 1500 Balance -1018 78 Weight 66.1 kg 66.1 kg General appearance: PRESENT: no acute distress, cooperative, well-developed Head exam: PRESENT: atraumatic, normocephalic, other - Chronic non-erythematous raised area left forehead Eye exam: PRESENT: conjunctiva pale. ABSENT: scleral icterus Ear exam: PRESENT: normal external ear exam Respiratory exam: PRESENT: decreased breath sounds - Right base, rales - Left base, symmetrical, unlabored. ABSENT: rhonchi, tachypnea, wheezes Cardiovascular exam: PRESENT: RRR, +S1, +S2 Pulses: PRESENT: normal dorsalis pedis pul GI/Abdominal exam: PRESENT: hypoactive bowel sounds, soft, other - PEG tube in place. ABSENT: distended, tenderness Rectal exam: PRESENT: deferred Extremities exam: ABSENT: pedal edema, tenderness Musculoskeletal exam: PRESENT: ambulatory, normal inspection - Decreased muscle mass Neurological exam: PRESENT: alert, awake, oriented to person, oriented to place, oriented to time, oriented to situation, CN II-XII grossly intact Psychiatric exam: PRESENT: flat affect. ABSENT: agitated, anxious Focused psych exam: ABSENT: delusional, restlessness Skin exam: PRESENT: dry, warm. ABSENT: rash Results Laboratory Results: 09/29/18 06:03 09/29/18 06:03 09/30/18 06:45 Carbonic Acid 0.98 L HCO3/H2CO3 Ratio 24:1 ABG pH 7.48 H ABG pCO2 32.4 L ABG pO2 57.7 L ABG HCO3 23.8 ABG O2 Saturation 92.2 L ABG Base Excess 1.0 FiO2 28% 09/23/18 09/23/18 09/23/18 12:01 12:01 14:40 Creatine Kinase 34 L 33 L CK-MB (CK-2) 0.34 Troponin I < 0.012 09/23/18 09/25/18 09/25/18 14:40 04:47 04:47 Creatine Kinase 29 L CK-MB (CK-2) 0.23 0.59 Troponin I < 0.012 < 0.012 09/25/18 09/25/18 09/25/18 10:18 10:18 16:45 Creatine Kinase 36 L 51 L CK-MB (CK-2) 0.49 Troponin I < 0.012 09/25/18 09/26/18 16:45 03:37 Creatine Kinase CK-MB (CK-2) 1.68 Troponin I 0.221 0.092 Impressions: Chest/Abdomen CTA 09/23/18 14:16 IMPRESSION: 1. No PE. 2. Chronic small loculated effusion right lower lobe. Further consolidation with near complete collapse of the right lower lobe. 3. Unchanged mediastinal adenopathy. These were hypermetabolic on recent PET- CT. Chest CT 09/25/18 00:00 IMPRESSION: 1. Chronic collapse of the right lower lobe. Small loculated right pleural effusion not significantly changed. 2. Small pericardial effusion. Head CT 09/25/18 00:00 IMPRESSION: Mild age-appropriate atrophy TECHNICAL DOCUMENTATION: Quality ID # 436: Final reports with documentation of one or more dose reduction techniques (e.g., Automated exposure control, adjustment of the mA and/or kV according to patient size, use of iterative reconstruction technique) copyright 2011 [employer]- All Rights Reserved Chest X-Ray 09/29/18 06:00 IMPRESSION: Stable AP portable examination with elevation of the right hemidiaphragm. No new airspace opacity. Assessment and Plan - Diagnosis (1) Acute exacerbation of chronic obstructive pulmonary disease (COPD) Is this a current diagnosis for this admission?: Yes Plan: 09/30/2018-the patient is back on Brio Ellipta. He is down to 2 L nasal cannula oxygen. Because of the dense consolidation in the right base and his metastatic squamous cell carcinoma of the lung the patient will need oxygen at home. I have ordered an ambulatory oximetry study and he will no doubt qualify. (2) Leukocytosis Qualifiers: Leukocytosis type: unspecified Qualified Code(s): D72.829 - Elevated white blood cell count, unspecified Is this a current diagnosis for this admission?: Yes Plan: 09/30/2018-the white blood cell continues to improve. His white blood cell count yesterday was 14,000 and I will recheck it tomorrow if the patient is still present. (3) Metastatic cancer to lung Qualifiers: Laterality: right Qualified Code(s): C78.01 - Secondary malignant neoplasm of right lung Is this a current diagnosis for this admission?: Yes Plan: 09/30/2018-he seems to be tolerating the Opdivo. It is possible that the diarrhe a is related to the treatment but more likely due to antibiotics. He is scheduled for Port-A-Cath placement today. He will continue Opdivo as an outpatient. He will likely be able to go home later today or tomorrow at the latest. (4) Pneumonia Qualifiers: Pneumonia type: due to unspecified organism Laterality: right Lung location: lower lobe of lung Qualified Code(s): J18.1 - Lobar pneumonia, unspecified organism Is this a current diagnosis for this admission?: Yes Plan: 09/30/2018-the patient will continue the oral Augmentin for postobstructive pneumonia. I have encouraged use of the incentive spirometer. He also has a flutter valve available. (5) Pericarditis Qualifiers: Pericarditis type: associated with other disease Chronicity: acute Qualified Code(s): I30.9 - Acute pericarditis, unspecified Is this a current diagnosis for this admission?: Yes Plan: 09/30/2018-the patient is still on colchicine. His C-reactive protein is markedly decreased and I will check it again tomorrow. We will review the literature to see the recommended length of treatment for the colchicine with regard to his pericarditis. (6) Hypothermia Qualifiers: Encounter type: initial encounter Qualified Code(s): T68.XXXA - Hypothermia, initial encounter Is this a current diagnosis for this admission?: Yes Plan: Resolved (7) Diarrhea Qualifiers: Diarrhea type: unspecified type Qualified Code(s): R19.7 - Diarrhea, unspecified Is this a current diagnosis for this admission?: Yes Plan: 09/30/2018-the stool was tested for C. difficile and it is negative. The diarrhea is still likely due to the antibiotic therapy and possibly the Opdivo. We will continue the lactobacillus probiotic twice daily and he should continue it as an outpatient at least as long as he is on antibiotic therapy and probably longer. Imodium is available as needed (8) Physical deconditioning Is this a current diagnosis for this admission?: Yes Plan: 09/30/2018-because of this critical illness and the underlying malignancy the patient is markedly deconditioned and weak. I recommended home health for ongoing therapy. In addition he has been using a walker and I recommended a shower chair for safety. - Time Time Spent with patient: 15-24 minutes Medications reviewed and adjusted accordingly: Yes Anticipated discharge: Home Within: within 24 hours
[2018-09-30] MEDS ORDERED: COLCHICINE 0.6 MG TABLET PO SCH (10:00)
[2018-09-30] MEDS: DOCUSATE SODIUM 100 MG/10 ML UDC PO SCH (13:34)
[2018-09-30] MEDS: POLYETHYLENE GLYCOL 3350 POWDER 17 GM/1 PACKET PEG SCH (13:35)
[2018-09-30] MEDS: ASPIRIN 81 MG TABLET, ENT COATED PO SCH (13:40)
[2018-09-30] MEDS: GABAPENTIN 300 MG CAPSULE PO SCH (13:40)
[2018-09-30] MEDS: LACTOBACILLUS ACIDOPHILUS 250 MG TAB PO SCH (13:40)
[2018-09-30] MEDS: FAMOTIDINE 20 MG TABLET PO SCH (13:40)
[2018-09-30] MEDS: ENOXAPARIN SODIUM INJ 40 MG/0.4 ML DISP.SYRIN SUBCUT SCH (13:41)
[2018-09-30] MEDS: TIZANIDINE HCL 4 MG TABLET PO SCH (13:41)
[2018-09-30] MEDS: FLUTICASONE/VILANTEROL 200-25 MCG/DOSE IH SCH (13:42)
[2018-09-30] MEDS: OXYCODONE HCL IR 5 MG TABLET PO PRN (13:46)
[2018-09-30] MEDS: 1/2 NORMAL SALINE 1,000 ML IV PRN (14:44)
--- NOTE | 2018-09-30 15:00 | PDOC PROGRESS REPORT ---
Subjective Progress Note for:: 09/30/18 Subjective:: Patient much improved. Diarrhea better. They have imodium PRN. Waiting on home oxygen to be delivered tomorrow morning prior to discharge. Reason For Visit: PNEUMONIA Physical Exam Vital Signs: Temp Pulse Resp BP Pulse Ox 98.1 F 100 16 137/78 H 93 09/30/18 07:39 09/30/18 10:00 09/30/18 07:39 09/30/18 07:39 09/30/18 07:39 Intake & Output 09/29/18 09/30/18 10/01/18 06:59 06:59 06:59 Intake Total 1057 1578 Output Total 1075 1500 Balance -18 78 Weight 66.1 kg 66.1 kg General appearance: PRESENT: thin, well-developed Head exam: PRESENT: normocephalic Respiratory exam: PRESENT: unlabored Neurological exam: PRESENT: alert, awake Psychiatric exam: PRESENT: appropriate affect Skin exam: PRESENT: normal color Results Laboratory Results: 09/29/18 06:03 09/29/18 06:03 09/30/18 06:45 Carbonic Acid 0.98 L HCO3/H2CO3 Ratio 24:1 ABG pH 7.48 H ABG pCO2 32.4 L ABG pO2 57.7 L ABG HCO3 23.8 ABG O2 Saturation 92.2 L ABG Base Excess 1.0 FiO2 28% 09/23/18 09/23/18 09/23/18 12:01 12:01 14:40 Creatine Kinase 34 L 33 L CK-MB (CK-2) 0.34 Troponin I < 0.012 09/23/18 09/25/18 09/25/18 14:40 04:47 04:47 Creatine Kinase 29 L CK-MB (CK-2) 0.23 0.59 Troponin I < 0.012 < 0.012 09/25/18 09/25/18 09/25/18 10:18 10:18 16:45 Creatine Kinase 36 L 51 L CK-MB (CK-2) 0.49 Troponin I < 0.012 09/25/18 09/26/18 16:45 03:37 Creatine Kinase CK-MB (CK-2) 1.68 Troponin I 0.221 0.092 Impressions: Chest/Abdomen CTA 09/23/18 14:16 IMPRESSION: 1. No PE. 2. Chronic small loculated effusion right lower lobe. Further consolidation with near complete collapse of the right lower lobe. 3. Unchanged mediastinal adenopathy. These were hypermetabolic on recent PET- CT. Chest CT 09/25/18 00:00 IMPRESSION: 1. Chronic collapse of the right lower lobe. Small loculated right pleural effusion not significantly changed. 2. Small pericardial effusion. Head CT 09/25/18 00:00 IMPRESSION: Mild age-appropriate atrophy TECHNICAL DOCUMENTATION: Quality ID # 436: Final reports with documentation of one or more dose reduction techniques (e.g., Automated exposure control, adjustment of the mA and/or kV according to patient size, use of iterative reconstruction technique) copyright 2011 [employer]- All Rights Reserved Chest X-Ray 09/29/18 06:00 IMPRESSION: Stable AP portable examination with elevation of the right hemidiaphragm. No new airspace opacity. 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 Is this a current diagnosis for this admission?: Yes (2) Metastatic cancer to lung Qualifiers: Laterality: right Qualified Code(s): C78.01 - Secondary malignant neoplasm of right lung Is this a current diagnosis for this admission?: Yes (3) Pneumonia Qualifiers: Pneumonia type: due to unspecified organism Laterality: right Lung location: lower lobe of lung Qualified Code(s): J18.1 - Lobar pneumonia, unspecified organism Is this a current diagnosis for this admission?: Yes (4) Pleural effusion, right Is this a current diagnosis for this admission?: Yes (5) ST elevation (STEMI) myocardial infarction Is this a current diagnosis for this admission?: Yes (6) Diarrhea Qualifiers: Diarrhea type: unspecified type Qualified Code(s): R19.7 - Diarrhea, unspecified Is this a current diagnosis for this admission?: Yes - Plan Summary Plan Summary: OK to discharge from my standpoint. He will have port placed as outpatient. Will see him again for Opdivo dose # 2 in a few weeks.
--- NOTE | 2018-09-30 15:31 | PDOC DISCHARGE SUMMARY ---
General - Admit/Disc Date/PCP Admission Date/Primary Care Provider: 09/23/18 16:39 KATARINA BELLA MD Discharge Date: 09/30/18 - Discharge Diagnosis (1) Acute exacerbation of chronic obstructive pulmonary disease (COPD) Is this a current diagnosis for this admission?: Yes Summary: The patient has a history of chronic obstructive pulmonary disease. He presented to the hospital with hypoxemia. He was placed on oxygen. He deteriorated and was transferred to the ICU after several days requiring BiPAP. With inhalers and IV steroids he slowly improved and was able to be weaned to nasal cannula but still requires 2-3 L of nasal cannula oxygen. We will arrange for home oxygen therapy. He will resume his Advair inhaler therapy. (2) Acute and chronic respiratory failure with hypoxia Is this a current diagnosis for this admission?: Yes Summary: The patient required BiPAP temporarily. With treatment for the postobstructive pneumonia and chronic obstructive pulmonary disease he is now on nasal cannula. (3) Leukocytosis Is this a current diagnosis for this admission?: Yes Summary: Patient exhibited leukocytosis. This is most likely due to combination of postobstructive pneumonia at the right base, steroid therapy and inflammation f rom the pericarditis. His white blood cell count is down to 14,000 from a peak of 28,000. He will continue on oral antibiotics for 10 more days. 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 His primary lesion was on the base of the tongue. He did receive his first dose of Opdivo in the hospital and appears to be tolerating it without significant difficulty. He was scheduled for Port-A-Cath placement today however surgery had to cancel due to other emergent procedures and surgery recommended following up as an outpatient next week for installation of his Port-A-Cath. (5) Pneumonia Is this a current diagnosis for this admission?: Yes Summary: Patient has a right lower lobe pneumonia. Based on his history and examination he may very well have postobstructive pneumonia. He will have an additional 10 days of Augmentin and this will be well over 2 weeks of antibiotic therapy. With an ongoing treatment and his white cell count should improve. If they can decrease the tumor burden and the airway opens hopefully he will recover lung function. There may be significant scarring. Follow-up with pulmonology if needed. (6) Pericarditis Is this a current diagnosis for this admission?: Yes Summary: The patient developed pericarditis during this hospitalization. He did not require a pericardiocentesis and so it is difficult to know if this is from the malignancy or not. He is responding well to colchicine twice a day. We will continue this until he follows up with Dr. Guajardo and he can decide the length of time for treatment. (7) Hypothermia Is this a current diagnosis for this admission?: Yes Summary: Initially the patient was treated for hypothermia. This was likely due to infection. The patient's temperature has been normal without the need of heating devices. (8) Diarrhea Is this a current diagnosis for this admission?: Yes Summary: The patient has been having diarrhea. His stool was checked for C. difficile and it was negative. It is most likely due to the antibiotic therapy. He will remain on probiotics at least for the course of his antibiotic therapy and I would recommend considering extending it past that date. (9) Physical deconditioning Is this a current diagnosis for this admission?: Yes Summary: The patient has marked deconditioning. The impacts of this critical illness on the patient has been significant. The patient is quite weak. Physical therapy has been working with the patient and so I have ordered home health to continue to treat the patient with physical therapy at home. 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 (10) Dysphagia, oropharyngeal phase Is this a current diagnosis for this admission?: Yes Summary: The patient has had some degree of dysphasia since his initial squamous cell carcinoma surgery on the base of the tongue. He does have a PEG tube. Most of his nutrition comes from the PEG tube. His maintains the PEG tube and operates the equipment for his tube feeds. He is able to swallow small amounts and tries to utilize his swallow daily. - Additional Information Resuscitation Status: Full Code Prescriptions: Amox Tr/Potassium Clavulanate [Augmentin "500" Tablet] 1 tab PO Q8 10 Days #30 tablet Colchicine [Colcrys 0.6 mg Tablet] 0.6 mg PO DAILY 30 Days #60 tablet Home Medications: Aspirin [Ecotrin] 81 mg PO DAILY 09/24/18 Fluticasone/Salmeterol [Advair 250-50 Diskus 14 Dose/Diskus] 1 puff IH Q12 09/24/18 Gabapentin [Neurontin 300 mg Capsule] 300 mg PO Q12 09/24/18 Mirtazapine [Remeron] 7.5 mg PO QHS 09/24/18 Oxycodone HCl [Oxy-Ir 5 mg Tablet] 10 mg PO Q6 09/24/18 Pilocarpine HCl [Salagen] 5 mg PO TID 09/24/18 Tizanidine HCl [Zanaflex] 2 mg PO BID 09/24/18 Acetaminophen [Tylenol 325 mg Tablet] 650 mg PO Q4HP PRN tablet 09/30/18 Amox Tr/Potassium Clavulanate [Augmentin "500" Tablet] 1 tab PO Q8 10 Days #30 tablet 09/30/18 Colchicine [Colcrys 0.6 mg Tablet] 0.6 mg PO DAILY 30 Days #60 tablet 09/30/18 Lactobacillus Acidophilus [Bacid 250 mg Tablet] 500 mg PO BID tab 09/30/18 Loperamide HCl [Imodium 2 mg Capsule] 2 mg PO Q4HP PRN capsule 09/30/18 Polyethylene Glycol 3350 [Miralax Powder 17 gm/Packet] 17 gm PEG DAILY powd.pack 09/30/18 History of Present Illness Patient complains of: Sudden chest pain and shortness of breath History of Present Illness: FELIPE PIERRE is a 72 year old male with complex medical history including squamous cell carcinoma of the lung metastatic from the original lesion at the base of his tongue. The experienced a sudden onset of chest pain and shortness of breath and after 3 hours of symptoms without relief he arrived in the em ergency department. He was found to have leukocytosis but a negative CT angiogram of the chest. There is a chronic small effusion of the right lower lobe as well as dense consolidation for almost complete collapse of the right lower lobe. This is been ongoing since his diagnosis of recurrent squamous cell carcinoma. His metastatic lung carcinoma was diagnosed September 17. The patient was admitted to the hospital Hospital Course Hospital Course: The patient initially was admitted to a medical floor. He deteriorated and was transferred to the ICU. Because of his respiratory failure he required BiPAP temporarily. He is successfully weaned from the BiPAP. He is still on oxygen therapy between 2 and 3 L by nasal cannula. As noted above he had multiple complex medical issues during his hospitalization. Please see details above. The patient will be discharged and continue on his previous medications as well as 10 days of Augmentin 500 mg 3 times a day for his pneumonia and colchicine 0.6 mg daily for his pericarditis. Physical Exam Vital Signs: Temp Pulse Resp BP Pulse Ox 98.1 F 100 16 137/78 H 93 09/30/18 07:39 09/30/18 10:00 09/30/18 07:39 09/30/18 07:39 09/30/18 07:39 Intake & Output 09/29/18 09/30/18 10/01/18 06:59 06:59 06:59 Intake Total 1057 1578 Output Total 1075 1500 Balance -18 78 Weight 66.1 kg 66.1 kg General appearance: PRESENT: no acute distress, cooperative, thin, well- developed Head exam: PRESENT: atraumatic, normocephalic Eye exam: PRESENT: conjunctiva pink. ABSENT: scleral icterus Ear exam: PRESENT: normal external ear exam Mouth exam: PRESENT: moist, tongue midline Respiratory exam: PRESENT: decreased breath sounds - The right base, rales - On the left Cardiovascular exam: PRESENT: RRR, +S1, +S2 GI/Abdominal exam: PRESENT: normal bowel sounds, soft, other - PEG tube in place. ABSENT: distended, tenderness Extremities exam: ABSENT: pedal edema Musculoskeletal exam: PRESENT: normal inspection Neurological exam: PRESENT: alert, awake, oriented to person, oriented to place, oriented to time, oriented to situation, CN II-XII grossly intact Psychiatric exam: PRESENT: flat affect. ABSENT: agitated, anxious Focused psych exam: ABSENT: delusional, restlessness Results Laboratory Results: 09/29/18 06:03 09/29/18 06:03 09/30/18 06:45 Carbonic Acid 0.98 L HCO3/H2CO3 Ratio 24:1 ABG pH 7.48 H ABG pCO2 32.4 L ABG pO2 57.7 L ABG HCO3 23.8 ABG O2 Saturation 92.2 L ABG Base Excess 1.0 FiO2 28% 09/23/18 09/23/18 09/23/18 12:01 12:01 14:40 Creatine Kinase 34 L 33 L CK-MB (CK-2) 0.34 Troponin I < 0.012 09/23/18 09/25/18 09/25/18 14:40 04:47 04:47 Creatine Kinase 29 L CK-MB (CK-2) 0.23 0.59 Troponin I < 0.012 < 0.012 09/25/18 09/25/18 09/25/18 10:18 10:18 16:45 Creatine Kinase 36 L 51 L CK-MB (CK-2) 0.49 Troponin I < 0.012 09/25/18 09/26/18 16:45 03:37 Creatine Kinase CK-MB (CK-2) 1.68 Troponin I 0.221 0.092 Impressions: Chest/Abdomen CTA 09/23/18 14:16 IMPRESSION: 1. No PE. 2. Chronic small loculated effusion right lower lobe. Further consolidation with near complete collapse of the right lower lobe. 3. Unchanged mediastinal adenopathy. These were hypermetabolic on recent PET- CT. Chest CT 09/25/18 00:00 IMPRESSION: 1. Chronic collapse of the right lower lobe. Small loculated right pleural effusion not significantly changed. 2. Small pericardial effusion. Head CT 09/25/18 00:00 IMPRESSION: Mild age-appropriate atrophy TECHNICAL DOCUMENTATION: Quality ID # [id number]: Final reports with documentation of one or more dose reduction techniques (e.g., Automated exposure control, adjustment of the mA and/or kV according to patient size, use of iterative reconstruction technique) copyright 2011 [employer]- All Rights Reserved Chest X-Ray 09/29/18 06:00 IMPRESSION: Stable AP portable examination with elevation of the right hemidiaphragm. No new airspace opacity. Qualifiers - * PATIENT BEING DISCHARGED WITH ANY OF THE FOLLOWING DIAGNOSIS: No Acute Heart Failure - Is this a Heart Failure Patient?: No Plan Time Spent: Greater than 30 Minutes
[2018-09-30 15:43] VITALS: BP 140/84
== END 2018-09-30 16:26 | disposition home health service (06) | DRG 193 ==
LOC: ER 11:48 → EH 16:39 → 3W 21:02 → ICU 09-25 14:52 → 5 09-28 23:13
PROVIDERS: ADMIT Internal Medicine; ATTEND Internal Medicine
DX: J18.1 Lobar pneumonia, unspecified organism (principal); J96.01 Acute respiratory failure with hypoxia; J44.1 Chronic obstructive pulmonary disease with (acute) exacerbation; J44.0 Chronic obstructive pulmonary disease with (acute) lower respiratory infection; K52.1 Toxic gastroenteritis and colitis; C78.01 Secondary malignant neoplasm of right lung; I30.9 Acute pericarditis, unspecified; C01 Malignant neoplasm of base of tongue; R13.12 Dysphagia, oropharyngeal phase; R68.0 Hypothermia, not associated with low environmental temperature; T36.95XA Adverse effect of unspecified systemic antibiotic, initial encounter; I73.9 Peripheral vascular disease, unspecified; Z53.8 Procedure and treatment not carried out for other reasons; E86.0 Dehydration; Z79.891 Long term (current) use of opiate analgesic; Z79.899 Other long term (current) drug therapy; Z93.1 Gastrostomy status; Z87.891 Personal history of nicotine dependence; Z82.49 Family history of ischemic heart disease and other diseases of the circulatory system; Z83.3 Family history of diabetes mellitus; Z80.9 Family history of malignant neoplasm, unspecified; Z92.3 Personal history of irradiation; Z99.81 Dependence on supplemental oxygen
CPT/HCPCS: 36415; 70450; 71045; 71260; 71275; 80048; 80053; 81001; 82550; 82553; 82803; 82962; 83605; 83735; 84100; 84484; 85025; 85652; 86140; 87040; 87493; 93005; 93010; 93306; 94660; 94667; 94668; 94799; 96413; 99291; J0696; J1250; J1650; J1940; J1956; J2060; J2270; J2370; J2405; J2920; J3490; J7040; J7050; J7060; J7120; J7614; J7620; J9299; S0028

== ENCOUNTER 2018-10-09 08:14 | Day surgery (SDC) | payer MEDICARE, OTHER ==
[~2018-10-09 08:14] MED LIST: ACETAMINOPHEN 325 MG TABLET PO PRN; CEFAZOLIN 1 GM/D5W RTU 1 GM/50 ML RTUPB IV PRN
[2018-10-09] MEDS ORDERED: BUPIVACAINE HCL 0.25% /EPINEPHRINE INJ/PF 30 ML SDV ONE (09:49)
[2018-10-09 09:51] LABS: HEMATOCRIT 33.2 % (37.9-51.0); HEMOGLOBIN 10.4 g/dL (13.5-17.0); MEAN CORPUSCULAR HEMOGLOBIN 24.5 pg (27.0-33.4); MEAN CORPUSCULAR HGB CONC 31.4 g/dL (32.0-36.0); MEAN CORPUSCULAR VOLUME 78 fl (80-97); PLATELET COUNT 366 10^3/uL (150-450); RED BLOOD COUNT 4.26 10^6/uL (4.35-5.55); RED CELL DISTRIBUTION WIDTH 18.2 % (11.5-14.0); WHITE BLOOD COUNT 11.5 10^3/uL (4.0-10.5)
--- NOTE | 2018-10-09 09:51 | RADIOLOGY REPORT (SQ) ---
EXAM DESCRIPTION: CHEST SINGLE VIEW COMPLETED DATE/TIME: 10/09/2018 9:41 am REASON FOR STUDY: preoperative COMPARISON: 09/28/2018, 09/27/2018 EXAM PARAMETERS: NUMBER OF VIEWS: One view. TECHNIQUE: Single frontal radiographic view of the chest acquired. RADIATION DOSE: NA LIMITATIONS: None. FINDINGS: LUNGS AND PLEURA: Developing atelectasis or infiltrate the left base. Slight increase in parenchymal density right base adjacent to chronic pleural reaction. MEDIASTINUM AND HILAR STRUCTURES: No masses. Contour normal. HEART AND VASCULAR STRUCTURES: Heart normal in size. Normal vasculature. BONES: No acute findings. HARDWARE: None in the chest. OTHER: No other significant finding. IMPRESSION: Increasing bibasilar atelectasis or infiltrate. TECHNICAL DOCUMENTATION: JOB ID: [id number] [employer]- All Rights Reserved Reading location - IP/workstation name: [email or web address]
[2018-10-09] MEDS ORDERED: CEFAZOLIN 1 GM/D5W RTU 1 GM/50 ML RTUPB IV ONE (10:10)
[2018-10-09] MEDS ORDERED: KETAMINE HCL INJ 500 MG/10 ML VIAL ONE (13:54)
[2018-10-09] MEDS ORDERED: ONDANSETRON HCL INJ/PF 4 MG/2 ML SDV ONE (13:55)
[2018-10-09] MEDS ORDERED: FENTANYL CITRATE INJ/PF 100 MCG/2 ML AMPUL ONE (13:55)
[2018-10-09] MEDS ORDERED: MIDAZOLAM 2 MG/2 ML INJ ONE (13:55)
[2018-10-09] MEDS ORDERED: PROPOFOL INJ 200 MG/20 ML VIAL IV ONE (13:56)
[2018-10-09] MEDS ORDERED: DIPHENHYDRAMINE HCL 50 MG/ML VIAL IV PRN (14:32)
[2018-10-09] MEDS ORDERED: PROMETHAZINE HCL INJ 25 MG/1 ML VIAL IV PRN ×2 (14:32)
[2018-10-09] MEDS ORDERED: ONDANSETRON HCL INJ/PF 4 MG/2 ML SDV IV PRN (14:32)
[2018-10-09] MEDS ORDERED: FENTANYL CITRATE INJ/PF 100 MCG/2 ML AMPUL IV PRN ×2 (14:32)
[2018-10-09] MEDS ORDERED: MEPERIDINE HCL/PF INJ 25 MG/1 ML DISP.SYRIN IV PRN (14:32)
--- NOTE | 2018-10-09 16:18 | Operative Report ---
Nonrecallable Operative Report DATE OF SURGERY: 10/09/18 PREOPERATIVE DIAGNOSIS: Carcinoma of the tongue POSTOPERATIVE DIAGNOSIS: Lithia of the tongue OPERATION: Port-A-Cath placement left chest SURGEON: NIMESH HUMMEL ANESTHESIA: Moderate Sedation TISSUE REMOVED OR ALTERED: None COMPLICATIONS: None ESTIMATED BLOOD LOSS: Less than 10 INTRAOPERATIVE FINDINGS: See dictation PROCEDURE: Patient was brought to the operating room and awake alert in stable condition placed the operative table in supine position in the right and left neck and chest were prepped and draped in usual sterile fashion. Initial attempt at the subclavian vein on the left side was first made with a 16-gauge needle and we were unable to access the subclavian vein therefore attention was then turned to the right side Using a ultrasound guidance the right subclavian vein be cannulated with the needle therefore attempt was made at the right internal jugular vein using ultrasound we are able to find the right internal jugular vein with ultrasound and therefore accessed it with a 16-gauge needle and then using a J-wire placed through the needle after numerous attempts it was quite obvious that there was an obstruction at the brachiocephalic vein or innominate vein and I was unable to pass the wire through the internal jugular vein distally. Therefore abandoned the right side. Then turned back attention to the left side. We again attempted to access the left subclavian vein with a 16-gauge needle were eventually able to do that and then passed the wire. The wire passed into the internal jugular vein but did not pass distally because what looked like a narrowing or obstruction I then therefore obtained a contrast study through the vein and noted that there was a passageway from the subclavian vein to the superior vena cava and therefore used a slippery guidewire through the needle to gain access. Gained access to the superior vena cava I then remove the needle and placed tear-away introducer dilator combination over the wire into the subclavian vein with the tip pointing in the superior vena cava remove the wire remove the dilator and placed the 8 Irish Port-A-Cath catheter through the tear-away introducer again the catheter did not not traverse into the superior vena cava and therefore I needed again a long slippery wire through the catheter once we are able to manipulated into the superior vena cava I then was able to pass the catheter into that structure. Remove the wire and obtain a contrast study through the catheter showing us in the superior vena cava above the right atrium. At this point we then turned attention to the left chest wall I anesthetized the skin over the left chest wall with 1% lidocaine with epinephrine made a transverse incision and created a pocket for the port. Was done with Bovie cautery. Once the pocket was fashioned I then used the tunnel maker supplied with the kidney attached it to the end of the catheter at the subclavian stick site and tunneled from there to the pocket on the left anterior chest wall. I then attached the catheter to the port and placed it underneath the skin in the pocket at the left anterior chest wall. I confirmed good flow into the port using a Gutiérrez needle and heparinized saline solution with good withdrawal of blood. I then closed the pocket site with interrupted 3-0 Vicryl in the subcutaneous tissue and 4-0 Biosyn in the skin. I also closed the subclavian stick site with 4-0 Biosyn in the skin. We then Steri-Stripped both incisions and placed a sterile dressing which completed the procedure. Estimated blood loss was less than 10 cc sponge needle counts were correct x2. Chest x-ray in recovery revealed good position of the tip of the catheter with no evidence of pneumothorax.
--- NOTE | 2018-10-09 16:20 | Discharge Summary ---
Discharge Summary (SDC) - Discharge Final Diagnosis: Tongue cancer post Port-A-Cath placement Date of Surgery: 10/09/18 Condition: Fair Referrals: JACKY CHOPRA MD [Primary Care Provider] - Discharge Diet: As Tolerated Discharge Activity: Activity As Tolerated Report the Following to Your Physician Immediately: Shortness of Breath, Unusual Bleeding
[2018-10-09] MEDS ORDERED: IPRATROPIUM/ALBUTEROL 0.5-2.5 MG/3 ML AMPUL NEB ONE ×2 (16:21→16:45)
--- NOTE | 2018-10-09 16:24 | RADIOLOGY REPORT (SQ) ---
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 FLUOROSCOPY TIME: 13.0 minutes. 3 images saved to PACS. TECHNIQUE: Intra-operative images acquired during surgical procedure to evaluate progress. NUMBER OF IMAGES: 3 images. LIMITATIONS: None. FINDINGS: Images of the chest were acquired during port placement. IMPRESSION: IMAGE(S) OBTAINED DURING PROCEDURE. COMMENT: Quality ID 145: Final reports for procedures using fluoroscopy that document radiation exp osure indices, or exposure time and number of fluorographic images (if radiation exposure indices are not available) Please consult full operative report of the attending physician for description of the procedure. TECHNICAL DOCUMENTATION: JOB ID: [id number] [employer]- All Rights Reserved Reading location - IP/workstation name: [email or web address]
--- NOTE | 2018-10-09 16:45 | RADIOLOGY REPORT (SQ) ---
EXAM DESCRIPTION: CHEST SINGLE VIEW COMPLETED DATE/TIME: 10/09/2018 4:17 pm REASON FOR STUDY: S/P PREM CATH INSERTION COMPARISON: 10/09/2018 at 0934 hours. EXAM PARAMETERS: NUMBER OF VIEWS: One view. TECHNIQUE: Single frontal radiographic view of the chest acquired. RADIATION DOSE: NA LIMITATIONS: None. FINDINGS: LUNGS AND PLEURA: No pneumothorax following port placement. Again seen is bilateral pleur al effusions, right greater than left, and basilar airspace disease. MEDIASTINUM AND HILAR STRUCTURES: No masses. Contour normal. HEART AND VASCULAR STRUCTURES: Heart normal in size. Normal vasculature. BONES: No acute findings. HARDWARE: Vascular port. Tip of the catheter in the region of the superior vena cava. OTHER: No other significant finding. IMPRESSION: NO PNEUMOTHORAX FOLLOWING PORT PLACEMENT. OTHERWISE NO SIGNIFICANT INTERVAL CHANGE. TECHNICAL DOCUMENTATION: JOB ID: [id number] [employer]- All Rights Reserved Reading location - IP/workstation name: [email or web address]
[2018-10-09 18:01] VITALS: BP 146/98
== END 2018-10-09 17:50 | disposition home or self-care (01) ==
LOC: OROUT 08:14
PROVIDERS: ATTEND Surgery
DX: C01 Malignant neoplasm of base of tongue (principal); J44.9 Chronic obstructive pulmonary disease, unspecified; R63.4 Abnormal weight loss; I10 Essential (primary) hypertension; Z93.1 Gastrostomy status; Z87.891 Personal history of nicotine dependence; Z79.82 Long term (current) use of aspirin; R06.02 Shortness of breath; I20.9 Angina pectoris, unspecified
CPT/HCPCS: 36561; 36415; 85027; 71045; 77001; C1766; C1769; C1752; C1788; Q9967; J2250; J3490 ×2; J0690; J2405; A9270; J1642; 532; J2704; J3010; J7620

== ENCOUNTER 2018-10-17 15:40 | Day surgery (SDC) | payer MEDICARE, OTHER ==
--- NOTE | 2018-10-17 17:19 | Operative Report ---
Operative Report DATE OF SURGERY: 10/17/18 Operative Report: Pre-op diagnosis: Feeding difficulty Post-op diagnosis: Feeding difficulty Surgery: G-tube replacement Medications: None Tissue removed: None Procedure: The old 20 Cuban low-profile gastrostomy tube was removed after the balloon was deflated. This was replaced with another 20 Cuban tube and the balloon was inflated with 5ml of fluid. There was good flow of gastric contents after the tube was replaced. She tolerated the procedure well Plan: Resume feeding OPERATION: .
== END 2018-10-17 17:10 | disposition home or self-care (01) ==
LOC: END 15:40
PROVIDERS: ATTEND Internal Medicine Gastroenterology
DX: Z93.1 Gastrostomy status (principal)
CPT/HCPCS: 43762

== ENCOUNTER → 2018-10-24 | Outpatient (CLI) | payer MEDICARE, OTHER ==
--- NOTE | 2018-10-24 22:08 | XCELERA REPORT ---
[address] [address] Transthoracic Echocardiogram Report Name: FELIPE PIERRE Age: 73 yrs Gender: Male : 1945 Patient Status: Outpatient Patient Location: Study Date: 10/24/2018 01:59 PM Height: 68 in Weight: 140 lb BSA: 1.8 m2 Procedure: A two-dimensional transthoracic echocardiogram with color flow and Doppler was performed. Study Quality: Poor. The study was technically difficult with many images being suboptimal in quality. Images were not obtained from all of the standard acoustic windows due to the limited scope of the study. Reason For Study: PERICARDIAL EFFUSION History: PERICARDIAL EFFUSION. Ordering Physician: MOJGAN HERNANDEZ Performed By: Latoya Tamayo Interpretation Summary Images were not obtained from all of the standard acoustic windows due to the limited scope of the study. The posterior wall, the anteroseptum and the mid LV beltrán contract normally.No pericardial effusion seen in the parasternal long axis view.No other comments possible due to poor echo qaulity. MMode/2D Measurements & Calculations RVDd: 2.8 cm LVIDd: 4.7 cm FS: 34.8 % Ao root diam: 3.1 cm IVSd: 0.79 cm LVIDs: 3.1 cm EDV(Teich): 104.3 ml Ao root area: 7.3 cm2 LVPWd: 0.89 cm ESV(Teich): 37.6 ml EF(Teich): 64.0 % Doppler Measurements & Calculations MV E max micaela: MV dec slope: Ao V2 max: LV V1 max P.9 cm/sec 546.4 cm/sec2 112.9 cm/sec 2.4 mmHg MV A max micaela: MV dec time: 0.12 secAo max PG: LV V1 max: 62.8 cm/sec 5.1 mmHg 77.7 cm/sec MV E/A: 1.0 PA V2 max: TR max micaela: 85.5 cm/sec 255.0 cm/sec PA max P.9 mmHg TR max P.0 mmHg Left Ventricle The posterior wall, the anteroseptum and the mid LV beltrán contract normally.No pericardial effusion seen in the parasternal long axis view.No other comments possible due to poor echo qaulity. : MOJGAN HERNANDEZ > Mojgan Hernandez
== END ==
LOC: SP 13:38
PROVIDERS: ATTEND Specialist
DX: I31.3 Pericardial effusion (noninflammatory) (principal)
CPT/HCPCS: 93306

== ENCOUNTER → 2018-11-20 | Outpatient (CLI) | payer MEDICARE, OTHER ==
--- NOTE | 2018-11-20 13:51 | RADIOLOGY REPORT (SQ) ---
EXAM DESCRIPTION: CHEST 2 VIEWS COMPLETED DATE/TIME: 11/20/2018 1:36 pm REASON FOR STUDY: J44.0 CHRONIC OBSTRUCTIVE PULMON DISEASE W ACUTE LOWER RESP INFCT COMPARISON: 10/09/2018 TECHNIQUE: Frontal and lateral radiographic views of the chest acquired. NUMBER OF VIEWS: Two view. LIMITATIONS: None. FINDINGS: LUNGS AND PLEURA: No pneumothorax. Slightly improved right basilar consolidation - pleura l effusion. Mild left medial basilar subsegmental atelectasis, improved aeration compared with the p rior study. Small left pleural effusion. MEDIASTINUM AND HILAR STRUCTURES: Stable. HEART AND VASCULAR STRUCTURES: Stable. BONES: No acute findings. HARDWARE: Left chest port. OTHER: No other significant finding. IMPRESSION: Slightly improved right basilar consolidation - pleural effusion. Mild left medial basil ar subsegmental atelectasis, improved aeration compared with the prior study. Small left pleural eff usion. TECHNICAL DOCUMENTATION: JOB ID: [id number] [employer]- All Rights Reserved Reading location - IP/workstation name: [email or web address]
== END ==
LOC: RAD 12:57
PROVIDERS: ATTEND Internal Medicine
DX: J44.0 Chronic obstructive pulmonary disease with (acute) lower respiratory infection (principal); J98.11 Atelectasis; J90 Pleural effusion, not elsewhere classified
CPT/HCPCS: 71046

== ENCOUNTER → 2018-11-30 | Outpatient (CLI) | payer MEDICARE, OTHER ==
--- NOTE | 2018-11-30 13:50 | RADIOLOGY REPORT (SQ) ---
EXAM DESCRIPTION: BARIUM SWALLOW ESOPHAGUS COMPLETED DATE/TIME: 11/30/2018 9:46 am REASON FOR STUDY: R13.10 DYSPHAGIA, UNSPECIFIED R13.10 DYSPHAGIA, UNSPECIFIED COMPARISON: CT brain 09/25/2018 TECHNIQUE: Under fluoroscopic guidance, patient ingested thin and thick liquid barium. Fluoroscopic spot images and routine radiographic images acquired and stored on PACS. 12 MM BARIUM TABLET GIVEN: No. LIMITATIONS: Patient was unable to swallow sufficient barium to outline the upper 3rd of the esophag us FLUOROSCOPY TIME: 2.4 minutes 13 series of digital fluoroscopic images saved to PACS. FINDINGS: NEUROMUSCULAR COORDINATION OF SWALLOW: The patient has difficulty swallowing. There is pa ssage of contrast over the vallecula and into the piriform recesses before swallowing is initiated. There is passive spillage of contrast into the supraglottic, glottic, and subglottic airway with suha ent aspiration. Very limited upward excursion of the larynx during swallowing, no inversion of the e piglottis is seen during swallowing. Video assisted speech pathology swallowing evaluation is recommended. ESOPHAGEAL MOTILITY: Mid and distal esophageal peristalsis is grossly normal ESOPHAGEAL MUCOSA: Normal mucosa without masses or ulceration. GASTRO-ESOPHAGEAL JUNCTION: Limited visualization. No obstruction NON-GI TRACT STRUCTURES: Left-sided permanent central line tip superior vena cava OTHER: No other significant finding. IMPRESSION: Aspiration of liquid barium throughout the study, which did not prompt a cough response. Video assisted speech pathology evaluation is recommended. Poor visualization of the upper 3rd of the esophagus due to limited barium consumption. No gross str icture in the mid or distal esophagus. COMMENT: Quality ID 145: Final reports for procedures using fluoroscopy that document radiation exp osure indices, or exposure time and number of fluorographic images (if radiation exposure indices are not available) TECHNICAL DOCUMENTATION: JOB ID: [id number] [employer]- All Rights Reserved Reading location - IP/workstation name: [email or web address]
== END ==
LOC: RAD 09:07
PROVIDERS: ATTEND Internal Medicine
DX: R13.10 Dysphagia, unspecified (principal)
CPT/HCPCS: 74220

== ENCOUNTER → 2018-12-06 | Outpatient (CLI) | payer MEDICARE, OTHER ==
--- NOTE | 2018-12-06 14:10 | RADIOLOGY REPORT (SQ) ---
EXAM DESCRIPTION: FOREARM RIGHT COMPLETED DATE/TIME: 12/06/2018 1:53 pm REASON FOR STUDY: M79.601 PAIN IN RIGHT ARM M79.601 PAIN IN RIGHT ARM COMPARISON: None. NUMBER OF VIEWS: Two views. TECHNIQUE: Two radiographic images acquired of the right forearm, including elbow and wrist in at le ast one projection. LIMITATIONS: None. FINDINGS: MINERALIZATION: Normal. BONES: No acute fracture or dislocation. No worrisome bone lesions. No significant osteophytes. SOFT TISSUES: No obvious swelling or foreign body. OTHER: No other significant finding. IMPRESSION: NEGATIVE STUDY OF THE RIGHT FOREARM. NO EXPLANATION FOR PAIN. TECHNICAL DOCUMENTATION: JOB ID: [id number] [employer]- All Rights Reserved Reading location - IP/workstation name: [email or web address]
--- NOTE | 2018-12-06 14:10 | RADIOLOGY REPORT (SQ) ---
EXAM DESCRIPTION: HUMERUS RIGHT COMPLETED DATE/TIME: 12/06/2018 1:53 pm REASON FOR STUDY: M79.601 PAIN IN RIGHT ARM M79.601 PAIN IN RIGHT ARM COMPARISON: None. NUMBER OF VIEWS: Two views. TECHNIQUE: Two radiographic images were acquired of the right humerus to include elbow and shoulder in at least one projection. LIMITATIONS: None. FINDINGS: MINERALIZATION: Normal. BONES: No acute fracture or dislocation. No worrisome bone lesions. No significant osteophytes. SOFT TISSUES: No obvious swelling or foreign body. OTHER: No other significant finding. IMPRESSION: NEGATIVE STUDY OF THE RIGHT HUMERUS. NO EXPLANATION FOR PAIN. TECHNICAL DOCUMENTATION: JOB ID: [id number] [employer]- All Rights Reserved Reading location - IP/workstation name: [email or web address]
== END ==
LOC: RAD 13:08
PROVIDERS: ATTEND Nurse Practitioner Family
DX: M79.601 Pain in right arm (principal)

== ENCOUNTER → 2018-12-14 | Outpatient (CLI) | payer MEDICARE, OTHER ==
--- NOTE | 2018-12-14 10:26 | RADIOLOGY REPORT (SQ) ---
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 Images reviewed with lung, soft tissue and bone windows. Reconstructed coronal and sagittal MPR and MIP images reviewed. All images stored on PACS. All CT scanners at this facility use dose modulation, iterative reconstruction, and/or weight based d osing when appropriate to reduce radiation dose to as low as reasonably achievable (ALARA). [facility]: Dose Right [facility]: CareDose [facility]: Dose Right [facility]: Teradose 4D [facility]: [employer] CONTRAST TYPE AND DOSE: contrast/concentration: Isovue 350.00 mg/ml; Total Contrast Delivered: 80.0 ml; Total Saline Delivered: 55.0 ml RENAL FUNCTION: Creatinine 0.6 RADIATION DOSE: CT Rad equipment meets quality standard of care and radiation dose reduction techniq ues were employed. CTDIvol: 5.1 mGy. DLP: 213 mGy-cm. . LIMITATIONS: None. FINDINGS: LUNGS AND PLEURA: The left lung is hyperinflated and hyperlucent. No worrisome pulmonary nodules. Trace left pleural effusion. On the right side, chronic collapse and consolidation in the middle lobe is present with obstruction of the right middle lobe bronchus, unchanged from 09/25/2018. There is a nodule in the right upper lobe on axial image 64/139 currently measuring 1.9 x 1.5 cm in s ize (was 0.8 x 0.8 cm 09/25/2018. There is improved aeration of the superior segment right lower lobe compared to 09/25/2018. In the ri ght lung base there is persistent dense consolidation unchanged from 09/25/2018, and a persistent smal l loculated right pleural effusion in the lateral and posterior costophrenic sulci. Pleural effusion is minimally increased compared to 09/25/2018. HILAR AND MEDIASTINAL STRUCTURES: Enlarging right peritracheal tube are lymph node axial image 18 cur rently 2.6 x 2.5 cm (was 2 x 1.3 cm on 04/28/2018). The superior vena cava is between two abnormal enlarged lymph nodes. Anterior lymph node is 1.3 x 1. 3 cm today (was 1.5 x 1 cm on 09/25/2018). Posterior lymph node is 2.5 x 2.4 cm today (was 2.2 x 1.9 cm on 09/25/2018). HEART AND VASCULAR STRUCTURES: No aneurysm or dissection. No central pulmonary emboli. No pericardi al effusion. Heavy coronary artery calcification. HARDWARE: Left permanent central line tip superior vena cava. Gastrostomy tube in the stomach. UPPER ABDOMEN: No significant findings. Limited exam. THYROID AND OTHER SOFT TISSUES: No masses. No adenopathy. BONES: No significant finding. OTHER: No other significant finding. IMPRESSION: Increasing size of right paratracheal lymph nodes Increase size of right upper lobe lung nodule Slight increase in size of right loculated chronic appearing pleural effusion. TECHNICAL DOCUMENTATION: JOB ID: [id number] Quality ID # [id number]: Final reports with documentation of one or more dose reduction techniques (e.g., Au tomated exposure control, adjustment of the mA and/or kV according to patient size, use of iterative reconstruction technique) 2010 [email or web address]- All Rights Reserved Reading location - IP/workstation name: [email or web address]
== END ==
LOC: RAD 08:29
PROVIDERS: ATTEND Nurse Practitioner Family
DX: C01 Malignant neoplasm of base of tongue (principal); R91.1 Solitary pulmonary nodule; J90 Pleural effusion, not elsewhere classified
CPT/HCPCS: 71260; 82565

== ENCOUNTER 2019-02-09 10:34 | Inpatient (IN) | payer MEDICARE, OTHER ==
[2019-02-09 11:11] LABS: ABSOLUTE EOSINOPHILS # (AUTO) 0.2 10^3/uL (0.0-0.6); ABSOLUTE LYMPHOCYTES (AUTO) 0.8 10^3/uL (0.5-4.7); ABSOLUTE MONOCYTES (AUTO) 1.7 10^3/uL (0.1-1.4); BASOPHILS % (AUTO) 0.2 % (0-2); EOSINOPHILS % (AUTO) 1.6 % (0-6); HEMATOCRIT 35.7 % (37.9-51.0); HEMOGLOBIN 11.3 g/dL (13.5-17.0); LYMPHOCYTES % (AUTO) 5.7 % (13-45); MEAN CORPUSCULAR HEMOGLOBIN 24.5 pg (27.0-33.4); MEAN CORPUSCULAR HGB CONC 31.7 g/dL (32.0-36.0); MEAN CORPUSCULAR VOLUME 77 fl (80-97); MONOCYTES % (AUTO) 12.5 % (3-13); PLATELET COUNT 488 10^3/uL (150-450); RED BLOOD COUNT 4.61 10^6/uL (4.35-5.55); TOTAL CELLS COUNTED % (AUTO) 100 %; WHITE BLOOD COUNT 13.7 10^3/uL (4.0-10.5)
[2019-02-09] MEDS ORDERED: MAGNESIUM SULFATE/D5W 1 GM/100 ML RTUPB IV ONE ×2 (11:11→11:12)
[2019-02-09] MEDS ORDERED: IPRATROPIUM/ALBUTEROL 0.5-2.5 MG/3 ML AMPUL NEB ONE (11:11)
--- NOTE | 2019-02-09 11:14 | ER Document Report ---
ED General - General Chief Complaint: Shortness Of Breath Stated Complaint: SHORT OF BREATH Time Seen by Provider: 02/09/19 10:52 Primary Care Provider: ANISH ALMANZA FNP-C [Primary Care Provider] - Follow up as needed TRAVEL OUTSIDE OF THE [place] 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 Patient states that he did have some fevers at the start of symptoms which have otherwise impro rosy. He is on clindamycin. Patient does not feel that he is struggling to breathe, but his oxygen saturations have remained below his normal baseline. He has noticed his saturations in the mid 80s when he is normally around 90 to 93% on oxygen. He is otherwise eating and drinking without difficulty. He is urinating normally and having normal bowel movements. Denies any headache, neck pain, changes in vision/speech/mentation/hearing, sore throat, chest pain, palpitations, syncope, abdominal pain, nausea/vomiting/diarrhea, urinary retention, dysuria, hematuria, or rash. - Related Data Allergies/Adverse Reactions: No Known Allergies Allergy (Verified 07/13/18 15:40) Past Medical History - Social History Smoking Status: Unknown if Ever Smoked Family History: CAD, COPD, DM, Hypertension, Malignancy - Past Medical History Cardiac Medical History: Reports: Hx Hypertension, Hx Peripheral Vascular Disease Denies: Hx Coronary Artery Disease, Hx Heart Attack Pulmonary Medical History: Reports: Hx COPD Denies: Hx Asthma, Hx Bronchitis, Hx Pneumonia Neurological Medical History: Denies: Hx Cerebrovascular Accident, Hx Seizures Endocrine Medical History: Denies: Hx Diabetes Mellitus Type 1, Hx Diabetes Mellitus Type 2, Hx Hyperthyroidism, Hx Hypothyroidism Renal/ Medical History: Denies: Hx Peritoneal Dialysis GI Medical History: Denies: Hx Cirrhosis, Hx Hepatitis, Hx Hiatal Hernia, Hx Ulcer Musculoskeletal Medical History: Denies Hx Arthritis, Denies Hx Gout Skin Medical History: Denies Hx Eczema, Denies Hx Psoriasis Psychiatric Medical History: Denies: Hx Depression Infectious Medical History: Denies: Hx Hepatitis Past Surgical History: Reports: Hx Vascular Surgery - Right ileal to left femoral graft and right femoral stent, Other - Endoscopy with placement of PEG tube. Denies: Hx Open Heart Surgery, Hx Pacemaker - Immunizations Hx Diphtheria, Pertussis, Tetanus Vaccination: No Hx Pneumococcal Vaccination: 03/14/13 Review of Systems - Review of Systems -: Yes All other systems reviewed and negative Physical Exam - Vital signs Vitals: Resp Pulse Ox 29 H 87 L 02/09/19 10:45 02/09/19 10:45 - Notes Notes: PHYSICAL EXAMINATION: GENERAL: Well-appearing, well-nourished and in no acute distress. HEAD: Atraumatic, normocephalic. EYES: Pupils equal round and reactive to light, extraocular movements intact, sclera anicteric, conjunctiva are normal. ENT: Nares patent and without discharge. oropharynx clear without exudates. No tonsilar hypertrophy or erythema. Moist mucous membranes. LUNGS: diminished b/l. scant crackles b/l. no retractions. mild pursed lip breathing (normal per pt/) HEART: Regular rate and rhythm without murmurs, rubs, gallops. ABDOMEN: Soft, nontender, nondistended abdomen. No guarding, no rebound. Normal bowel sounds present. No CVA tenderness bilaterally. Extremities: No cyanosis, clubbing, or edema b/l. Peripheral pulses 2+. Capil nas refill less than 3 seconds. Chantal neg b/l. No LE asymmetry NEUROLOGICAL: Normal speech, normal gait. PSYCH: Normal mood, normal affect. SKIN: Warm, Dry, normal turgor, no rashes or lesions noted. Course - Re-evaluation Re-evalutation: 02/09/19 12:06 Patient is an afebrile 73-year-old male who presents with pneumonia to his right lung with hypoxia outside his normal. Patient currently has a heart rate of 110 with a pulse ox of 87 to 90% on 3 L, respiratory rate of 22. BP 112/70. I did speak with Dr. Hoff who is agreeable to admission and to start levaquin and steroids. We will call for admission. 02/09/19 12:19 Dr. Lanza has accepted patient to [facility]. - Vital Signs Vital signs: Temp Pulse Resp BP Pulse Ox 98.7 F 23 H 103/68 88 L 02/09/19 12:00 02/09/19 11:01 02/09/19 11:00 02/09/19 11:01 - Laboratory Result Diagrams: 02/09/19 10:35 02/09/19 10:35 Laboratory results interpreted by me: 02/09/19 02/09/19 02/09/19 10:35 10:35 10:35 WBC 13.7 H Hgb 11.3 L Hct 35.7 L MCV 77 L MCH 24.5 L MCHC 31.7 L RDW 19.0 H Plt Count 488 H Lymph % (Auto) 5.7 L Absolute Neuts (auto) 11.0 H Absolute Monos (auto) 1.7 H Seg Neutrophils % 80.0 H Glucose 162 H NT-Pro-B Natriuret Pep 374 H Total Protein 5.7 L Albumin 2.8 L Discharge - Discharge Clinical Impression: Acute and chronic respiratory failure with hypoxia Community acquired pneumonia Qualifiers: Laterality: right Lung location: unspecified part of lung Qualified Code(s): J18.9 - Pneumonia, unspecified organism Condition: Stable Disposition: ADMITTED INPATIENT Admitting Provider: Myla (Hospitalist) Unit Admitted: [facility]U Referrals: ANISH ALMANZA FNP-C [Primary Care Provider] - Follow up as needed
[2019-02-09 11:17] LABS: INTERNATIONAL RATION (INR) 1.07; PROTHROMBIN TIME 13.9 SEC (11.4-15.4)
[2019-02-09 11:29] LABS: ALBUMIN 2.8 g/dL (3.5-5.0); ALKALINE PHOSPHATASE 95 U/L (38-126); ANION GAP 6 (5-19); ASPARTATE AMINO TRANSFERASE 19 U/L (17-59); BILIRUBIN,DIRECT 0.1 mg/dL (0.0-0.4); BILIRUBIN,TOTAL 0.3 mg/dL (0.2-1.3); BLOOD UREA NITROGEN 13 mg/dL (7-20); CALCIUM 8.6 mg/dL (8.4-10.2); CARBON DIOXIDE 29 mmol/L (22-30); CHLORIDE 105 mmol/L (98-107); GLUCOSE 162 mg/dL (75-110); POTASSIUM 4.4 mmol/L (3.6-5.0); TOTAL PROTEIN 5.7 g/dL (6.3-8.2)
[2019-02-09 11:40] LABS: NT PRO BNP 374 pg/mL (<125)
[2019-02-09 11:41] LABS: TROPONIN I < 0.012 ng/mL
[2019-02-09] MEDS ORDERED: NORMAL SALINE 1000 ML 1,000 ML IV ONE ×2 (11:48→12:06)
[2019-02-09 11:56] LABS: VENOUS BLOOD BASE EXCESS 2.7 mmol/L; VENOUS BLOOD HCO3 27.8 mmol/L (20-32); VENOUS BLOOD PCO2 44.3 mmHg (35-63); VENOUS BLOOD PH 7.42 (7.30-7.42)
--- NOTE | 2019-02-09 11:56 | RADIOLOGY REPORT (SQ) ---
EXAM DESCRIPTION: CHEST SINGLE VIEW COMPLETED DATE/TIME: 02/09/2019 11:27 am REASON FOR STUDY: SOB COMPARISON: CT chest 12/14/2018, 09/25/2018 Chest films 11/20/2018, 10/09/2018, 07/26/2018 PET-CT 09/17/2018 EXAM PARAMETERS: NUMBER OF VIEWS: One view. TECHNIQUE: Single frontal radiographic view of the chest acquired. RADIATION DOSE: NA LIMITATIONS: None. FINDINGS: LUNGS AND PLEURA: Increased opacification of the right hemithorax compared to previous db dies. There is now dense airspace disease throughout the right upper lobe, and right middle and lowe r lobe collapse and consolidation with small pleural effusion. No right pneumothorax. Left lung is hyperinflated in the upper lobe. No focal infiltrates. Trace left pleural effusion. N o left pneumothorax. MEDIASTINUM AND HILAR STRUCTURES: Right hilum not well seen HEART AND VASCULAR STRUCTURES: No gross cardiomegaly. No pulmonary vascular congestion BONES: No acute findings. HARDWARE: Left-sided permanent central line tip superior vena cava OTHER: No other significant finding. IMPRESSION: Increased opacification right hemithorax due to increasing right upper lobe airspace dis ease, and stable right pleural effusion with right middle and lower lobe consolidation TECHNICAL DOCUMENTATION: JOB ID: [id number] [employer]- All Rights Reserved Reading location - IP/workstation name: [email or web address]
[2019-02-09] MEDS ORDERED: METHYLPREDNISOLONE INJ 125 MG/2 ML SDV IV ONE (12:05)
[2019-02-09] MEDS ORDERED: LEVOFLOXACIN 750 MG/D5W RTU 750 MG/150 ML RTUPB IV ONE (12:06)
--- NOTE | 2019-02-09 12:17 | EKG REPORT ---
SEVERITY:- ABNORMAL ECG - SINUS TACHYCARDIA BORDERLINE LEFT AXIS DEVIATION PROBABLE ANTEROSEPTAL INFARCT, AGE INDETERM : Confirmed by: Anuradha Fox 09-Feb-2019 12:16:57
[2019-02-09 12:42] LABS: AMORPHOUS SEDIMENT,URINE TRACE /HPF; APPEARANCE,URINE CLOUDY; BILIRUBIN,URINE NEGATIVE (NEGATIVE); COLOR,URINE YELLOW; GLUCOSE, URINE NEGATIVE (NEGATIVE); KETONES,URINE NEGATIVE (NEGATIVE); LEUKOCYTE ESTERASE,URINE NEGATIVE (NEGATIVE); NITRITE,URINE NEGATIVE (NEGATIVE); PROTEIN,URINE NEGATIVE (NEGATIVE); URINE SPECIFIC GRAVITY 1.012; UROBILINOGEN,URINE NEGATIVE mg/dL (<2.0)
[2019-02-09] MEDS ORDERED: MAG HYDROX/AL HYDROX/SIMETH SUSP 30 ML UDCUP PO PRN (13:07)
[2019-02-09] MEDS ORDERED: OXYCODONE-ACETAMINOPHEN 5-325 MG TABLET PO PRN (13:07)
[2019-02-09] MEDS ORDERED: ACETAMINOPHEN 325 MG TABLET PO PRN (13:07)
[2019-02-09] MEDS ORDERED: TEMAZEPAM 15 MG CAPSULE PO PRN (13:07)
--- NOTE | 2019-02-09 13:07 | PDOC H&P ---
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 Hoff oncologist, presenting to ED complaining of worsening shortness of breath for the last 4 days. Patient started having fevers, worsening shortness of breath and low SPO2 at home, went to see his PCP was started on clindamycin with no significant improvement. Was noted that his saturations were in low 80s at home from baseline of 90 to 94%, he is also complaining of substernal burning, and nonproductive cough. Denies any chest pain, nausea, vomiting, diarrhea, constipation or any urinary symptoms. His oncologist Dr. Hoff was contacted by ED physician and she has suggested for patient to be hospitalized. Past Medical History Cardiac Medical History: Reports: Hypertension, Peripheral Vascular Disease Denies: Coronary Artery Disease, Myocardial Infarction Pulmonary Medical History: Reports: Chronic Obstructive Pulmonary Disease (COPD) Denies: Asthma, Bronchitis, Pneumonia Neurological Medical History: Denies: Seizures Endocrine Medical History: Denies: Diabetes Mellitus Type 1, Diabetes Mellitus Type 2, Hyperthyroidism, Hypothyroidism GI Medical History: Denies: Cirrhosis, Hepatitis, Hiatal Hernia Musculoskeltal Medical History: Denies: Arthritis, Gout Skin Medical History: Denies: Eczema, Psoriasis Psychiatric Medical History: Denies: Depression Hematology: Denies: Anemia, Sickle Cell Disease, Bleeding Tendencies Past Surgical History Past Surgical History: Reports: Vascular Surgery - Right ileal to left femoral graft and right femoral stent, Other - Endoscopy with placement of PEG tube Denies: Pacemaker Social History Smoking Status: Unknown if Ever Smoked Frequency of Alcohol Use: None Hx Recreational Drug Use: No Drugs: None Hx Prescription Drug Abuse: No Family History Family History: CAD, COPD, DM, Hypertension, Malignancy Parental Family History Reviewed: Yes Children Family History Reviewed: Yes Sibling(s) Family History Reviewed.: Yes Medication/Allergy Home Medications: Aspirin [Ecotrin] 81 mg PO DAILY 09/24/18 Fluticasone/Salmeterol [Advair 250-50 Diskus 14 Dose/Diskus] 1 puff IH Q12 09/24/18 Gabapentin [Neurontin 300 mg Capsule] 300 mg PO Q12 09/24/18 Mirtazapine [Remeron] 7.5 mg PO QHS 09/24/18 Oxycodone HCl [Oxy-Ir 5 mg Tablet] 10 mg PO Q6 09/24/18 Pilocarpine HCl [Salagen] 5 mg PO TID 09/24/18 Tizanidine HCl [Zanaflex] 2 mg PO BID 09/24/18 Acetaminophen [Tylenol 325 mg Tablet] 650 mg PO Q4HP PRN tablet 09/30/18 Colchicine [Colcrys 0.6 mg Tablet] 0.6 mg PO DAILY 30 Days #60 tablet 09/30/18 Loperamide HCl [Imodium 2 mg Capsule] 2 mg PO Q4HP PRN capsule 09/30/18 Fentanyl 1 each TD Q72HP PRN 10/09/18 Allergies/Adverse Reactions: No Known Allergies Allergy (Verified 07/13/18 15:40) Review of Systems Review of Systems: as per hpi Physical Exam Vital Signs: Temp Pulse Resp BP Pulse Ox 98.7 F 28 H 112/70 90 L 02/09/19 12:00 02/09/19 12:08 02/09/19 12:08 02/09/19 12:08 Intake & Output 02/08/19 02/09/19 02/10/19 06:59 06:59 06:59 Intake Total 200 Balance 200 Weight 65 kg General appearance: PRESENT: no acute distress, well-developed, well-nourished Respiratory exam: PRESENT: decreased breath sounds - RLL. ABSENT: rales, rhonchi, wheezes GI/Abdominal exam: PRESENT: normal bowel sounds, soft. ABSENT: distended, guarding, mass, organolmegaly, rebound, tenderness Neurological exam: PRESENT: alert, awake, oriented to person, oriented to place, oriented to time, oriented to situation, CN II-XII grossly intact. ABSENT: motor sensory deficit Results Laboratory Results: 02/09/19 10:35 02/09/19 10:35 02/09/19 02/09/19 02/09/19 10:35 10:35 11:38 WBC 13.7 H RBC 4.61 Hgb 11.3 L Hct 35.7 L MCV 77 L MCH 24.5 L MCHC 31.7 L RDW 19.0 H Plt Count 488 H Seg Neutrophils % 80.0 H VBG pH 7.42 VBG pCO2 44.3 VBG HCO3 27.8 VBG Base Excess 2.7 Sodium 139.7 Potassium 4.4 Chloride 105 Carbon Dioxide 29 Anion Gap 6 BUN 13 Creatinine 0.63 Est GFR ( Amer) > 60 Glucose 162 H Calcium 8.6 Total Bilirubin 0.3 AST 19 Alkaline Phosphatase 95 Total Protein 5.7 L Albumin 2.8 L Urine Color Urine Appearance Urine pH Ur Specific Irving Urine Protein Urine Glucose (UA) Urine Ketones Urine Blood Urine Nitrite Ur Leukocyte Esterase Urine RBC (Auto) 02/09/19 12:25 WBC RBC Hgb Hct MCV MCH MCHC RDW Plt Count Seg Neutrophils % VBG pH VBG pCO2 VBG HCO3 VBG Base Excess Sodium Potassium Chloride Carbon Dioxide Anion Gap BUN Creatinine Est GFR ( Amer) Glucose Calcium Total Bilirubin AST Alkaline Phosphatase Total Protein Albumin Urine Color YELLOW Urine Appearance CLOUDY Urine pH 8.0 Ur Specific Irving 1.012 Urine Protein NEGATIVE Urine Glucose (UA) NEGATIVE Urine Ketones NEGATIVE Urine Blood NEGATIVE Urine Nitrite NEGATIVE Ur Leukocyte Esterase NEGATIVE Urine RBC (Auto) 1 02/09/19 10:35 Troponin I < 0.012 NT-Pro-B Natriuret Pep 374 H Impressions: Chest X-Ray 02/09/19 11:03 IMPRESSION: Increased opacification right hemithorax due to increasing right upper lobe airspace disease, and stable right pleural effusion with right middle and lower lobe consolidation Assessment and Plan - Diagnosis (1) Acute respiratory failure with hypoxia Is this a current diagnosis for this admission?: Yes Plan: Multifactorial. Due to underlying pneumonia complicated by metastatic lung cancer and COPD. Broad-spectrum IV antibiotics, Solu-Medrol, duo nebs, PRN BiPAP, flutter valve, incentive spirometer, LABA, LABA, ICS, sputum culture, blood culture. (2) Acute exacerbation of chronic obstructive pulmonary disease (COPD) Is this a current diagnosis for this admission?: Yes Plan: Due to #1. Plan as per 1. (3) Community acquired pneumonia Qualifiers: Laterality: right Lung location: unspecified part of lung Qualified Code(s): J18.9 - Pneumonia, unspecified organism Is this a current diagnosis for this admission?: Yes Plan: Community-acquired pneumonia, likely due to gram-positive's including strep pneumo. Broad-spectrum IV antibiotics, sputum and blood culture. Follow-up cultures, narrow spectrum as per culture finding. (4) Dysphagia, oropharyngeal phase Is this a current diagnosis for this admission?: Yes Plan: Due to underlying metastatic cancer. PEG tube in place. Continue PEG tube care. 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 Oncologist Dr. Rodrigues. Outpatient oncology follow-up. Dr. Rodrigues aware of this admission.
[2019-02-09] MEDS ORDERED: PROMETHAZINE HCL INJ 25 MG/1 ML VIAL IV PRN (13:12)
[2019-02-09] MEDS: IPRATROPIUM/ALBUTEROL 0.5-2.5 MG/3 ML AMPUL NEB SCH ×2 (14:08→21:37)
[2019-02-09 14:25] LABS: ARTERIAL BLOOD BASE EXCESS -1.2 mmol/L; ARTERIAL BLOOD H2CO3 1.07 mmol/L (1.05-1.35); ARTERIAL BLOOD HCO3 22.7 mmol/L (20-24); ARTERIAL BLOOD O2 SATURATION 91.8 % (94-98); ARTERIAL BLOOD PCO2 35.4 mmHg (35-45); ARTERIAL BLOOD PH 7.43 (7.35-7.45); ARTERIAL BLOOD PO2 60.2 mmHg (80-100); ARTERIAL BLOOD TOTAL CO2 23.8 mmol/L (23-27)
[2019-02-09 14:27] LABS: ARTERIAL BLOOD FIO2 28%
[2019-02-09] MEDS: HEPARIN SOD (PORCINE) 5,000 UNIT/ML 1 ML VIAL SUBCUT SCH ×2 (15:31→22:46)
[2019-02-09] MEDS: METHYLPREDNISOLONE INJ 40 MG/1 ML SDV IV SCH ×2 (15:31→22:46)
[2019-02-09] MEDS: PANTOPRAZOLE SODIUM 40 MG TABLET.DR PO SCH (18:15)
[2019-02-09] MEDS: DOCUSATE SODIUM 100 MG/10 ML UDC PO SCH (18:20)
[2019-02-10] MEDS: NORMAL SALINE 1000 ML 1,000 ML IV PRN ×2 (02:28→18:11)
[2019-02-10] MEDS: METHYLPREDNISOLONE INJ 40 MG/1 ML SDV IV SCH ×3 (06:32→21:11)
[2019-02-10] MEDS: HEPARIN SOD (PORCINE) 5,000 UNIT/ML 1 ML VIAL SUBCUT SCH ×3 (06:33→21:12)
[2019-02-10] MEDS: PANTOPRAZOLE SODIUM 40 MG TABLET.DR PO SCH ×2 (06:33→18:08)
[2019-02-10 06:56] LABS: ABSOLUTE LYMPHOCYTES (AUTO) 0.6 10^3/uL (0.5-4.7); ABSOLUTE MONOCYTES (AUTO) 0.1 10^3/uL (0.1-1.4); ABSOLUTE NEUT (AUTO) 10.8 10^3/uL (1.7-8.2); BASOPHILS % (AUTO) 0.1 % (0-2); HEMATOCRIT 32.1 % (37.9-51.0); HEMOGLOBIN 10.3 g/dL (13.5-17.0); LYMPHOCYTES % (AUTO) 5.5 % (13-45); MEAN CORPUSCULAR HEMOGLOBIN 24.6 pg (27.0-33.4); MEAN CORPUSCULAR HGB CONC 32.1 g/dL (32.0-36.0); MEAN CORPUSCULAR VOLUME 77 fl (80-97); MONOCYTES % (AUTO) 0.7 % (3-13); PLATELET COUNT 463 10^3/uL (150-450); RED BLOOD COUNT 4.19 10^6/uL (4.35-5.55); RED CELL DISTRIBUTION WIDTH 19.4 % (11.5-14.0); SEGMENTED NEUTROPHILS % (AUTO) 93.7 % (42-78); TOTAL CELLS COUNTED % (AUTO) 100 %; WHITE BLOOD COUNT 11.5 10^3/uL (4.0-10.5)
[2019-02-10 07:17] LABS: ALBUMIN 2.6 g/dL (3.5-5.0); ALKALINE PHOSPHATASE 80 U/L (38-126); ANION GAP 5 (5-19); ASPARTATE AMINO TRANSFERASE 18 U/L (17-59); BILIRUBIN,DIRECT 0.1 mg/dL (0.0-0.4); BILIRUBIN,TOTAL 0.3 mg/dL (0.2-1.3); BLOOD UREA NITROGEN 13 mg/dL (7-20); CALCIUM 8.9 mg/dL (8.4-10.2); CARBON DIOXIDE 24 mmol/L (22-30); CHLORIDE 110 mmol/L (98-107); GLUCOSE 118 mg/dL (75-110); POTASSIUM 4.5 mmol/L (3.6-5.0); TOTAL PROTEIN 5.6 g/dL (6.3-8.2)
[2019-02-10] MEDS: IPRATROPIUM/ALBUTEROL 0.5-2.5 MG/3 ML AMPUL NEB SCH ×3 (07:44→19:51)
[2019-02-10] MEDS ORDERED: DEXTROSE 40% GEL 15 GM TUBE PO PRN (09:30)
[2019-02-10] MEDS ORDERED: DEXTROSE 50%-WATER SYRINGE 25 GM/50 ML DOSE IV PRN (09:30)
[2019-02-10] MEDS ORDERED: GLUCAGON,HUMAN RECOMB 1 MG INJ IM PRN (09:30)
[2019-02-10] MEDS ORDERED: DEXTROSE 50%-WATER SYRINGE 12.5 GM/25 ML DOSE IV PRN (09:30)
[2019-02-10] MEDS ORDERED: DEXTROSE 40% GEL 15 GM TUBE X 2 PO PRN (09:30)
[2019-02-10] MEDS: DOCUSATE SODIUM 100 MG/10 ML UDC PO SCH ×2 (10:10→18:08)
[2019-02-10] MEDS ORDERED: VANCOMYCIN HCL 0 MG in DEXTROSE 5%-WATER 250 ML IV NR (10:15)
--- NOTE | 2019-02-10 10:21 | PDOC PROGRESS REPORT ---
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 Hoff oncologist, presenting to ED complaining of worsening shortness of breath for the last 4 days. Patient started having fevers, worsening shortness of breath and low SPO2 at home, went to see his PCP was started on clindamycin with no significant improvement. Was noted that his saturations were in low 80s at home from baseline of 90 to 94%, he is also complaining of substernal burning, and nonproductive cough. Denies any chest pain, nausea, vomiting, diarrhea, constipation or any urinary symptoms. His oncologist Dr. Hoff was contacted by ED physician and she has suggested for patient to be hospitalized. 02/10/2019. No acute events overnight. Alert and oriented x3 cooperative with physical examination. Stating that he is feeling better than yesterday, shortness of breath is improved still on 4 L of supplemental oxygen. Reason For Visit: ACUTE RESPIRATORY FAILURE WITH HYPOXIA Physical Exam Vital Signs: Temp Pulse Resp BP Pulse Ox 97.6 F 108 H 16 90/59 L 92 02/10/19 08:26 02/10/19 08:26 02/10/19 08:26 02/10/19 08:26 02/10/19 08:26 Intake & Output 02/09/19 02/10/19 02/11/19 06:59 06:59 06:59 Intake Total 2350 Output Total 100 Balance 2250 Weight 65 kg General appearance: PRESENT: no acute distress, well-developed, well-nourished Respiratory exam: PRESENT: decreased breath sounds - Bibasilar.. ABSENT: rales, rhonchi, wheezes Cardiovascular exam: PRESENT: RRR. ABSENT: diastolic murmur, rubs, systolic murmur GI/Abdominal exam: PRESENT: normal bowel sounds, soft, other - PEG tube in place .. ABSENT: distended, guarding, mass, organolmegaly, rebound, tenderness Neurological exam: PRESENT: alert, awake, oriented to person, oriented to place, oriented to time, oriented to situation, CN II-XII grossly intact. ABSENT: motor sensory deficit Results Laboratory Results: 02/10/19 06:25 02/10/19 06:25 02/09/19 02/09/19 02/09/19 10:35 10:35 11:38 WBC 13.7 H RBC 4.61 Hgb 11.3 L Hct 35.7 L MCV 77 L MCH 24.5 L MCHC 31.7 L RDW 19.0 H Plt Count 488 H Seg Neutrophils % 80.0 H Carbonic Acid HCO3/H2CO3 Ratio ABG pH ABG pCO2 ABG pO2 ABG HCO3 ABG O2 Saturation ABG Base Excess VBG pH 7.42 VBG pCO2 44.3 VBG HCO3 27.8 VBG Base Excess 2.7 FiO2 Sodium 139.7 Potassium 4.4 Chloride 105 Carbon Dioxide 29 Anion Gap 6 BUN 13 Creatinine 0.63 Est GFR ( Amer) > 60 Glucose 162 H Calcium 8.6 Magnesium Total Bilirubin 0.3 AST 19 Alkaline Phosphatase 95 Total Protein 5.7 L Albumin 2.8 L Urine Color Urine Appearance Urine pH Ur Specific [place] Urine Protein Urine Glucose (UA) Urine Ketones Urine Blood Urine Nitrite Ur Leukocyte Esterase Urine RBC (Auto) 02/09/19 02/09/19 02/10/19 12:25 14:00 06:25 WBC 11.5 H RBC 4.19 L Hgb 10.3 L Hct 32.1 L MCV 77 L MCH 24.6 L MCHC 32.1 RDW 19.4 H Plt Count 463 H Seg Neutrophils % 93.7 H Carbonic Acid 1.07 HCO3/H2CO3 Ratio 21:1 ABG pH 7.43 ABG pCO2 35.4 ABG pO2 60.2 L ABG HCO3 22.7 ABG O2 Saturation 91.8 L ABG Base Excess -1.2 VBG pH VBG pCO2 VBG HCO3 VBG Base Excess FiO2 28% Sodium Potassium Chloride Carbon Dioxide Anion Gap BUN Creatinine Est GFR ( Amer) Glucose Calcium Magnesium Total Bilirubin AST Alkaline Phosphatase Total Protein Albumin Urine Color YELLOW Urine Appearance CLOUDY Urine pH 8.0 Ur Specific [place] 1.012 Urine Protein NEGATIVE Urine Glucose (UA) NEGATIVE Urine Ketones NEGATIVE Urine Blood NEGATIVE Urine Nitrite NEGATIVE Ur Leukocyte Esterase NEGATIVE Urine RBC (Auto) 1 02/10/19 06:25 WBC RBC Hgb Hct MCV MCH MCHC RDW Plt Count Seg Neutrophils % Carbonic Acid HCO3/H2CO3 Ratio ABG pH ABG pCO2 ABG pO2 ABG HCO3 ABG O2 Saturation ABG Base Excess VBG pH VBG pCO2 VBG HCO3 VBG Base Excess FiO2 Sodium 139.4 Potassium 4.5 Chloride 110 H Carbon Dioxide 24 Anion Gap 5 BUN 13 Creatinine 0.52 Est GFR ( Amer) > 60 Glucose 118 H Calcium 8.9 Magnesium 2.3 Total Bilirubin 0.3 AST 18 Alkaline Phosphatase 80 Total Protein 5.6 L Albumin 2.6 L Urine Color Urine Appearance Urine pH Ur Specific [place] Urine Protein Urine Glucose (UA) Urine Ketones Urine Blood Urine Nitrite Ur Leukocyte Esterase Urine RBC (Auto) 02/09/19 11:56 Blood Blood Culture (PCR) - Final Enterococcus Species 02/09/19 10:35 Troponin I < 0.012 NT-Pro-B Natriuret Pep 374 H Impressions: Chest X-Ray 02/09/19 11:03 IMPRESSION: Increased opacification right hemithorax due to increasing right upper lobe airspace disease, and stable right pleural effusion with right middle and lower lobe consolidation Assessment and Plan - Diagnosis (1) Acute respiratory failure with hypoxia Is this a current diagnosis for this admission?: Yes Plan: Improving. SPO2 WNL on 4 L NC. Multifactorial. Due to underlying pneumonia complicated by metastatic lung cancer and COPD. Day 2 IV antibiotics. Day 2 IV levofloxacin. Day 1 IV vancomycin. Blood cultures 2/2 positive for gram-positive cocci and chains. Pending sensitivity. Continue empiric IV antibiotics, repeat blood culture, solu-Medrol, duo nebs, MO N BiPAP, flutter valve, incentive spirometer, LABA, LABA, ICS, sputum culture, blood culture. (2) Acute exacerbation of chronic obstructive pulmonary disease (COPD) Is this a current diagnosis for this admission?: Yes Plan: Due to #1. Plan as per 1. (3) Community acquired pneumonia Qualifiers: Laterality: right Lung location: unspecified part of lung Qualified Code(s): J18.9 - Pneumonia, unspecified organism Is this a current diagnosis for this admission?: Yes Plan: Community-acquired pneumonia, likely due to gram-positive's including strep pneumo. Broad-spectrum IV antibiotics, sputum and blood culture. Follow-up cultures, narrow spectrum as per culture finding. (4) Dysphagia, oropharyngeal phase Is this a current diagnosis for this admission?: Yes Plan: Due to underlying metastatic cancer. PEG tube in place. Continue PEG tube care. 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 Oncologist Dr. Rodrigues. Outpatient oncology follow-up. Dr. Rodrigues aware of this admission. (6) Gram-positive bacteremia Is this a current diagnosis for this admission?: Yes Plan: Blood cultures from admission are positive 2 out of 2 bottles for gram-positive in chains. Repeat blood culture. Continue empiric IV antibiotics.
[2019-02-10] MEDS ORDERED: ASPIRIN 81 MG TABLET, ENT COATED PO SCH (12:00)
[2019-02-10] MEDS ORDERED: CHOLESTYRAMINE/ASPARTAME 4 GM PACKET PO SCH (12:00)
[2019-02-10] MEDS: LEVOFLOXACIN 750 MG/D5W RTU 750 MG/150 ML RTUPB IV SCH (13:54)
[2019-02-10] MEDS: GABAPENTIN 300 MG CAPSULE PEG SCH ×2 (13:57→21:10)
[2019-02-10] MEDS: DILTIAZEM HCL 90 MG TABLET PEG SCH ×3 (13:57→23:21)
[2019-02-10] MEDS: METOCLOPRAMIDE HCL ORAL SOLN 10 MG/10 ML UDCUP PEG SCH ×2 (13:57→21:09)
[2019-02-10] MEDS: INSULIN LISPRO 100 UNIT/ML 3 ML VIAL SUBCUT SCH ×3 (13:59→21:34)
[2019-02-10] MEDS ORDERED: PILOCARPINE HCL 5 MG PEG SCH (14:00)
[2019-02-10] MEDS: LEVOTHYROXINE SODIUM 0.025 MG TABLET PEG SCH (14:02)
--- NOTE | 2019-02-10 16:07 | PDOC CONSULTATION ---
Consultation Consult Date: 02/10/19 Provider Consulted: KATARINA BELLA Consult reason:: Hematology/Oncology consultation was requested for patient on active treatment for head and neck cancer admitted for pneumonia. History of Present Illness Admission Date/PCP: 02/09/19 12:46 GINA MENDOSA History of Present Illness: FELIPE PIERRE is a 73 year old male who was diagnosed with head and neck cancer and is on active treatment, including Keytruda - immunotherapy. He presented to PCP at [facility] initially with dyspnea and was started on PO antibiotics about 5 days ago. However, patient continued to feel worse with dyspnea and anxiety. He was found in the ED yesterday to have pneumonia and IV antibiotics were started. Steroids have also been started for the possibility of immune related pneumonia secondary to cancer treatment. However, blood cultures are growing G+ cocci. He is on Levaquin and Vanc awaiting sensativities. Today, he states that he is feeling better, but is still short of breath. Poor appetite, but tolerating tube feedings well. He denies any other concerns today. Past Medical History Cardiac Medical History: Reports: Hypertension, Peripheral Vascular Disease Denies: Coronary Artery Disease, Myocardial Infarction Pulmonary Medical History: Reports: Chronic Obstructive Pulmonary Disease (COPD) Denies: Asthma, Bronchitis, Pneumonia Neurological Medical History: Denies: Seizures Endocrine Medical History: Denies: Diabetes Mellitus Type 1, Diabetes Mellitus Type 2, Hyperthyroidism, Hypothyroidism GI Medical History: Denies: Cirrhosis, Hepatitis, Hiatal Hernia Musculoskeltal Medical History: Denies: Arthritis, Gout Skin Medical History: Denies: Eczema, Psoriasis Psychiatric Medical History: Denies: Depression Hematology: Denies: Anemia, Sickle Cell Disease, Bleeding Tendencies Past Surgical History Past Surgical History: Reports: Vascular Surgery - Right ileal to left femoral graft and right femoral stent, Other - Endoscopy with placement of PEG tube Denies: Pacemaker Social History Smoking Status: Former Smoker Cigarettes Packs Per Day: 1 Number of Years Smokin Last Time Smoked: !! Frequency of Alcohol Use: None Hx Recreational Drug Use: No Drugs: None Hx Prescription Drug Abuse: No - Advance Directive Resuscitation Status: Full Code Family History Family History: CAD, COPD, DM, Hypertension, Malignancy Parental Family History Reviewed: Yes Children Family History Reviewed: No Sibling(s) Family History Reviewed.: Yes Medication/Allergy Home Medications: Aspirin [Adult Low Dose Aspirin EC] 81 mg PO DAILY 02/09/19 Cholestyramine/Aspartame [Prevalite Packet] 4 gm PO DAILY 02/09/19 Diclofenac Sodium [Voltaren] 4 gm TOP QID 02/09/19 Diltiazem HCl [Cardizem 90 mg Tablet] 90 mg PEG QID 02/09/19 Fentanyl [Duragesic 50 Mcg/Hr Transdermal Patch] 1 patch TD Q72H 02/09/19 Gabapentin [Neurontin 300 mg Capsule] 300 mg PEG Q8 02/09/19 Levothyroxine Sodium 25 mcg PEG Q6AM 02/09/19 Metoclopramide HCl [Reglan] 5 mg PEG TID 02/09/19 Mirtazapine [Remeron 15 mg Tablet] 15 mg PEG QHS 02/09/19 Ondansetron HCl [Zofran 8 mg Tablet] 8 mg PEG Q8HP PRN 02/09/19 Oxycodone HCl [Oxycodone HCl 10 MG Tablet] 10 mg PEG Q6HP PRN 02/09/19 Pilocarpine HCl [Salagen] 5 mg PEG TID 02/09/19 Prazosin HCl [Minipress] 1 mg PEG QHS 02/09/19 Tizanidine HCl [Zanaflex] 2 mg PEG BID 02/09/19 Umeclidinium Brm/Vilanterol Tr [Anoro Ellipta 62.5-25 Mcg INH] 1 puff IH DAILY 02/09/19 Allergies/Adverse Reactions: No Known Allergies Allergy (Verified 07/13/18 15:40) Review of Systems Constitutional: PRESENT: fever(s). ABSENT: headache(s) Eyes: ABSENT: visual disturbances Ears: ABSENT: hearing changes Nose, Mouth, and Throat: ABSENT: sore throat Cardiovascular: ABSENT: chest pain Respiratory: PRESENT: cough, dyspnea Gastrointestinal: ABSENT: diarrhea, nausea Genitourinary: ABSENT: dysuria Integumentary: ABSENT: rash Neurological: PRESENT: weakness Psychiatric: PRESENT: anxiety Hematologic/Lymphatic: ABSENT: easy bleeding Physical Exam Vital Signs: Temp Pulse Resp BP Pulse Ox 97.2 F 91 18 117/65 94 02/10/19 12:01 02/10/19 14:01 02/10/19 14:01 02/10/19 12:01 02/10/19 14:01 Intake & Output 02/09/19 02/10/19 02/11/19 06:59 06:59 06:59 Intake Total 2350 640 Output Total 100 100 Balance 2250 540 Weight 65 kg General appearance: PRESENT: no acute distress, thin, well-developed Exam: 73 year old female. Head exam: PRESENT: atraumatic, normocephalic Eye exam: PRESENT: EOMI Mouth exam: PRESENT: tongue midline Teeth exam: PRESENT: edentulous Neck exam: ABSENT: tenderness Respiratory exam: PRESENT: decreased breath sounds - Right base. Cardiovascular exam: PRESENT: RRR GI/Abdominal exam: PRESENT: normal bowel sounds, soft, other - PEG tube functioning well.. ABSENT: tenderness Extremities exam: ABSENT: pedal edema Neurological exam: PRESENT: alert, awake, oriented to person, oriented to place, oriented to time, oriented to situation Psychiatric exam: PRESENT: appropriate affect Skin exam: PRESENT: normal color Results Laboratory Results: 02/10/19 06:25 02/10/19 06:25 02/10/19 02/10/19 06:25 06:25 WBC 11.5 H RBC 4.19 L Hgb 10.3 L Hct 32.1 L MCV 77 L MCH 24.6 L MCHC 32.1 RDW 19.4 H Plt Count 463 H Seg Neutrophils % 93.7 H Sodium 139.4 Potassium 4.5 Chloride 110 H Carbon Dioxide 24 Anion Gap 5 BUN 13 Creatinine 0.52 Est GFR ( Amer) > 60 Glucose 118 H Calcium 8.9 Magnesium 2.3 Total Bilirubin 0.3 AST 18 Alkaline Phosphatase 80 Total Protein 5.6 L Albumin 2.6 L 02/09/19 11:56 Blood Blood Culture (PCR) - Final Enterococcus Species 02/09/19 10:35 Troponin I < 0.012 NT-Pro-B Natriuret Pep 374 H Impressions: Chest X-Ray 02/09/19 11:03 IMPRESSION: Increased opacification right hemithorax due to increasing right u pper lobe airspace disease, and stable right pleural effusion with right middle and lower lobe consolidation Assessment & Plan - Diagnosis (1) Acute and chronic respiratory failure with hypoxia Is this a current diagnosis for this admission?: Yes Plan: Oxygen, steroids. Inhalers. Slowly improving. (2) Gram-positive bacteremia Is this a current diagnosis for this admission?: Yes Plan: Most likely from pneumonia. On Levaquin and Vanc, pending final results of cultures. (3) Malignant neoplasm of base of tongue Is this a current diagnosis for this admission?: Yes Plan: On Keytruda immunotherapy. He should not be immunocompromised. Agree with use of steroids, but with bacteremia, drug induced pneumonites is much less probable and these could be rapidly weaned, if needed. (4) Pneumonia Qualifiers: Pneumonia type: due to unspecified organism Laterality: right Lung location: lower lobe of lung Is this a current diagnosis for this admission?: Yes Plan: As per above. Continue ABX. - Plan Summary Plan Summary: Thank you for this consultation. I will continue to follow him with you. Please call with any concerns.
[2019-02-10] MEDS: VANCOMYCIN HCL 750 MG in DEXTROSE 5%-WATER 250 ML IV SCH ×2 (17:11→21:11)
[2019-02-10] MEDS ORDERED: (PENDING PHARMACY ID) (Tizanidine Hcl [Zanaflex] 2 MG) PEG SCH (18:00)
[2019-02-10] MEDS: TIZANIDINE HCL 4 MG TABLET PEG SCH (18:08)
[2019-02-10] MEDS ORDERED: ACETAMINOPHEN 325 MG TABLET PEG PRN (19:30)
[2019-02-10] MEDS ORDERED: MAG HYDROX/AL HYDROX/SIMETH SUSP 30 ML UDCUP PEG PRN (19:30)
[2019-02-10] MEDS ORDERED: TEMAZEPAM 15 MG CAPSULE PEG PRN (19:30)
[2019-02-10] MEDS ORDERED: LEVALBUTEROL HCL NEB 1.25 MG/3 ML AMPUL NEB ONE (20:30)
[2019-02-10] MEDS: MIRTAZAPINE 15 MG TABLET PEG SCH (21:10)
[2019-02-10] MEDS: OXYCODONE HCL IR 5 MG TABLET PEG PRN (21:13)
[2019-02-10] MEDS ORDERED: (PENDING PHARMACY ID) (Prazosin Hcl [Minipress] 1 MG) PEG SCH (22:00)
[2019-02-11] MEDS: DILTIAZEM HCL 90 MG TABLET PEG SCH ×3 (05:25→17:52)
[2019-02-11] MEDS: METOCLOPRAMIDE HCL ORAL SOLN 10 MG/10 ML UDCUP PEG SCH ×3 (05:32→21:42)
[2019-02-11] MEDS: VANCOMYCIN HCL 750 MG in DEXTROSE 5%-WATER 250 ML IV SCH ×2 (05:32→15:36)
[2019-02-11] MEDS: METHYLPREDNISOLONE INJ 40 MG/1 ML SDV IV SCH (05:33)
[2019-02-11] MEDS: PANTOPRAZOLE SODIUM 40 MG PACKET.DR PO SCH ×2 (05:33→17:52)
[2019-02-11] MEDS: OXYCODONE HCL IR 5 MG TABLET PEG PRN (05:33)
[2019-02-11] MEDS: HEPARIN SOD (PORCINE) 5,000 UNIT/ML 1 ML VIAL SUBCUT SCH ×3 (05:33→21:42)
[2019-02-11] MEDS: LEVOTHYROXINE SODIUM 0.025 MG TABLET PEG SCH (05:34)
[2019-02-11] MEDS: GABAPENTIN 300 MG CAPSULE PEG SCH ×3 (05:34→21:42)
[2019-02-11 06:01] LABS: HEMATOCRIT 34.4 % (37.9-51.0); HEMOGLOBIN 10.7 g/dL (13.5-17.0); MEAN CORPUSCULAR HEMOGLOBIN 23.9 pg (27.0-33.4); MEAN CORPUSCULAR HGB CONC 31.1 g/dL (32.0-36.0); MEAN CORPUSCULAR VOLUME 77 fl (80-97); PLATELET COUNT 520 10^3/uL (150-450); RED BLOOD COUNT 4.47 10^6/uL (4.35-5.55)
[2019-02-11 06:16] LABS: ALBUMIN 2.9 g/dL (3.5-5.0); ALKALINE PHOSPHATASE 80 U/L (38-126); ANION GAP 6 (5-19); ASPARTATE AMINO TRANSFERASE 22 U/L (17-59); BILIRUBIN,DIRECT 0.1 mg/dL (0.0-0.4); BILIRUBIN,TOTAL 0.2 mg/dL (0.2-1.3); BLOOD UREA NITROGEN 15 mg/dL (7-20); CALCIUM 9.1 mg/dL (8.4-10.2); CARBON DIOXIDE 27 mmol/L (22-30); CHLORIDE 111 mmol/L (98-107); GLUCOSE 133 mg/dL (75-110); POTASSIUM 4.1 mmol/L (3.6-5.0); TOTAL PROTEIN 5.8 g/dL (6.3-8.2)
[2019-02-11 06:29] LABS: ABSOLUTE LYMPHOCYTES# (MANUAL) 0.8 10^3/uL (0.5-4.7); BASOPHILS % (MANUAL) 0 % (0-2); EOSINOPHILS % (MANUAL) 0 % (0-6); LYMPHOCYTES % (MANUAL) 3 % (13-45); MONOCYTES % (MANUAL) 0 % (3-13); POLYCHROMASIA SLIGHT; SEGMENTED NEUTROPHILS % (MAN) 97 % (42-78); TOTAL CELLS COUNTED 100
[2019-02-11 06:30] LABS: ANISOCYTOSIS 1+; HYPERSEGMENTED NEUTROPHILS PRESENT; OVALOCYTES SLIGHT; PLATELET COMMENT INCREASED; POIKILOCYTOSIS SLIGHT; WHITE BLOOD COUNT 26.8 10^3/uL (4.0-10.5)
[2019-02-11] MEDS: LEVALBUTEROL HCL NEB 1.25 MG/3 ML AMPUL NEB SCH ×3 (08:44→19:56)
[2019-02-11] MEDS: INSULIN LISPRO 100 UNIT/ML 3 ML VIAL SUBCUT SCH ×4 (09:15→21:36)
[2019-02-11] MEDS ORDERED: (PENDING PHARMACY ID) (Umeclidinium Brm/Vilanterol Tr [Anoro Ellipta 62.5-25 Mcg Inh] 1 PU IH SCH (10:00)
[2019-02-11] MEDS: DOCUSATE SODIUM 100 MG/10 ML UDC PEG SCH ×2 (10:42→17:52)
[2019-02-11] MEDS: FENTANYL 50 MCG/HR PATCH.TD72 TD SCH (10:43)
[2019-02-11] MEDS: TIZANIDINE HCL 4 MG TABLET PEG SCH ×2 (10:43→17:52)
[2019-02-11] MEDS: ASPIRIN 81 MG TABLET, CHEWABLE PEG SCH (10:43)
[2019-02-11] MEDS: CHOLESTYRAMINE/ASPARTAME 4 GM PACKET PEG SCH (10:44)
--- NOTE | 2019-02-11 10:49 | PDOC PROGRESS REPORT ---
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 Hoff oncologist, presenting to ED complaining of worsening shortness of breath for the last 4 days. Patient started having fevers, worsening shortness of breath and low SPO2 at home, went to see his PCP was started on clindamycin with no significant improvement. Was noted that his saturations were in low 80s at home from baseline of 90 to 94%, he is also complaining of substernal burning, and nonproductive cough. Denies any chest pain, nausea, vomiting, diarrhea, constipation or any urinary symptoms. His oncologist Dr. Hoff was contacted by ED physician and she has suggested for patient to be hospitalized. 02/10/2019. No acute events overnight. Alert and oriented x3 cooperative with physical examination. Stating that he is feeling better than yesterday, shortness of breath is improved still on 4 L of supplemental oxygen. 02/11/2019. No acute events overnight. Patient comfortably resting in bed receiving his labs. Denies shortness of breath has improved. Denies any fever, chills, nausea, vomiting, diarrhea, constipation or any urinary symptoms. Reason For Visit: ACUTE RESPIRATORY FAILURE WITH HYPOXIA Physical Exam Vital Signs: Temp Pulse Resp BP Pulse Ox 97.7 F 96 20 129/73 H 94 02/11/19 04:01 02/11/19 08:44 02/11/19 08:44 02/11/19 04:01 02/11/19 08:44 Intake & Output 02/10/19 02/11/19 02/12/19 06:59 06:59 06:59 Intake Total 2350 3010 250 Output Total 100 1150 Balance 2250 1860 250 Weight 65 kg 68.4 kg General appearance: PRESENT: no acute distress, well-developed, well-nourished Head exam: PRESENT: atraumatic, normocephalic Respiratory exam: PRESENT: clear to auscultation tyler, decreased breath sounds - Right basilar.. ABSENT: rales, rhonchi, wheezes Cardiovascular exam: PRESENT: RRR. ABSENT: diastolic murmur, rubs, systolic murmur Neurological exam: PRESENT: alert, awake, oriented to person, oriented to place, oriented to time, oriented to situation, CN II-XII grossly intact. ABSENT: motor sensory deficit Results Laboratory Results: 02/11/19 05:50 02/11/19 05:50 02/11/19 02/11/19 05:50 05:50 WBC 26.8 H D RBC 4.47 Hgb 10.7 L Hct 34.4 L MCV 77 L MCH 23.9 L MCHC 31.1 L RDW 19.0 H Plt Count 520 H Seg Neutrophils % Not Reportable Sodium 144.0 Potassium 4.1 Chloride 111 H Carbon Dioxide 27 Anion Gap 6 BUN 15 Creatinine 0.55 Est GFR ( Amer) > 60 Glucose 133 H Calcium 9.1 Magnesium 2.1 Total Bilirubin 0.2 AST 22 Alkaline Phosphatase 80 Total Protein 5.8 L Albumin 2.9 L 02/10/19 10:43 Blood Blood Culture (PCR) - Final Enterococcus Species 02/09/19 13:45 Blood Blood Culture - Final Enterococcus Faecalis(Group D) 02/09/19 11:56 Blood Blood Culture (PCR) - Final Enterococcus Species 02/09/19 11:56 Blood Blood Culture - Final Enterococcus Faecalis(Group D) 02/09/19 10:35 Troponin I < 0.012 NT-Pro-B Natriuret Pep 374 H Impressions: Chest X-Ray 02/09/19 11:03 IMPRESSION: Increased opacification right hemithorax due to increasing right upper lobe airspace disease, and stable right pleural effusion with right middle and lower lobe consolidation Assessment and Plan - Diagnosis (1) Gram-positive bacteremia Is this a current diagnosis for this admission?: Yes Plan: Due to Enterococcus faecalis. Day 3 IV antibiotics. Day 3 IV levofloxacin. Day 2 IV vancomycin. Positive 2 sets out of 2 blood cultures for Enterococcus faecalis. Pending sensitivity. Patient has history of metastatic lung cancer and has a port in the left chest which may need to either come out if repeat blood cultures come back positive. (2) Acute respiratory failure with hypoxia Is this a current diagnosis for this admission?: Yes Plan: Improving. SPO2 WNL on 4 L NC. Multifactorial. Due to underlying pneumonia complicated by metastatic lung cancer and COPD. Day 3 IV antibiotics. Day 3 IV levofloxacin. Day 2 IV vancomycin. Positive blood cultures for Enterococcus faecalis. Pending sensitivity. Continue empiric IV antibiotics, duo nebs, PRN BiPAP, flutter valve, incentive spirometer, LABA, LABA, ICS. Repeat blood culture. Follow-up blood cultures. (3) Acute exacerbation of chronic obstructive pulmonary disease (COPD) Is this a current diagnosis for this admission?: Yes Plan: Due to #1. Plan as per 1. (4) Community acquired pneumonia Qualifiers: Laterality: right Lung location: unspecified part of lung Qualified Code(s): J18.9 - Pneumonia, unspecified organism Is this a current diagnosis for this admission?: Yes Plan: Community-acquired pneumonia, likely due to gram-positive's including strep pneumo. Broad-spectrum IV antibiotics, sputum and blood culture. Follow-up cultures, narrow spectrum as per culture finding. (5) Dysphagia, oropharyngeal phase Is this a current diagnosis for this admission?: Yes Plan: Due to underlying metastatic cancer. PEG tube in place. Continue PEG tube care. 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 Oncologist Dr. Rodrigues. Oncology following. Recommendations noted.
[2019-02-11] MEDS: LEVOFLOXACIN 750 MG/D5W RTU 750 MG/150 ML RTUPB IV SCH (13:34)
[2019-02-11 16:15] LABS: VANCOMYCIN,TROUGH 8.7 ug/mL (5.0-20.0)
[2019-02-11] MEDS: MIRTAZAPINE 15 MG TABLET PEG SCH (21:42)
[2019-02-11] MEDS: VANCOMYCIN HCL 1,250 MG in DEXTROSE 5%-WATER 250 ML IV SCH (21:44)
[2019-02-12] MEDS: DILTIAZEM HCL 90 MG TABLET PEG SCH ×2 (00:24→05:38)
[2019-02-12 04:37] LABS: HEMATOCRIT 34.1 % (37.9-51.0); HEMOGLOBIN 10.6 g/dL (13.5-17.0); MEAN CORPUSCULAR VOLUME 78 fl (80-97); PLATELET COUNT 499 10^3/uL (150-450); RED CELL DISTRIBUTION WIDTH 19.3 % (11.5-14.0); WHITE BLOOD COUNT 24.5 10^3/uL (4.0-10.5)
[2019-02-12 05:02] LABS: ABSOLUTE LYMPHOCYTES# (MANUAL) 0.2 10^3/uL (0.5-4.7); ABSOLUTE MONOCYTES # (MANUAL) 0.2 10^3/uL (0.1-1.4); BAND NEUTROPHILS % (MANUAL) 3 % (3-5); BASOPHILS % (MANUAL) 0 % (0-2); EOSINOPHILS % (MANUAL) 0 % (0-6); LYMPHOCYTES % (MANUAL) 1 % (13-45); MONOCYTES % (MANUAL) 1 % (3-13); SEGMENTED NEUTROPHILS % (MAN) 95 % (42-78); TOTAL CELLS COUNTED 100
[2019-02-12 05:03] LABS: ANISOCYTOSIS 2+; HYPOCHROMASIA 1+; PLATELET COMMENT INCREASED; POLYCHROMASIA 1+
[2019-02-12 05:33] LABS: ALBUMIN 2.6 g/dL (3.5-5.0); ALKALINE PHOSPHATASE 74 U/L (38-126); ANION GAP 6 (5-19); ASPARTATE AMINO TRANSFERASE 23 U/L (17-59); BILIRUBIN,DIRECT 0.1 mg/dL (0.0-0.4); BILIRUBIN,TOTAL 0.2 mg/dL (0.2-1.3); BLOOD UREA NITROGEN 16 mg/dL (7-20); CALCIUM 8.8 mg/dL (8.4-10.2); CARBON DIOXIDE 27 mmol/L (22-30); CHLORIDE 107 mmol/L (98-107); GLUCOSE 119 mg/dL (75-110); POTASSIUM 4.2 mmol/L (3.6-5.0); TOTAL PROTEIN 5.4 g/dL (6.3-8.2)
[2019-02-12] MEDS: VANCOMYCIN HCL 1,250 MG in DEXTROSE 5%-WATER 250 ML IV SCH ×3 (06:24→21:14)
[2019-02-12] MEDS: LEVOTHYROXINE SODIUM 0.025 MG TABLET PEG SCH (06:24)
[2019-02-12] MEDS: HEPARIN SOD (PORCINE) 5,000 UNIT/ML 1 ML VIAL SUBCUT SCH ×3 (06:24→21:01)
[2019-02-12] MEDS: METOCLOPRAMIDE HCL ORAL SOLN 10 MG/10 ML UDCUP PEG SCH ×3 (06:24→21:14)
[2019-02-12] MEDS: GABAPENTIN 300 MG CAPSULE PEG SCH ×3 (06:24→21:14)
[2019-02-12] MEDS: PANTOPRAZOLE SODIUM 40 MG PACKET.DR PO SCH ×2 (06:42→17:27)
[2019-02-12] MEDS ORDERED: DIPHENOXYLATE HCL/ATROP SULF 2.5-0.025 MG TABLET PO ONE (06:45)
[2019-02-12] MEDS: LEVALBUTEROL HCL NEB 1.25 MG/3 ML AMPUL NEB SCH ×3 (08:16→21:30)
--- NOTE | 2019-02-12 08:40 | PDOC PROGRESS REPORT ---
Subjective Progress Note for:: 02/12/19 Subjective:: Patient states that his breathing has improved. No new complaints, except unable to sleep in the hospital. Eating well. They are concerned about the positive blood cultures and are asking if IV ABX can be continued at home. They understand that port may need to be removed. Reason For Visit: ACUTE RESPIRATORY FAILURE WITH HYPOXIA Physical Exam Vital Signs: Temp Pulse Resp BP Pulse Ox 97.7 F 105 H 16 132/82 H 92 02/12/19 04:37 02/12/19 08:16 02/12/19 08:16 02/12/19 04:37 02/12/19 08:16 Intake & Output 02/11/19 02/12/19 02/13/19 06:59 06:59 06:59 Intake Total 3010 3600 Output Total 1150 250 Balance 1860 3350 Weight 68.4 kg 66 kg General appearance: PRESENT: no acute distress, thin Head exam: PRESENT: normocephalic Respiratory exam: PRESENT: crackles - Left base, decreased breath sounds - Right base Cardiovascular exam: PRESENT: RRR GI/Abdominal exam: PRESENT: normal bowel sounds, soft Extremities exam: ABSENT: pedal edema Neurological exam: PRESENT: alert, awake, oriented to person, oriented to place, oriented to time, oriented to situation Psychiatric exam: PRESENT: appropriate affect Skin exam: PRESENT: normal color Results Laboratory Results: 02/12/19 04:05 02/12/19 04:05 02/12/19 02/12/19 04:05 04:05 WBC 24.5 H RBC 4.40 Hgb 10.6 L Hct 34.1 L MCV 78 L MCH 24.0 L MCHC 31.0 L RDW 19.3 H Plt Count 499 H Seg Neutrophils % Not Reportable Sodium 140.1 Potassium 4.2 Chloride 107 Carbon Dioxide 27 Anion Gap 6 BUN 16 Creatinine 0.53 Est GFR ( Amer) > 60 Glucose 119 H Calcium 8.8 Magnesium 2.1 Total Bilirubin 0.2 AST 23 Alkaline Phosphatase 74 Total Protein 5.4 L Albumin 2.6 L 02/10/19 10:43 Blood Blood Culture (PCR) - Final Enterococcus Species 02/10/19 10:43 Blood Blood Culture - Final Enterococcus Faecalis(Group D) 02/09/19 13:45 Blood Blood Culture - Final Enterococcus Faecalis(Group D) 02/09/19 11:56 Blood Blood Culture (PCR) - Final Enterococcus Species 02/09/19 11:56 Blood Blood Culture - Final Enterococcus Faecalis(Group D) 02/09/19 10:35 Troponin I < 0.012 NT-Pro-B Natriuret Pep 374 H Impressions: Chest X-Ray 02/09/19 11:03 IMPRESSION: Increased opacification right hemithorax due to increasing right upper lobe airspace disease, and stable right pleural effusion with right middle and lower lobe consolidation Assessment & Plan - Diagnosis (1) Acute and chronic respiratory failure with hypoxia Is this a current diagnosis for this admission?: Yes (2) Gram-positive bacteremia Is this a current diagnosis for this admission?: Yes Plan: Blood cultures continue to be positive. May need port removed. But patient would like to try to avoid this if possible. Agree with current management. (3) Malignant neoplasm of base of tongue Is this a current diagnosis for this admission?: Yes (4) Pneumonia Qualifiers: Pneumonia type: due to unspecified organism Laterality: right Lung location: lower lobe of lung Is this a current diagnosis for this admission?: Yes Plan: Agree with antibiotics. Steroids have been appropriately stopped. - Time Time Spent with patient: Less than 15 minutes - Plan Summary Plan Summary: Cancer treatment currently on hold. Will resume after infection has been cleared. NO evidence of immunocompromise at present.
[2019-02-12] MEDS: INSULIN LISPRO 100 UNIT/ML 3 ML VIAL SUBCUT SCH ×4 (09:29→21:15)
[2019-02-12] MEDS: CHOLESTYRAMINE/ASPARTAME 4 GM PACKET PEG SCH (09:56)
[2019-02-12] MEDS: OXYCODONE-ACETAMINOPHEN 5-325 MG TABLET PEG PRN (09:56)
[2019-02-12] MEDS: ASPIRIN 81 MG TABLET, CHEWABLE PEG SCH (09:56)
[2019-02-12] MEDS: TIZANIDINE HCL 4 MG TABLET PEG SCH ×2 (09:56→17:29)
[2019-02-12] MEDS: DOCUSATE SODIUM 100 MG/10 ML UDC PEG SCH ×2 (09:57→17:02)
--- NOTE | 2019-02-12 10:06 | PDOC PROGRESS REPORT ---
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 Hoff oncologist, presenting to ED complaining of worsening shortness of breath for the last 4 days. Patient started having fevers, worsening shortness of breath and low SPO2 at home, went to see his PCP was started on clindamycin with no significant improvement. Was noted that his saturations were in low 80s at home from baseline of 90 to 94%, he is also complaining of substernal burning, and nonproductive cough. Denies any chest pain, nausea, vomiting, diarrhea, constipation or any urinary symptoms. His oncologist Dr. Hoff was contacted by ED physician and she has suggested for patient to be hospitalized. 02/10/2019. No acute events overnight. Alert and oriented x3 cooperative with physical examination. Stating that he is feeling better than yesterday, shortness of breath is improved still on 4 L of supplemental oxygen. 02/11/2019. No acute events overnight. Patient comfortably resting in bed receiving his labs. Denies shortness of breath has improved. Denies any fever, chills, nausea, vomiting, diarrhea, constipation or any urinary symptoms. 02/12/2019. No acute events overnight. Patient comfortably sitting in bed, shortness of breath has been improving significantly. Denies any fever, chills, nausea, vomiting. Had one loose bowel movement last night. Reason For Visit: ACUTE RESPIRATORY FAILURE WITH HYPOXIA Physical Exam Vital Signs: Temp Pulse Resp BP Pulse Ox 97.7 F 105 H 16 127/76 H 92 02/12/19 07:43 02/12/19 08:16 02/12/19 08:16 02/12/19 07:43 02/12/19 08:16 Intake & Output 02/11/19 02/12/19 02/13/19 06:59 06:59 06:59 Intake Total 3010 3600 250 Output Total 1150 250 Balance 1860 3350 250 Weight 68.4 kg 66 kg General appearance: PRESENT: no acute distress, well-developed, well-nourished Respiratory exam: PRESENT: clear to auscultation tyler, crackles - Left lower lobe, decreased breath sounds - Bibasilar. ABSENT: rales, rhonchi, wheezes GI/Abdominal exam: PRESENT: normal bowel sounds, soft. ABSENT: distended, guarding, mass, organolmegaly, rebound, tenderness Neurological exam: PRESENT: alert, awake, oriented to person, oriented to place, oriented to time, oriented to situation, CN II-XII grossly intact. ABSENT: motor sensory deficit Results Laboratory Results: 02/12/19 04:05 02/12/19 04:05 02/12/19 02/12/19 04:05 04:05 WBC 24.5 H RBC 4.40 Hgb 10.6 L Hct 34.1 L MCV 78 L MCH 24.0 L MCHC 31.0 L RDW 19.3 H Plt Count 499 H Seg Neutrophils % Not Reportable Sodium 140.1 Potassium 4.2 Chloride 107 Carbon Dioxide 27 Anion Gap 6 BUN 16 Creatinine 0.53 Est GFR ( Amer) > 60 Glucose 119 H Calcium 8.8 Magnesium 2.1 Total Bilirubin 0.2 AST 23 Alkaline Phosphatase 74 Total Protein 5.4 L Albumin 2.6 L 02/11/19 08:15 Blood Blood Culture (PCR) - Final Enterococcus Species 02/10/19 10:43 Blood Blood Culture (PCR) - Final Enterococcus Species 02/10/19 10:43 Blood Blood Culture - Final Enterococcus Faecalis(Group D) 02/09/19 13:45 Blood Blood Culture - Final Enterococcus Faecalis(Group D) 02/09/19 11:56 Blood Blood Culture (PCR) - Final Enterococcus Species 02/09/19 11:56 Blood Blood Culture - Final Enterococcus Faecalis(Group D) 02/09/19 10:35 Troponin I < 0.012 NT-Pro-B Natriuret Pep 374 H Impressions: Chest X-Ray 02/09/19 11:03 IMPRESSION: Increased opacification right hemithorax due to increasing right upper lobe airspace disease, and stable right pleural effusion with right middle and lower lobe consolidation Assessment and Plan - Diagnosis (1) Gram-positive bacteremia Is this a current diagnosis for this admission?: Yes Plan: Due to Enterococcus faecalis. Day 4 IV antibiotics. Day 4 IV levofloxacin. Day 3 IV vancomycin. Positive 3 sets out of 3 blood cultures for Enterococcus faecalis. Sensitive to vancomycin and daptomycin. Patient has history of metastatic lung cancer and has a port in the left chest w hich may need to either come out. Patient hesitant about removing the port, I have consulted ID specialist to see if removing of port is absolutely necessary and also if patient needs to be worked up for endocarditis and duration of therapy. Please follow-up ID recommendation. (2) Acute respiratory failure with hypoxia Is this a current diagnosis for this admission?: Yes Plan: Moderate improvement. SPO2 WNL on 3.5 L NC. Multifactorial. Due to underlying pneumonia complicated by metastatic lung cancer and COPD. Day 4 IV antibiotics. Day 4 IV levofloxacin. Day 3 IV vancomycin. Positive blood cultures for Enterococcus faecalis. Pending sensitivity. Continue empiric IV antibiotics, duo nebs, PRN BiPAP, flutter valve, incentive spirometer, LABA, LABA, ICS. Repeat blood culture. Follow-up blood cultures. (3) Acute exacerbation of chronic obstructive pulmonary disease (COPD) Is this a current diagnosis for this admission?: Yes Plan: Due to #1. Plan as per 1. (4) Community acquired pneumonia Qualifiers: Laterality: right Lung location: unspecified part of lung Qualified Code(s): J18.9 - Pneumonia, unspecified organism Is this a current diagnosis for this admission?: Yes Plan: Community-acquired pneumonia, likely due to gram-positive's including strep pneumo. Broad-spectrum IV antibiotics, sputum and blood culture. Plan as per #2. (5) Dysphagia, oropharyngeal phase Is this a current diagnosis for this admission?: Yes Plan: Due to underlying metastatic cancer. PEG tube in place. Continue PEG tube care. 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 Oncologist Dr. Rodrigues. Oncology following. Recommendations noted.
[2019-02-12] MEDS ORDERED: DILTIAZEM HCL 90 MG TABLET PEG SCH (12:00)
[2019-02-12] MEDS: DILTIAZEM HCL 60 MG TABLET PEG SCH ×2 (13:13→17:27)
[2019-02-12] MEDS: LEVOFLOXACIN 750 MG/D5W RTU 750 MG/150 ML RTUPB IV SCH (13:14)
[2019-02-12] MEDS: MIRTAZAPINE 15 MG TABLET PEG SCH (21:14)
[2019-02-12 22:13] LABS: VANCOMYCIN,TROUGH 28.7 ug/mL (5.0-20.0)
[2019-02-13] MEDS: DILTIAZEM HCL 60 MG TABLET PEG SCH ×5 (01:05→23:51)
[2019-02-13 03:24] LABS: C DIFFICILE GDH NEGATIVE (NEGATIVE)
[2019-02-13] MEDS: METOCLOPRAMIDE HCL ORAL SOLN 10 MG/10 ML UDCUP PEG SCH ×3 (05:39→21:44)
[2019-02-13] MEDS: LEVOTHYROXINE SODIUM 0.025 MG TABLET PEG SCH (05:39)
[2019-02-13] MEDS: GABAPENTIN 300 MG CAPSULE PEG SCH ×3 (05:39→21:45)
[2019-02-13] MEDS: HEPARIN SOD (PORCINE) 5,000 UNIT/ML 1 ML VIAL SUBCUT SCH ×3 (05:48→21:45)
[2019-02-13] MEDS: PANTOPRAZOLE SODIUM 40 MG PACKET.DR PO SCH ×2 (05:49→16:02)
[2019-02-13] MEDS: VANCOMYCIN HCL 1,250 MG in DEXTROSE 5%-WATER 250 ML IV SCH (05:58)
[2019-02-13 06:13] LABS: ABSOLUTE LYMPHOCYTES (AUTO) 0.9 10^3/uL (0.5-4.7); ABSOLUTE MONOCYTES (AUTO) 2.1 10^3/uL (0.1-1.4); ABSOLUTE NEUT (AUTO) 13.5 10^3/uL (1.7-8.2); BASOPHILS % (AUTO) 0.1 % (0-2); HEMOGLOBIN 11.1 g/dL (13.5-17.0); LYMPHOCYTES % (AUTO) 5.3 % (13-45); MEAN CORPUSCULAR HEMOGLOBIN 24.3 pg (27.0-33.4); MEAN CORPUSCULAR HGB CONC 31.7 g/dL (32.0-36.0); MEAN CORPUSCULAR VOLUME 77 fl (80-97); MONOCYTES % (AUTO) 12.5 % (3-13); PLATELET COUNT 483 10^3/uL (150-450); RED BLOOD COUNT 4.55 10^6/uL (4.35-5.55); RED CELL DISTRIBUTION WIDTH 19.4 % (11.5-14.0); SEGMENTED NEUTROPHILS % (AUTO) 82.1 % (42-78); TOTAL CELLS COUNTED % (AUTO) 100 %; WHITE BLOOD COUNT 16.5 10^3/uL (4.0-10.5)
[2019-02-13 06:40] LABS: ALBUMIN 2.6 g/dL (3.5-5.0); ALKALINE PHOSPHATASE 68 U/L (38-126); ASPARTATE AMINO TRANSFERASE 23 U/L (17-59); BILIRUBIN,DIRECT 0.1 mg/dL (0.0-0.4); BILIRUBIN,TOTAL 0.2 mg/dL (0.2-1.3); BLOOD UREA NITROGEN 17 mg/dL (7-20); CALCIUM 8.6 mg/dL (8.4-10.2); CARBON DIOXIDE 29 mmol/L (22-30); CHLORIDE 108 mmol/L (98-107); POTASSIUM 4.1 mmol/L (3.6-5.0); TOTAL PROTEIN 5.2 g/dL (6.3-8.2)
[2019-02-13 06:55] LABS: ANION GAP 4 (5-19)
[2019-02-13 06:56] LABS: GLUCOSE 68 mg/dL (75-110)
[2019-02-13] MEDS: INSULIN LISPRO 100 UNIT/ML 3 ML VIAL SUBCUT SCH ×4 (07:06→21:45)
--- NOTE | 2019-02-13 08:12 | PDOC PROGRESS REPORT ---
Subjective Progress Note for:: 02/13/19 Subjective:: Patient and anxious to go home. Breathing has much improved. He is up out of bed most of the day. However, they are still awaiting decision as to removal of the PORT. Reason For Visit: ACUTE RESPIRATORY FAILURE WITH HYPOXIA Physical Exam Vital Signs: Temp Pulse Resp BP Pulse Ox 98.2 F 113 H 16 105/67 89 L 02/13/19 07:34 02/13/19 07:34 02/13/19 07:34 02/13/19 07:34 02/13/19 07:34 Intake & Output 02/12/19 02/13/19 02/14/19 06:59 06:59 06:59 Intake Total 3600 900 Output Total 250 Balance 3350 900 Weight 66 kg 65.9 kg General appearance: PRESENT: no acute distress, thin, well-developed Head exam: PRESENT: normocephalic Respiratory exam: PRESENT: unlabored Extremities exam: ABSENT: pedal edema Neurological exam: PRESENT: alert, awake, oriented to person, oriented to place, oriented to time, oriented to situation Psychiatric exam: PRESENT: appropriate affect Skin exam: PRESENT: normal color Results Laboratory Results: 02/13/19 06:00 02/13/19 06:00 02/13/19 02/13/19 06:00 06:00 WBC 16.5 H RBC 4.55 Hgb 11.1 L Hct 35.0 L MCV 77 L MCH 24.3 L MCHC 31.7 L RDW 19.4 H Plt Count 483 H Seg Neutrophils % 82.1 H Sodium 141.0 Potassium 4.1 Chloride 108 H Carbon Dioxide 29 Anion Gap 4 L BUN 17 Creatinine 0.61 Est GFR ( Amer) > 60 Glucose 68 L Calcium 8.6 Total Bilirubin 0.2 AST 23 Alkaline Phosphatase 68 Total Protein 5.2 L Albumin 2.6 L 02/11/19 08:15 Blood Blood Culture (PCR) - Final Enterococcus Species 02/10/19 10:43 Blood Blood Culture (PCR) - Final Enterococcus Species 02/10/19 10:43 Blood Blood Culture - Final Enterococcus Faecalis(Group D) 02/09/19 10:35 Troponin I < 0.012 NT-Pro-B Natriuret Pep 374 H Impressions: Chest X-Ray 02/09/19 11:03 IMPRESSION: Increased opacification right hemithorax due to increasing right upper lobe airspace disease, and stable right pleural effusion with right middle and lower lobe consolidation Assessment & Plan - Diagnosis (1) Acute and chronic respiratory failure with hypoxia Is this a current diagnosis for this admission?: Yes (2) Gram-positive bacteremia Is this a current diagnosis for this admission?: Yes Plan: Initial blood cultures were drawn on 02/09. Usually wait 3 days to repeat and see if organism has been cleared. Repeat cultures were done 02/11 and were still positive. I would repeat cultures tomorrow and if not cleared, would request that port be removed. Await recommendation from Infectious disease as well. (3) Malignant neoplasm of base of tongue Is this a current diagnosis for this admission?: Yes Plan: All treatment currently on hold. (4) Pneumonia Qualifiers: Pneumonia type: due to unspecified organism Laterality: right Lung location: lower lobe of lung Is this a current diagnosis for this admission?: Yes - Time Time Spent with patient: Less than 15 minutes
[2019-02-13] MEDS: LEVALBUTEROL HCL NEB 1.25 MG/3 ML AMPUL NEB SCH ×3 (08:14→19:48)
[2019-02-13] MEDS: OXYCODONE-ACETAMINOPHEN 5-325 MG TABLET PEG PRN (08:41)
[2019-02-13] MEDS: ASPIRIN 81 MG TABLET, CHEWABLE PEG SCH (09:03)
[2019-02-13] MEDS: DOCUSATE SODIUM 100 MG/10 ML UDC PEG SCH ×2 (09:03→17:57)
[2019-02-13] MEDS: CHOLESTYRAMINE/ASPARTAME 4 GM PACKET PEG SCH (09:04)
[2019-02-13] MEDS: TIZANIDINE HCL 4 MG TABLET PEG SCH (09:04)
--- NOTE | 2019-02-13 10:38 | Progress Note ---
Provider Note Provider Note: [facility] Telephone Advice Consultation Chart reviewed. Patient is a 73-year-old man with history of base of the tongue cancer with metastasis who is currently on immuotherapy (Keytruda), COPD on home oxygen, hypertension, history of a right ileal to femoral bypass graft & stent, PEG tube placement, left chest port. Per notes, patient was presenting worsening shortness of breath for 4 days prior to admission. He visited his PCP and was prescribed clindamycin. He didn't notice any improvement in symptoms for which he came to the hospital on 02/09. He had leukocytosis and he was hypoxemic requiring BiPAP. CXR demonstrated right hemithorax opacification. Blood cultures positive for Enterococcus faecalis. Patient was started on vancomycin and levofloxacin. He has had multiple sets of blood cultures from 02/09, 02/10 and 02/11 and all positive for Enterococcus faecalis. Follow up CXR with stable opacities. Leukocytosis peaked to 26k and now improved to 16k. ID consulted for recommendations. PMH: Hypertension Head and neck Cancer COPD PSH: Right ileal to femoral bypass graft with stent PEG Left chest port Allergies: No Known Allergies Allergy (Verified 07/13/18 15:40) Medications: Aspirin [Adult Low Dose Aspirin EC] 81 mg PO DAILY 02/09/19 Cholestyramine/Aspartame [Prevalite Packet] 4 gm PO DAILY 02/09/19 Diclofenac Sodium [Voltaren] 4 gm TOP QID 02/09/19 Diltiazem HCl [Cardizem 90 mg Tablet] 90 mg PEG QID 02/09/19 Fentanyl [Duragesic 50 Mcg/Hr Transdermal Patch] 1 patch TD Q72H 02/09/19 Gabapentin [Neurontin 300 mg Capsule] 300 mg PEG Q8 02/09/19 Levothyroxine Sodium 25 mcg PEG Q6AM 02/09/19 Metoclopramide HCl [Reglan] 5 mg PEG TID 02/09/19 Mirtazapine [Remeron 15 mg Tablet] 15 mg PEG QHS 02/09/19 Ondansetron HCl [Zofran 8 mg Tablet] 8 mg PEG Q8HP PRN 02/09/19 Oxycodone HCl [Oxycodone HCl 10 MG Tablet] 10 mg PEG Q6HP PRN 02/09/19 Pilocarpine HCl [Salagen] 5 mg PEG TID 02/09/19 Prazosin HCl [Minipress] 1 mg PEG QHS 02/09/19 Tizanidine HCl [Zanaflex] 2 mg PEG BID 02/09/19 Umeclidinium Brm/Vilanterol Tr [Anoro Ellipta 62.5-25 Mcg INH] 1 puff IH DAILY 02/09/19 Vital Signs: Temp Pulse Resp BP Pulse Ox 98.2 F 104 H 20 105/67 93 02/13/19 07:34 02/13/19 08:14 02/13/19 08:14 02/13/19 07:34 02/13/19 08:14 Intake & Output 02/12/19 02/13/19 02/14/19 06:59 06:59 06:59 Intake Total 3600 900 Output Total 250 Balance 3350 900 Weight 66 kg 65.9 kg Weight/Height Weight 65.9 kg Height 5 ft 8 in Laboratories: 02/13/19 06:00 02/13/19 06:00 MCV 77 fl (80-97) L 02/13/19 06:00 MCH 24.3 pg (27.0-33.4) L 02/13/19 06:00 MCHC 31.7 g/dL (32.0-36.0) L 02/13/19 06:00 RDW 19.4 % (11.5-14.0) H 02/13/19 06:00 Seg Neutrophils % 82.1 % (42-78) H 02/13/19 06:00 Carbonic Acid 1.07 mmol/L (1.05-1.35) 02/09/19 14:00 HCO3/H2CO3 Ratio 21:1 02/09/19 14:00 ABG pH 7.43 (7.35-7.45) 02/09/19 14:00 ABG pCO2 35.4 mmHg (35-45) 02/09/19 14:00 ABG pO2 60.2 mmHg (80-100) L 02/09/19 14:00 ABG HCO3 22.7 mmol/L (20-24) 02/09/19 14:00 ABG O2 Saturation 91.8 % (94-98) L 02/09/19 14:00 ABG Base Excess -1.2 mmol/L 02/09/19 14:00 VBG pH 7.42 (7.30-7.42) 02/09/19 11:38 VBG pCO2 44.3 mmHg (35-63) 02/09/19 11:38 VBG HCO3 27.8 mmol/L (20-32) 02/09/19 11:38 VBG Base Excess 2.7 mmol/L 02/09/19 11:38 FiO2 28% 02/09/19 14:00 Chloride 108 mmol/L (98-107) H 02/13/19 06:00 Carbon Dioxide 29 mmol/L (22-30) 02/13/19 06:00 Anion Gap 4 (5-19) L 02/13/19 06:00 Est GFR ( Amer) > 60 (>60) 02/13/19 06:00 Glucose 68 mg/dL (75-110) L 02/13/19 06:00 Calcium 8.6 mg/dL (8.4-10.2) 02/13/19 06:00 Magnesium 2.1 mg/dL (1.6-2.3) 02/12/19 04:05 Total Bilirubin 0.2 mg/dL (0.2-1.3) 02/13/19 06:00 AST 23 U/L (17-59) 02/13/19 06:00 Alkaline Phosphatase 68 U/L (38-126) 02/13/19 06:00 Total Protein 5.2 g/dL (6.3-8.2) L 02/13/19 06:00 Albumin 2.6 g/dL (3.5-5.0) L 02/13/19 06:00 Urine Color YELLOW 02/09/19 12:25 Urine Appearance CLOUDY 02/09/19 12:25 Urine pH 8.0 (5.0-9.0) 02/09/19 12:25 Ur Specific [place] 1.012 02/09/19 12:25 Urine Protein NEGATIVE mg/dL (NEGATIVE) 02/09/19 12:25 Urine Glucose (UA) NEGATIVE mg/dL (NEGATIVE) 02/09/19 12:25 Urine Ketones NEGATIVE mg/dL (NEGATIVE) 02/09/19 12:25 Urine Blood NEGATIVE (NEGATIVE) 02/09/19 12:25 Urine Nitrite NEGATIVE (NEGATIVE) 02/09/19 12:25 Ur Leukocyte Esterase NEGATIVE (NEGATIVE) 02/09/19 12:25 Urine RBC (Auto) 1 /HPF 02/09/19 12:25 02/11/19 08:15 Blood Blood Culture (PCR) - Final Enterococcus Species 02/10/19 10:43 Blood Blood Culture (PCR) - Final Enterococcus Species 02/10/19 10:43 Blood Blood Culture - Final Enterococcus Faecalis(Group D) 02/09/19 10:35 Troponin I < 0.012 NT-Pro-B Natriuret Pep 374 H Radiology: Chest X-Ray 02/09/19 11:03 IMPRESSION: Increased opacification right hemithorax due to increasing right upper lobe airspace disease, and stable right pleural effusion with right middle and lower lobe consolidation Assessment and Recommendations: Patient presenting with persistent Enterococcus faecalis bacteremia. He is immunocompromised due to metastatic head and neck Ca. Possible sources for this infection include port related or aspiration pneumonia, if mucositis present this can also be from translocation from GI tract. He has pneumonia as well, not sure of there is a component of Keytruda related pneumonitis as Enterococcus is a rare cause of pneumonia unless it's due to aspiration. He also has a vascular graft but no signs of infection reported in the notes. Recomme ndations at this time include: TTE to rule out endocarditis (he is high risk for endocarditis due to immunosuppression, port and bacteremic for few days). CT scan of the chest to better assess the pulmonary process and if any loculated pleural effusion that would need to be drained for source control. Port removal. Discontinue levofloxacin and continue vancomycin. If endocarditis is ruled out, can de escalate to ampicillin 12g IV daily (divided in 6 doses). Can repeat blood cultures after port is removed. Any Gonzalez MD [facility] ID [phone]
[2019-02-13] MEDS ORDERED: GLUCAGON,HUMAN RECOMB 1 MG INJ SUBCUT PRN (12:04)
[2019-02-13] MEDS ORDERED: DEXTROSE 50%-WATER 25 GM/50 ML DISP.SYRIN IV PRN ×2 (12:04)
[2019-02-13] MEDS ORDERED: DEXTROSE 40% GEL 15 GM TUBE PO PRN ×2 (12:04)
[2019-02-13] MEDS: LEVOFLOXACIN 750 MG/D5W RTU 750 MG/150 ML RTUPB IV SCH (12:13)
[2019-02-13] MEDS: VANCOMYCIN HCL 1,000 MG in DEXTROSE 5%-WATER 250 ML IV SCH ×2 (13:59→21:45)
--- NOTE | 2019-02-13 14:56 | RADIOLOGY REPORT (SQ) ---
EXAM DESCRIPTION: CT CHEST WITH COMPLETED DATE/TIME: 02/13/2019 1:45 pm REASON FOR STUDY: persistent Enterococcus bacteremia COMPARISON: 12/14/2018 TECHNIQUE: CT scan of the chest performed using helical scanning technique with dynamic intravenous contrast injection. Images reviewed with lung, soft tissue and bone windows. Reconstructed coronal and sagittal MPR and MIP images reviewed. All images stored on PACS. All CT scanners at this facility use dose modulation, iterative reconstruction, and/or weight based d osing when appropriate to reduce radiation dose to as low as reasonably achievable (ALARA). [facility]: Dose Right [facility]: CareDose [facility]: Dose Right [facility]: Teradose 4D [facility]: [employer] CONTRAST TYPE AND DOSE: contrast/concentration: Isovue 350.00 mg/ml; Total Contrast Delivered: 80.0 ml; Total Saline Delivered: 55.0 ml RENAL FUNCTION: BUN 17 creatinine 0.61. RADIATION DOSE: CT Rad equipment meets quality standard of care and radiation dose reduction techniq ues were employed. CTDIvol: 10.7 mGy. DLP: 490 mGy-cm. . LIMITATIONS: None. FINDINGS: LUNGS AND PLEURA: Centrilobular pulmonary emphysema. Reduced volume in the right hemithor ax. Small to moderate left pleural effusion shows significant increase. Loculated right pleural eff usion that is relatively stable. Focal opacification of the right upper lobe laterally and posterior ly. 27.6 x 22.4 mm right upper lobe nodule is larger. Chronic right middle lobe collapse. Marked r ight lower lobe opacification with some air bronchograms. HILAR AND MEDIASTINAL STRUCTURES: Low-density right paratracheal lymph node measures 20.4 mm in short axis. Relatively stable. Additional upper mediastinal adenopathy. HEART AND VASCULAR STRUCTURES: No aneurysm or dissection. No central pulmonary emboli. No pericardi al effusion. HARDWARE: None in the chest. UPPER ABDOMEN: No significant findings. Limited exam. THYROID AND OTHER SOFT TISSUES: No masses. No adenopathy. BONES: No significant finding. OTHER: No other significant finding. IMPRESSION: 1. Right upper lobe pulmonary nodule now measures 27.6 x 22.4 mm. This represents furt her increased in size. 2. Right upper lobe pneumonia. 3. Marked airspace disease in the right middle lobe and lower lobe, atelectasis versus consolidation . 4. Increased left pleural effusion. 5. Stable loculated right pleural effusion/empyema. 6. Mediastinal adenopathy. 7. Centrilobular pulmonary emphysema. TECHNICAL DOCUMENTATION: JOB ID: [id number] Quality ID # [id number]: Final reports with documentation of one or more dose reduction techniques (e.g., Au tomated exposure control, adjustment of the mA and/or kV according to patient size, use of iterative reconstruction technique) 2010 [employer]- All Rights Reserved Reading location - IP/workstation name: [email or web address]
[2019-02-13] MEDS ORDERED: LIDOCAINE 1%/EPINEPHRINE INJ 20 ML VIAL INJ PRN (15:42)
--- NOTE | 2019-02-13 17:47 | PDOC CONSULTATION ---
Consultation Consult Date: 02/13/19 Provider Consulted: TREVON JHA History of Present Illness Admission Date/PCP: 02/09/19 12:46 GINA MENDOSA Patient complains of: Infected Port-A-Cath History of Present Illness: FELIPE PIERRE is a 73 year old male oropharyngeal cancer on immunotherapy through left subclavian Port-A-Cath. Patient has been noted with positive blood cultures consistent with Port-A-Cath infection and surgery now being consulted to remove Port-A-Cath. Past Medical History Cardiac Medical History: Reports: Hypertension, Peripheral Vascular Disease Denies: Coronary Artery Disease, Myocardial Infarction Pulmonary Medical History: Reports: Chronic Obstructive Pulmonary Disease (COPD) Denies: Asthma, Bronchitis, Pneumonia Neurological Medical History: Denies: Seizures Endocrine Medical History: Denies: Diabetes Mellitus Type 1, Diabetes Mellitus Type 2, Hyperthyroidism, Hypothyroidism GI Medical History: Denies: Cirrhosis, Hepatitis, Hiatal Hernia Musculoskeltal Medical History: Denies: Arthritis, Gout Skin Medical History: Denies: Eczema, Psoriasis Psychiatric Medical History: Denies: Depression Hematology: Denies: Anemia, Sickle Cell Disease, Bleeding Tendencies Past Surgical History Past Surgical History: Reports: Vascular Surgery - Right ileal to left femoral graft and right femoral stent, Other - Endoscopy with placement of PEG tube Denies: Pacemaker Social History Smoking Status: Former Smoker Cigarettes Packs Per Day: 1 Number of Years Smokin Last Time Smoked: !! Frequency of Alcohol Use: None Hx Recreational Drug Use: No Drugs: None Hx Prescription Drug Abuse: No - Advance Directive Resuscitation Status: Full Code Family History Family History: CAD, COPD, DM, Hypertension, Malignancy Parental Family History Reviewed: No Children Family History Reviewed: No Sibling(s) Family History Reviewed.: No Medication/Allergy Home Medications: Aspirin [Adult Low Dose Aspirin EC] 81 mg PO DAILY 02/09/19 Cholestyramine/Aspartame [Prevalite Packet] 4 gm PO DAILY 02/09/19 Diclofenac Sodium [Voltaren] 4 gm TOP QID 02/09/19 Diltiazem HCl [Cardizem 90 mg Tablet] 90 mg PEG QID 02/09/19 Fentanyl [Duragesic 50 Mcg/Hr Transdermal Patch] 1 patch TD Q72H 02/09/19 Gabapentin [Neurontin 300 mg Capsule] 300 mg PEG Q8 02/09/19 Levothyroxine Sodium 25 mcg PEG Q6AM 02/09/19 Metoclopramide HCl [Reglan] 5 mg PEG TID 02/09/19 Mirtazapine [Remeron 15 mg Tablet] 15 mg PEG QHS 02/09/19 Ondansetron HCl [Zofran 8 mg Tablet] 8 mg PEG Q8HP PRN 02/09/19 Oxycodone HCl [Oxycodone HCl 10 MG Tablet] 10 mg PEG Q6HP PRN 02/09/19 Pilocarpine HCl [Salagen] 5 mg PEG TID 02/09/19 Prazosin HCl [Minipress] 1 mg PEG QHS 02/09/19 Tizanidine HCl [Zanaflex] 2 mg PEG BID 02/09/19 Umeclidinium Brm/Vilanterol Tr [Anoro Ellipta 62.5-25 Mcg INH] 1 puff IH DAILY 02/09/19 Allergies/Adverse Reactions: No Known Allergies Allergy (Verified 07/13/18 15:40) Physical Exam Vital Signs: Temp Pulse Resp BP Pulse Ox 98.3 F 99 16 131/76 H 94 02/13/19 15:51 02/13/19 15:51 02/13/19 15:51 02/13/19 15:51 02/13/19 16:00 Intake & Output 02/12/19 02/13/19 02/14/19 06:59 06:59 06:59 Intake Total 3600 900 1010 Output Total 250 Balance 3350 900 1010 Weight 66 kg 65.9 kg General appearance: PRESENT: no acute distress, cooperative Respiratory exam: PRESENT: decreased breath sounds Cardiovascular exam: PRESENT: RRR Skin exam: PRESENT: other - Left upper chest Port-A-Cath in place. No erythema and no swelling. Results Laboratory Results: 02/13/19 06:00 02/13/19 06:00 02/13/19 02/13/19 06:00 06:00 WBC 16.5 H RBC 4.55 Hgb 11.1 L Hct 35.0 L MCV 77 L MCH 24.3 L MCHC 31.7 L RDW 19.4 H Plt Count 483 H Seg Neutrophils % 82.1 H Sodium 141.0 Potassium 4.1 Chloride 108 H Carbon Dioxide 29 Anion Gap 4 L BUN 17 Creatinine 0.61 Est GFR ( Amer) > 60 Glucose 68 L Calcium 8.6 Total Bilirubin 0.2 AST 23 Alkaline Phosphatase 68 Total Protein 5.2 L Albumin 2.6 L 02/11/19 08:15 Blood Blood Culture (PCR) - Final Enterococcus Species 02/09/19 10:35 Troponin I < 0.012 NT-Pro-B Natriuret Pep 374 H Impressions: Chest X-Ray 02/09/19 11:03 IMPRESSION: Increased opacification right hemithorax due to increasing right upper lobe airspace disease, and stable right pleural effusion with right middle and lower lobe consolidation Chest CT 02/13/19 00:00 IMPRESSION: 1. Right upper lobe pulmonary nodule now measures 27.6 x 22.4 mm. This represents further increased in size. 2. Right upper lobe pneumonia. 3. Marked airspace disease in the right middle lobe and lower lobe, atelectasis versus consolidation. 4. Increased left pleural effusion. 5. Stable loculated right pleural effusion/empyema. 6. Mediastinal adenopathy. 7. Centrilobular pulmonary emphysema. Assessment & Plan - Diagnosis (1) Bloodstream infection due to Port-A-Cath Is this a current diagnosis for this admission?: Yes Plan: We will plan Port-A-Cath removal. I discussed with the patient risk and benefits of the procedure including risk of bleeding and Port-A-Cath removal site infection.
--- NOTE | 2019-02-13 17:51 | Operative Report ---
Operative Report DATE OF SURGERY: 02/13/19 PREOPERATIVE DIAGNOSIS: Infected Port-A-Cath POSTOPERATIVE DIAGNOSIS: Infected Port-A-Cath OPERATION: Removal of Port-A-Cath SURGEON: TREVON JHA ANESTHESIA: Local TISSUE REMOVED OR ALTERED: Port-A-Cath removed. The tip sent for Gram stain and culture. COMPLICATIONS: None ESTIMATED BLOOD LOSS: 5 cc INTRAOPERATIVE FINDINGS: None PROCEDURE: Informed consent was obtained. The procedure was done at the patient's bedside. Patient's left chest Port-A-Cath site was prepped and draped in the usual sterile fashion. Local anesthetic was administered. Incision was made overlying his previous scar. The Port-A-Cath was removed without difficulty. The tip was cut off for Gram stain and culture. The Port-A-Cath itself was submitted to pathology for gross interpretation only. Hemostasis was achieved with compression. Hemostasis appeared good at the end of the case. The wound was loosely approximated with interrupted Prolene sutures. Dressings were applied. Patient tolerated procedure well with no apparent complications. I have recommended to the patient's family that he be seen at [facility] in 1-1/2 weeks for suture removal. Patient's family is to look out for any signs of wound site infection that is purulent drainage or erythema. They are to call immediately for any problems.
--- NOTE | 2019-02-13 18:09 | PDOC PROGRESS REPORT ---
Subjective Progress Note for:: 02/13/19 Subjective:: No adverse events overnight. No new complaints. Vital signs been stable. No fevers. Reason For Visit: ACUTE RESPIRATORY FAILURE WITH HYPOXIA Physical Exam Vital Signs: Temp Pulse Resp BP Pulse Ox 98.3 F 99 16 131/76 H 94 02/13/19 15:51 02/13/19 15:51 02/13/19 15:51 02/13/19 15:51 02/13/19 16:00 Intake & Output 02/12/19 02/13/19 02/14/19 06:59 06:59 06:59 Intake Total 3600 900 1010 Output Total 250 Balance 3350 900 1010 Weight 66 kg 65.9 kg General appearance: PRESENT: no acute distress, cooperative, disheveled, other - Appears frail Respiratory exam: PRESENT: decreased breath sounds, symmetrical, unlabored. ABSENT: accessory muscle use, chest wall tenderness, crackles, prolonged expiratory phas, rhonchi, tachypnea, wheezes Cardiovascular exam: PRESENT: RRR, +S1, +S2 Pulses: PRESENT: normal carotid pulses Vascular exam: PRESENT: normal capillary refill GI/Abdominal exam: PRESENT: normal bowel sounds, soft, other - PEG tube. ABSENT: distended, guarding, rebound, tenderness Extremities exam: ABSENT: clubbing, pedal edema Musculoskeletal exam: PRESENT: normal inspection. ABSENT: deformity Neurological exam: PRESENT: alert, awake, oriented to person, oriented to place, oriented to situation Psychiatric exam: PRESENT: flat affect, normal mood Skin exam: PRESENT: dry, warm Results Laboratory Results: 02/13/19 06:00 02/13/19 06:00 02/13/19 02/13/19 06:00 06:00 WBC 16.5 H RBC 4.55 Hgb 11.1 L Hct 35.0 L MCV 77 L MCH 24.3 L MCHC 31.7 L RDW 19.4 H Plt Count 483 H Seg Neutrophils % 82.1 H Sodium 141.0 Potassium 4.1 Chloride 108 H Carbon Dioxide 29 Anion Gap 4 L BUN 17 Creatinine 0.61 Est GFR ( Amer) > 60 Glucose 68 L Calcium 8.6 Total Bilirubin 0.2 AST 23 Alkaline Phosphatase 68 Total Protein 5.2 L Albumin 2.6 L 02/11/19 08:15 Blood Blood Culture (PCR) - Final Enterococcus Species 02/09/19 10:35 Troponin I < 0.012 NT-Pro-B Natriuret Pep 374 H Impressions: Chest X-Ray 02/09/19 11:03 IMPRESSION: Increased opacification right hemithorax due to increasing right upper lobe airspace disease, and stable right pleural effusion with right middle and lower lobe consolidation Chest CT 02/13/19 00:00 IMPRESSION: 1. Right upper lobe pulmonary nodule now measures 27.6 x 22.4 mm. This represents further increased in size. 2. Right upper lobe pneumonia. 3. Marked airspace disease in the right middle lobe and lower lobe, atelectasis versus consolidation. 4. Increased left pleural effusion. 5. Stable loculated right pleural effusion/empyema. 6. Mediastinal adenopathy. 7. Centrilobular pulmonary emphysema. Assessment and Plan - Diagnosis (1) Acute and chronic respiratory failure with hypoxia Is this a current diagnosis for this admission?: Yes Plan: Stable on his usual level of oxygen support (2) Community acquired pneumonia Qualifiers: Laterality: right Lung location: unspecified part of lung Qualified Code(s): J18.9 - Pneumonia, unspecified organism Is this a current diagnosis for this admission?: Yes Plan: Continues on vancomycin per infectious disease, it was recommended that Levaquin be discontinued (3) Gram-positive bacteremia Is this a current diagnosis for this admission?: Yes Plan: Per infectious disease, due to his persistent enterococcus bacteremia, he needs a transthoracic echocardiogram, chest CT, and removal of his port. He will be continued on vancomycin. If endocarditis is ruled out, change to ampicillin 2 g IV every 4 hours. Repeat blood cultures after port removal. General surgery has been consulted. The echocardiogram and the chest CT have been ordered. (4) Acute exacerbation of chronic obstructive pulmonary disease (COPD) Is this a current diagnosis for this admission?: Yes Plan: Resolved, now at baseline, continue bronchodilators and antibiotics (5) Dysphagia, oropharyngeal phase Is this a current diagnosis for this admission?: Yes Plan: Continue tube feeds (6) Malignant neoplasm of base of tongue Is this a current diagnosis for this admission?: Yes Plan: Follows with Dr. Clinton as an outpatient. Because his port has to be removed, will likely get a PICC line in him so he can complete his antibiotics, and then a discussion can be had as to whether or not he will need to have a new port placed later on. - Time Time Spent with patient: 25-34 minutes
[2019-02-13] MEDS: MIRTAZAPINE 15 MG TABLET PEG SCH (21:45)
[2019-02-13] MEDS: DIPHENOXYLATE HCL/ATROP SULF 2.5-0.025 MG TABLET PO PRN (22:34)
[2019-02-14] MEDS ORDERED: NORMAL SALINE 1000 ML 1,000 ML IV ONE (04:30)
[2019-02-14] MEDS: DILTIAZEM HCL 60 MG TABLET PEG SCH ×4 (05:23→23:08)
[2019-02-14] MEDS: HEPARIN SOD (PORCINE) 5,000 UNIT/ML 1 ML VIAL SUBCUT SCH ×3 (05:30→22:34)
[2019-02-14] MEDS: GABAPENTIN 300 MG CAPSULE PEG SCH ×3 (05:31→22:06)
[2019-02-14] MEDS: METOCLOPRAMIDE HCL ORAL SOLN 10 MG/10 ML UDCUP PEG SCH ×3 (05:31→22:05)
[2019-02-14] MEDS: LEVOTHYROXINE SODIUM 0.025 MG TABLET PEG SCH (05:31)
[2019-02-14] MEDS: PANTOPRAZOLE SODIUM 40 MG PACKET.DR PO SCH ×2 (05:32→16:59)
[2019-02-14] MEDS: VANCOMYCIN HCL 1,000 MG in DEXTROSE 5%-WATER 250 ML IV SCH ×3 (05:32→22:06)
[2019-02-14] MEDS: INSULIN LISPRO 100 UNIT/ML 3 ML VIAL SUBCUT SCH ×4 (08:18→22:01)
[2019-02-14] MEDS: LEVALBUTEROL HCL NEB 1.25 MG/3 ML AMPUL NEB SCH ×3 (08:43→19:47)
[2019-02-14] MEDS: FENTANYL 50 MCG/HR PATCH.TD72 TD SCH (09:07)
[2019-02-14] MEDS: ASPIRIN 81 MG TABLET, CHEWABLE PEG SCH (09:08)
[2019-02-14] MEDS: OXYCODONE-ACETAMINOPHEN 5-325 MG TABLET PEG PRN (09:08)
[2019-02-14] MEDS: DOCUSATE SODIUM 100 MG/10 ML UDC PEG SCH ×2 (09:08→17:00)
[2019-02-14] MEDS: TIZANIDINE HCL 4 MG TABLET PEG SCH ×3 (09:08→16:59)
[2019-02-14] MEDS: CHOLESTYRAMINE 4 GM PACKET PEG SCH (09:09)
--- NOTE | 2019-02-14 17:54 | PDOC PROGRESS REPORT ---
Subjective Progress Note for:: 02/14/19 Subjective:: Overnight his systolic blood pressure was noted to be in the 80s and it improved with some IV fluids. He is asymptomatic. He is tolerating his tube feeds. No fevers. Reason For Visit: ACUTE RESPIRATORY FAILURE WITH HYPOXIA Physical Exam Vital Signs: Temp Pulse Resp BP Pulse Ox 97.7 F 101 H 16 98/56 L 91 L 02/14/19 12:05 02/14/19 13:57 02/14/19 13:35 02/14/19 12:05 02/14/19 13:35 Intake & Output 02/13/19 02/14/19 02/15/19 06:59 06:59 06:59 Intake Total 900 2860 1520 Balance 900 2860 1520 Weight 65.9 kg 68.1 kg General appearance: PRESENT: no acute distress, cooperative, disheveled, other - Appears frail Respiratory exam: PRESENT: decreased breath sounds, symmetrical, unlabored. ABSENT: accessory muscle use, chest wall tenderness, crackles, prolonged expiratory phas, rhonchi, tachypnea, wheezes Cardiovascular exam: PRESENT: RRR, +S1, +S2 Pulses: PRESENT: normal carotid pulses Vascular exam: PRESENT: normal capillary refill GI/Abdominal exam: PRESENT: normal bowel sounds, soft, other - PEG tube. ABSENT: distended, guarding, rebound, tenderness Extremities exam: ABSENT: clubbing, pedal edema Musculoskeletal exam: PRESENT: normal inspection. ABSENT: deformity Neurological exam: PRESENT: alert, awake, oriented to person, oriented to place, oriented to situation Psychiatric exam: PRESENT: flat affect, normal mood Skin exam: PRESENT: dry, warm Results Laboratory Results: 02/13/19 06:00 02/13/19 06:00 02/11/19 08:15 Blood Blood Culture (PCR) - Final Enterococcus Species 02/11/19 08:15 Blood Blood Culture - Final Enterococcus Faecalis(Group D) 02/09/19 10:35 Troponin I < 0.012 NT-Pro-B Natriuret Pep 374 H Impressions: Chest X-Ray 02/09/19 11:03 IMPRESSION: Increased opacification right hemithorax due to increasing right upper lobe airspace disease, and stable right pleural effusion with right middle and lower lobe consolidation Chest CT 02/13/19 00:00 IMPRESSION: 1. Right upper lobe pulmonary nodule now measures 27.6 x 22.4 mm. This represents further increased in size. 2. Right upper lobe pneumonia. 3. Marked airspace disease in the right middle lobe and lower lobe, atelectasis versus consolidation. 4. Increased left pleural effusion. 5. Stable loculated right pleural effusion/empyema. 6. Mediastinal adenopathy. 7. Centrilobular pulmonary emphysema. Assessment and Plan - Diagnosis (1) Acute and chronic respiratory failure with hypoxia Is this a current diagnosis for this admission?: Yes Plan: Stable on his usual level of oxygen support (2) Community acquired pneumonia Qualifiers: Laterality: right Lung location: unspecified part of lung Qualified Code(s): J18.9 - Pneumonia, unspecified organism Is this a current diagnosis for this admission?: Yes Plan: Continues on vancomycin per infectious disease, it was recommended that Levaquin be discontinued (3) Gram-positive bacteremia Is this a current diagnosis for this admission?: Yes Plan: Port has been removed. Blood cultures are all growing Enterococcus faecalis. Spoke with Dr. Guajardo about a JAYASHREE. Apparently this patient could not get good views on the transthoracic echocardiogram and so a JAYASHREE would be recommended, but Dr. Keene is concerned about the high probability of complications in this patient and did not recommend it be done. I spoke with the patient about this and he was okay with doing an extended course of IV anti biotics instead of a subjecting itself to the risk of the JAYASHREE. We will plan to continue vancomycin for extended course. (4) Acute exacerbation of chronic obstructive pulmonary disease (COPD) Is this a current diagnosis for this admission?: Yes Plan: Resolved, now at baseline, continue bronchodilators and antibiotics (5) Dysphagia, oropharyngeal phase Is this a current diagnosis for this admission?: Yes Plan: Continue tube feeds (6) Malignant neoplasm of base of tongue Is this a current diagnosis for this admission?: Yes Plan: Follows with Dr. Clinton as an outpatient. Because his port has to be removed, will likely get a PICC line in him so he can complete his antibiotics, and then a discussion can be had as to whether or not he will need to have a new port placed later on. - Time Time Spent with patient: 25-34 minutes
--- NOTE | 2019-02-14 18:34 | PDOC PROGRESS REPORT ---
Subjective Progress Note for:: 02/14/19 Reason For Visit: ACUTE RESPIRATORY FAILURE WITH HYPOXIA Physical Exam Vital Signs: Temp Pulse Resp BP Pulse Ox 97.7 F 101 H 16 98/56 L 91 L 02/14/19 12:05 02/14/19 13:57 02/14/19 13:35 02/14/19 12:05 02/14/19 13:35 Intake & Output 02/13/19 02/14/19 02/15/19 06:59 06:59 06:59 Intake Total 900 2860 1520 Balance 900 2860 1520 Weight 65.9 kg 68.1 kg Results Laboratory Results: 02/13/19 06:00 02/13/19 06:00 02/11/19 08:15 Blood Blood Culture (PCR) - Final Enterococcus Species 02/11/19 08:15 Blood Blood Culture - Final Enterococcus Faecalis(Group D) 02/09/19 10:35 Troponin I < 0.012 NT-Pro-B Natriuret Pep 374 H Impressions: Chest X-Ray 02/09/19 11:03 IMPRESSION: Increased opacification right hemithorax due to increasing right upper lobe airspace disease, and stable right pleural effusion with right middle and lower lobe consolidation Chest CT 02/13/19 00:00 IMPRESSION: 1. Right upper lobe pulmonary nodule now measures 27.6 x 22.4 mm. This represents further increased in size. 2. Right upper lobe pneumonia. 3. Marked airspace disease in the right middle lobe and lower lobe, atelectasis versus consolidation. 4. Increased left pleural effusion. 5. Stable loculated right pleural effusion/empyema. 6. Mediastinal adenopathy. 7. Centrilobular pulmonary emphysema. Assessment & Plan - Diagnosis (1) Bloodstream infection due to Port-A-Cath Qualifiers: Encounter type: subsequent encounter Qualified Code(s): T80.211D - Bloodstream infection due to central venous catheter, subsequent encounter Is this a current diagnosis for this admission?: Yes (2) Active bleeding Is this a current diagnosis for this admission?: Yes - Time Time Spent with patient: Less than 15 minutes - Plan Summary Plan Summary: Is a 73-year-old male with infected Mediport. He is status post removal of the Mediport. The patient is overall doing well. The nurse reports bleeding at the surgical site. I have held pressure for several minutes, and there is continued bleeding. I believe the bleeding is coming from an immediately subcutaneous area. There is no large hematoma on the chest wall. There is no hematoma at the neck. Plan to ligate the area of bleeding at the bedside today. Discussion was held with the patient, who is in agreement. Informed consent was obtained from the patient.
--- NOTE | 2019-02-14 18:37 | Operative Report ---
Nonrecallable Operative Report DATE OF SURGERY: 02/14/19 PREOPERATIVE DIAGNOSIS: Active bleeding left chest wall POSTOPERATIVE DIAGNOSIS: Same as above OPERATION: Ligation of active bleeding left chest wall SURGEON: ESTELLE PARKER ANESTHESIA: Other - None TISSUE REMOVED OR ALTERED: None COMPLICATIONS: None ESTIMATED BLOOD LOSS: 20 cc PROCEDURE: Patient was laid in the supine position in the hospital room. The previous dressing was removed, there was old clot underneath the dressing. There was active bleeding noted at the incision, between the sutures. 0 Prolene was used, in large/hemostatic bites to suture ligate the area of bleeding. All bleeding was halted. A dressing was placed, and the procedure was concluded. All sponge, instrument, and needle counts were correct. Condition: Fair.
[2019-02-14] MEDS: MIRTAZAPINE 15 MG TABLET PEG SCH (22:06)
[2019-02-14 22:17] LABS: VANCOMYCIN,TROUGH 20.7 ug/mL (5.0-20.0)
[2019-02-14] MEDS: NORMAL SALINE 1000 ML 1,000 ML IV PRN (23:45)
[2019-02-15] MEDS: NORMAL SALINE 1000 ML 1,000 ML IV PRN ×2 (01:46→10:40)
[2019-02-15] MEDS: VANCOMYCIN HCL 1,000 MG in DEXTROSE 5%-WATER 250 ML IV SCH (05:34)
[2019-02-15] MEDS: METOCLOPRAMIDE HCL ORAL SOLN 10 MG/10 ML UDCUP PEG SCH ×3 (05:38→22:31)
[2019-02-15] MEDS: GABAPENTIN 300 MG CAPSULE PEG SCH (05:39)
[2019-02-15] MEDS: LEVOTHYROXINE SODIUM 0.025 MG TABLET PEG SCH (05:39)
[2019-02-15] MEDS: PANTOPRAZOLE SODIUM 40 MG PACKET.DR PO SCH ×3 (05:40→17:22)
[2019-02-15] MEDS: HEPARIN SOD (PORCINE) 5,000 UNIT/ML 1 ML VIAL SUBCUT SCH ×3 (05:40→22:32)
[2019-02-15] MEDS: DILTIAZEM HCL 60 MG TABLET PEG SCH (05:40)
--- NOTE | 2019-02-15 06:53 | Progress Note ---
Provider Note Provider Note: No further bleeding noted after suture ligation of subcuticular bleeder. Surgery will see again on an as-needed basis. Please renotify with any questions or concerns.
[2019-02-15] MEDS: INSULIN LISPRO 100 UNIT/ML 3 ML VIAL SUBCUT SCH ×4 (07:42→22:28)
[2019-02-15] MEDS: LEVALBUTEROL HCL NEB 1.25 MG/3 ML AMPUL NEB SCH ×3 (08:05→20:37)
[2019-02-15] MEDS ORDERED: NORMAL SALINE 1000 ML 1,000 ML IV PRN (08:22)
--- NOTE | 2019-02-15 10:33 | Progress Note ---
Provider Note Provider Note: [facility] Telephone Advice - Follow Up Chart reviewed. Patient initially evaluated due to Enterococcus faecalis bacteremia suspected to be port related vs. mucositis/GI translocation vs aspiration. He has been afebrile, briefly hypotensive responsive to IVF. Leukocytosis improved, stable renal function. He had his port removed. He had a CT scan of the chest that showed enlargement of the RUL nodule, opacities in RML and RLL with stable loculated effusion. Per notes, case was also discussed with cardiology for TTE vs JAYASHREE. Views from last TTE were suboptimal and he is a poor candidate for JAAYSHREE. Cultures of catheter tip are negative in 1 day. Primary attending has discussed with the patient the possibility of group home antibiotic therapy as he can't have cardiac imaging. Patient and are amenable to that. Vital Signs: Temp Pulse Resp BP Pulse Ox 97.5 F 108 H 17 115/56 L 90 L 02/15/19 03:19 02/15/19 08:05 02/15/19 08:05 02/15/19 03:55 02/15/19 08:05 Intake & Output 02/14/19 02/15/19 02/16/19 06:59 06:59 06:59 Intake Total 2860 5330 250 Output Total 1225 Balance 2860 4105 250 Weight 68.1 kg 68 kg Weight/Height Weight 68 kg Height 5 ft 8 in Laboratories: 02/13/19 06:00 02/14/19 21:46 MCV 77 fl (80-97) L 02/13/19 06:00 MCH 24.3 pg (27.0-33.4) L 02/13/19 06:00 MCHC 31.7 g/dL (32.0-36.0) L 02/13/19 06:00 RDW 19.4 % (11.5-14.0) H 02/13/19 06:00 Seg Neutrophils % 82.1 % (42-78) H 02/13/19 06:00 Carbonic Acid 1.07 mmol/L (1.05-1.35) 02/09/19 14:00 HCO3/H2CO3 Ratio 21:1 02/09/19 14:00 ABG pH 7.43 (7.35-7.45) 02/09/19 14:00 ABG pCO2 35.4 mmHg (35-45) 02/09/19 14:00 ABG pO2 60.2 mmHg (80-100) L 02/09/19 14:00 ABG HCO3 22.7 mmol/L (20-24) 02/09/19 14:00 ABG O2 Saturation 91.8 % (94-98) L 02/09/19 14:00 ABG Base Excess -1.2 mmol/L 02/09/19 14:00 VBG pH 7.42 (7.30-7.42) 02/09/19 11:38 VBG pCO2 44.3 mmHg (35-63) 02/09/19 11:38 VBG HCO3 27.8 mmol/L (20-32) 02/09/19 11:38 VBG Base Excess 2.7 mmol/L 02/09/19 11:38 FiO2 28% 02/09/19 14:00 Chloride 108 mmol/L (98-107) H 02/13/19 06:00 Carbon Dioxide 29 mmol/L (22-30) 02/13/19 06:00 Anion Gap 4 (5-19) L 02/13/19 06:00 Est GFR ( Amer) > 60 (>60) 02/14/19 21:46 Glucose 68 mg/dL (75-110) L 02/13/19 06:00 Calcium 8.6 mg/dL (8.4-10.2) 02/13/19 06:00 Magnesium 2.1 mg/dL (1.6-2.3) 02/12/19 04:05 Total Bilirubin 0.2 mg/dL (0.2-1.3) 02/13/19 06:00 AST 23 U/L (17-59) 02/13/19 06:00 Alkaline Phosphatase 68 U/L (38-126) 02/13/19 06:00 Total Protein 5.2 g/dL (6.3-8.2) L 02/13/19 06:00 Albumin 2.6 g/dL (3.5-5.0) L 02/13/19 06:00 Urine Color YELLOW 02/09/19 12:25 Urine Appearance CLOUDY 02/09/19 12:25 Urine pH 8.0 (5.0-9.0) 02/09/19 12:25 Ur Specific [place] 1.012 02/09/19 12:25 Urine Protein NEGATIVE mg/dL (NEGATIVE) 02/09/19 12:25 Urine Glucose (UA) NEGATIVE mg/dL (NEGATIVE) 02/09/19 12:25 Urine Ketones NEGATIVE mg/dL (NEGATIVE) 02/09/19 12:25 Urine Blood NEGATIVE (NEGATIVE) 02/09/19 12:25 Urine Nitrite NEGATIVE (NEGATIVE) 02/09/19 12:25 Ur Leukocyte Esterase NEGATIVE (NEGATIVE) 02/09/19 12:25 Urine RBC (Auto) 1 /HPF 02/09/19 12:25 02/11/19 08:15 Blood Blood Culture (PCR) - Final Enterococcus Species 02/11/19 08:15 Blood Blood Culture - Final Enterococcus Faecalis(Group D) 02/09/19 10:35 Troponin I < 0.012 NT-Pro-B Natriuret Pep 374 H Radiology: Chest X-Ray 02/09/19 11:03 IMPRESSION: Increased opacification right hemithorax due to increasing right upper lobe airspace disease, and stable right pleural effusion with right middle and lower lobe consolidation Chest CT 02/13/19 00:00 IMPRESSION: 1. Right upper lobe pulmonary nodule now measures 27.6 x 22.4 mm. This represents further increased in size. 2. Right upper lobe pneumonia. 3. Marked airspace disease in the right middle lobe and lower lobe, atelectasis versus consolidation. 4. Increased left pleural effusion. 5. Stable loculated right pleural effusion/empyema. 6. Mediastinal adenopathy. 7. Centrilobular pulmonary emphysema. Assessment and Recommendations: Patient with Enterococcus faecalis bacteremia of unknown source port related vs aspiration pneumonia vs endocarditis. He is immunocompromised due to head and neck cancer s/p treatment currently on immunotherapy, high risk for aspiration, but also he had a port that could've been the portal of entry. The port is out, cultures from the tip are in process. Will still recommend to repeat blood cultures now that the port is out to document clearance of the bacteremia. Considering that he is at risk of endocarditis cardiac imaging is needed, however he is not a candidate due to high risk for JAYASHREE and poor views on TTE. Would also assess the need for drainage of loculated effusion if suspicion of empyema. Considering these findings, there are 2 options for this patient and neither are ideal as it would compare 2 vs 6 weeks of antibiotic therapy. Treatment options: Port related bacteremia: Ampicillin 2g IV every 4 hr for 14 days from negative blood cultures with follow up surveillance cultures 1 week after completion of therapy Presumptive endocarditis: Ampicillin 2g IV every 4 hr + ceftriaxone 2g IV every 12 hr for 6 weeks (this was gentamicin resistant) Alternatives should be given to the patient with explanation of the risks the include but not limited to: line related infection, C diff infection, diarrhea, interstitial nephritis, etc. Please call back if questions. Any Gonzalez MD [facility] Infectious Disease [phone]
[2019-02-15] MEDS: ASPIRIN 81 MG TABLET, CHEWABLE PEG SCH (10:40)
[2019-02-15] MEDS: CHOLESTYRAMINE 4 GM PACKET PEG SCH (10:41)
[2019-02-15] MEDS: DOCUSATE SODIUM 100 MG/10 ML UDC PEG SCH ×2 (10:42→17:13)
[2019-02-15] MEDS: MEROPENEM 1 GM in NORMAL SALINE 50 ML IV SCH ×2 (10:42→17:15)
[2019-02-15 10:54] LABS: HEMATOCRIT 31.8 % (37.9-51.0); HEMOGLOBIN 9.8 g/dL (13.5-17.0); MEAN CORPUSCULAR HEMOGLOBIN 24.1 pg (27.0-33.4); MEAN CORPUSCULAR VOLUME 78 fl (80-97); PLATELET COUNT 446 10^3/uL (150-450); RED BLOOD COUNT 4.09 10^6/uL (4.35-5.55); WHITE BLOOD COUNT 14.6 10^3/uL (4.0-10.5)
[2019-02-15 11:09] LABS: BLOOD UREA NITROGEN 11 mg/dL (7-20); CALCIUM 7.6 mg/dL (8.4-10.2); GLUCOSE 114 mg/dL (75-110); POTASSIUM 4.1 mmol/L (3.6-5.0)
[2019-02-15 11:15] LABS: CARBON DIOXIDE 27 mmol/L (22-30); CHLORIDE 108 mmol/L (98-107)
[2019-02-15 11:16] LABS: ANION GAP 3 (5-19)
[2019-02-15 11:17] LABS: ABSOLUTE LYMPHOCYTES# (MANUAL) 0.9 10^3/uL (0.5-4.7); ABSOLUTE MONOCYTES # (MANUAL) 1.5 10^3/uL (0.1-1.4); BASOPHILS % (MANUAL) 0 % (0-2); EOSINOPHILS % (MANUAL) 0 % (0-6); LYMPHOCYTES % (MANUAL) 6 % (13-45); MONOCYTES % (MANUAL) 10 % (3-13); SEGMENTED NEUTROPHILS % (MAN) 84 % (42-78); TOTAL CELLS COUNTED 100
[2019-02-15 11:25] LABS: ANISOCYTOSIS 2+; HYPOCHROMASIA 1+; OVALOCYTES SLIGHT; POIKILOCYTOSIS SLIGHT; POLYCHROMASIA SLIGHT
[2019-02-15 11:26] LABS: PLATELET CLUMPS PRESENT; PLATELET COMMENT ADEQUATE
[2019-02-15] MEDS: DIPHENOXYLATE HCL/ATROP SULF 2.5-0.025 MG TABLET PO PRN (17:16)
--- NOTE | 2019-02-15 18:28 | PDOC PROGRESS REPORT ---
Subjective Progress Note for:: 02/15/19 Subjective:: Had a low blood pressure again overnight that once again responded to IV fluids. Blood pressures have been stable throughout the day. We have taken him off of anything that could lower his blood pressure. He has had no fevers. Reason For Visit: ACUTE RESPIRATORY FAILURE WITH HYPOXIA Physical Exam Vital Signs: Temp Pulse Resp BP Pulse Ox 98.2 F 113 H 18 111/64 91 L 02/15/19 16:08 02/15/19 16:08 02/15/19 16:08 02/15/19 16:08 02/15/19 16:08 Intake & Output 02/14/19 02/15/19 02/16/19 06:59 06:59 06:59 Intake Total 2860 5330 3105 Output Total 1225 0 Balance 2860 4105 3105 Weight 68.1 kg 68 kg General appearance: PRESENT: no acute distress, cooperative, disheveled, other - Appears frail Respiratory exam: PRESENT: decreased breath sounds, symmetrical, unlabored. ABSENT: accessory muscle use, chest wall tenderness, crackles, prolonged expiratory phas, rhonchi, tachypnea, wheezes Cardiovascular exam: PRESENT: RRR, +S1, +S2 Pulses: PRESENT: normal carotid pulses Vascular exam: PRESENT: normal capillary refill GI/Abdominal exam: PRESENT: normal bowel sounds, soft, other - PEG tube. ABSENT: distended, guarding, rebound, tenderness Extremities exam: ABSENT: clubbing, pedal edema Musculoskeletal exam: PRESENT: normal inspection. ABSENT: deformity Neurological exam: PRESENT: alert, awake, oriented to person, oriented to place, oriented to situation Psychiatric exam: PRESENT: flat affect, normal mood Skin exam: PRESENT: dry, warm Results Laboratory Results: 02/15/19 10:33 02/15/19 10:33 02/14/19 02/15/19 02/15/19 21:46 10:33 10:33 WBC 14.6 H RBC 4.09 L Hgb 9.8 L Hct 31.8 L MCV 78 L MCH 24.1 L MCHC 31.0 L RDW 19.0 H Plt Count 446 Seg Neutrophils % Not Reportable Sodium 137.9 Potassium 4.1 Chloride 108 H Carbon Dioxide 27 Anion Gap 3 L BUN 11 Creatinine 0.58 0.58 Est GFR ( Amer) > 60 > 60 Glucose 114 H Calcium 7.6 L 02/10/19 10:37 Blood Blood Culture - Final NO GROWTH IN 5 DAYS 02/11/19 08:15 Blood Blood Culture (PCR) - Final Enterococcus Species 02/11/19 08:15 Blood Blood Culture - Final Enterococcus Faecalis(Group D) 02/09/19 10:35 Troponin I < 0.012 NT-Pro-B Natriuret Pep 374 H Impressions: Chest X-Ray 02/09/19 11:03 IMPRESSION: Increased opacification right hemithorax due to increasing right upper lobe airspace disease, and stable right pleural effusion with right middle and lower lobe consolidation Chest CT 02/13/19 00:00 IMPRESSION: 1. Right upper lobe pulmonary nodule now measures 27.6 x 22.4 mm. This represents further increased in size. 2. Right upper lobe pneumonia. 3. Marked airspace disease in the right middle lobe and lower lobe, atelectasis versus consolidation. 4. Increased left pleural effusion. 5. Stable loculated right pleural effusion/empyema. 6. Mediastinal adenopathy. 7. Centrilobular pulmonary emphysema. Assessment and Plan - Diagnosis (1) Acute and chronic respiratory failure with hypoxia Is this a current diagnosis for this admission?: Yes Plan: Stable on his usual level of oxygen support (2) Community acquired pneumonia Qualifiers: Laterality: right Lung location: unspecified part of lung Qualified Code(s): J18.9 - Pneumonia, unspecified organism Is this a current diagnosis for this admission?: Yes Plan: Continues on vancomycin per infectious disease, it was recommended that Levaquin be discontinued. Because of the troubles with his blood pressure I have added meropenem. (3) Gram-positive bacteremia Is this a current diagnosis for this admission?: Yes Plan: Infectious disease recommendations are noted. If we were going to treat him for an endocarditis, we can just extend his antibiotic therapy. He does, however, have a loculated pleural effusion on the right. I will call infectious disease to see whether or not they think the patient needs to have the effusion evacuated. If he does, he needs a thoracic surgeon. If he is to have this procedure, given his poor pulmonary and functional status, this would probably best be done in a tertiary care center. (4) Acute exacerbation of chronic obstructive pulmonary disease (COPD) Is this a current diagnosis for this admission?: Yes Plan: Resolved, now at baseline, continue bronchodilators and antibiotics (5) Dysphagia, oropharyngeal phase Is this a current diagnosis for this admission?: Yes Plan: Continue tube feeds (6) Malignant neoplasm of base of tongue Is this a current diagnosis for this admission?: Yes Plan: Follows with Dr. Clinton as an outpatient. Because his port has to be removed, will likely get a PICC line in him so he can complete his antibiotics, and then a discussion can be had as to whether or not he will need to have a new port placed later on. - Time Time Spent with patient: 25-34 minutes
[2019-02-15] MEDS: VANCOMYCIN HCL 1,500 MG in DEXTROSE 5%-WATER 250 ML IV SCH (22:36)
[2019-02-16] MEDS: OXYCODONE-ACETAMINOPHEN 5-325 MG TABLET PEG PRN ×2 (00:49→05:39)
[2019-02-16] MEDS: NORMAL SALINE 1000 ML 1,000 ML IV PRN (00:49)
[2019-02-16] MEDS: MEROPENEM 1 GM in NORMAL SALINE 50 ML IV SCH ×3 (01:30→18:26)
[2019-02-16] MEDS: PANTOPRAZOLE SODIUM 40 MG PACKET.DR PO SCH ×2 (05:24→17:57)
[2019-02-16] MEDS: HEPARIN SOD (PORCINE) 5,000 UNIT/ML 1 ML VIAL SUBCUT SCH ×3 (05:24→21:43)
[2019-02-16] MEDS: LEVOTHYROXINE SODIUM 0.025 MG TABLET PEG SCH (05:25)
[2019-02-16] MEDS: METOCLOPRAMIDE HCL ORAL SOLN 10 MG/10 ML UDCUP PEG SCH ×3 (05:25→22:41)
[2019-02-16] MEDS: LEVALBUTEROL HCL NEB 1.25 MG/3 ML AMPUL NEB SCH ×3 (08:10→20:12)
--- NOTE | 2019-02-16 08:34 | PDOC PROGRESS REPORT ---
Subjective Progress Note for:: 02/16/19 Subjective:: Patient states that his pain medications have been stopped due to concerns for low blood pressure. He feels "OK" but greatly wants to go home and continue IV ABX as outpatient. He has not yet been told if PICC line will be placed today. ECHO was not able to be done due to pleural fluid. So, they have decided to treat him with prolonged ABX anyway. PORT was removed 3 days ago. Reason For Visit: ACUTE RESPIRATORY FAILURE WITH HYPOXIA Physical Exam Vital Signs: Temp Pulse Resp BP Pulse Ox 97.9 F 102 H 20 111/61 88 L 02/16/19 03:48 02/16/19 08:10 02/16/19 08:10 02/16/19 03:48 02/16/19 08:10 Intake & Output 02/15/19 02/16/19 02/17/19 06:59 06:59 06:59 Intake Total 5330 4405 Output Total 1225 1975 Balance 4105 2430 Weight 68 kg 71.2 kg General appearance: PRESENT: thin Head exam: PRESENT: normocephalic Eye exam: PRESENT: EOMI Respiratory exam: PRESENT: unlabored Extremities exam: ABSENT: pedal edema Musculoskeletal exam: PRESENT: normal inspection Neurological exam: PRESENT: alert, awake Psychiatric exam: PRESENT: appropriate affect Skin exam: PRESENT: normal color Results Laboratory Results: 02/15/19 10:33 02/15/19 10:33 02/15/19 02/15/19 10:33 10:33 WBC 14.6 H RBC 4.09 L Hgb 9.8 L Hct 31.8 L MCV 78 L MCH 24.1 L MCHC 31.0 L RDW 19.0 H Plt Count 446 Seg Neutrophils % Not Reportable Sodium 137.9 Potassium 4.1 Chloride 108 H Carbon Dioxide 27 Anion Gap 3 L BUN 11 Creatinine 0.58 Est GFR ( Amer) > 60 Glucose 114 H Calcium 7.6 L 02/11/19 08:24 Blood Blood Culture - Final NO GROWTH IN 5 DAYS 02/10/19 10:37 Blood Blood Culture - Final NO GROWTH IN 5 DAYS 02/09/19 10:35 Troponin I < 0.012 NT-Pro-B Natriuret Pep 374 H Impressions: Chest X-Ray 02/09/19 11:03 IMPRESSION: Increased opacification right hemithorax due to increasing right upper lobe airspace disease, and stable right pleural effusion with right middle and lower lobe consolidation Chest CT 02/13/19 00:00 IMPRESSION: 1. Right upper lobe pulmonary nodule now measures 27.6 x 22.4 mm. This represents further increased in size. 2. Right upper lobe pneumonia. 3. Marked airspace disease in the right middle lobe and lower lobe, atelectasis versus consolidation. 4. Increased left pleural effusion. 5. Stable loculated right pleural effusion/empyema. 6. Mediastinal adenopathy. 7. Centrilobular pulmonary emphysema. Assessment & Plan - Diagnosis (1) Acute and chronic respiratory failure with hypoxia Is this a current diagnosis for this admission?: Yes Plan: Much improved. (2) Gram-positive bacteremia Is this a current diagnosis for this admission?: Yes Plan: PORT has been removed. Would repeat blood cultures peripherally at this point, but ID is currently following. Plan prolonged course of IV antibiotics. (3) Malignant neoplasm of base of tongue Is this a current diagnosis for this admission?: Yes Plan: All treatment on hold as long as infection is present. Although CT chest suggests increase growth of pulmonary nodule, this was in the setting of pneumonia/infection, so repeat CT will need to be done after antibiotics are finished. I will arrange this as outpatient and continue to follow as outpatient. Hopefully, can go home with IV ABX later today. (4) Pneumonia Qualifiers: Pneumonia type: due to unspecified organism Laterality: right Lung lo cation: lower lobe of lung Is this a current diagnosis for this admission?: Yes - Time Time Spent with patient: 15-24 minutes - Plan Summary Plan Summary: Please call if needed.
[2019-02-16] MEDS: INSULIN LISPRO 100 UNIT/ML 3 ML VIAL SUBCUT SCH ×4 (09:04→21:44)
[2019-02-16] MEDS: DOCUSATE SODIUM 100 MG/10 ML UDC PEG SCH ×2 (09:17→17:57)
[2019-02-16] MEDS: LOPERAMIDE HCL 2 MG CAPSULE PEG PRN (09:19)
[2019-02-16] MEDS: ASPIRIN 81 MG TABLET, CHEWABLE PEG SCH (09:19)
[2019-02-16] MEDS: CHOLESTYRAMINE 4 GM PACKET PEG SCH (09:19)
[2019-02-16] MEDS: VANCOMYCIN HCL 1,500 MG in DEXTROSE 5%-WATER 250 ML IV SCH ×2 (10:33→22:41)
--- NOTE | 2019-02-16 16:36 | PDOC PROGRESS REPORT ---
Subjective Progress Note for:: 02/16/19 Subjective:: No adverse events overnight. Blood pressure has been excellent. He is asking if his gabapentin can be restarted. Tolerating his tube feeds. No fevers. Reason For Visit: ACUTE RESPIRATORY FAILURE WITH HYPOXIA Physical Exam Vital Signs: Temp Pulse Resp BP Pulse Ox 97.7 F 107 H 17 124/60 93 02/16/19 15:43 02/16/19 15:43 02/16/19 15:43 02/16/19 15:43 02/16/19 15:43 Intake & Output 02/15/19 02/16/19 02/17/19 06:59 06:59 06:59 Intake Total 5330 4405 1080 Output Total 1225 1975 Balance 4105 2430 1080 Weight 68 kg 71.2 kg 71.2 kg General appearance: PRESENT: no acute distress, cooperative, disheveled, other - Appears frail Respiratory exam: PRESENT: decreased breath sounds, symmetrical, unlabored. ABSENT: accessory muscle use, chest wall tenderness, crackles, prolonged expi ratory phas, rhonchi, tachypnea, wheezes Cardiovascular exam: PRESENT: RRR, +S1, +S2 Pulses: PRESENT: normal carotid pulses Vascular exam: PRESENT: normal capillary refill GI/Abdominal exam: PRESENT: normal bowel sounds, soft, other - PEG tube. ABSENT: distended, guarding, rebound, tenderness Extremities exam: ABSENT: clubbing, pedal edema Musculoskeletal exam: PRESENT: normal inspection. ABSENT: deformity Neurological exam: PRESENT: alert, awake, oriented to person, oriented to place, oriented to situation Psychiatric exam: PRESENT: flat affect, normal mood Skin exam: PRESENT: dry, warm Results Laboratory Results: 02/15/19 10:33 02/15/19 10:33 02/13/19 17:00 Catheter Tip - Port A Cath Line Catheter Tip Culture - Final NO GROWTH 3 DAYS 02/11/19 08:24 Blood Blood Culture - Final NO GROWTH IN 5 DAYS 02/09/19 10:35 Troponin I < 0.012 NT-Pro-B Natriuret Pep 374 H Impressions: Chest X-Ray 02/09/19 11:03 IMPRESSION: Increased opacification right hemithorax due to increasing right upper lobe airspace disease, and stable right pleural effusion with right middle and lower lobe consolidation Chest CT 02/13/19 00:00 IMPRESSION: 1. Right upper lobe pulmonary nodule now measures 27.6 x 22.4 mm. This represents further increased in size. 2. Right upper lobe pneumonia. 3. Marked airspace disease in the right middle lobe and lower lobe, atelectasis versus consolidation. 4. Increased left pleural effusion. 5. Stable loculated right pleural effusion/empyema. 6. Mediastinal adenopathy. 7. Centrilobular pulmonary emphysema. Assessment and Plan - Diagnosis (1) Acute and chronic respiratory failure with hypoxia Is this a current diagnosis for this admission?: Yes Plan: Stable on his usual level of oxygen support (2) Community acquired pneumonia Qualifiers: Laterality: right Lung location: unspecified part of lung Qualified Code(s): J18.9 - Pneumonia, unspecified organism Is this a current diagnosis for this admission?: Yes Plan: Continues on vancomycin per infectious disease, it was recommended that Levaquin be discontinued. Because of the troubles with his blood pressure I have added meropenem. (3) Gram-positive bacteremia Is this a current diagnosis for this admission?: Yes Plan: I spoke with Dr. Gonzalez with [facility], and the decision was made to treat with 6 weeks of IV antibiotics. Repeat blood cultures will be obtained today. If they are negative on Tuesday, we can probably let him go home at that point with 6 weeks of treatment. After a few days off antibiotics, he will have blood cultures redrawn to make sure that they are negative. If they are positive at that point, he will probably have to have a thorascopic decortication of the loculated right pleural effusion. The effusion does look fairly stable from the last images of it. If he displays any definite recurrence of sepsis, or if he has any decompensation in his pulmonary status, thorascopic decortication will have to be considered. We are trying to avoid this at this time because of his poor functional status, general frailty, and e nd-stage COPD with lung cancer. (4) Acute exacerbation of chronic obstructive pulmonary disease (COPD) Is this a current diagnosis for this admission?: Yes Plan: Resolved, now at baseline, continue bronchodilators and antibiotics (5) Dysphagia, oropharyngeal phase Is this a current diagnosis for this admission?: Yes Plan: Continue tube feeds (6) Malignant neoplasm of base of tongue Is this a current diagnosis for this admission?: Yes Plan: Follows with Dr. Clinton as an outpatient. Because his port has to be removed, will likely get a PICC line in him so he can complete his antibiotics, and then a discussion can be had as to whether or not he will need to have a new port placed later on. - Time Time Spent with patient: 25-34 minutes
[2019-02-16] MEDS: GABAPENTIN 300 MG CAPSULE PEG SCH ×2 (18:16→22:41)
[2019-02-16] MEDS ORDERED: METOCLOPRAMIDE HCL ORAL SOLN 10 MG/10 ML UDCUP PEG ONE (18:30)
[2019-02-16] MEDS ORDERED: GABAPENTIN 300 MG CAPSULE PEG ONE (18:30)
[2019-02-17] MEDS: MEROPENEM 1 GM in NORMAL SALINE 50 ML IV SCH ×3 (01:47→17:24)
[2019-02-17] MEDS: PANTOPRAZOLE SODIUM 40 MG PACKET.DR PO SCH ×2 (05:47→16:45)
[2019-02-17] MEDS: GABAPENTIN 300 MG CAPSULE PEG SCH ×3 (05:47→21:32)
[2019-02-17] MEDS: LEVOTHYROXINE SODIUM 0.025 MG TABLET PEG SCH (05:47)
[2019-02-17] MEDS: HEPARIN SOD (PORCINE) 5,000 UNIT/ML 1 ML VIAL SUBCUT SCH ×2 (05:47→13:48)
[2019-02-17] MEDS: METOCLOPRAMIDE HCL ORAL SOLN 10 MG/10 ML UDCUP PEG SCH ×3 (05:47→21:33)
[2019-02-17] MEDS: OXYCODONE-ACETAMINOPHEN 5-325 MG TABLET PEG PRN ×2 (06:50→19:50)
[2019-02-17] MEDS: LEVALBUTEROL HCL NEB 1.25 MG/3 ML AMPUL NEB SCH ×3 (08:18→20:16)
[2019-02-17] MEDS: INSULIN LISPRO 100 UNIT/ML 3 ML VIAL SUBCUT SCH ×4 (09:09→21:39)
[2019-02-17] MEDS: ASPIRIN 81 MG TABLET, CHEWABLE PEG SCH (10:04)
[2019-02-17] MEDS: DOCUSATE SODIUM 100 MG/10 ML UDC PEG SCH ×2 (10:05→17:29)
[2019-02-17] MEDS: CHOLESTYRAMINE 4 GM PACKET PEG SCH (10:05)
[2019-02-17] MEDS ORDERED: CLOTRIMAZOLE 1% CREAM 15 GM TP PRN (10:16)
[2019-02-17 10:20] LABS: VANCOMYCIN,TROUGH 17.1 ug/mL (5.0-20.0)
[2019-02-17] MEDS: VANCOMYCIN HCL 1,500 MG in DEXTROSE 5%-WATER 250 ML IV SCH ×2 (10:59→21:37)
--- NOTE | 2019-02-17 15:06 | PDOC PROGRESS REPORT ---
Subjective Progress Note for:: 02/17/19 Subjective:: No adverse events overnight. Blood pressure has been excellent. Pain is been well controlled. Tolerating his tube feeds. No fevers. Reason For Visit: ACUTE RESPIRATORY FAILURE WITH HYPOXIA Physical Exam Vital Signs: Temp Pulse Resp BP Pulse Ox 98.0 F 97 17 104/54 L 96 02/17/19 11:28 02/17/19 14:00 02/17/19 11:28 02/17/19 11:28 02/17/19 11:28 Intake & Output 02/16/19 02/17/19 02/18/19 06:59 06:59 06:59 Intake Total 4405 1910 1980 Output Total 1975 1200 Balance 2430 710 1980 Weight 71.2 kg 71 kg General appearance: PRESENT: no acute distress, cooperative, disheveled, other - Appears frail Respiratory exam: PRESENT: decreased breath sounds, symmetrical, unlabored. ABSENT: accessory muscle use, chest wall tenderness, crackles, prolonged expiratory phas, rhonchi, tachypnea, wheezes Cardiovascular exam: PRESENT: RRR, +S1, +S2 Pulses: PRESENT: normal carotid pulses Vascular exam: PRESENT: normal capillary refill GI/Abdominal exam: PRESENT: normal bowel sounds, soft, other - PEG tube. ABSENT: distended, guarding, rebound, tenderness Extremities exam: ABSENT: clubbing, pedal edema Musculoskeletal exam: PRESENT: normal inspection. ABSENT: deformity Neurological exam: PRESENT: alert, awake, oriented to person, oriented to place, oriented to situation Psychiatric exam: PRESENT: flat affect, normal mood Skin exam: PRESENT: dry, warm Results Laboratory Results: 02/15/19 10:33 02/17/19 09:41 02/17/19 09:41 Creatinine 0.64 Est GFR ( Amer) > 60 02/13/19 17:00 Catheter Tip - Port A Cath Line Catheter Tip Culture - Final NO GROWTH 3 DAYS 02/09/19 10:35 Troponin I < 0.012 NT-Pro-B Natriuret Pep 374 H Impressions: Chest X-Ray 02/09/19 11:03 IMPRESSION: Increased opacification right hemithorax due to increasing right upper lobe airspace disease, and stable right pleural effusion with right middle and lower lobe consolidation Chest CT 02/13/19 00:00 IMPRESSION: 1. Right upper lobe pulmonary nodule now measures 27.6 x 22.4 mm. This represents further increased in size. 2. Right upper lobe pneumonia. 3. Marked airspace disease in the right middle lobe and lower lobe, atelectasis versus consolidation. 4. Increased left pleural effusion. 5. Stable loculated right pleural effusion/empyema. 6. Mediastinal adenopathy. 7. Centrilobular pulmonary emphysema. Assessment and Plan - Diagnosis (1) Acute and chronic respiratory failure with hypoxia Is this a current diagnosis for this admission?: Yes Plan: Stable on his usual level of oxygen support (2) Community acquired pneumonia Qualifiers: Laterality: right Lung location: unspecified part of lung Qualified Code(s): J18.9 - Pneumonia, unspecified organism Is this a current diagnosis for this admission?: Yes Plan: Continues on vancomycin per infectious disease, it was recommended that Levaquin be discontinued. Because of the troubles with his blood pressure I have added meropenem. (3) Gram-positive bacteremia Is this a current diagnosis for this admission?: Yes Plan: I spoke with Dr. Gonzalez with [facility] infectious disease, and the decision was made to treat with 6 weeks of IV antibiotics. Repeat blood cultures will be obtained today. If they are negative on Tuesday, we can probably let him go home at that point with 6 weeks of treatment. After a few days off antibiotics, he will have blood cultures redrawn to make sure that they are negative. If they are positive at that point, he will probably have to have a thorascopic decorti cation of the loculated right pleural effusion. The effusion does look fairly stable from the last images of it. If he displays any definite recurrence of sepsis, or if he has any decompensation in his pulmonary status, thorascopic decortication will have to be considered. We are trying to avoid this at this time because of his poor functional status, general frailty, and end-stage COPD with lung cancer. (4) Acute exacerbation of chronic obstructive pulmonary disease (COPD) Is this a current diagnosis for this admission?: Yes Plan: Resolved, now at baseline, continue bronchodilators and antibiotics (5) Dysphagia, oropharyngeal phase Is this a current diagnosis for this admission?: Yes Plan: Continue tube feeds (6) Malignant neoplasm of base of tongue Is this a current diagnosis for this admission?: Yes Plan: Follows with Dr. Clinton as an outpatient. Because his port has to be removed, will likely get a PICC line in him so he can complete his antibiotics, and then a discussion can be had as to whether or not he will need to have a new port placed later on. - Time Time Spent with patient: 15-24 minutes
[2019-02-18] MEDS: HEPARIN SOD (PORCINE) 5,000 UNIT/ML 1 ML VIAL SUBCUT SCH ×4 (02:30→22:18)
[2019-02-18] MEDS ORDERED: MEROPENEM 1 GM VIAL ONE ×2 (02:50→22:49)
[2019-02-18] MEDS: MEROPENEM 1 GM in NORMAL SALINE 50 ML IV SCH ×3 (02:59→17:18)
[2019-02-18] MEDS: OXYCODONE-ACETAMINOPHEN 5-325 MG TABLET PEG PRN ×2 (05:32→18:19)
[2019-02-18] MEDS: PANTOPRAZOLE SODIUM 40 MG PACKET.DR PO SCH ×2 (05:36→16:51)
[2019-02-18] MEDS: METOCLOPRAMIDE HCL ORAL SOLN 10 MG/10 ML UDCUP PEG SCH ×3 (05:36→22:12)
[2019-02-18] MEDS: LEVOTHYROXINE SODIUM 0.025 MG TABLET PEG SCH (05:36)
[2019-02-18] MEDS: GABAPENTIN 300 MG CAPSULE PEG SCH ×3 (05:37→22:12)
[2019-02-18] MEDS: INSULIN LISPRO 100 UNIT/ML 3 ML VIAL SUBCUT SCH ×4 (08:39→22:19)
[2019-02-18] MEDS: LEVALBUTEROL HCL NEB 1.25 MG/3 ML AMPUL NEB SCH ×3 (08:42→20:47)
[2019-02-18] MEDS: ASPIRIN 81 MG TABLET, CHEWABLE PEG SCH (09:24)
[2019-02-18] MEDS: CHOLESTYRAMINE 4 GM PACKET PEG SCH (09:24)
[2019-02-18] MEDS: DOCUSATE SODIUM 100 MG/10 ML UDC PEG SCH ×2 (09:25→18:11)
[2019-02-18] MEDS: VANCOMYCIN HCL 1,500 MG in DEXTROSE 5%-WATER 250 ML IV SCH ×2 (10:26→22:12)
[2019-02-18] MEDS: LOPERAMIDE HCL 2 MG CAPSULE PEG PRN (13:15)
--- NOTE | 2019-02-18 16:06 | PDOC PROGRESS REPORT ---
Subjective Progress Note for:: 02/18/19 Subjective:: No adverse events overnight. Blood pressure has been excellent. Pain is been well controlled. Tolerating his tube feeds. No fevers. Reason For Visit: ACUTE RESPIRATORY FAILURE WITH HYPOXIA Physical Exam Vital Signs: Temp Pulse Resp BP Pulse Ox 98.1 F 107 H 17 106/56 L 95 02/18/19 15:38 02/18/19 15:38 02/18/19 15:38 02/18/19 15:38 02/18/19 15:38 Intake & Output 02/17/19 02/18/19 02/19/19 06:59 06:59 06:59 Intake Total 1910 4420 1236 Output Total 1200 750 0 Balance 710 3670 1236 Weight 71 kg 63.3 kg General appearance: PRESENT: no acute distress, cooperative, disheveled, other - Appears frail Respiratory exam: PRESENT: decreased breath sounds, symmetrical, unlabored. ABS ENT: accessory muscle use, chest wall tenderness, crackles, prolonged expiratory phas, rhonchi, tachypnea, wheezes Cardiovascular exam: PRESENT: RRR, +S1, +S2 Pulses: PRESENT: normal carotid pulses Vascular exam: PRESENT: normal capillary refill GI/Abdominal exam: PRESENT: normal bowel sounds, soft, other - PEG tube. ABSENT: distended, guarding, rebound, tenderness Extremities exam: ABSENT: clubbing, pedal edema Musculoskeletal exam: PRESENT: normal inspection. ABSENT: deformity Neurological exam: PRESENT: alert, awake, oriented to person, oriented to place, oriented to situation Psychiatric exam: PRESENT: flat affect, normal mood Skin exam: PRESENT: dry, warm Results Laboratory Results: 02/15/19 10:33 02/17/19 09:41 02/09/19 10:35 Troponin I < 0.012 NT-Pro-B Natriuret Pep 374 H Impressions: Chest X-Ray 02/09/19 11:03 IMPRESSION: Increased opacification right hemithorax due to increasing right upper lobe airspace disease, and stable right pleural effusion with right middle and lower lobe consolidation Chest CT 02/13/19 00:00 IMPRESSION: 1. Right upper lobe pulmonary nodule now measures 27.6 x 22.4 mm. This represents further increased in size. 2. Right upper lobe pneumonia. 3. Marked airspace disease in the right middle lobe and lower lobe, atelectasis versus consolidation. 4. Increased left pleural effusion. 5. Stable loculated right pleural effusion/empyema. 6. Mediastinal adenopathy. 7. Centrilobular pulmonary emphysema. Assessment and Plan - Diagnosis (1) Acute and chronic respiratory failure with hypoxia Is this a current diagnosis for this admission?: Yes Plan: Stable on his usual level of oxygen support (2) Community acquired pneumonia Qualifiers: Laterality: right Lung location: unspecified part of lung Qualified Cod e(s): J18.9 - Pneumonia, unspecified organism Is this a current diagnosis for this admission?: Yes Plan: Continues on vancomycin per infectious disease, it was recommended that Levaquin be discontinued. Because of the troubles with his blood pressure I have added meropenem. (3) Gram-positive bacteremia Is this a current diagnosis for this admission?: Yes Plan: I spoke with Dr. Gonzalez with [facility], and the decision was made to treat with 6 weeks of IV antibiotics. Repeat blood cultures will be obtained today. If they are negative on Tuesday, we can probably let him go home at that point with 6 weeks of treatment. After a few days off antibiotics, he will have blood cultures redrawn to make sure that they are negative. If they are posi tive at that point, he will probably have to have a thorascopic decortication of the loculated right pleural effusion. The effusion does look fairly stable from the last images of it. If he displays any definite recurrence of sepsis, or if he has any decompensation in his pulmonary status, thorascopic decortication will have to be considered. We are trying to avoid this at this time because of his poor functional status, general frailty, and end-stage COPD with lung cancer. (4) Acute exacerbation of chronic obstructive pulmonary disease (COPD) Is this a current diagnosis for this admission?: Yes Plan: Resolved, now at baseline, continue bronchodilators and antibiotics (5) Dysphagia, oropharyngeal phase Is this a current diagnosis for this admission?: Yes Plan: Continue tube feeds (6) Malignant neoplasm of base of tongue Is this a current diagnosis for this admission?: Yes Plan: Follows with Dr. Clinton as an outpatient. Because his port has to be removed, will likely get a PICC line in him so he can complete his antibiotics, and then a discussion can be had as to whether or not he will need to have a new port placed later on. - Time Time Spent with patient: 15-24 minutes
[2019-02-19] MEDS: MEROPENEM 1 GM in NORMAL SALINE 50 ML IV SCH ×3 (02:32→17:23)
[2019-02-19] MEDS: OXYCODONE-ACETAMINOPHEN 5-325 MG TABLET PEG PRN ×3 (05:03→21:34)
[2019-02-19] MEDS: GABAPENTIN 300 MG CAPSULE PEG SCH ×3 (05:03→21:35)
[2019-02-19] MEDS: LEVOTHYROXINE SODIUM 0.025 MG TABLET PEG SCH (05:03)
[2019-02-19] MEDS: METOCLOPRAMIDE HCL ORAL SOLN 10 MG/10 ML UDCUP PEG SCH ×3 (05:04→21:35)
[2019-02-19] MEDS: HEPARIN SOD (PORCINE) 5,000 UNIT/ML 1 ML VIAL SUBCUT SCH ×3 (06:50→21:29)
[2019-02-19] MEDS: PANTOPRAZOLE SODIUM 40 MG PACKET.DR PO SCH ×2 (06:50→17:23)
--- NOTE | 2019-02-19 07:43 | PDOC PROGRESS REPORT ---
Subjective Progress Note for:: 02/19/19 Subjective:: Patient is fatigued, and still anxious to go home. No new complaints. Tolerating Tube feeds well. No dyspnea. Reason For Visit: ACUTE RESPIRATORY FAILURE WITH HYPOXIA Physical Exam Vital Signs: Temp Pulse Resp BP Pulse Ox 98.1 F 104 H 20 119/57 L 92 02/19/19 05:09 02/19/19 07:00 02/19/19 05:09 02/19/19 05:09 02/19/19 05:09 Intake & Output 02/18/19 02/19/19 02/20/19 06:59 06:59 06:59 Intake Total 4420 2306 Output Total 750 0 Balance 3670 2306 Weight 63.3 kg 64.2 kg General appearance: PRESENT: no acute distress, thin Head exam: PRESENT: normocephalic Eye exam: PRESENT: EOMI Respiratory exam: PRESENT: unlabored Extremities exam: ABSENT: pedal edema Musculoskeletal exam: PRESENT: ambulatory Neurological exam: PRESENT: alert, awake Psychiatric exam: PRESENT: appropriate affect Skin exam: PRESENT: normal color Results Laboratory Results: 02/15/19 10:33 02/17/19 09:41 02/09/19 10:35 Troponin I < 0.012 NT-Pro-B Natriuret Pep 374 H Impressions: Chest X-Ray 02/09/19 11:03 IMPRESSION: Increased opacification right hemithorax due to increasing right upper lobe airspace disease, and stable right pleural effusion with right middle and lower lobe consolidation Chest CT 02/13/19 00:00 IMPRESSION: 1. Right upper lobe pulmonary nodule now measures 27.6 x 22.4 mm. This represents further increased in size. 2. Right upper lobe pneumonia. 3. Marked airspace disease in the right middle lobe and lower lobe, atelectasis versus consolidation. 4. Increased left pleural effusion. 5. Stable loculated right pleural effusion/empyema. 6. Mediastinal adenopathy. 7. Centrilobular pulmonary emphysema. Assessment & Plan - Diagnosis (1) Acute and chronic respiratory failure with hypoxia Is this a current diagnosis for this admission?: Yes (2) Gram-positive bacteremia Is this a current diagnosis for this admission?: Yes Plan: Blood cultures are now negative. Port has been removed. Plan for PICC line today and then home with IV antibiotics, per ID's recommendations. Will need port again at some time in the future. Will hold all chemo until after antibiotics have been completed. (3) Malignant neoplasm of base of tongue Is this a current diagnosis for this admission?: Yes (4) Pneumonia Qualifiers: Pneumonia type: due to unspecified organism Laterality: right Lung location: lower lobe of lung Is this a current diagnosis for this admission?: Yes - Time Time Spent with patient: Less than 15 minutes
[2019-02-19] MEDS: LEVALBUTEROL HCL NEB 1.25 MG/3 ML AMPUL NEB SCH ×3 (08:11→20:42)
[2019-02-19] MEDS: INSULIN LISPRO 100 UNIT/ML 3 ML VIAL SUBCUT SCH ×4 (08:21→22:09)
[2019-02-19] MEDS: DOCUSATE SODIUM 100 MG/10 ML UDC PEG SCH ×2 (09:03→17:22)
[2019-02-19] MEDS: ASPIRIN 81 MG TABLET, CHEWABLE PEG SCH (09:15)
[2019-02-19] MEDS: CHOLESTYRAMINE 4 GM PACKET PEG SCH (09:16)
[2019-02-19] MEDS: VANCOMYCIN HCL 1,500 MG in DEXTROSE 5%-WATER 250 ML IV SCH ×2 (09:16→21:35)
--- NOTE | 2019-02-19 13:38 | Pulmonary Function Test ---
Pulmonary Function Test Date of Procedure:: 02/15/19 INDICATION:: Dyspnea Referring Provider: Dr. Garcia Manager Cleaning: Brenda Blackwood, TAVERN OPERATOR, RADIAL DRILL PRESS OPERATOR FOR PLASTIC - Report Spirometry: Spirometry: pre-FVC:[1.35 L 33%] post-FVC: 1.54 L 38% pre-FEV:1 0.77 L 25% post-FEV1: 0.93 L 31% pre-FEV1/FVC %: 57 post-FEV1/FVC%: 60 predicted: 73 [id number]%: 0.54 L 24% [id number]%: 0.37 L 16% Impression: Severe obstructive ventilatory defect. Insignificant response to bronchodilator therapy. Does not preclude a clinical trial of bronchodilator therapy. Restrictive defect is implied by the decrease flow in FVC. Restrictive defect cannot be diagnosed on the basis of spirometry alone. (Restrictive defect may mask the degree of obstruction.)
[2019-02-19] MEDS ORDERED: NORMAL SALINE 10 ML SDV (AFTER EACH USE) IV PRN (14:30)
--- NOTE | 2019-02-19 15:46 | RADIOLOGY REPORT (SQ) ---
EXAM DESCRIPTION: PICC INSERTION; FLUORO/CV PLACEMENT; U/S GUIDE FOR VASCULAR ACCESS COMPLETED DATE/TIME: 02/19/2019 3:24 pm REASON FOR STUDY: iv access; IV ABX COMPARISON: None. FLUOROSCOPY TIME: 62 seconds 2 images saved to PACS. TECHNIQUE: Fluoroscopic and ultrasound guided PICC placement. LIMITATIONS: None. PROCEDURE: After written consent and assessment were obtained, the patient was brought into the fluo roscopy room and placed supine on the table. Ultrasound evaluation of potential access sites were per formed. After successfully identifying a patent left basilic vein, the left arm was prepped and drape d in a sterile fashion along with the ultrasound probe. The entry site was anesthetized with 1% lidoc minoo. A 21 gauge 7 cm needle was advanced through the skin and into the basilic vein under live ultra sound guidance. An ultrasound image was saved to PACS confirming access site. A .018 guide wire was then inserted through the needle and into the venous system. The needle was then removed and an 11 b lade scalpel was used to make a 1cm skin incision. A 5 fr peel-away sheath was advanced over the wir e and into the venous system. A measurement was then made using the existing wire and live fluoroscop ic guidance. The wire was then removed and trimmed. The PICC was advanced through the peel-away sheat h and into the venous system. The peel-away sheath was removed and the catheter was adhered to the pa tients arm with a stat lock. The catheter was then aspirated and flushed and a sterile bandage was pl aced over the access site. A fluoroscopic spot image was saved to PACS confirming the catheter tip w ithin the superior vena cava. IMPRESSION: SUCCESSFUL PLACEMENT OF A 5 FR DUAL LUMEN 39 CM PICC IN THE LEFT BASILIC VEIN. COMMENT: Patient medication list reviewed: Yes- Quality ID# [id number]:Eligible professional attests to doc umenting in the medical record they obtained, updated, or reviewed the patient's current medications. . Quality ID 145: Final reports for procedures using fluoroscopy that document radiation exposure mo kirsty, or exposure time and number of fluorographic images (if radiation exposure indices are not avail able) Quality ID #76: The patient was prepped and draped using maximum sterile barrier technique including cap, mask, sterile gown, sterile gloves, a large sterile sheet, hand hygiene, and 2% Chlorhexidine fo r cutaneous antisepsis. When ultrasound is used, sterile ultrasound techniques are followed requiring sterile gel and sterile probes. TECHNICAL DOCUMENTATION: JOB ID: [id number] [email or web address] ([email or web address])- All Rights Reserved rev-07/29 Reading location - IP/workstation name: [email or web address]
--- NOTE | 2019-02-19 17:21 | PDOC PROGRESS REPORT ---
Subjective Progress Note for:: 02/19/19 Subjective:: No adverse events overnight. No new complaints. Conditions remain unchanged. He is getting a PICC line today. No fevers. Breathing remains at his baseline. Reason For Visit: ACUTE RESPIRATORY FAILURE WITH HYPOXIA Physical Exam Vital Signs: Temp Pulse Resp BP Pulse Ox 97.2 F 99 16 107/59 L 93 02/19/19 08:10 02/19/19 14:00 02/19/19 13:51 02/19/19 08:10 02/19/19 13:51 Intake & Output 02/18/19 02/19/19 02/20/19 06:59 06:59 06:59 Intake Total 4420 2306 300 Output Total 750 0 Balance 3670 2306 300 Weight 63.3 kg 64.2 kg General appearance: PRESENT: no acute distress, cooperative, disheveled, other - Appears frail Respiratory exam: PRESENT: decreased breath sounds, symmetrical, unlabored. ABSENT: accessory muscle use, chest wall tenderness, crackles, prolonged expiratory phas, rhonchi, tachypnea, wheezes Cardiovascular exam: PRESENT: RRR, +S1, +S2 Pulses: PRESENT: normal carotid pulses Vascular exam: PRESENT: normal capillary refill GI/Abdominal exam: PRESENT: normal bowel sounds, soft, other - PEG tube. ABSENT: distended, guarding, rebound, tenderness Extremities exam: ABSENT: clubbing, pedal edema Musculoskeletal exam: PRESENT: normal inspection. ABSENT: deformity Neurological exam: PRESENT: alert, awake, oriented to person, oriented to place, oriented to situation Psychiatric exam: PRESENT: flat affect, normal mood Skin exam: PRESENT: dry, warm Results Laboratory Results: 02/15/19 10:33 02/17/19 09:41 02/09/19 10:35 Troponin I < 0.012 NT-Pro-B Natriuret Pep 374 H Impressions: Chest X-Ray 02/09/19 11:03 IMPRESSION: Increased opacification right hemithorax due to increasing right upper lobe airspace disease, and stable right pleural effusion with right middle and lower lobe consolidation Chest CT 02/13/19 00:00 IMPRESSION: 1. Right upper lobe pulmonary nodule now measures 27.6 x 22.4 mm. This represents further increased in size. 2. Right upper lobe pneumonia. 3. Marked airspace disease in the right middle lobe and lower lobe, atelectasis versus consolidation. 4. Increased left pleural effusion. 5. Stable loculated right pleural effusion/empyema. 6. Mediastinal adenopathy. 7. Centrilobular pulmonary emphysema. Guidance Fluoroscopy 02/19/19 00:00 IMPRESSION: SUCCESSFUL PLACEMENT OF A 5 FR DUAL LUMEN 39 CM PICC IN THE LEFT BASILIC VEIN. Interventional Vascular Procedure 02/19/19 00:00 IMPRESSION: SUCCESSFUL PLACEMENT OF A 5 FR DUAL LUMEN 39 CM PICC IN THE LEFT BASILIC VEIN. PICC Line Insertion 02/19/19 00:00 IMPRESSION: SUCCESSFUL PLACEMENT OF A 5 FR DUAL LUMEN 39 CM PICC IN THE LEFT BASILIC VEIN. Assessment and Plan - Diagnosis (1) Acute and chronic respiratory failure with hypoxia Is this a current diagnosis for this admission?: Yes Plan: Stable on his usual level of oxygen support (2) Community acquired pneumonia Qualifiers: Laterality: right Lung location: unspecified part of lung Qualified Code(s): J18.9 - Pneumonia, unspecified organism Is this a current diagnosis for this admission?: Yes Plan: Continues on vancomycin per infectious disease, it was recommended that Levaquin be discontinued. Because of the troubles with his blood pressure I have added meropenem. (3) Gram-positive bacteremia Is this a current diagnosis for this admission?: Yes Plan: He is getting a PICC line today, and will complete a total of 6 weeks of antibiotic therapy at home. We are currently awaiting prior authorization to arrange his home antibiotics. Once that is done, he can be discharged home. (4) Acute exacerbation of chronic obstructive pulmonary disease (COPD) Is this a current diagnosis for this admission?: Yes Plan: Resolved, now at baseline, continue home therapy. PFTs showed severe obstructive defect. (5) Dysphagia, oropharyngeal phase Is this a current diagnosis for this admission?: Yes Plan: Continue tube feeds (6) Malignant neoplasm of base of tongue Is this a current diagnosis for this admission?: Yes Plan: Follows with Dr. Clinton as an outpatient. Because his port has to be removed, will likely get a PICC line in him so he can complete his antibiotics, and then a discussion can be had as to whether or not he will need to have a new port placed later on. - Time Time Spent with patient: 15-24 minutes
[2019-02-19] MEDS: NORMAL SALINE 10 ML SDV (SCHEDULED) IV SCH (21:36)
[2019-02-20] MEDS: MEROPENEM 1 GM in NORMAL SALINE 50 ML IV SCH (02:45)
[2019-02-20] MEDS: GABAPENTIN 300 MG CAPSULE PEG SCH (05:27)
[2019-02-20] MEDS: METOCLOPRAMIDE HCL ORAL SOLN 10 MG/10 ML UDCUP PEG SCH (05:27)
[2019-02-20] MEDS: LEVOTHYROXINE SODIUM 0.025 MG TABLET PEG SCH (05:28)
[2019-02-20] MEDS: HEPARIN SOD (PORCINE) 5,000 UNIT/ML 1 ML VIAL SUBCUT SCH (05:28)
[2019-02-20] MEDS: PANTOPRAZOLE SODIUM 40 MG PACKET.DR PO SCH (05:28)
[2019-02-20] MEDS: INSULIN LISPRO 100 UNIT/ML 3 ML VIAL SUBCUT SCH (07:43)
[2019-02-20] MEDS: LEVALBUTEROL HCL NEB 1.25 MG/3 ML AMPUL NEB SCH (08:06)
--- NOTE | 2019-02-20 09:09 | PDOC DISCHARGE SUMMARY ---
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 Is this a current diagnosis for this admission?: Yes - Additional Information Resuscitation Status: Full Code Discharge Diet: Tube Feeding (Comments) Discharge Activity: Activity As Tolerated Referrals: JACKY CHOPRA MD [COMMUNITY BASED STAFF] - Prescriptions: Levalbuterol HCl [Xopenex Neb 1.25 mg/3 ml Ampul] 1.25 mg NEB RTQ6 #90 vial.neb Home Medications: Aspirin [Adult Low Dose Aspirin EC] 81 mg PO DAILY 02/09/19 Cholestyramine/Aspartame [Prevalite Packet] 4 gm PO DAILY 02/09/19 Diclofenac Sodium [Voltaren] 4 gm TOP QID 02/09/19 Diltiazem HCl [Cardizem 90 mg Tablet] 90 mg PEG QID 02/09/19 Fentanyl [Duragesic 50 Mcg/Hr Transdermal Patch] 1 patch TD Q72H 02/09/19 Gabapentin [Neurontin 300 mg Capsule] 300 mg PEG Q8 02/09/19 Levothyroxine Sodium 25 mcg PEG Q6AM 02/09/19 Metoclopramide HCl [Reglan] 5 mg PEG TID 02/09/19 Mirtazapine [Remeron 15 mg Tablet] 15 mg PEG QHS 02/09/19 Ondansetron HCl [Zofran 8 mg Tablet] 8 mg PEG Q8HP PRN 02/09/19 Oxycodone HCl [Oxycodone HCl 10 MG Tablet] 10 mg PEG Q6HP PRN 02/09/19 Pilocarpine HCl [Salagen] 5 mg PEG TID 02/09/19 Prazosin HCl [Minipress] 1 mg PEG QHS 02/09/19 Tizanidine HCl [Zanaflex] 2 mg PEG BID 02/09/19 Umeclidinium Brm/Vilanterol Tr [Anoro Ellipta 62.5-25 Mcg INH] 1 puff IH DAILY 02/09/19 Levalbuterol HCl [Xopenex Neb 1.25 mg/3 ml Ampul] 1.25 mg NEB RTQ6 #90 vial.neb 02/20/19 History of Present Illiness History of Present Illness: FELIPE PIERRE is a 73 year old male who initially presented to the ER with shortness of breath x4 days. Hospital Course Hospital Course: Patient is a 73-year-old gentleman who presented to the ER with a history of hypotension, oxygen dependency, COPD, metastatic oropharyngeal cancer status post PEG tube placement and is currently on immunotherapy by Dr. Rodrigues. He presented to the ED with worsening shortness of breath over the past 4 days. Patient started having fevers, worsening short of breath and low SPO2 sats at home. Patient with his primary care practitioner started on clindamycin with no significant improvement. Patient was noted to have a saturation in the low 80s at home he was also complaining of substernal burning and a cough. He denies any chest pain, nausea, vomiting, diarrhea. Patient was placed on IMCU and treated aggressive IV antibiotics. Patient was found to have a enterococcus facialis septicemia and we are going home on 6 weeks total of IV vancomycin 1 g every 12 hours. Patient has a PICC line in place. Patient's did ask for a nebulizer machine with Xopenex for which I provided. Patient family is in agreement with plan of care. Patient will follow-up with Dr. Clinton. Physical Exam Vital Signs: Temp Pulse Resp BP Pulse Ox 97.9 F 92 16 93/64 L 92 02/20/19 07:30 02/20/19 08:06 02/20/19 08:06 02/20/19 07:30 02/20/19 08:06 Intake & Output 02/19/19 02/20/19 02/21/19 06:59 06:59 06:59 Intake Total 2306 2330 Output Total 0 450 Balance 2306 1880 Weight 64.2 kg 63.8 kg General appearance: PRESENT: no acute distress, well-developed, well-nourished Neck exam: ABSENT: carotid bruit, JVD, lymphadenopathy, thyromegaly Respiratory exam: PRESENT: clear to auscultation tyler. ABSENT: rales, rhonchi, wheezes Cardiovascular exam: PRESENT: RRR. ABSENT: diastolic murmur, rubs, systolic murmur Pulses: PRESENT: +1 pedal pulses bilateral Vascular exam: PRESENT: normal capillary refill GI/Abdominal exam: PRESENT: normal bowel sounds, soft. ABSENT: distended, guarding, mass, organolmegaly, rebound, tenderness Extremities exam: PRESENT: full ROM. ABSENT: calf tenderness, clubbing, pedal edema Neurological exam: PRESENT: alert, awake, oriented to person, oriented to place, oriented to time, oriented to situation, CN II-XII grossly intact. ABSENT: motor sensory deficit Psychiatric exam: PRESENT: appropriate affect, normal mood. ABSENT: homicidal ideation, suicidal ideation Skin exam: PRESENT: dry, intact, warm. ABSENT: cyanosis, rash Results Laboratory Results: WBC 14.6 10^3/uL (4.0-10.5) H 02/15/19 10:33 RBC 4.09 10^6/uL (4.35-5.55) L 02/15/19 10:33 Hgb 9.8 g/dL (13.5-17.0) L 02/15/19 10:33 Hct 31.8 % (37.9-51.0) L 02/15/19 10:33 MCV 78 fl (80-97) L 02/15/19 10:33 MCH 24.1 pg (27.0-33.4) L 02/15/19 10:33 MCHC 31.0 g/dL (32.0-36.0) L 02/15/19 10:33 RDW 19.0 % (11.5-14.0) H 02/15/19 10:33 Plt Count 446 10^3/uL (150-450) 02/15/19 10:33 Lymph % (Auto) Not Reportable 02/15/19 10:33 [place] % (Auto) Not Reportable 02/15/19 10:33 Eos % (Auto) Not Reportable 02/15/19 10:33 Baso % (Auto) Not Reportable 02/15/19 10:33 Absolute Neuts (auto) Not Reportable 02/15/19 10:33 Absolute Lymphs (auto) Not Reportable 02/15/19 10:33 Absolute Monos (auto) Not Reportable 02/15/19 10:33 Absolute Eos (auto) Not Reportable 02/15/19 10:33 Absolute Basos (auto) Not Reportable 02/15/19 10:33 Total Counted 100 02/15/19 10:33 Seg Neutrophils % Not Reportable 02/15/19 10:33 Seg Neuts % (Manual) 84 % (42-78) H 02/15/19 10:33 Band Neutrophils % 3 % (3-5) 02/12/19 04:05 Lymphocytes % (Manual) 6 % (13-45) L 02/15/19 10:33 Monocytes % (Manual) 10 % (3-13) 02/15/19 10:33 Eosinophils % (Manual) 0 % (0-6) 02/15/19 10:33 Basophils % (Manual) 0 % (0-2) 02/15/19 10:33 Abs Neuts (Manual) 12.3 10^3/uL (1.7-8.2) H 02/15/19 10:33 Abs Lymphs (Manual) 0.9 10^3/uL (0.5-4.7) 02/15/19 10:33 Abs Monocytes (Manual) 1.5 10^3/uL (0.1-1.4) H 02/15/19 10:33 Absolute Eos (Manual) 0.0 10^3/uL (0.0-0.6) 02/15/19 10:33 Abs Basophils (Manual) 0.0 10^3/uL (0.0-0.2) 02/15/19 10:33 Hypersegmented Neuts PRESENT 02/11/19 05:50 Clumped Platelets PRESENT 02/15/19 10:33 Platelet Comment ADEQUATE 02/15/19 10:33 Polychromasia SLIGHT 02/15/19 10:33 Hypochromasia 1+ 02/15/19 10:33 Poikilocytosis SLIGHT 02/15/19 10:33 Basophilic Stippling PRESENT 02/15/19 10:33 Anisocytosis 2+ 02/15/19 10:33 Microcytosis SLIGHT 02/15/19 10:33 Ovalocytes SLIGHT 02/15/19 10:33 PT 13.9 SEC (11.4-15.4) 02/09/19 10:35 INR 1.07 02/09/19 10:35 Carbonic Acid 1.07 mmol/L (1.05-1.35) 02/09/19 14:00 HCO3/H2CO3 Ratio 21:1 02/09/19 14:00 ABG pH 7.43 (7.35-7.45) 02/09/19 14:00 ABG pCO2 35.4 mmHg (35-45) 02/09/19 14:00 ABG pO2 60.2 mmHg (80-100) L 02/09/19 14:00 ABG HCO3 22.7 mmol/L (20-24) 02/09/19 14:00 ABG Total CO2 23.8 mmol/L (23-27) 02/09/19 14:00 ABG O2 Saturation 91.8 % (94-98) L 02/09/19 14:00 ABG Base Excess -1.2 mmol/L 02/09/19 14:00 VBG pH 7.42 (7.30-7.42) 02/09/19 11:38 VBG pCO2 44.3 mmHg (35-63) 02/09/19 11:38 VBG HCO3 27.8 mmol/L (20-32) 02/09/19 11:38 VBG Base Excess 2.7 mmol/L 02/09/19 11:38 FiO2 28% 02/09/19 14:00 Sodium 137.9 mmol/L (137-145) 02/15/19 10:33 Potassium 4.1 mmol/L (3.6-5.0) 02/15/19 10:33 Chloride 108 mmol/L (98-107) H 02/15/19 10:33 Carbon Dioxide 27 mmol/L (22-30) 02/15/19 10:33 Anion Gap 3 (5-19) L 02/15/19 10:33 BUN 11 mg/dL (7-20) 02/15/19 10:33 Creatinine 0.64 mg/dL (0.52-1.25) 02/17/19 09:41 Est GFR ( Amer) > 60 (>60) 02/17/19 09:41 Est GFR (MDRD) Non-Af > 60 (>60) 02/17/19 09:41 Glucose 114 mg/dL (75-110) H 02/15/19 10:33 POC Glucose 127 mg/dL (70-110) H 02/20/19 07:30 Calcium 7.6 mg/dL (8.4-10.2) L 02/15/19 10:33 Magnesium 2.1 mg/dL (1.6-2.3) 02/12/19 04:05 Total Bilirubin 0.2 mg/dL (0.2-1.3) 02/13/19 06:00 Direct Bilirubin 0.1 mg/dL (0.0-0.4) 02/13/19 06:00 Neonat Total Bilirubin Not Reportable 02/13/19 06:00 Neonat Direct Bilirubin Not Reportable 02/13/19 06:00 Neonat Indirect Bili Not Reportable 02/13/19 06:00 AST 23 U/L (17-59) 02/13/19 06:00 ALT 26 U/L (<50) 02/13/19 06:00 Alkaline Phosphatase 68 U/L (38-126) 02/13/19 06:00 Troponin I < 0.012 ng/mL 02/09/19 10:35 NT-Pro-B Natriuret Pep 374 pg/mL (<125) H 02/09/19 10:35 Total Protein 5.2 g/dL (6.3-8.2) L 02/13/19 06:00 Albumin 2.6 g/dL (3.5-5.0) L 02/13/19 06:00 Urine Color YELLOW 02/09/19 12:25 Urine Appearance CLOUDY 02/09/19 12:25 Urine pH 8.0 (5.0-9.0) 02/09/19 12:25 Ur Specific [place] 1.012 02/09/19 12:25 Urine Protein NEGATIVE mg/dL (NEGATIVE) 02/09/19 12:25 Urine Glucose (UA) NEGATIVE mg/dL (NEGATIVE) 02/09/19 12:25 Urine Ketones NEGATIVE mg/dL (NEGATIVE) 02/09/19 12:25 Urine Blood NEGATIVE (NEGATIVE) 02/09/19 12:25 Urine Nitrite NEGATIVE (NEGATIVE) 02/09/19 12:25 Urine Bilirubin NEGATIVE (NEGATIVE) 02/09/19 12:25 Urine Urobilinogen NEGATIVE mg/dL (<2.0) 02/09/19 12:25 Ur Leukocyte Esterase NEGATIVE (NEGATIVE) 02/09/19 12:25 Urine RBC (Auto) 1 /HPF 02/09/19 12:25 Amorphous Sediment Auto TRACE /HPF 02/09/19 12:25 Urine Mucus (Auto) RARE /LPF 02/09/19 12:25 Urine Ascorbic Acid 20 (NEGATIVE) H 02/09/19 12:25 Stl C. Difficile GDH Ag NEGATIVE (NEGATIVE) 02/12/19 19:46 Stl C.difficile Tox A&B NEGATIVE (NEGATIVE) 02/12/19 19:46 Time Trough Drawn 0941 02/17/19 09:41 Vancomycin Trough 17.1 ug/mL (5.0-20.0) 02/17/19 09:41 02/09/19 10:35 Troponin I < 0.012 NT-Pro-B Natriuret Pep 374 H Impressions: Chest X-Ray 02/09/19 11:03 IMPRESSION: Increased opacification right hemithorax due to increasing right upper lobe airspace disease, and stable right pleural effusion with right middle and lower lobe consolidation Chest CT 02/13/19 00:00 IMPRESSION: 1. Right upper lobe pulmonary nodule now measures 27.6 x 22.4 mm. This represents further increased in size. 2. Right upper lobe pneumonia. 3. Marked airspace disease in the right middle lobe and lower lobe, atelectasis versus consolidation. 4. Increased left pleural effusion. 5. Stable loculated right pleural effusion/empyema. 6. Mediastinal adenopathy. 7. Centrilobular pulmonary emphysema. Guidance Fluoroscopy 02/19/19 00:00 IMPRESSION: SUCCESSFUL PLACEMENT OF A 5 FR DUAL LUMEN 39 CM PICC IN THE LEFT BASILIC VEIN. Interventional Vascular Procedure 02/19/19 00:00 IMPRESSION: SUCCESSFUL PLACEMENT OF A 5 FR DUAL LUMEN 39 CM PICC IN THE LEFT BASILIC VEIN. PICC Line Insertion 02/19/19 00:00 IMPRESSION: SUCCESSFUL PLACEMENT OF A 5 FR DUAL LUMEN 39 CM PICC IN THE LEFT BASILIC VEIN. Plan Time Spent: Greater than 30 Minutes Stroke Is this a Stroke Patient?: No Acute Heart Failure - Is this a Heart Failure Patient?: No
[2019-02-20] MEDS: VANCOMYCIN HCL 1,500 MG in DEXTROSE 5%-WATER 250 ML IV SCH (09:30)
[2019-02-20] MEDS: ASPIRIN 81 MG TABLET, CHEWABLE PEG SCH (09:33)
[2019-02-20] MEDS: DOCUSATE SODIUM 100 MG/10 ML UDC PEG SCH (09:45)
[2019-02-20] MEDS: CHOLESTYRAMINE 4 GM PACKET PEG SCH (09:48)
[2019-02-20] MEDS: NORMAL SALINE 10 ML SDV (SCHEDULED) IV SCH (11:17)
[2019-02-20 11:24] VITALS: BP 115/56
== END 2019-02-20 11:35 | disposition home health service (06) | DRG 163 ==
LOC: ER 10:34 → EH 12:46 → 3W 21:02
PROVIDERS: ADMIT Internal Medicine; ATTEND Internal Medicine
PROC: 0JPT0XZ Removal of Tunneled Vascular Access Device from Trunk Subcutaneous Tissue and Fascia, Open Approach (ICD-10-PCS; principal; 2019-02-13)
PROC: 0W383ZZ Control Bleeding in Chest Wall, Percutaneous Approach (ICD-10-PCS; 2019-02-14)
PROC: 02HV33Z Insertion of Infusion Device into Superior Vena Cava, Percutaneous Approach (ICD-10-PCS; 2019-02-19)
PROC: B518ZZA Fluoroscopy of Superior Vena Cava, Guidance (ICD-10-PCS; 2019-02-19)
PROC: B548ZZA Ultrasonography of Superior Vena Cava, Guidance (ICD-10-PCS; 2019-02-19)
DX: J96.01 Acute respiratory failure with hypoxia (principal); J18.9 Pneumonia, unspecified organism; T80.211A Bloodstream infection due to central venous catheter, initial encounter; J44.1 Chronic obstructive pulmonary disease with (acute) exacerbation; C78.00 Secondary malignant neoplasm of unspecified lung; L76.22 Postprocedural hemorrhage of skin and subcutaneous tissue following other procedure; C02.9 Malignant neoplasm of tongue, unspecified; R13.12 Dysphagia, oropharyngeal phase; I10 Essential (primary) hypertension; I73.9 Peripheral vascular disease, unspecified; B95.2 Enterococcus as the cause of diseases classified elsewhere; Y83.8 Other surgical procedures as the cause of abnormal reaction of the patient, or of later complication, without mention of misadventure at the time of the procedure; Y92.230 Patient room in hospital as the place of occurrence of the external cause; Z99.81 Dependence on supplemental oxygen; Z86.73 Personal history of transient ischemic attack (TIA), and cerebral infarction without residual deficits; Z93.1 Gastrostomy status; Z79.82 Long term (current) use of aspirin; Z79.51 Long term (current) use of inhaled steroids; Z79.899 Other long term (current) drug therapy
CPT/HCPCS: 36415; 36569; 36600; 71045; 71260; 76937; 77001; 80048; 80053; 80202; 81001; 82565; 82803; 82962; 83735; 83880; 84484; 85025; 85610; 87040; 87070; 87077; 87150; 87186; 87324; 87449; 93005; 93010; 94060; 94640; 96365; 96367; 96375; 99285; C1769; J1642; J1644; J1815; J1956; J2185; J2920; J2930; J3370; J3475; J3490; J7030; J7060; J7620

== ENCOUNTER → 2019-03-29 | Outpatient (CLI) | payer MEDICARE, OTHER ==
--- NOTE | 2019-03-29 12:53 | RADIOLOGY REPORT (SQ) ---
EXAM DESCRIPTION: CT CHEST WITH COMPLETED DATE/TIME: 03/29/2019 8:19 am REASON FOR STUDY: MALIGNANT NEOPLASM OF BASE OF TONGUE (C01) C01 MALIGNANT NEOPLASM OF BASE OF TONG UE COMPARISON: 02/13/2019 TECHNIQUE: CT scan of the chest performed using helical scanning technique with dynamic intravenous contrast injection. Images reviewed with lung, soft tissue and bone windows. Reconstructed coronal and sagittal MPR and MIP images reviewed. All images stored on PACS. All CT scanners at this facility use dose modulation, iterative reconstruction, and/or weight based d osing when appropriate to reduce radiation dose to as low as reasonably achievable (ALARA). [facility]: Dose Right [facility]: CareDose [facility]: Dose Right [facility]: Teradose 4D [facility]: [employer] CONTRAST TYPE AND DOSE: contrast/concentration: Isovue 350.00 mg/ml; Total Contrast Delivered: 80.0 ml; Total Saline Delivered: 55.0 ml RENAL FUNCTION: BUN 15 creatinine 0.63 RADIATION DOSE: CT Rad equipment meets quality standard of care and radiation dose reduction techniq ues were employed. CTDIvol: 5.8 mGy. DLP: 222 mGy-cm. . LIMITATIONS: None. FINDINGS: LUNGS AND PLEURA: Reduced volume in the right lung. Stable left pleural effusion. Locula gauri right pleural effusion versus empyema. Increased opacification in the right upper lobe. Right u pper lobe nodule now measures 34.6 x 32.8 mm. There is considerable right middle lobe and lower lobe opacification. Air bronchograms are seen. There is opacification the right upper lobe posterolater ally with air bronchograms. HILAR AND MEDIASTINAL STRUCTURES: Right paratracheal lymph node is smaller, measuring 14.1 mm. There is central necrosis. There is low-density subcarinal node that is more prominent, measuring 16.5 mm in short axis. This demonstrates central necrosis. HEART AND VASCULAR STRUCTURES: No aneurysm or dissection. No central pulmonary emboli. No pericardi al effusion. HARDWARE: None in the chest. UPPER ABDOMEN: No significant findings. Limited exam. THYROID AND OTHER SOFT TISSUES: No masses. No adenopathy. BONES: No significant finding. OTHER: No other significant finding. IMPRESSION: Worsening disease in the chest. Right upper lobe mass is larger than on the prior study . There is considerable associated opacification suggesting atelectasis. Persistent right upper lob e pneumonia. This appears less prominent. Large loculated fluid collection in the right lung base, empyema versus effusion. Stable left pleural effusion. Mediastinal adenopathy. TECHNICAL DOCUMENTATION: JOB ID: [id number] Quality ID # [id number]: Final reports with documentation of one or more dose reduction techniques (e.g., Au tomated exposure control, adjustment of the mA and/or kV according to patient size, use of iterative reconstruction technique) 2010 [email or web address]- All Rights Reserved Reading location - IP/workstation name: [email or web address]
== END ==
LOC: RAD 07:26
PROVIDERS: ATTEND Internal Medicine Hematology & Oncology
DX: C01 Malignant neoplasm of base of tongue (principal)
CPT/HCPCS: 71260

== ENCOUNTER 2019-05-22 15:56 | Day surgery (SDC) | payer MEDICARE, OTHER ==
--- NOTE | 2019-05-22 17:13 | Operative Report ---
Operative Report DATE OF SURGERY: 05/22/19 Operative Report: Pre-op diagnosis: Feeding difficulty Post-op diagnosis: Feeding difficulty Surgery: G-tube replacement Medications: None Tissue removed: None Procedure: The old 20 [place] low-profile G-tube was removed after the balloon was deflated. This was replaced with another 20 [place] Nick tube. The balloon was inflated with 6 cc of fluid. He tolerated the procedure well Plan: Resume feeding OPERATION: .
== END 2019-05-22 16:30 | disposition home or self-care (01) ==
LOC: END 15:56
PROVIDERS: ATTEND Internal Medicine Gastroenterology
DX: K94.23 Gastrostomy malfunction (principal)
CPT/HCPCS: 43762

== ENCOUNTER → 2019-10-15 | Outpatient (CLI) | payer MEDICARE, OTHER ==
--- NOTE | 2019-10-15 13:34 | RADIOLOGY REPORT (SQ) ---
EXAM DESCRIPTION: CHEST PA/LATERAL IMAGES COMPLETED DATE/TIME: 10/15/2019 1:23 pm REASON FOR STUDY: SHORTNESS OF BREATH COMPARISON: 02/09/2019 EXAM PARAMETERS: NUMBER OF VIEWS: two views TECHNIQUE: Digital Frontal and Lateral radiographic views of the chest acquired. RADIATION DOSE: NA LIMITATIONS: none FINDINGS: LUNGS AND PLEURA: Bibasilar airspace disease right greater than left. Infiltrate extends into the right upper lobe. There are bilateral pleural effusions. Catheter of some type overlies th e right lower hemithorax. MEDIASTINUM AND HILAR STRUCTURES: No masses or contour abnormalities. HEART AND VASCULAR STRUCTURES: Heart size is stable. No overt failure. BONES: No acute findings. HARDWARE: None in the chest. OTHER: No other significant finding. IMPRESSION: Increasing bilateral pleural effusions. Basilar airspace disease has increased on the l eft is slightly improved on the right. Chest tube of some type overlies the right lower hemithorax. TECHNICAL DOCUMENTATION: JOB ID: [id number] 2010 [employer]- All Rights Reserved Reading location - IP/workstation name: [email or web address]
== END ==
LOC: OD 12:46
PROVIDERS: ATTEND Internal Medicine Hematology & Oncology
DX: R06.02 Shortness of breath (principal)
CPT/HCPCS: 71046

== ENCOUNTER → 2019-11-13 | Outpatient (CLI) | payer MEDICARE, OTHER ==
--- NOTE | 2019-11-13 15:01 | RADIOLOGY REPORT (SQ) ---
EXAM DESCRIPTION: CHEST PA/LATERAL IMAGES COMPLETED DATE/TIME: 11/13/2019 2:49 pm REASON FOR STUDY: SHORTNESS OF BREATH; CHEST PAIN COMPARISON: 10/15/2019 and 02/09/2019. EXAM PARAMETERS: NUMBER OF VIEWS: two views TECHNIQUE: Digital Frontal and Lateral radiographic views of the chest acquired. RADIATION DOSE: NA LIMITATIONS: none FINDINGS: LUNGS AND PLEURA: Volume loss on the right with worsening aeration and increase in the rig ht pleural effusion. Elevation of the right hemidiaphragm. Left pleural effusion appears unchanged. MEDIASTINUM AND HILAR STRUCTURES: No masses or contour abnormalities. HEART AND VASCULAR STRUCTURES: Heart normal size. No evidence for failure. BONES: No acute findings. HARDWARE: Curled chest tube in the lower right chest, unchanged. OTHER: No other significant finding. IMPRESSION: WORSENING AERATION IN THE RIGHT LUNG WITH VOLUME LOSS AND INCREASE IN THE RIGHT PLEURAL EFFUSION. TECHNICAL DOCUMENTATION: JOB ID: [id number] 2010 [employer]- All Rights Reserved Reading location - IP/workstation name: [email or web address]
== END ==
LOC: OD 14:17
PROVIDERS: ATTEND Internal Medicine Hematology & Oncology
DX: R06.02 Shortness of breath (principal); R07.9 Chest pain, unspecified
CPT/HCPCS: 71046

== ENCOUNTER 2019-11-30 07:28 | Inpatient (IN) | payer MEDICARE, OTHER ==
[2019-11-30] MEDS ORDERED: NORMAL SALINE 1000 ML 1,000 ML IV ONE (08:14)
[2019-11-30 09:23] LABS: HEMATOCRIT 43.4 % (37.9-51.0); HEMOGLOBIN 13.6 g/dL (13.5-17.0); MEAN CORPUSCULAR HEMOGLOBIN 25.6 pg (27.0-33.4); MEAN CORPUSCULAR HGB CONC 31.2 g/dL (32.0-36.0); MEAN CORPUSCULAR VOLUME 82 fl (80-97); PLATELET COUNT 475 10^3/uL (150-450); RED CELL DISTRIBUTION WIDTH 16.8 % (11.5-14.0); WHITE BLOOD COUNT 23.9 10^3/uL (4.0-10.5)
[2019-11-30 09:41] LABS: ALBUMIN 3.6 g/dL (3.5-5.0); ALKALINE PHOSPHATASE 203 U/L (38-126); ANION GAP 8 (5-19); ASPARTATE AMINO TRANSFERASE 33 U/L (17-59); BILIRUBIN,DIRECT 0.4 mg/dL (0.0-0.4); BILIRUBIN,TOTAL 0.5 mg/dL (0.2-1.3); BLOOD UREA NITROGEN 20 mg/dL (7-20); CALCIUM 11.1 mg/dL (8.4-10.2); CARBON DIOXIDE 36 mmol/L (22-30); CHLORIDE 93 mmol/L (98-107); CREATINE KINASE 37 U/L (55-170); GLUCOSE 116 mg/dL (75-110); TOTAL PROTEIN 7.4 g/dL (6.3-8.2)
[2019-11-30 09:46] LABS: POTASSIUM 6.3 mmol/L (3.6-5.0)
--- NOTE | 2019-11-30 09:47 | RADIOLOGY REPORT (SQ) ---
EXAM DESCRIPTION: ACUTE ABDOMEN SERIES IMAGES COMPLETED DATE/TIME: 11/30/2019 9:11 am REASON FOR STUDY: sobr COMPARISON: PA and lateral views of the chest from 11/13/2019. NUMBER OF VIEWS: Three views. TECHNIQUE: An AP view of the abdomen and AP supine and upright views of the abdomen were obtained. LIMITATIONS: None. FINDINGS: CHEST: Bilateral asymmetric (right greater than left) basilar predominant pleural and pare nchymal opacities that obscure the contour of the hemidiaphragm and blunt the lateral costophrenic plascencia lci. The cardiac silhouette is obscured. There is re- demonstration of abrupt truncation of the rig ht superior lobar bronchus and bronchus intermedius. There is atherosclerotic calcification of the a ortic arch. There is no pneumothorax. FREE AIR: None. BOWEL GAS PATTERN: No dilated loops of bowel or differential air-fluid levels. CALCIFICATIONS: No suspicious calcifications. HARDWARE: Gastrostomy tube and endovascular stent in the right common iliac/external iliac arteries. SOFT TISSUES: No abnormality. BONES: Degenerative spondylosis of the lumbar spine. OTHER: No other finding. IMPRESSION: 1. Bilateral asymmetric (right greater than left) basilar predominant pleural and parenc hymal opacities that obscure the contours of the hemidiaphragms and blunt the costophrenic sulci. Th tawanna opacities are unchanged compared to the radiograph from 11/13/2019. 2. Nonobstructive bowel gas pattern. TECHNICAL DOCUMENTATION: JOB ID: [id number] 2010 [employer]- All Rights Reserved Reading location - IP/workstation name: [email or web address]
[2019-11-30 09:48] LABS: ABSOLUTE LYMPHOCYTES# (MANUAL) 0.5 10^3/uL (0.5-4.7); ABSOLUTE MONOCYTES # (MANUAL) 1.4 10^3/uL (0.1-1.4); BASOPHILS % (MANUAL) 0 % (0-2); EOSINOPHILS % (MANUAL) 0 % (0-6); LYMPHOCYTES % (MANUAL) 2 % (13-45); MONOCYTES % (MANUAL) 6 % (3-13); SEGMENTED NEUTROPHILS % (MAN) 92 % (42-78); TOTAL CELLS COUNTED 100
[2019-11-30 09:49] LABS: ANISOCYTOSIS SLIGHT; HYPOCHROMASIA SLIGHT; PLATELET COMMENT INCREASED; PLATELET LARGE PRESENT; POLYCHROMASIA SLIGHT
[2019-11-30 09:51] LABS: INTERNATIONAL RATION (INR) 1.02; PROTHROMBIN TIME 13.6 SEC (11.4-15.4)
[2019-11-30] MEDS ORDERED: CEFEPIME 2 GM/D5W RTU 2 GM/50 ML RTUPB IV ONE (09:59)
[2019-11-30] MEDS ORDERED: VANCOMYCIN HCL INJ 1000 MG VIAL IV ONE (10:00)
[2019-11-30 10:01] LABS: TROPONIN I 0.037 ng/mL
[2019-11-30 10:38] LABS: PARTIAL THROMBOPLASTIN TIME 33.5 SEC (23.5-35.8)
[2019-11-30 11:04] LABS: APPEARANCE,URINE SLIGHTLY-CLOUDY; BILIRUBIN,URINE NEGATIVE (NEGATIVE); COLOR,URINE YELLOW; GLUCOSE, URINE NEGATIVE (NEGATIVE); KETONES,URINE NEGATIVE (NEGATIVE); LEUKOCYTE ESTERASE,URINE NEGATIVE (NEGATIVE); NITRITE,URINE NEGATIVE (NEGATIVE); PROTEIN,URINE NEGATIVE (NEGATIVE); URINE SPECIFIC GRAVITY 1.013; UROBILINOGEN,URINE NEGATIVE mg/dL (<2.0)
[2019-11-30 12:32] LABS: ARTERIAL BLOOD BASE EXCESS 7.8 mmol/L; ARTERIAL BLOOD FIO2 100; ARTERIAL BLOOD H2CO3 1.66 mmol/L (1.05-1.35); ARTERIAL BLOOD HCO3 33.9 mmol/L (20-24); ARTERIAL BLOOD O2 SATURATION 95.4 % (94-98); ARTERIAL BLOOD PH 7.41 (7.35-7.45); ARTERIAL BLOOD PO2 78.3 mmHg (80-100); ARTERIAL BLOOD TOTAL CO2 35.6 mmol/L (23-27)
[2019-11-30] MEDS ORDERED: MORPHINE SULFATE 10 MG/ML INJ IV ONE (13:01)
[2019-11-30] MEDS ORDERED: ONDANSETRON HCL INJ/PF 4 MG/2 ML SDV IV ONE (13:01)
--- NOTE | 2019-11-30 13:34 | RADIOLOGY REPORT (SQ) ---
EXAM DESCRIPTION: CTA CHEST IMAGES COMPLETED DATE/TIME: 11/30/2019 12:57 pm REASON FOR STUDY: sobr/lung cancer/pleural effusions COMPARISON: PA and lateral views of the chest from 11/13/[address] of the chest with contrast from 04/16/2018. TECHNIQUE: CT scan of the chest performed using helical scanning technique with dynamic intravenous contrast injection. Images reviewed with lung, soft tissue and bone windows. Reconstructed coronal and sagittal MPR images reviewed. Additional 3 dimensional post-processing performed to develop Maximal Intensity Projection images (MA P). All images stored on PACS. All CT scanners at this facility use dose modulation, iterative reconstruction, and/or weight based d osing when appropriate to reduce radiation dose to as low as reasonably achievable (ALARA). [facility]: Dose Right [facility]: CareDose [facility]: Dose Right [facility]: Teradose 4D [facility]: Equipboard CONTRAST TYPE AND DOSE: Contrast/concentration: Isovue 350.00 mmol/ml; Total Contrast Delivered: 52. 0 ml; Total Saline Delivered: 70.0 ml Contrast bolus optimized for the pulmonary arteries. RENAL FUNCTION: Creatinine 0.62 mg/dL. RADIATION DOSE: CT Rad equipment meets quality standard of care and radiation dose reduction techniq ues were employed. CTDIvol: 13.2 - 21.8 mGy. DLP: 761 mGy-cm. LIMITATIONS: None. FINDINGS: LUNGS AND PLEURA: The trachea is patent. The low attenuation material within the right ma in bronchus, bronchus intermedius and right superior lobar bronchus could represent mucous. There ar e extensive areas of consolidation throughout right upper, right middle and right lower lobes ; the a ttenuation of the opacified lung parenchyma is heterogeneous with intermixed areas of low attenuation that could represent dilated mucous-filled bronchi or a necrotizing pneumonia. There is a pleural d rainage catheter in place in the posterior aspect of the right hemithorax and a trace amount of pleur al fluid. The pleural lining of the right hemithorax is thickened and there 2 separate pleural-based lesions that are associated with erosion of the right lateral 5th and 6th ribs and right posterior 9 th rib ; the posterior lesion measures up to 7.3 cm in transverse diameter and has increased in size since the CT from February 2019. On the contralateral side there is a large pleural effusion that tr acks into the interlobar fissure and is associated with areas of consolidation or compressive atelect asis in the lingula and left lower lobe. The interlobular septa in the aerated portions of the left upper lobe and left lower lobe are thickened and there are several nodules in the left upper lobe (im age 45 of series 3 and 66 of series 3) that have developed in the interim. There is no pneumothorax. AORTA AND GREAT VESSELS: No aneurysm or dissection of the thoracic aorta HEART: Moderate to severe atherosclerotic calcification of the coronary arteries and cardiomegaly. T here is no pericardial effusion. PULMONARY ARTERIES: Evaluation of the pulmonary arteries for emboli is limited due to suboptimal cont rast opacification of the vessels (117 Hounsfield units. HILAR AND MEDIASTINAL STRUCTURES: There are enlarged right upper paratracheal, right lower paratrache al, subcarinal and AP window lymph nodes that have increased in size since the prior CT. HARDWARE: As above. UPPER ABDOMEN: No acute findings. THYROID AND OTHER SOFT TISSUES: No mass or adenopathy. BONES: As above. 3D MIPS: Confirm above findings. OTHER: No other finding. IMPRESSION: 1. Evaluation of the pulmonary arteries for emboli is limited due to suboptimal contras t opacification of the vessels. 2. The low attenuation material within the right main bronchus, bronchus intermedius and right superi or lobar bronchus could represent mucous. There are extensive areas of consolidation throughout righ t upper, right middle and right lower lobes ; the attenuation of the opacified lung parenchyma is het erogeneous with intermixed areas of low attenuation that could represent dilated mucous-filled bronch i or a necrotizing pneumonia. There is a pleural drainage catheter in place in the posterior aspect of the right hemithorax and a trace amount of pleural fluid. The pleural lining of the right hemitho rax is thickened and there 2 separate pleural-based lesions that are associated with erosion of the r ight lateral 5th and 6th ribs and right posterior 9th rib ; the posterior lesion measures up to 7.3 c m in transverse diameter and has increased in size since the CT from February 2019. On the contralate ral side there is a large pleural effusion that tracks into the interlobar fissure and is associated with areas of consolidation or compressive atelectasis in the lingula and left lower lobe. The inter lobular septa in the aerated portions of the left upper lobe and left lower lobe are thickened and th ere are several nodules in the left upper lobe (image 43 of series 3 and 66 of series 3) that have de veloped in the interim. 3. Enlarging mediastinal adenopathy. COMMENT: Quality ID # [id number]: Final reports with documentation of one or more dose reduction techniques (e.g., Automated exposure control, adjustment of the mA and/or kV according to patient size, use of iterative reconstruction technique) TECHNICAL DOCUMENTATION: JOB ID: [id number] 2010 [employer]- All Rights Reserved Reading location - IP/workstation name: [email or web address]
[2019-11-30] MEDS ORDERED: LEVALBUTEROL HCL NEB 1.25 MG/3 ML AMPUL NEB ONE (14:28)
--- NOTE | 2019-11-30 16:23 | PDOC CRITICAL CARE PROG REPORT ---
General Date:: 11/30/19 Hospital Day:: 1 Resuscitation Status: Do Not Resuscitate Events in the past 12 to 24 Hours:: Increasing WOB, on bipap. R pleural effusion. Review of systems relevant to events:: Pulmonary Reason for ICU Addmission:: Evaluation - Medications: Medications reviewed and adjusted accordingly: Yes Vasopressors:: None Sedation:: None Physical Exam Vital Signs: Temp Pulse Resp BP Pulse Ox 97.5 F 111 H 40 H 144/81 H 94 11/30/19 07:49 11/30/19 07:49 11/30/19 15:33 11/30/19 13:31 11/30/19 15:33 Intake & Output 11/29/19 11/30/19 12/01/19 06:59 06:59 06:59 Intake Total 1050 Balance 1050 Weight 64.8 kg Weight/Height Weight 64.8 kg Height 5 ft 8 in General appearance: PRESENT: no acute distress, hard of hearing Head exam: PRESENT: atraumatic, normocephalic Eye exam: PRESENT: conjunctiva pink, EOMI, PERRLA. ABSENT: scleral icterus Ear exam: PRESENT: normal external ear exam Mouth exam: PRESENT: moist, tongue midline Respiratory exam: PRESENT: crackles, decreased breath sounds, prolonged expiratory phas, symmetrical, tachypnea, unlabored, other - R chest tube up to Heimlich valve. Cardiovascular exam: PRESENT: RRR, tachycardia. ABSENT: diastolic murmur, rubs, systolic murmur GI/Abdominal exam: PRESENT: normal bowel sounds, soft. ABSENT: distended, guarding, mass, organolmegaly, rebound, tenderness Rectal exam: PRESENT: deferred Extremities exam: PRESENT: +1 edema Musculoskeletal exam: PRESENT: normal inspection Neurological exam: PRESENT: alert, awake, oriented to person, oriented to place, oriented to time, oriented to situation, CN II-XII grossly intact. ABSENT: motor sensory deficit Psychiatric exam: PRESENT: appropriate affect, normal mood. ABSENT: homicidal ideation, suicidal ideation Skin exam: PRESENT: dry, intact, warm. ABSENT: cyanosis, rash Tubes/Lines: PRESENT: Chest Tube, Other - Bipap Laboratory/Radiographs Laboratory Results: 11/30/19 08:41 11/30/19 11:52 09/18/20 09/18/20 09/18/20 08:41 08:41 08:41 WBC 23.9 H RBC 5.30 Hgb 13.6 Hct 43.4 MCV 82 MCH 25.6 L MCHC 31.2 L RDW 16.8 H Plt Count 475 H Seg Neutrophils % Not Reportable Carbonic Acid HCO3/H2CO3 Ratio ABG pH ABG pCO2 ABG pO2 ABG HCO3 ABG O2 Saturation ABG Base Excess FiO2 Sodium 137.2 Potassium 6.3 H* Chloride 93 L Carbon Dioxide 36 H Anion Gap 8 BUN 20 Creatinine 0.62 Est GFR ( Amer) > 60 Glucose 116 H Lactic Acid 2.1 Calcium 11.1 H Total Bilirubin 0.5 AST 33 Alkaline Phosphatase 203 H Total Protein 7.4 Albumin 3.6 Urine Color Urine Appearance Urine pH Ur Specific [place] Urine Protein Urine Glucose (UA) Urine Ketones Urine Blood Urine Nitrite Ur Leukocyte Esterase Urine WBC (Auto) Urine RBC (Auto) 11/30/19 11/30/19 11/30/19 10:37 11:52 11:57 WBC RBC Hgb Hct MCV MCH MCHC RDW Plt Count Seg Neutrophils % Carbonic Acid 1.66 H HCO3/H2CO3 Ratio 20:1 ABG pH 7.41 ABG pCO2 55.0 H ABG pO2 78.3 L ABG HCO3 33.9 H ABG O2 Saturation 95.4 ABG Base Excess 7.8 FiO2 100 Sodium Potassium 5.1 H D Chloride Carbon Dioxide Anion Gap BUN Creatinine Est GFR ( Amer) Glucose Lactic Acid Calcium Total Bilirubin AST Alkaline Phosphatase Total Protein Albumin Urine Color YELLOW Urine Appearance SLIGHTLY-CLOUDY Urine pH 7.0 Ur Specific [place] 1.013 Urine Protein NEGATIVE Urine Glucose (UA) NEGATIVE Urine Ketones NEGATIVE Urine Blood NEGATIVE Urine Nitrite NEGATIVE Ur Leukocyte Esterase NEGATIVE Urine WBC (Auto) 1 Urine RBC (Auto) 0 11/30/19 11/30/19 08:41 08:41 Creatine Kinase 37 L Troponin I 0.037 NT-Pro-B Natriuret Pep 4880 H Impressions: Acute Abdomen Series 11/30/19 08:11 IMPRESSION: 1. Bilateral asymmetric (right greater than left) basilar predominant pleural and parenchymal opacities that obscure the contours of the hemidiaphragms and blunt the costophrenic sulci. These opacities are unchanged compared to the radiograph from 11/13/2019. 2. Nonobstructive bowel gas pattern. Chest/Abdomen CTA 11/30/19 10:42 IMPRESSION: 1. Evaluation of the pulmonary arteries for emboli is limited due to suboptimal contrast opacification of the vessels. 2. The low attenuation material within the right main bronchus, bronchus intermedius and right superior lobar bronchus could represent mucous. There are extensive areas of consolidation throughout right upper, right middle and right lower lobes ; the attenuation of the opacified lung parenchyma is heterogeneous with intermixed areas of low attenuation that could represent dilated mucous- filled bronchi or a necrotizing pneumonia. There is a pleural drainage catheter in place in the posterior aspect of the right hemithorax and a trace amount of pleural fluid. The pleural lining of the right hemithorax is thickened and there 2 separate pleural-based lesions that are associated with erosion of the r ight lateral 5th and 6th ribs and right posterior 9th rib ; the posterior lesion measures up to 7.3 cm in transverse diameter and has increased in size since the CT from February 2019. On the contralateral side there is a large pleural effusion that tracks into the interlobar fissure and is associated with areas of consolidation or compressive atelectasis in the lingula and left lower lobe. The interlobular septa in the aerated portions of the left upper lobe and left lower lobe are thickened and there are several nodules in the left upper lobe (image 43 of series 3 and 66 of series 3) that have developed in the interim. 3. Enlarging mediastinal adenopathy. EKG: NSR All labs, radiographs, diagnostic studies and EKGs were personally reviewed: Yes In addition, reports of radiographic and diagnostic studies were read: Yes Assessment and Plan - Diagnosis (1) Pleural effusion, right Is this a current diagnosis for this admission?: Yes Plan: He has been taken off the Heimlich valve and placed on pleuravac suction. We placed him on a wedge with R side down for gravity drainage, In the opinion of his CT surgeon who says a second chest tube will not help. (2) COPD (chronic obstructive pulmonary disease) Is this a current diagnosis for this admission?: Yes Plan: His ABG is not gfood but with evidence of chronic hypercarbia. (3) Metastatic cancer to lung Qualifiers: Is this a current diagnosis for this admission?: Yes Plan: He has been maintained on rescue CTX and if this does not help he may benefit from hospice. 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 Will likely not move much. He needs to cough secretions or have NT suction. (6) Pneumonia Qualifiers: Is this a current diagnosis for this admission?: Yes Plan: With a WBC of 24K, the possibility of PNA exists as does empyema. Culture of pleural fluid and brod spectrum abx are indicaqted. Plan Summary: Overall his prognosis is quite poor and if this does not effect a change soon then according to Dr. Harvey hospice is a good option. Patient said himself he does not want intubation or CPR. Critical Time Critical Time (minutes): 40 Level of Care: IMCU Anticipated discharge: Hospice Anticipated DC Timeframe: within 48 hours -: 1. The care of a critical patient is a dynamic process. This note is a inside account representative synopsis but static in nature. The timeframe for treatments given in order is not necessarily the actual time these treatments may have been done. 2. This patient requires critical care secondary to ongoing requirements for therapy not offered or safe outside the critical care environment. Transfer to a lower level of care will result in altered life or limb morbidity and mortality. 3. Multidisciplinary rounds completed. 4. ABCDE bundle addressed.
--- NOTE | 2019-11-30 17:40 | ER Document Report ---
Entered by RAMON CHATMAN SCRIBE 11/30/19 0907 Acting as scribe for:JOSUÉ ARZOLA MD ED Respiratory Problem - General Chief Complaint: Chest Pain Stated Complaint: CHEST PAIN, SHORT OF BREATH Information source: Patient, Relative Notes: This 74 year old male patient presents to the emergency department today with d ifficulty breathing. Patient is on 2L of oxygen at home and states he uses 3L when he has trouble breathing. Patient has a history of right lung cancer diagnosed July 2018 and had a chest tube placed April this year. reports light brown drainage from his chest tube. Patient is on constant antibiotics and doing chemotherapy. Patient reports some chest pain and denies pain in extremities. reports intermittent low oxygen sat the past x2 weeks. TRAVEL OUTSIDE OF THE [place] IN LAST 30 DAYS: No - Related Data Allergies/Adverse Reactions: No Known Allergies Allergy (Verified 07/13/18 15:40) Past Medical History - General Information source: Patient, Relative - Social History Smoking Status: Former Smoker Cigarette use (# per day): No Chew tobacco use (# tins/day): No Frequency of alcohol use: None Drug Abuse: None Lives with: Family Family History: CAD, COPD, DM, Hypertension, Malignancy Patient has homicidal ideation: No - Past Medical History Cardiac Medical History: Reports: Hx Hypertension, Hx Peripheral Vascular Disease Pulmonary Medical History: Reports: Hx COPD Malignancy Medical History: Reports Hx Lung Cancer - R, 2019 Past Surgical History: Reports: Hx Vascular Surgery - Right ileal to left femora l graft and right femoral stent, Other - Endoscopy with placement of PEG tube - Immunizations Hx Diphtheria, Pertussis, Tetanus Vaccination: No Hx Pneumococcal Vaccination: 03/14/13 Review of Systems - Review of Systems Constitutional: No symptoms reported EENT: No symptoms reported Cardiovascular: See HPI, Chest pain Respiratory: See HPI, Short of breath, Other - low O2 sat Gastrointestinal: No symptoms reported Genitourinary: No symptoms reported Male Genitourinary: No symptoms reported Musculoskeletal: See HPI Skin: No symptoms reported Hematologic/Lymphatic: No symptoms reported Neurological/Psychological: No symptoms reported -: Yes All other systems reviewed and negative Physical Exam - Vital signs Vitals: Temp Pulse Resp BP Pulse Ox 97.5 F 111 H 30 H 148/81 H 85 L 11/30/19 07:49 11/30/19 07:49 11/30/19 07:49 11/30/19 07:49 11/30/19 07:49 - General General appearance: Alert, Other - Hypoxic - HEENT Head: Normocephalic, Atraumatic Eyes: Normal Pupils: PERRL - Respiratory Respiratory status: Respiratory distress, Tachypnea, Other - Hypoxic Notes: Right chest tube. Harsh breath sounds bilaterally, Rubs. - Cardiovascular Rhythm: Regular Heart sounds: Normal auscultation Murmur: No - Abdominal Inspection: Other - G tube in left abdomen Distension: No distension Bowel sounds: Normal Tenderness: Nontender - Extremities General upper extremity: Normal inspection. No: Edema General lower extremity: Normal inspection. No: Edema - Neurological Neuro grossly intact: Yes Cognition: Normal Orientation: AAOx4 Speech: Normal - Psychological Associated symptoms: Normal affect, Normal mood - Skin Skin Temperature: Warm Skin Moisture: Dry Skin Color: Normal Course - Re-evaluation Re-evalutation: 11/30/19 17:21 Patient's heart oxygen status improved once patient was placed on BiPAP. Patient has remained sats in the low 90s on BiPAP. 11/30/19 17:[address] Rodrigues on multiple occasions today regarding patient status. Also discussed case with Dr. Saab who is a cardiothoracic surgeon at [facility]. In attempt to transfer patient to [facility] was declined as they are on diversion and also Dr. Saab believe that patient did not need to be transferred for the care that he needs to get inasmuch as we have an ICU and a pulmonology specialist available. Dr. Saab recommended that patient receive a further drainage of the chest tube on the right that at this point is draining very little. Also she thought that the distribution supervisor if need be could do a bronchoscopy and evacuate mucus on the right main bronchus. Dr. Saab stated that the patient is in palliative care at this time and that there is certainly no need to do a another thoracostomy. 11/30/19 17:[address] Kellogg our general surgeon public relations studies director today and he agrees that there is no indication at this time to insert a new chest tube at this time. - Vital Signs Vital signs: Temp Pulse Resp BP Pulse Ox 97.5 F 111 H 31 H 131/74 H 93 11/30/19 07:49 11/30/19 07:49 11/30/19 16:02 11/30/19 16:02 11/30/19 16:02 11/30/19 17:22 Vital signs as above pulse oximetry 93% with a sinus tachycardia. - Laboratory Result Diagrams: 11/30/19 08:41 11/30/19 11:52 Laboratory results interpreted by me: 11/30/19 11/30/19 11/30/19 08:41 08:41 08:41 WBC 23.9 H MCH 25.6 L MCHC 31.2 L RDW 16.8 H Plt Count 475 H Seg Neuts % (Manual) 92 H Lymphocytes % (Manual) 2 L Abs Neuts (Manual) 22.0 H Carbonic Acid ABG pCO2 ABG pO2 ABG HCO3 ABG Total CO2 Potassium 6.3 H* Chloride 93 L Carbon Dioxide 36 H Glucose 116 H Calcium 11.1 H Alkaline Phosphatase 203 H Creatine Kinase 37 L NT-Pro-B Natriuret Pep 4880 H Urine Ascorbic Acid 11/30/19 11/30/19 11/30/19 10:37 11:52 11:57 WBC MCH MCHC RDW Plt Count Seg Neuts % (Manual) Lymphocytes % (Manual) Abs Neuts (Manual) Carbonic Acid 1.66 H ABG pCO2 55.0 H ABG pO2 78.3 L ABG HCO3 33.9 H ABG Total CO2 35.6 H Potassium 5.1 H D Chloride Carbon Dioxide Glucose Calcium Alkaline Phosphatase Creatine Kinase NT-Pro-B Natriuret Pep Urine Ascorbic Acid 40 H Laboratories disclose an elevated white blood cell count of 24,000. [place] 4889 a potassium of 5.1 on repeat study. Patient also has a low level increase in troponin x2. This is these levels are below the acute myocardial infarction threshold. Patient's EKG did not show signs of an acute STEMI. - Diagnostic Test Radiology reviewed: Image reviewed, Reports reviewed Radiology results interpreted by me: 11/30/19 17:23 Acute Abdomen Series 11/30/19 08:11 IMPRESSION: 1. Bilateral asymmetric (right greater than left) basilar predominant pleural and parenchymal opacities that obscure the contours of the hemidiaphragms and blunt the costophrenic sulci. These opacities are unchanged compared to the radiograph from 11/13/2019. 2. Nonobstructive bowel gas pattern. Chest/Abdomen CTA 11/30/19 10:42 IMPRESSION: 1. Evaluation of the pulmonary arteries for emboli is limited due to suboptimal contrast opacification of the vessels. 2. The low attenuation material within the right main bronchus, bronchus intermedius and right superior lobar bronchus could represent mucous. There are extensive areas of consolidation throughout right upper, right middle and right lower lobes ; the attenuation of the opacified lung parenchyma is heterogeneous with intermixed areas of low attenuation that could represent dilated mucous- filled bronchi or a necrotizing pneumonia. There is a pleural drainage catheter in place in the posterior aspect of the right hemithorax and a trace amount of pleural fluid. The pleural lining of the right hemithorax is thickened and there 2 separate pleural-based lesions that are associated with erosion of the right lateral 5th and 6th ribs and right posterior 9th rib ; the posterior l esion measures up to 7.3 cm in transverse diameter and has increased in size since the CT from February 2019. On the contralateral side there is a large pleural effusion that tracks into the interlobar fissure and is associated with areas of consolidation or compressive atelectasis in the lingula and left lower lobe. The interlobular septa in the aerated portions of the left upper lobe and left lower lobe are thickened and there are several nodules in the left upper lobe (image 43 of series 3 and 66 of series 3) that have developed in the interim. 3. Enlarging mediastinal adenopathy. CT angiogram of chest and abdomen failed to disclose any pulmonary emboli. Patient has extensive consolidations throughout the right lung with large pleural effusion and feel bronchi consistent with pneumonia. Patient also has erosions into his ribs on the right side as well. Patient's left side has a large pleural effusion as well. Left lung also shows evidence of infiltrate in the lingula. 11/30/19 17:25 Plain film x-rays of the acute abdominal series versus a chest x-ray and flat and upright abdomen shows no obstructive pattern and bowel gas pattern with chest x-ray shows bilateral pleural effusions with parenchymal opacities bilateral. - EKG Interpretation by Me Additional EKG results interpreted by me: 11/30/19 17:27 Twelve-lead EKG shows a normal sinus rhythm rate of 96 normal intervals with KS QRS and QT intervals. Consider anterior lateral infarct age indeterminate. Borderline left axis deviation. No evidence of an acute STEMI. Critical Care Note - Critical Care Note Total time excluding time spent on procedures (mins): 45 - Management of pulmonary status, COPD exacerbation low O2 saturations and stabilizing on BiPAP. Also sepsis work-up with bilateral pneumonias and elevated white blood cell count. Also multiple discussions with attendings for hematology oncology and cardiothoracic surgeons, and supervisor printing shop. Attempted transfer to tertiary care facility Discharge - Discharge Clinical Impression: Lung cancer, Bilateral pleural effusion, COPD exacerbation, DNR no code (do not resuscitate), Clotted chest tube, Malignant neoplasm of base of tongue, Low oxygen saturation, Pneumonia, Elevated troponin Leukocytosis (leucocytosis) Qualifiers: Leukocytosis type: unspecified Qualified Code(s): D72.829 - Elevated white blood cell count, unspecified Condition: Critical Disposition: ADMITTED INPATIENT Admitting Provider: Jaziel (Hospitalist) Unit Admitted: Medical Floor I personally performed the services described in the documentation, reviewed and edited the documentation which was dictated to the scribe in my presence, and it accurately records my words and actions.
[2019-11-30] MEDS ORDERED: DEXTROSE 40% GEL 15 GM TUBE PO PRN ×2 (17:50)
[2019-11-30] MEDS ORDERED: LEVALBUTEROL HCL NEB 1.25 MG/3 ML AMPUL NEB PRN (17:50)
[2019-11-30] MEDS ORDERED: ACETAMINOPHEN 325 MG TABLET PEG PRN (17:50)
[2019-11-30] MEDS ORDERED: GLUCAGON,HUMAN RECOMB 1 MG INJ SUBCUT PRN (17:50)
[2019-11-30] MEDS ORDERED: DEXTROSE 50%-WATER 25 GM/50 ML DISP.SYRIN IV PRN ×2 (17:50)
--- NOTE | 2019-11-30 18:23 | PDOC H&P ---
History of Present Illness Admission Date/PCP: 11/30/19 16:51 KATARINA BELLA MD Patient complains of: Increase shortness of breath with burning chest discomfort and increased pleural fluid output History of Present Illness: The history in fact is from the patient's . 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 He already has a PEG tube. He has a right pleural catheter that had a Heimlich valve. His was measuring output daily. She states that he is been experiencing increasing weakness and increasing shortness of breath. He also describes a burning chest pain. His left arm has been swelling. The patient is on BiPAP and very hard of hearing. He was not an active participant in the discussion. The patient's did make it clear that he wishes to be DO NOT RESUSCITATE. The CT scan did reveal a left pleural effusion in addition to the effusion and abnormalities in the right lung. Laboratory studies revealed hyperkalemia and hypercalcemia. The patient was evaluated by Dr. Martines for possible ICU admission. Given the overall circumstances the patient will be admitted to telemetry on the hospitalist service. Oncology will see him over the weekend on consult. Past Medical History Cardiac Medical History: Reports: Coronary Artery Disease, Hypertension, Peripheral Vascular Disease, Other - Pericardial effusion Denies: Myocardial Infarction Pulmonary Medical History: Reports: Chronic Obstructive Pulmonary Disease (COPD), Other - Metastatic malignancy with effusion right lung Denies: Asthma, Bronchitis, Pneumonia EENT Medical History: Reports: Other - Hearing loss-severe Neurological Medical History: Denies: Seizures Endocrine Medical History: Reports: Hypothyroidism Denies: Diabetes Mellitus Type 1, Diabetes Mellitus Type 2, Hyperthyroidism Renal/ Medical History: Denies: Chronic Kidney Disease Malignancy Medical History: Reports: Lung Cancer - R, 2019, Other - Squamous cell carcinoma base of the tongue GI Medical History: Denies: Cirrhosis, Hepatitis, Hiatal Hernia Musculoskeltal Medical History: Denies: Arthritis, Gout Skin Medical History: Denies: Eczema, Psoriasis Psychiatric Medical History: Denies: Depression Hematology: Reports: Anemia Denies: Sickle Cell Disease, Bleeding Tendencies Past Surgical History Past Surgical History: Reports: Vascular Surgery - Right ileal to left femoral graft and right femoral stent, Other - Endoscopy with placement of PEG tube, chest tube placement Denies: Pacemaker Social History Information Source: Relative - Patient's , [facility] Records Lives with: Spouse/Significant other Smoking Status: Former Smoker Electronic Cigarette use?: No Frequency of Alcohol Use: None - For 9 years now Hx Recreational Drug Use: No Drugs: None Hx Prescription Drug Abuse: No - Advance Directive Resuscitation Status: Do Not Resuscitate Surrogate healthcare decision maker:: The patient's would be the designated decision maker Family History Family History: CAD, COPD, DM, Hypertension, Malignancy Parental Family History Reviewed: Yes Children Family History Reviewed: Yes Sibling(s) Family History Reviewed.: Yes Medication/Allergy Home Medications: Aspirin [Adult Low Dose Aspirin EC] 81 mg PO DAILY 02/09/19 Diclofenac Sodium [Voltaren] 1 applic TOP QIDP PRN 02/09/19 Gabapentin [Neurontin 300 mg Capsule] 300 mg PO Q8 02/09/19 Levothyroxine Sodium 25 mcg PO Q6AM 02/09/19 Mirtazapine [Remeron 15 mg Tablet] 15 mg PO QHS 02/09/19 Ondansetron HCl [Zofran 8 mg Tablet] 8 mg PO Q8HP PRN 02/09/19 Pilocarpine HCl [Salagen] 5 mg PO TID 02/09/19 Tizanidine HCl [Zanaflex] 2 mg PO Q8HP PRN 02/09/19 Umeclidinium Brm/Vilanterol Tr [Anoro Ellipta 62.5-25 Mcg INH] 1 puff IH DAILY 02/09/19 Amoxicillin/Potassium Clav [Augmentin 400-57 mg/5 ml Susp] 10 ml PO Q12 11/30/19 Levalbuterol HCl [Xopenex Neb 1.25 mg/3 ml Ampul] 1.25 mg NEB RTQ8HP PRN 11/30/19 Metoprolol Succinate [Toprol Xl 25 mg Tab.sr] 25 mg PO Q12 11/30/19 Oxycodone HCl [Oxy-Ir 5 mg Tablet] 10 mg PO Q6HP PRN 11/30/19 Pantoprazole Sodium [Protonix] 40 mg PO DAILY 11/30/19 Allergies/Adverse Reactions: No Known Allergies Allergy (Verified 07/13/18 15:40) Review of Systems ROS unobtainable: Other - On BiPAP, short of breath, exhausted and in pain All systems: reviewed and no additional remarkable complaints except as stated Constitutional: PRESENT: fatigue, weakness Ears: PRESENT: hearing changes - Extremely hard of hearing Nose, Mouth, and Throat: PRESENT: other - On BiPAP Respiratory: PRESENT: dyspnea Musculoskeletal: PRESENT: other - Edema left arm Physical Exam Vital Signs: Temp Pulse Resp BP Pulse Ox 97.5 F 111 H 34 H 142/69 H 95 11/30/19 07:49 11/30/19 07:49 11/30/19 18:03 11/30/19 16:31 11/30/19 18:03 Intake & Output 11/29/19 11/30/19 12/01/19 06:59 06:59 06:59 Intake Total 1050 Balance 1050 Weight 64.8 kg General appearance: PRESENT: hard of hearing, well-developed, other - Moderate distress. ABSENT: cooperative - Unable to participate Head exam: PRESENT: atraumatic, normocephalic Eye exam: PRESENT: other - Eyes closed. He kept his head under a blanket because the light bothered him and he was cold Ear exam: PRESENT: normal external ear exam. ABSENT: bleeding, drainage Mouth exam: PRESENT: other - Unable to assess Neck exam: ABSENT: carotid bruit, JVD, tracheostomy Respiratory exam: PRESENT: decreased breath sounds - Left base, rhonchi - Right lung, tachypnea, other - Somewhat difficult to auscultate due to chest tube and Pleur-evac. ABSENT: rales, wheezes Cardiovascular exam: PRESENT: RRR, +S1, +S2. ABSENT: bradycardia, diastolic murmur, irregular rhythm, systolic murmur, tachycardia Pulses: PRESENT: normal radial pulses, normal dorsalis pedis pul GI/Abdominal exam: PRESENT: normal bowel sounds, soft. ABSENT: tenderness Rectal exam: PRESENT: deferred Extremities exam: PRESENT: other - Left arm with 1+ edema. ABSENT: pedal edema Neurological exam: PRESENT: other - Unable to fully assess. ABSENT: alert, awake Psychiatric exam: PRESENT: appropriate affect - Affect clearly reflects discomfort. ABSENT: agitated, anxious Focused psych exam: PRESENT: other - Unable to assess Skin exam: PRESENT: other - reports coccyx and buttock lesions. Did not roll the patient due to his current breathing status Results Laboratory Results: 11/30/19 08:41 11/30/19 11:52 11/30/19 11/30/19 11/30/19 08:41 08:41 08:41 WBC 23.9 H RBC 5.30 Hgb 13.6 Hct 43.4 MCV 82 MCH 25.6 L MCHC 31.2 L RDW 16.8 H Plt Count 475 H Seg Neutrophils % Not Reportable Carbonic Acid HCO3/H2CO3 Ratio ABG pH ABG pCO2 ABG pO2 ABG HCO3 ABG O2 Saturation ABG Base Excess FiO2 Sodium 137.2 Potassium 6.3 H* Chloride 93 L Carbon Dioxide 36 H Anion Gap 8 BUN 20 Creatinine 0.62 Est GFR ( Amer) > 60 Glucose 116 H Lactic Acid 2.1 Calcium 11.1 H Total Bilirubin 0.5 AST 33 Alkaline Phosphatase 203 H Total Protein 7.4 Albumin 3.6 Urine Color Urine Appearance Urine pH Ur Specific [place] Urine Protein Urine Glucose (UA) Urine Ketones Urine Blood Urine Nitrite Ur Leukocyte Esterase Urine WBC (Auto) Urine RBC (Auto) 11/30/19 11/30/19 11/30/19 10:37 11:52 11:57 WBC RBC Hgb Hct MCV MCH MCHC RDW Plt Count Seg Neutrophils % Carbonic Acid 1.66 H HCO3/H2CO3 Ratio 20:1 ABG pH 7.41 ABG pCO2 55.0 H ABG pO2 78.3 L ABG HCO3 33.9 H ABG O2 Saturation 95.4 ABG Base Excess 7.8 FiO2 100 Sodium Potassium 5.1 H D Chloride Carbon Dioxide Anion Gap BUN Creatinine Est GFR ( Amer) Glucose Lactic Acid Calcium Total Bilirubin AST Alkaline Phosphatase Total Protein Albumin Urine Color YELLOW Urine Appearance SLIGHTLY-CLOUDY Urine pH 7.0 Ur Specific [place] 1.013 Urine Protein NEGATIVE Urine Glucose (UA) NEGATIVE Urine Ketones NEGATIVE Urine Blood NEGATIVE Urine Nitrite NEGATIVE Ur Leukocyte Esterase NEGATIVE Urine WBC (Auto) 1 Urine RBC (Auto) 0 11/30/19 11/30/19 11/30/19 08:41 08:41 15:31 Creatine Kinase 37 L Troponin I 0.037 0.042 NT-Pro-B Natriuret Pep 4880 H Impressions: Acute Abdomen Series 11/30/19 08:11 IMPRESSION: 1. Bilateral asymmetric (right greater than left) basilar predominant pleural and parenchymal opacities that obscure the contours of the hemidiaphragms and blunt the costophrenic sulci. These opacities are unchanged compared to the radiograph from 11/13/2019. 2. Nonobstructive bowel gas pattern. Chest/Abdomen CTA 11/30/19 10:42 IMPRESSION: 1. Evaluation of the pulmonary arteries for emboli is limited due to suboptimal contrast opacification of the vessels. 2. The low attenuation material within the right main bronchus, bronchus intermedius and right superior lobar bronchus could represent mucous. There are extensive areas of consolidation throughout right upper, right middle and right lower lobes ; the attenuation of the opacified lung parenchyma is heterogeneous with intermixed areas of low attenuation that could represent dilated mucous-filled bronchi or a necrotizing pneumonia. There is a pleural drainage catheter in place in the posterior aspect of the right hemithorax and a trace amount of pleural fluid. The pleural lining of the right hemithorax is thickened and there 2 separate pleural-based lesions that are associated with erosion of the right lateral 5th and 6th ribs and right posterior 9th rib ; the posterior lesion measures up to 7.3 cm in transverse diameter and has increased in size since the CT from February 2019. On the contralateral side there is a large pleural effusion that tracks into the interlobar fissure and is associated with areas of consolidation or compressive atelectasis in the lingula and left lower lobe. The interlobular septa in the aerated portions of the left upper lobe and left lower lobe are thickened and there are several nodules in the left upper lobe (image 43 of series 3 and 66 of series 3) that have developed in the interim. 3. Enlarging mediastinal adenopathy. Assessment and Plan - Diagnosis (1) Acute and chronic respiratory failure with hypoxia Is this a current diagnosis for this admission?: Yes Plan: History of COPD as well as the malignancy. Nebulizers scheduled and as needed have been ordered. No steroids at this point. Currently on BiPAP. Will attempt to wean to nasal cannula. If not will recommend comfort measures. (2) Malignant pleural effusion Is this a current diagnosis for this admission?: Yes Plan: Chest tube is now hooked up to Pleur-evac. Will monitor output. (3) Bilateral pleural effusion Is this a current diagnosis for this admission?: Yes Plan: Pleurx drain/chest tube on the right that has been there for months. The patient also has a left pleural effusion. At this point the most reasonable d isposition will be home with hospice. Unlikely to tap the left pleural effusion at this time. (4) COPD (chronic obstructive pulmonary disease) Qualifiers: COPD type: unspecified COPD Qualified Code(s): J44.9 - Chronic obstructive pulmonary disease, unspecified Is this a current diagnosis for this admission?: Yes Plan: History of COPD. He is on Anoro Ellipta with nebulizers if needed. I have ordered scheduled duo nebs with scheduled budesonide and Xopenex if needed. The COPD is not likely the primary offender of his respiratory failure but rather the malignancy and effusions. (5) Hyperkalemia Is this a current diagnosis for this admission?: Yes Plan: Continue IV fluids. Improved from admission. Low-dose furosemide has been added. (6) Hypercalcemia Is this a current diagnosis for this admission?: Yes Plan: Unsure of etiology however fluids and diuretics should improve. Could be related to the malignancy. Monitor electrolytes. (7) Elevated troponin Is this a current diagnosis for this admission?: Yes Plan: Mild elevation in troponin is not likely cardiac. Will monitor. (8) Leukocytosis Qualifiers: Leukocytosis type: unspecified Qualified Code(s): D72.829 - Elevated white blood cell count, unspecified Is this a current diagnosis for this admission?: Yes Plan: We will initiate antibiotic therapy and continue to monitor. A pulmonary focus of infection is most likely. (9) Malignant neoplasm of base of tongue Is this a current diagnosis for this admission?: Yes Plan: Currently on rescue chemotherapy. It does not seem to be effective. Dr. Gillespie will be seeing the patient. (10) Metastatic cancer to lung Qualifiers: Laterality: right Is this a current diagnosis for this admission?: Yes Plan: Unfortunately the patient has been through chemotherapy and is now on "rescue" therapy. The most likely outcome will be home hospice. Oncology will be seeing the patient tomorrow. - Time Time Spent with patient: 35 or more minutes Medications reviewed and adjusted accordingly: Yes Anticipated Discharge Disposition: Home with Hospice Anticipated Discharge Timeframe: within 72 hours - Inpatient Certification Based on my medical assessment, after consideration of the patient's comorbidities, presenting symptoms, or acuity I expect that the services needed warrant INPATIENT care.: Yes I certify that my determination is in accordance with my understanding of Medicare's requirements for reasonable and necessary INPATIENT services [42 CFR 412.3e].: Yes Medical Necessity: Failure to Improve With Outpatient Therapy, Significant Comorbidiites Make Outpatient Treatment Too Risky, Need Close Monitoring Due to Risk of Patient Decompensation, Need For Continuous Telemetry Monitoring, Need for Nebulizer Therapy and Monitoring of Response, Need for Pain Control, Need for IV Antibiotics Post Hospital Care: D/C or Transfer Summary
[2019-11-30] MEDS ORDERED: VANCOMYCIN HCL 0 MG in DEXTROSE 5%-WATER 250 ML IV NR (19:00)
[2019-11-30] MEDS ORDERED: FUROSEMIDE INJ/PF 20 MG/2 ML SDV IV ONE (19:00)
[2019-11-30] MEDS ORDERED: TIZANIDINE HCL 4 MG TABLET PEG PRN (19:30)
[2019-11-30] MEDS: BUDESONIDE NEB 0.5 MG/2 ML AMPUL NEB SCH (19:34)
[2019-11-30] MEDS: IPRATROPIUM/ALBUTEROL 0.5-2.5 MG/3 ML AMPUL NEB SCH (19:34)
[2019-11-30] MEDS ORDERED: SCOPOLAMINE HYDROBROMIDE 1.5 MG PATCH.TD72 TD SCH (21:00)
--- NOTE | 2019-11-30 21:04 | EKG REPORT ---
SEVERITY:- DEFECTIVE ECG - RIGHT AND LEFT ARM LEADS REVERSED, PLEASE REPEAT ECG : Confirmed by: Anuradha Fox 30-Nov-2019 21:04:14
--- NOTE | 2019-11-30 21:04 | EKG REPORT ---
SEVERITY:- ABNORMAL ECG - SINUS RHYTHM BORDERLINE LEFT AXIS DEVIATION CONSIDER ANTEROSEPTAL INFARCT : Confirmed by: Anuradha Fox 30-Nov-2019 21:04:02
[2019-11-30] MEDS ORDERED: MIRTAZAPINE 15 MG TABLET PEG SCH (22:00)
[2019-11-30] MEDS: GABAPENTIN 300 MG CAPSULE PEG SCH (22:38)
[2019-11-30] MEDS: CEFEPIME 1 GM/D5W RTU 1 GM/50 ML RTUPB IV SCH (22:39)
[2019-11-30] MEDS: VANCOMYCIN HCL 750 MG in DEXTROSE 5%-WATER 250 ML IV SCH (22:48)
[2019-11-30] MEDS: METOPROLOL TARTRATE 25 MG TABLET PEG SCH (22:48)
[2019-12-01] MEDS: IPRATROPIUM/ALBUTEROL 0.5-2.5 MG/3 ML AMPUL NEB SCH ×2 (02:09→08:03)
[2019-12-01] MEDS: VANCOMYCIN HCL 750 MG in DEXTROSE 5%-WATER 250 ML IV SCH (05:05)
[2019-12-01] MEDS: GABAPENTIN 300 MG CAPSULE PEG SCH (05:05)
[2019-12-01 05:10] LABS: HEMATOCRIT 39.4 % (37.9-51.0); HEMOGLOBIN 12.5 g/dL (13.5-17.0); MEAN CORPUSCULAR HEMOGLOBIN 25.6 pg (27.0-33.4); MEAN CORPUSCULAR HGB CONC 31.8 g/dL (32.0-36.0); MEAN CORPUSCULAR VOLUME 80 fl (80-97); RED CELL DISTRIBUTION WIDTH 16.5 % (11.5-14.0); WHITE BLOOD COUNT 14.4 10^3/uL (4.0-10.5)
[2019-12-01] MEDS: MORPHINE SULFATE 10 MG/ML INJ IV PRN ×2 (05:10→11:05)
[2019-12-01] MEDS ORDERED: PHENOL/SODIUM PHENOLATE 100 SPRAY/177 ML BOTTLE PO PRN (05:18)
[2019-12-01] MEDS ORDERED: PHENOL/SODIUM PHENOLATE 100 SPRAY/177 ML BOTTLE ONE (05:28)
[2019-12-01 05:33] LABS: ALBUMIN 2.8 g/dL (3.5-5.0); ALKALINE PHOSPHATASE 143 U/L (38-126); ANION GAP 6 (5-19); ASPARTATE AMINO TRANSFERASE 32 U/L (17-59); BILIRUBIN,DIRECT 0.5 mg/dL (0.0-0.4); BILIRUBIN,TOTAL 0.8 mg/dL (0.2-1.3); BLOOD UREA NITROGEN 20 mg/dL (7-20); CALCIUM 9.9 mg/dL (8.4-10.2); CARBON DIOXIDE 33 mmol/L (22-30); CHLORIDE 99 mmol/L (98-107); GLUCOSE 75 mg/dL (75-110); PHOSPHORUS 3.5 mg/dL (2.5-4.5); TOTAL PROTEIN 5.8 g/dL (6.3-8.2)
[2019-12-01] MEDS ORDERED: PANTOPRAZOLE SODIUM 40 MG PACKET.DR GT SCH (06:00)
[2019-12-01 06:03] LABS: PLATELET COUNT 291 10^3/uL (150-450)
[2019-12-01 06:14] LABS: ABSOLUTE LYMPHOCYTES# (MANUAL) 0.7 10^3/uL (0.5-4.7); ABSOLUTE MONOCYTES # (MANUAL) 0.3 10^3/uL (0.1-1.4); BASOPHILS % (MANUAL) 0 % (0-2); EOSINOPHILS % (MANUAL) 2 % (0-6); LYMPHOCYTES % (MANUAL) 5 % (13-45); MONOCYTES % (MANUAL) 2 % (3-13); SEGMENTED NEUTROPHILS % (MAN) 91 % (42-78); TOTAL CELLS COUNTED 100
[2019-12-01 06:15] LABS: TOXIC GRANULATION 1+
[2019-12-01 06:16] LABS: TEAR DROP CELLS 1+
[2019-12-01 06:17] LABS: PLATELET CLUMPS PRESENT; PLATELET COMMENT ADEQUATE
[2019-12-01] MEDS: BUDESONIDE NEB 0.5 MG/2 ML AMPUL NEB SCH (08:03)
[2019-12-01 08:37] VITALS: BP 150/82
[2019-12-01] MEDS: METOPROLOL TARTRATE 25 MG TABLET PEG SCH (09:38)
[2019-12-01] MEDS: CEFEPIME 1 GM/D5W RTU 1 GM/50 ML RTUPB IV SCH (09:39)
[2019-12-01] MEDS ORDERED: ENOXAPARIN SODIUM INJ 40 MG/0.4 ML DISP.SYRIN SUBCUT SCH (10:00)
[2019-12-01] MEDS ORDERED: FUROSEMIDE 20 MG TABLET PEG SCH (10:00)
[2019-12-01] MEDS ORDERED: MORPHINE SULFATE 10 MG/ML INJ IV PRN ×2 (11:06→11:08)
[2019-12-01] MEDS ORDERED: LORAZEPAM INJ 2 MG/1 ML VIAL IV PRN (11:09)
--- NOTE | 2019-12-01 11:24 | RADIOLOGY REPORT (SQ) ---
EXAM DESCRIPTION: CHEST SINGLE VIEW IMAGES COMPLETED DATE/TIME: 12/01/2019 7:56 am REASON FOR STUDY: Pleural effusion COMPARISON: Chest radiograph 11/13/2019; CT chest 11/30/2019 NUMBER OF VIEWS: One view. TECHNIQUE: Single frontal radiographic view of the chest acquired. LIMITATIONS: None. FINDINGS: LUNGS AND PLEURA: The right hemithorax is completely opacified apart from a a small region of sparing at the right costophrenic angle. The left lung is generally well aerated with a small le ft pleural effusion. MEDIASTINUM AND HILAR STRUCTURES: Contours are obscured secondary to rotation. HEART AND VASCULAR STRUCTURES: Incompletely evaluated. BONES: No acute findings. HARDWARE: None in the chest. OTHER: No other significant finding. IMPRESSION: Complete opacification of the right hemithorax. Small left pleural effusion. TECHNICAL DOCUMENTATION: JOB ID: [id number] 2010 [employer]- All Rights Reserved Reading location - IP/workstation name: [email or web address]
--- NOTE | 2019-12-01 11:24 | PDOC PROGRESS REPORT ---
Subjective Progress Note for:: 12/01/19 Subjective:: The patient's condition has worsened overnight. He has experienced a rapid progression with regard to his hypoxia. Despite a BiPAP mask at 100% FiO2 his saturation is still in the 70s. Reason For Visit: MALIGNANT EFFUSION ON THE RIGHT,LEFT PLEURAL Physical Exam Vital Signs: Temp Pulse Resp BP Pulse Ox 97.9 F 123 H 25 H 150/82 H 84 L 12/01/19 09:07 12/01/19 08:03 12/01/19 08:03 12/01/19 07:52 12/01/19 08:03 Intake & Output 11/30/19 12/01/19 12/02/19 06:59 06:59 06:59 Intake Total 1600 600 Output Total 888 30 Balance 712 570 Weight 66.3 kg General appearance: PRESENT: severe distress Head exam: PRESENT: other - Dusky discoloration of the face Respiratory exam: PRESENT: decreased breath sounds - Minimal breath sounds Cardiovascular exam: PRESENT: RRR, +S1, +S2 Neurological exam: ABSENT: awake Psychiatric exam: ABSENT: agitated Results Laboratory Results: 12/01/19 04:34 12/01/19 04:34 11/30/19 11/30/19 12/01/19 11:52 11:57 04:34 WBC 14.4 H RBC 4.90 Hgb 12.5 L Hct 39.4 MCV 80 MCH 25.6 L MCHC 31.8 L RDW 16.5 H Plt Count 291 Seg Neutrophils % Not Reportable Carbonic Acid 1.66 H HCO3/H2CO3 Ratio 20:1 ABG pH 7.41 ABG pCO2 55.0 H ABG pO2 78.3 L ABG HCO3 33.9 H ABG O2 Saturation 95.4 ABG Base Excess 7.8 FiO2 100 Sodium Potassium 5.1 H D Chloride Carbon Dioxide Anion Gap BUN Creatinine Est GFR ( Amer) Glucose Calcium Phosphorus Magnesium Total Bilirubin AST Alkaline Phosphatase Total Protein Albumin 12/01/19 04:34 WBC RBC Hgb Hct MCV MCH MCHC RDW Plt Count Seg Neutrophils % Carbonic Acid HCO3/H2CO3 Ratio ABG pH ABG pCO2 ABG pO2 ABG HCO3 ABG O2 Saturation ABG Base Excess FiO2 Sodium 137.8 Potassium 5.0 Chloride 99 Carbon Dioxide 33 H Anion Gap 6 BUN 20 Creatinine 0.53 Est GFR ( Amer) > 60 Glucose 75 Calcium 9.9 Phosphorus 3.5 Magnesium 2.2 Total Bilirubin 0.8 AST 32 Alkaline Phosphatase 143 H Total Protein 5.8 L Albumin 2.8 L 11/30/19 11/30/19 11/30/19 08:41 08:41 15:31 Creatine Kinase 37 L Troponin I 0.037 0.042 NT-Pro-B Natriuret Pep 4880 H Impressions: Acute Abdomen Series 11/30/19 08:11 IMPRESSION: 1. Bilateral asymmetric (right greater than left) basilar predominant pleural and parenchymal opacities that obscure the contours of the hemidiaphragms and blunt the costophrenic sulci. These opacities are unchanged compared to the radiograph from 11/13/2019. 2. Nonobstructive bowel gas pattern. Chest/Abdomen CTA 11/30/19 10:42 IMPRESSION: 1. Evaluation of the pulmonary arteries for emboli is limited due to suboptimal contrast opacification of the vessels. 2. The low attenuation material within the right main bronchus, bronchus intermedius and right superior lobar bronchus could represent mucous. There are extensive areas of consolidation throughout right upper, right middle and right lower lobes ; the attenuation of the opacified lung parenchyma is heterogeneous with intermixed areas of low attenuation that could represent dilated mucous- filled bronchi or a necrotizing pneumonia. There is a pleural drainage catheter in place in the posterior aspect of the right hemithorax and a trace amount of pleural fluid. The pleural lining of the right hemithorax is thickened and there 2 separate pleural-based lesions that are associated with erosion of the right lateral 5th and 6th ribs and right posterior 9th rib ; the posterior lesion measures up to 7.3 cm in transverse diameter and has increased in size since the CT from February 2019. On the contralateral side there is a large pleural effusion that tracks into the interlobar fissure and is associated with areas of consolidation or compressive atelectasis in the lingula and left lower lobe. The interlobular septa in the aerated portions of the left upper lobe and left lower lobe are thickened and there are several nodules in the left upper lobe (image 43 of series 3 and 66 of series 3) that have developed in the interim. 3. Enlarging mediastinal adenopathy. Assessment and Plan - Diagnosis (1) Acute and chronic respiratory failure with hypoxia Is this a current diagnosis for this admission?: Yes (2) Malignant pleural effusion Is this a current diagnosis for this admission?: Yes (3) Bilateral pleural effusion Is this a current diagnosis for this admission?: Yes (4) COPD (chronic obstructive pulmonary disease) Qualifiers: COPD type: unspecified COPD Qualified Code(s): J44.9 - Chronic obstructive pulmonary disease, unspecified Is this a current diagnosis for this admission?: Yes (5) Hyperkalemia Is this a current diagnosis for this admission?: Yes (6) Hypercalcemia Is this a current diagnosis for this admission?: Yes (7) Elevated troponin Is this a current diagnosis for this admission?: Yes (8) Leukocytosis Qualifiers: Leukocytosis type: unspecified Qualified Code(s): D72.829 - Elevated white blood cell count, unspecified Is this a current diagnosis for this admission?: Yes (9) Malignant neoplasm of base of tongue Is this a current diagnosis for this admission?: Yes (10) Metastatic cancer to lung Qualifiers: Laterality: right Is this a current diagnosis for this admission?: Yes - Plan Summary Summary: 12/01/2019 Unfortunate Mr. Spears has taken a rapid decline and is hypoxic. He is dusky and tachypneic. He has hardly any breath sounds. His is appreciative of his critical state and appreciates the fact that he is suffering. She does not want him to suffer and asked if we could take the mask off. I explained to her what comfort care is. I explained how I would discontinue everything except morphine, lorazepam and acetaminophen. With her permission I will initiate comfort measures at this time. - Time Time Spent with patient: 15-24 minutes Medications reviewed and adjusted accordingly: Yes Anticipated Discharge Disposition: Comfort measures in the hospital Anticipated Discharge Timeframe: within 24 hours
--- NOTE | 2019-12-01 11:32 | Death Summary ---
Summary Date : 12/01/19 Time of :: 11:20 Autopsy: No Resuscitation Status: Comfort Measures Only Primary Care Provider: Jaziel Consulting Provider: Jose Miguel - Final Diagnosis (1) Acute and chronic respiratory failure with hypoxia Is this a current diagnosis for this admission?: Yes (2) Malignant pleural effusion Is this a current diagnosis for this admission?: Yes (3) Bilateral pleural effusion Is this a current diagnosis for this admission?: Yes (4) COPD (chronic obstructive pulmonary disease) Is this a current diagnosis for this admission?: Yes (5) Hyperkalemia Is this a current diagnosis for this admission?: Yes (6) Hypercalcemia Is this a current diagnosis for this admission?: Yes (7) Elevated troponin Is this a current diagnosis for this admission?: Yes (8) Leukocytosis Is this a current diagnosis for this admission?: Yes (9) Malignant neoplasm of base of tongue Is this a current diagnosis for this admission?: Yes (10) Metastatic cancer to lung Is this a current diagnosis for this admission?: Yes Hospital Course:: Admitted the patient last evening. He had been hospitalized last year. He has metastatic squamous cell carcinoma from the base of his tongue to his right lung and mediastinal nodes. He has had a chest tube on the right with a Heimlich valve draining the pleural effusion. He had become increasingly short of breath over the last several days with increased output from the chest tube. On admission he was tachypneic. CT scan showed likely pneumonia in addition to the metastatic disease on the right. He now has a large left pleural effusion. He was placed on BiPAP at the time. All of the patient's regular medications were continued. He was placed on low-dose diuretic but did not experience much of a diuresis. This morning the patient became more hypoxic. He was continued on BiPAP with inspiratory pressure increased. Despite this and FiO2 of 100% his oxygen saturation still remained in the 70s. On examination he actually exhibited cyanotic features over the entire face. The patient was trying to pull the BiPAP mask off earlier. His feels that he in fact is suffering. She asked if I could remove the BiPAP mask. I reviewed comfort measure only treatment plan with her. She feels that that is most appropriate at this time. I explained the process in detail. As she was in agreement I proceeded to institute the comfort measure plan. BiPAP was removed at approximately 11:05 AM. He was given 5 mg of morphine IV to prevent sudden onset of air hunger. His saturation and pulse plummeted shortly after the BiPAP was removed. He was flatline and pronounced at 11:20 AM December 01, 2019 The patient's is at the bedside Cause of Hypoxic respiratory failure Secondary to aspiration pneumonia Secondary to metastatic malignancy. Squamous cell carcinoma base of the right tongue metastasis in the right lung and lymph nodes Underlying history of chronic obstructive pulmonary disease
== END 2019-12-01 14:33 | disposition left against medical advice (07) | DRG 180 ==
LOC: ER 07:28 → EH 16:51 → 4N 18:44
PROVIDERS: ADMIT Hospitalist; ATTEND Hospitalist
PROC: 5A09357 Assistance with Respiratory Ventilation, Less than 24 Consecutive Hours, Continuous Positive Airway Pressure (ICD-10-PCS; principal; 2019-11-30)
DX: C78.01 Secondary malignant neoplasm of right lung (principal); J96.21 Acute and chronic respiratory failure with hypoxia; J18.9 Pneumonia, unspecified organism; J91.0 Malignant pleural effusion; J44.1 Chronic obstructive pulmonary disease with (acute) exacerbation; C01 Malignant neoplasm of base of tongue; Z66 Do not resuscitate; I10 Essential (primary) hypertension; E87.5 Hyperkalemia; E83.52 Hypercalcemia; E03.9 Hypothyroidism, unspecified; I73.9 Peripheral vascular disease, unspecified; Z96.89 Presence of other specified functional implants; Z99.81 Dependence on supplemental oxygen; Z93.1 Gastrostomy status; Z79.82 Long term (current) use of aspirin; Z79.891 Long term (current) use of opiate analgesic; Z79.51 Long term (current) use of inhaled steroids; Z79.899 Other long term (current) drug therapy
CPT/HCPCS: 36415; 71045; 71275; 74022; 80053; 81001; 82550; 82803; 83605; 83735; 83880; 84100; 84132; 84484; 85025; 85610; 85730; 87040; 93005; 93010; 94640; 94660; 96361; 96365; 96367; 96375; 99291; J0692; J1650; J1940; J2270; J2405; J3370; J3490; J7030; J7060; J7614